=== PATIENT | female | born 1990 | race Caucasian/White ===

== ENCOUNTER → 2017-05-02 16:47 | Outpatient (CLI) | payer OTHER, SELFPAY ==
[2017-05-02 18:14] LABS: Protein, Urine (Random) 87.8 mg/dL (<11.9); Protein:Creat Ratio 646 mg/g CRE (0-200)
[2017-05-02 18:39] LABS: Anion Gap 11 (5-15); BUN 17 mg/dL (7-18); BUN/Creat Ratio 20.5 RATIO (10-20); Calcium,Total 9.8 mg/dL (8.5-10.1); Chloride 101 mmol/L (98-107); Creatinine, Serum 0.83 mg/dL (0.55-1.02); EST Glomerular Filtration Rate 88 mL/min (>60); Est Glom Filt Rate - Afr Amer 106 mL/min (>60); Glucose 163 mg/dL (74-106); Sodium Level 137 mmol/L (136-145)
== END ==
PROVIDERS: Family Provider Family Medicine; PCP Family Medicine; Visit Provider Internal Medicine Nephrology
DX: E11.21 Type 2 diabetes mellitus with diabetic nephropathy (principal)
CPT/HCPCS: 36415; 80048; 82570; 84156

== ENCOUNTER 2017-09-15 07:27 | Day surgery (SDC) | payer OTHER, SELFPAY ==
--- NOTE | 2017-09-14 16:32 | EKG12_ITS ---
Test Reason : PRE OP Blood Pressure : / mmHG Vent. Rate : 098 BPM Atrial Rate : 098 BPM P-R Int : 146 ms QRS Dur : 088 ms QT Int : 360 ms P-R-T Axes : 040 012 042 degrees QTc Int : 459 ms Normal sinus rhythm Normal ECG Confirmed by VICTOR HUGO ECHEVARRIA, WYATT ([id number]), editorial intern OVIDIO OH ([id number]) on 09/21/2017 3:28:00 PM Referred By: Sharri Dominguez Confirmed By:WYATT GAY MD
[2017-09-15] VITALS (8 sets, daily range): BP systolic 124–151; BP diastolic 61–80; PULSE 65–87; RESP 16–18; TEMP 36.2–36.6; O2SAT 92–98; BMI 60.1
--- NOTE | 2017-09-15 | GALL_PTH ---
PATIENT: OSVALDO VENTURA LOC: [facility] [place][id number] AGE/SX: 27/F ROOM: RE09/15/[address]: Dr. Sharri Dominguez MD : 1990 BED: DIS: 09/15/2017 SPEC #: [id number] RECD: 09/15/17 13:27 STATUS: STEPHANIA NICK #: [id number] DULCE: 09/15/17 00:[address]: Sharri Domingeuz DEPT: SURGICAL PATHOLOGY RECD BY: Dutch Bazan ENTERED: 09/15/17 13:27 EDUAR TYPE: JUAQUIN VILLEGAS DR: Dr. Surendra Benton MD Tissues: Gallbladder, NOS Procedures: Surgery Specimen Level III HEADER OPERATION: Laparoscopic cholecystectomy PRE-OP DIAGNOSIS: Upper abdominal pain, cholelithiasis TISSUE SUBMITTED: Gallbladder and contents MICROSCOPIC DIAGNOSIS Gallbladder and contents: Chronic cholecystitis and cholelithiasis. SJ:eduar 09/18/17 MICROSCOPIC DESCRIPTION Slides are reviewed. GROSS DESCRIPTION Received is one container labeled with the patient's name and designated gallbladder and contents. The specimen consists of a gallbladder measuring 8.5 cm in length and up to 4 cm in diameter. The external surface is pink-olmos, smooth and glistening for the most part. Focally it is granular, hemorrhagic and contains cautery artifact. The gallbladder contains green-yellow mucoid bile and multiple yellow mulberry stones measuring in aggregate 4 x 3 x 1.5 cm and 0.3 to 1.5 cm in greatest dimension. The mucosa is bile-stained and without any mass lesions. The gallbladder wall measures 0.3 cm in thickness. Surgical Resident sections from the gallbladder and the cystic duct are submitted in one cassette. / MARIA ESTHER:sp 09/15/17 TC:3 CPT: 91099
[2017-09-15 07:57] LABS: Internal QC Validated? YES +Cl - CLEAR BKGD; Pregnancy, Urine Negative Negative
[2017-09-15 08:08] LABS: Anion Gap 10 (5-15); BUN 19 mg/dL (7-18); BUN/Creat Ratio 25.3 RATIO (10-20); Calcium,Total 9.1 mg/dL (8.5-10.1); Chloride 105 mmol/L (98-107); Creatinine, Serum 0.75 mg/dL (0.55-1.02); EST Glomerular Filtration Rate 98 mL/min (>60); Est Glom Filt Rate - Afr Amer 119 mL/min (>60); Glucose 157 mg/dL (74-106); Sodium Level 137 mmol/L (136-145)
[2017-09-15 08:41] LABS: Bedside Glucose 165 mg/dL (70-110)
--- NOTE | 2017-09-15 09:12 | DCINST_ITS ---
Discharge Diet: No Restrictions Discharge Activity: Return to Normal Activity, May not drive while taking narcotic pain medications. Lifting Restrictions: no lifting greater than 20 pounds for 2 weeks Call your doctor if your incision/area has: Continuous Slow Oozing, Foul Smelling Discharge Call your doctor if you observe: Fever of 101 or Higher Additional Dressing/Incision Instructions:: Leave dressings in place. May get wet in shower. Do not soak - no tub baths/swimming Allergies/Adverse Reactions: Allergies No Known Allergies Allergy (Verified 09/13/17 16:09) Medications to take at Discharge Albuterol IH (ProAir) [Proair Hfa] 2 puff INHALATION Q4H PRN PRN 10/26/13 Lisinopril/Hydrochlorothiazide [Zestoretic 20/25 Tablet] 1 tablet PO DAILY 10/26 Metformin HCl 1,000 mg PO BID 03/06/17 Glimepiride 1 mg PO DAILY 09/13/17 Hydrocodone/Acetaminophen [Kingman 5-325 Tablet] 1 ea PO Q6H PRN PRN 5 Days #20 tab 09/15/17 The following prescriptions were given: Hydrocodone/Acetaminophen [Kingman 5-325 Tablet] 1 ea PO Q6H PRN PRN 5 Days #20 tab PRN Reason: Mod-Severe Pain (-12/27) Primary Care Physician: Surendra Benton MD [Primary Care Provider] - Please Follow Up With: Sharri Dominguez MD - call When: to be seen in 7-10 days, please call for date and time, thank you
--- NOTE | 2017-09-15 10:31 | OP.PN_ITS ---
Immediate Post-Op Note Date of Procedure: 09/15/17 Primary Surgeon/Physician: Sharri Dominguez quality improvement specialist: Flynn Patel Pre-Operative Diagnosis: cholelithiasis Post-Operative Diagnosis: cholelithiasis, chronic cholecystitis Surgery/Procedure Performed:: laparoscopic cholecystectomy Description of Surgical Findings:: chronic cholecystitis, cholelithiasis Estimated Blood Loss: < 10 Specimen's removed: gallbladder and contents Drains: none Type of Anesthesia:: General ASA Class: ASA3 Severe Disease - Admit VTE Documentation VTE Present on Admission: Yes VTE Mechan Device Prophylaxis: SCD's
--- NOTE | 2017-09-15 10:34 | OP.PCM_ITS ---
Report of Operation Date of Procedure: 09/15/17 Pre-Operative Diagnosis: cholelithiasis Post-Operative Diagnosis: cholelithiasis, chronic cholecystitis Surgery/Procedure Performed:: laparoscopic cholecystectomy Description of Surgical Findings:: chronic cholecystitis, cholelithiasis doggy daycare activities director: Flynn Patel Type of Anesthesia:: General Anesthesiologist: Blanquita Baird Specimen's removed: gallbladder and contents Drains: none Estimated Blood Loss (mL): < 10 Fluids Replaced: 1100 ml RL Description of Procedure: After informed consent was given, the patient was brought to the Operating Room and placed in the supine position. Appropriate time out protocol was followed. The patient was then placed under general endotracheal anesthesia. The abdomen was then prepped with a sterile surgical skin preparation and sterile surgical drapes were placed. An area above the umbilicus was grasped with penetrating clamps and the skin and subcutaneous tissues were infiltrated with local anesthetic. A skin incision was then made with a 15 blade scalpel. The anterior abdominal wall was elevated and a Veress needle was carefully inserted into the intraabdominal cavity. It was checked to be in the proper position with a normal saline drop test. A CO2 pneumoperitoneum was then created. Once this was achieved, then the Veress needle was removed and an 11mm trocar was placed in its stead. A 10mm laparoscope was then inserted into the trocar and careful attention was directed to the intraabdominal contents. There was no evidence of injury to any intraabdominal organs from insertion of the Veress needle or the trocar. Under direct visualization, a 5mm subxiphoid trocar and two lateral 5mm right subcostal trocars were placed. The skin and subcutaneous tissues at these sites were infiltrated with 0.25% marcaine with epinephrine prior to placement of these trocars. Attention was then directed to the right upper quadrant of the abdomen. Graspers were placed in the lateral trocars to grasp the distal aspect of the gallbladder and direct it cephalad and to grasp the gallbladder at Kam?s pouch and direct it laterally. Dissection then began on the proximal gallbladder continuing down to the area of the triangle of Calot to bluntly dissect out the cystic duct. The neck of the gallbladder was identified and blunt dissection continued to dissect out a segment of the cystic duct. A clip was then placed on the neck of the gallbladder. Two clips were placed proximally and then the cystic duct was then transected. The cystic artery was visualized and bluntly isolated and then two clips were placed proximally and one clip distally and then it was transected between the proximal and distal clips. The gallbladder was then from the liver bed using electrocautery and thus able to be brought out of the umbilical port. It was then forwarded to pathology for analysis. The liver bed was carefully examined. There was no evidence of bile leakage or bleeding. The cystic duct stump and cystic artery stump had their clips intact and there was no evidence of bile leakage or bleeding. The remainder of the abdomen was grossly normal. The CO2 was released and all trocars removed intact. The area superior to the umbilicus fascia was approximated with a [id number] 0 vicryl suture. All skin incision were closed with 4-0 monocryl in a subdermal fashion. Cavilol and Steristrips were used to reinforce the skin closure. Sterile dressings were applied to all wounds. The patient was extubated and brought to the Recovery Room in stable condition. Of note, the procedure was complicated by the patient's body habitus which took prolonged time in every step of the surgery because of the patient's body habitus. - Complications none noted - Admit VTE Documentation VTE Present on Admission: Yes VTE Mechan Device Prophylaxis: SCD's
[2017-09-15 11:36] LABS: Bedside Glucose 234 mg/dL (70-110)
[2017-09-15] MEDS: HYDROcodone Bitartrate/Apap 5/325 Tablet PO (12:38)
== END 2017-09-15 14:13 | disposition home or self-care (01) ==
LOC: SDC 07:29 → AC 07:29
PROVIDERS: Anesthesiology; Family Provider Family Medicine; PCP Family Medicine; Visit Provider Surgery
PROC: (CPT 47610; principal; 2017-09-15 09:15)
DX: K80.10 Calculus of gallbladder with chronic cholecystitis without obstruction (principal); K76.0 Fatty (change of) liver, not elsewhere classified; E66.01 Morbid (severe) obesity due to excess calories; J45.909 Unspecified asthma, uncomplicated; F32.9 Major depressive disorder, single episode, unspecified; E11.9 Type 2 diabetes mellitus without complications; E28.2 Polycystic ovarian syndrome; I10 Essential (primary) hypertension; K21.9 Gastro-esophageal reflux disease without esophagitis; Z79.84 Long term (current) use of oral hypoglycemic drugs; Z79.899 Other long term (current) drug therapy
CPT/HCPCS: 47562; 80048; 81025; 82962; 88304; 93005; J7120; J2405

== ENCOUNTER 2017-10-20 11:57 | Emergency (ER) | payer OTHER, SELFPAY ==
[2017-10-20 11:59] VITALS: BP 152/101; PULSE 92; RESP 16; TEMP 37; O2SAT 97; BMI 59.5
[2017-10-20 13:09] LABS: Absolute Lymphocyte Count 2.99 X10^3/ul (0.83-4.51); Absolute Neutrophil Count 6.3 X10^3/uL (2.0-7.7); Basophil# 0.02 X10^3/uL; Basophil% 0.2 % (0-1); Eosinophil# 0.32 X10^3/uL; Eosinophils% 3.1 % (0-5); Hematocrit 38.1 % (37-47); Hemoglobin 12.5 g/dl (12.0-15.0); Lymphocyte # 2.99 X10^3/ul (4.0); Lymphocyte % 29.2 % (19-41); Mean Corp Hgb Conc 32.8 g/gl (32-36); Mean Corpuscular Hgb 30.4 pg (27.0-32.0); Mean Corpuscular Volume 92.7 fL (81-99); Monocyte# 0.62 X10^3/uL; Monocyte% 6.1 % (0-10); Neutrophil # 6.26 X10^3/uL (2.7-7.7); Neutrophil % 61.2 % (47-70); POSITIVE COUNT NO; POSITIVE DIFFERENTIAL NO; POSITIVE MORPHOLOGY NO; Platelet Count 262 K/mm3 (150-450); RBC Distribution Width SD 43.4 fl (35.1-43.9); Red Blood Count 4.11 M/mm3 (4.2-5.4); White Blood Count 10.2 K/mm3 (4.4-11.0)
[2017-10-20] MEDS: Morphine 4 MG/ML Syringe IV (13:11)
[2017-10-20] MEDS: 0.9% Normal Saline 1,000 ML 1000 ML IV (13:12)
[2017-10-20] MEDS: Ondansetron 4 MG/2 ML Vial IV (13:12)
[2017-10-20 13:22] LABS: ALB/GLOB Ratio 0.9 RATIO (0.9-2.4); AST(SGOT) 20 U/L (15-37); Alanine Aminotransfer ALT/SGPT 34 U/L (13-56); Albumin, Serum 3.9 g/dL (3.2-5.0); Alkaline Phosphatase 74 U/L (45-117); Anion Gap 8 (5-15); BUN 14 mg/dL (7-18); Calcium,Total 9.3 mg/dL (8.5-10.1); Chloride 103 mmol/L (98-107); Creatinine, Serum 0.78 mg/dL (0.55-1.02); EST Glomerular Filtration Rate 94 mL/min (>60); Est Glom Filt Rate - Afr Amer 114 mL/min (>60); Estimated Creatinine Clearance 89.62 ml/min; Globulin 4.4 g/dL (2.2-4.2); Glucose 117 mg/dL (74-106); Lipase 97 U/L (73-393); Potassium 4.1 mmol/L (3.5-5.1); Protein, Total 8.3 g/dL (6.4-8.2); Sodium Level 137 mmol/L (136-145)
[2017-10-20 13:32] LABS: Bacteria 0 SEEN /hpf (None Seen); Mucous, Urine 0 SEEN /hpf (<or=2+); Red Blood Cells-Urine 0 SEEN /hpf (0-5); White Blood Cells 0 SEEN /hpf (0-5)
[2017-10-20 13:35] LABS: Color, Urine Yellow (Yellow); Glucose, Dipstick Normal (Normal); Ketone-Dipstick Negative (Negative); Leukocyte Esterase-Dipstick Negative /ul (Negative); Nitrite-Dipstick Negative (Negative); Occult Blood-Urine Negative /ul (Negative); Protein-Dipstick 30 mg/dl (Negative); Urine Bilirubin Dipstick Negative (Negative); Urine Clarity Clear (Clear); Urine Urobilinogen Normal (Normal)
[2017-10-20 13:46] LABS: Squamous Epithelial Cells - UA 0-5 SEEN /hpf (5-10)
[2017-10-20 14:08] VITALS: BP 143/83; PULSE 75; RESP 14; O2SAT 99
--- NOTE | 2017-10-20 15:24 | ED.VISSUMM ---
- ER Visit Summary Date of Service: 10/20/17 Chief Complaint: Epigastric and right upper quadrant pain History of Present Illness: The patient is a 27 F with above complaints. About 5 weeks ago she had a cholecystectomy. She has not had any complications. She is presenting with the above complaints without any nausea vomiting fever chills. No diarrhea or constipation. No lower abdominal pain. No urinary symptoms. Physical Examination: Not appear in acute distress. Moist mucous membranes, no obvious facial deformity No C-spine tenderness supple neck. Regular rate and rhythm without any obvious murmurs Clear lungs bilaterally speaking in full sentences without any obvious respiratory distress Abdomen soft, with right upper quadrant tenderness, no guarding or rebound, there is some epigastric pain also. Negative Martin's. Moves all extremities without any difficulty or pain. Skin does not show any obvious rashes or lesions, no trauma. Alert oriented ?3 with no gross focal deficit Emergency Department Course and Treatment: [Patient had an unremarkable workup, she significantly improved with antacids and analgesics. This is likely gastritis or an ulcer I will treat her as such and she will be discharged in stable condition of follow-up.] Impression: Abdominal pain Gastritis This note was generated with [employer]Doc dictation software. It may contain incorrect words, spelling, and punctuation that were not noted in review of the chart prior to signing ED Disposition - Plan for ED Patient: Disposition: Home or Assisted Living Chief Complaint: Abd Pain Instructions: ED Abdominal Pain Unkn Cause Prescriptions: Omeprazole 20 mg PO DAILY #30 tablet. Sucralfate [Carafate] 1 gm PO 4X/DAY #20 [facility] [place]errals: Surendra Benton MD [Primary Care Provider] - 3-5 Days
--- NOTE | 2017-10-20 15:29 | ED.DCSUM_ITS ---
- ER Visit Summary Date of Service: 10/20/17 Chief Complaint: Epigastric and right upper quadrant pain History of Present Illness: The patient is a 27 F with above complaints. About 5 weeks ago she had a cholecystectomy. She has not had any complications. She is presenting with the above complaints without any nausea vomiting fever chills. No diarrhea or constipation. No lower abdominal pain. No urinary symptoms. Physical Examination: Not appear in acute distress. Moist mucous membranes, no obvious facial deformity No C-spine tenderness supple neck. Regular rate and rhythm without any obvious murmurs Clear lungs bilaterally speaking in full sentences without any obvious respiratory distress Abdomen soft, with right upper quadrant tenderness, no guarding or rebound, there is some epigastric pain also. Negative Martin's. Moves all extremities without any difficulty or pain. Skin does not show any obvious rashes or lesions, no trauma. Alert oriented ?3 with no gross focal deficit Emergency Department Course and Treatment: [Patient had an unremarkable workup, she significantly improved with antacids and analgesics. This is likely gastritis or an ulcer I will treat her as such and she will be discharged in stable condition of follow-up.] Impression: Abdominal pain Gastritis This note was generated with OnePage[employer]M dictation software. It may contain incorrect words, spelling, and punctuation that were not noted in review of the chart prior to signing ED Disposition - Plan for ED Patient: Disposition: Home or Assisted Living Chief Complaint: Abd Pain Instructions: ED Abdominal Pain Unkn Cause Prescriptions: Omeprazole 20 mg PO DAILY #30 tablet. Sucralfate [Carafate] 1 gm PO 4X/DAY #20 [facility] [place] Referrals: Surendra Benton MD [Primary Care Provider] - 3-5 Days
[2017-10-20] MEDS: Famotidine 20mg IV Push Syringe Q12 300 MG IVP (15:49)
[2017-10-20 15:53] VITALS: BP 127/76; RESP 18
== END 2017-10-20 15:56 | disposition home or self-care (01) ==
PROVIDERS: Emergency Provider Emergency Medicine; Family Provider Family Medicine; PCP Family Medicine
DX: R10.13 Epigastric pain (principal); R10.11 Right upper quadrant pain; K29.70 Gastritis, unspecified, without bleeding; E11.9 Type 2 diabetes mellitus without complications; Z90.49 Acquired absence of other specified parts of digestive tract; Z79.84 Long term (current) use of oral hypoglycemic drugs
CPT/HCPCS: 80053; 81001; 83690; 85025; 96361; 96374; 96375; 99284; J7030; A4216; J2405; J3490

== ENCOUNTER 2017-11-08 11:24 | Day surgery (SDC) | payer OTHER, SELFPAY ==
[2017-11-08] VITALS (9 sets, daily range): BP systolic 102–140; BP diastolic 47–89; PULSE 70–93; RESP 18; TEMP 36.4–37.1; O2SAT 97–99; BMI 60.5
--- NOTE | 2017-11-08 | IMM_PTH ---
PATIENT: OSVALDO VENTURA LOC: [place] U#:[id number] AGE/SX: 27/F ROOM: RE11/08/[address]: Dr. Sharri Dominguez MD : 1990 BED: DIS: 11/08/2017 SPEC #: [id number] RECD: 11/09/17 11:06 STATUS: STEPHANIA RESmiley #: [id number] DULCE: 11/08/17 00:[address]: Sharri Dominguez DEPT: IMMUNOHISTOCHEMISTRY RECD BY: Anita Mccollum ENTERED: 11/09/17 11:07 SP TYPE: IMMUNO OTHR DR: Dr. Surendra Benton MD Tissues: B - Stomach, NOS Procedures: H Pylori (initial) PHYSICIAN & INSTITUTION [place] [address] SPECIMEN INFORMATION: Tissue Source: B ? Antral biopsy Clinical Info: Upper abdominal pain Specimen Number: [id number] CPT code: 10917 METHODOLOGY: Deparaffinized sections of prefer/formalin-fixed tissue or PAP/DQ stained slides are incubated with monoclonal/polyclonal antibodies/oligonucleotide probes. Localization is made via biotin free immunoperoxidase method. Appropriate controls are performed and reacted as expected. Results on target cell population are indicated in the following table: RESULTS: ANTIBODY / CLONE RESULT Block B H Pylori (polyclonal) negative These tests were developed and their performance characteristics determined by [facility]. They may not have been cleared or approved by the U.S. Food and Drug Administration. The FDA has determined that such clearance or approval is not necessary. INTERPRETATION: B. Antral biopsy: Negative for Helicobacter pylori organisms. SJ:jean cladue 11/09/17
[2017-11-08 11:56] LABS: Internal QC Validated? YES +Cl - CLEAR BKGD; Pregnancy, Urine Negative Negative
--- NOTE | 2017-11-08 12:30 | EGD_PTH ---
PATIENT: OSVALDO VENTURA LOC: [place] U#:[id number] AGE/SX: 27/F ROOM: RE11/08/[address]: Dr. Sharri Dominguez MD : 1990 BED: DIS: 11/08/2017 SPEC #: [id number] RECD: 11/08/17 14:17 STATUS: STEPHANIA NICK #: [id number] DULCE: 11/08/17 12:[address]: Sharri Dominguez DEPT: SURGICAL PATHOLOGY RECD BY: Lenny Peters ENTERED: 11/08/17 14:18 SP TYPE: EGD BIOPSY OTHR DR: Dr. Surendra Benton MD Tissues: A - Duodenum, NOS B - Gastric mucous membrane C - Gastric mucous membrane Procedures: Special Stain Group II Surgery Specimen Level IV Alcian Blue/PAS (control) HEADER OPERATION: EGD ([facility] [place]) PRE-OP DIAGNOSIS: Upper abdominal pain TISSUE SUBMITTED: A ? Second portion duodenum biopsy, B ? Antral biopsy, C ? GE junction biopsy MICROSCOPIC DIAGNOSIS A. Second portion of duodenum, biopsy: A fragment of duodenal mucosa, no pathologic diagnosis. B. Antral biopsy: Mild gastritis. C. GE junction, biopsy: Fragments of gastroesophageal mucosa with chronic inflammation and changes consistent with gastroesophageal reflux disease. Intestinal metaplasia (goblet cell metaplasia) is not identified. See comment. SJ:rg 11/09/17 COMMENT B. The results of immunohistochemistry for Helicobacter pylori will be reported separately ([id number]). C. The specimen also shows increased number of eosinophils suggestive of eosinophilic esophagitis (up to 20 eosinophils per high power field). Alcian blue/PAS stain with matched control is used in the evaluation of the specimen. MICROSCOPIC DESCRIPTION Slides are reviewed. B. The specimen shows fragments of gastric mucosa with chronic inflammatory cell infiltrates in the lamina propria consisting of lymphocytes and plasma cells, consistent with mild chronic gastritis. GROSS DESCRIPTION A - Received in fixative is one container labeled with the patient's name and designated second portion of duodenum biopsy. The specimen consists of one irregular fragment of light olmos soft tissue that measures 0.3 x 0.3 x 0.1 cm. The specimen is totally submitted in one cassette. B - Received in fixative is one container labeled with the patient's name and designated antral biopsy. The specimen consists of one irregular fragment of light olmos soft tissue that measures 0.4 x 0.2 x 0.1 cm. The specimen is totally submitted in one cassette. C - Received in fixative is one container labeled with the patient's name and designated GE junction biopsy. The specimen consists of two irregular fragments of light olmos soft tissue that in aggregate measure 0.5 x 0.2 x 0.1 cm. The specimen is totally submitted in one cassette. / SJ:rg 11/08/17 TC:3 CPT: 04025 x3, 87386
[2017-11-08 13:06] LABS: Bedside Glucose 158 mg/dL (70-110)
--- NOTE | 2017-11-08 19:18 | PCM.OPRPT ---
Report of Operation Date of Procedure: 11/08/17 Pre-Operative Diagnosis: upper abdominal pain Post-Operative Diagnosis: hiatal hernia, GERD, enterogastric bile reflux Surgery/Procedure Performed:: EGD with biopsies Description of Surgical Findings:: small to moderate sized hiatal hernia noted, active gastroesophageal reflux noted, enterogastric reflux of bile noted Type of Anesthesia:: MAC Anesthesiologist: Ronny Robles Specimen's removed: mucosal biopsies of second portion of duodenum, mucosal biopsies of antrum of stomach, mucosal biopsies of GE junction Estimated Blood Loss (mL): minimal Fluids Replaced: see anesthesia note Description of Procedure: After informed consent was given, the patient was brought to the endoscopy suite and placed in the upright sitting position. Appropriate time out protocol was followed. Appropriate cardiac, blood pressure, and pulse oximetry monitoring was placed. After stable vital signs were noted, the patient was given intravenous conscious sedation. The posterior pharynx was sprayed with lidocaine spray and a bite block was placed. The patient was then placed in the left lateral decubitis position. The upper endoscope was lubricated and inserted into the patients mouth and then carefully placed into the patients throat. The patient was asked to swallow and the endoscope was then easily advanced into the patients esophagus. The endoscope was further advanced down into the patients stomach, then past the pylorus, then past the duodenal bulb and then to the second portion of the duodenum. There were no lesions noted in the duodenum. Mucosal biopsies were taken with cold grasper forceps to rule out celiac sprue. The endoscope was then retracted back into the stomach. Mucosal biopsies were taken of the antrum to rule out H pylori, though the mucosa appeared grossly normal, There was enterogastric bile reflux noted and there was retained bile in the stomach. A retroflex view of the stomach revealed no evidence of any masses. No ulcers, no strictures, no suspicious lesions were noted. The patient had a small to moderate sided hiatal hernia with active gastroesophageal reflux noted. The endoscope was retracted into the esophagus. The GI junction appeared minimally irregular, mucosal biopsies were taken with cold grasper forceps. Active gastroesophageal reflux was noted. The remainder of the esophagus was normal. The upper endoscope was removed intact. Patient tolerated procedure well. - Complications none noted
== END 2017-11-08 14:15 | disposition home or self-care (01) ==
LOC: EN 11:25 → AC 11:26
PROVIDERS: Family Provider Family Medicine; PCP Family Medicine; Visit Provider Surgery
PROC: 0DJ08ZZ Inspection of Upper Intestinal Tract, Via Natural or Artificial Opening Endoscopic (ICD-10-PCS; CPT 43235; principal; 2017-11-08 12:25)
DX: K29.70 Gastritis, unspecified, without bleeding (principal); K44.9 Diaphragmatic hernia without obstruction or gangrene; K21.9 Gastro-esophageal reflux disease without esophagitis; J45.909 Unspecified asthma, uncomplicated; F32.9 Major depressive disorder, single episode, unspecified; E11.9 Type 2 diabetes mellitus without complications; E28.2 Polycystic ovarian syndrome; I10 Essential (primary) hypertension; Z90.49 Acquired absence of other specified parts of digestive tract; Z79.84 Long term (current) use of oral hypoglycemic drugs; Z79.899 Other long term (current) drug therapy; Z87.891 Personal history of nicotine dependence
CPT/HCPCS: 43239; 81025; 82962; 88305; 88313; 88342; J7120

== ENCOUNTER → 2018-07-03 16:35 | Outpatient (CLI) | payer OTHER, SELFPAY ==
[2017-11-08 11:59] VITALS: BMI 60.5
[2018-07-03 18:04] LABS: Protein, Urine (Random) 65.2 mg/dL (<11.9); Protein:Creat Ratio 476 mg/g CRE (0-200)
[2018-07-03 18:18] LABS: Anion Gap 7 (5-15); BUN 13 mg/dL (7-18); BUN/Creat Ratio 17.4 RATIO (10-20); Calcium,Total 9.6 mg/dL (8.5-10.1); Chloride 105 mmol/L (98-107); Creatinine, Serum 0.75 mg/dL (0.55-1.02); EST Glomerular Filtration Rate 98 mL/min (>60); Est Glom Filt Rate - Afr Amer 119 mL/min (>60); Glucose 102 mg/dL (74-106); Potassium 4.3 mmol/L (3.5-5.1); Sodium Level 137 mmol/L (136-145)
== END ==
PROVIDERS: Family Provider Family Medicine; PCP Family Medicine; Referring Provider Internal Medicine Nephrology; Visit Provider Internal Medicine Nephrology
DX: E11.21 Type 2 diabetes mellitus with diabetic nephropathy (principal)
CPT/HCPCS: 36415; 80048; 82570; 84156

== ENCOUNTER → 2018-10-03 | Outpatient (CLI) | payer OTHER, SELFPAY ==
[2018-10-03 17:25] LABS: Protein, Urine (Random) 41.2 mg/dL (<11.9); Protein:Creat Ratio 358 mg/g CRE (0-200)
[2018-10-03 17:29] LABS: BUN 18 mg/dL (7-18); BUN/Creat Ratio 24.8 RATIO (10-20); Calcium,Total 9.6 mg/dL (8.5-10.1); Chloride 104 mmol/L (98-107); Creatinine, Serum 0.73 mg/dL (0.55-1.02); EST Glomerular Filtration Rate 101 mL/min (>60); Est Glom Filt Rate - Afr Amer 122 mL/min (>60); Glucose 102 mg/dL (74-106); Phosphorus 4.5 mg/dL (2.5-4.9); Potassium 4.1 mmol/L (3.5-5.1); Sodium Level 135 mmol/L (136-145)
== END | disposition home or self-care (01) ==
LOC: LAB.FUTURE 16:39
PROVIDERS: Family Provider Family Medicine; PCP Family Medicine; Referring Provider Internal Medicine Nephrology; Visit Provider Internal Medicine Nephrology
DX: E11.21 Type 2 diabetes mellitus with diabetic nephropathy (principal)
CPT/HCPCS: 36415; 80069; 82570; 84156

== ENCOUNTER → 2019-09-27 14:06 | Outpatient (CLI) | payer OTHER, SELFPAY ==
[2017-11-08 11:59] VITALS: BMI 60.5
[2019-09-27 15:17] LABS: Protein, Urine (Random) 339.3 mg/dL (<11.9); Protein:Creat Ratio 1216 mg/g CRE (0-200)
[2019-09-27 16:10] LABS: Albumin, Serum 3.7 g/dL (3.2-5.0); BUN 11 mg/dL (7-18); BUN/Creat Ratio 13.8 RATIO (10-20); Calcium,Total 9.4 mg/dL (8.5-10.1); Chloride 100 mmol/L (98-107); EST Glomerular Filtration Rate 90 mL/min (>60); Est Glom Filt Rate - Afr Amer 109 mL/min (>60); Glucose 252 mg/dL (74-106); Phosphorus 3.4 mg/dL (2.5-4.9); Sodium Level 134 mmol/L (136-145)
== END ==
PROVIDERS: PCP Family Medicine; Referring Provider Internal Medicine Nephrology; Visit Provider Internal Medicine Nephrology
DX: E11.21 Type 2 diabetes mellitus with diabetic nephropathy (principal)
CPT/HCPCS: 36415; 80069; 82570; 84156

== ENCOUNTER → 2020-10-07 16:38 | Outpatient (CLI) | payer OTHER, SELFPAY ==
[2020-10-07 17:26] LABS: Protein, Urine (Random) 19.6 mg/dL (<11.9); Protein:Creat Ratio 205 mg/g CRE (0-200)
[2020-10-07 17:28] LABS: Albumin, Serum 3.9 g/dL (3.2-5.0); BUN 17 mg/dL (7-18); BUN/Creat Ratio 22.7 RATIO (10-20); Calcium,Total 8.9 mg/dL (8.5-10.1); Chloride 105 mmol/L (98-107); Creatinine, Serum 0.75 mg/dL (0.55-1.02); EST Glomerular Filtration Rate 97 mL/min (>60); Est Glom Filt Rate - Afr Amer 117 mL/min (>60); Glucose 102 mg/dL (74-106); Sodium Level 136 mmol/L (136-145)
== END ==
PROVIDERS: PCP Family Medicine; Referring Provider Internal Medicine Nephrology; Visit Provider Internal Medicine Nephrology
DX: E11.21 Type 2 diabetes mellitus with diabetic nephropathy (principal)
CPT/HCPCS: 36415; 80069; 82570; 84156

== ENCOUNTER 2021-05-13 11:16 | Outpatient (CLI) | payer OTHER, SELFPAY ==
[2021-05-17 20:20] LABS: HPV APTIMA, High Risk Negative (Negative)
== END 2021-05-13 23:59 | disposition home or self-care (01) ==
LOC: LABSPEC 11:17
PROVIDERS: PCP Family Medicine; Visit Provider Student in an Organized Health Care Education/Training Program
DX: Z12.4 Encounter for screening for malignant neoplasm of cervix (principal)
CPT/HCPCS: 87624; 88175; G0145

== ENCOUNTER 2021-06-09 06:08 | Outpatient (CLI) | payer OTHER, SELFPAY ==
[2021-06-09 07:45] LABS: Estradiol 38.5 pg/mL; Follicle Stimulating Hormone 3.5 mIU/mL; Prolactin 11.9 ng/mL; Thyroid Stim Hormone (TSH) 2.68 uIU/mL (0.358-3.74)
[2021-06-09 10:33] LABS: Hepatitis B Surface Antibody Non-Reactive; Rubella IgG Reactive (Nonreactive); Vitamin D,25 Hydroxy 16.3 ng/mL
[2021-06-10 14:51] LABS: V-Zoster IgG (Immunity) 960 index (Immune >165)
[2021-06-16 21:22] LABS: 17-Hydroxyprogesterone 12 ng/dL (.)
== END 2021-06-09 23:59 | disposition home or self-care (01) ==
LOC: LAB 06:10
PROVIDERS: PCP Family Medicine; Referring Provider Student in an Organized Health Care Education/Training Program; Visit Provider Student in an Organized Health Care Education/Training Program
DX: N92.6 Irregular menstruation, unspecified (principal)
CPT/HCPCS: 36415; 82306; 82670; 83001; 83002; 83498; 84146; 84439; 84443; 86706; 86762; 86787

== ENCOUNTER 2021-06-28 10:49 | Outpatient (CLI) | payer OTHER, SELFPAY ==
[2021-06-28 13:32] LABS: Progesterone Level 1.36 ng/mL (See Comment)
[2021-07-02 11:33] LABS: Testosterone Free 8.4 pg/mL (0.0-4.2)
== END 2021-06-28 23:59 | disposition home or self-care (01) ==
PROVIDERS: PCP Family Medicine; Visit Provider Student in an Organized Health Care Education/Training Program
DX: N92.6 Irregular menstruation, unspecified (principal)
CPT/HCPCS: 36415; 82627; 84144; 84402; 82626

== ENCOUNTER → 2021-10-05 | Outpatient (CLI) | payer OTHER, SELFPAY ==
[2017-11-08 11:59] VITALS: BMI 60.5
[2021-10-05 17:35] LABS: Protein, Urine (Random) 41.9 mg/dL (<11.9); Protein:Creat Ratio 349 mg/g CRE (0-200)
[2021-10-05 20:18] LABS: BUN 20 mg/dL (7-18); BUN/Creat Ratio 23.3 RATIO (10-20); Calcium,Total 9.8 mg/dL (8.5-10.1); Chloride 104 mmol/L (98-107); Creatinine, Serum 0.86 mg/dL (0.55-1.02); EST Glomerular Filtration Rate 82 mL/min (>60); Est Glom Filt Rate - Afr Amer 99 mL/min (>60); Glucose 116 mg/dL (74-106); Phosphorus 4.4 mg/dL (2.5-4.9); Potassium 4.4 mmol/L (3.5-5.1); Sodium Level 137 mmol/L (136-145)
== END | disposition home or self-care (01) ==
LOC: LAB 16:39
PROVIDERS: PCP Family Medicine; Visit Provider Internal Medicine Nephrology
DX: E11.21 Type 2 diabetes mellitus with diabetic nephropathy (principal)
CPT/HCPCS: 36415; 80069; 82570; 84156

== ENCOUNTER → 2022-09-29 | Outpatient (CLI) | payer OTHER, SELFPAY ==
[2022-09-29 17:42] LABS: Protein, Urine (Random) 45.8 mg/dL (<11.9); Protein:Creat Ratio 236 mg/g CRE (0-200)
[2022-09-29 17:50] LABS: Vitamin D,25 Hydroxy 32.2 ng/mL
[2022-09-29 18:02] LABS: Hemoglobin A1c 6.4 % (3.8-5.6)
[2022-09-29 18:06] LABS: AST(SGOT) 13 U/L (15-37); Alanine Aminotransfer ALT/SGPT 29 U/L (13-56); Albumin, Serum 3.9 g/dL (3.2-5.0); Alkaline Phosphatase 68 U/L (45-117); Anion Gap 9 (5-15); BUN 17 mg/dL (7-18); BUN/Creat Ratio 20.9 RATIO (10-20); Calcium,Total 9.6 mg/dL (8.5-10.1); Chloride 106 mmol/L (98-107); Cholesterol 141 mg/dL (200); Creatinine, Serum 0.82 mg/dL (0.55-1.02); EST Glomerular Filtration Rate 86 mL/min (>60); Est Glom Filt Rate - Afr Amer 104 mL/min (>60); Glucose 102 mg/dL (74-106); High Density Lipoprotein 51 mg/dL; Phosphorus 3.9 mg/dL (2.5-4.9); Potassium 4.2 mmol/L (3.5-5.1); Protein, Total 7.9 g/dL (6.4-8.2); Sodium Level 138 mmol/L (136-145); T4 Free Direct 1.04 ng/dL (0.76-1.46); Thyroid Stim Hormone (TSH) 1.67 uIU/mL (0.358-3.74); Triglycerides 92 mg/dL; Very Low Density Lipoprotein 18 mg/dL (5-40)
[2022-10-12 15:13] LABS: Testosterone, Total 87 ng/dL (8-60)
== END | disposition home or self-care (01) ==
LOC: LAB 16:38
PROVIDERS: Internal Medicine Endocrinology, Diabetes & Metabolism; Nurse Practitioner Family; PCP Family Medicine; Referring Provider Internal Medicine Nephrology; Visit Provider Internal Medicine Nephrology
DX: E11.21 Type 2 diabetes mellitus with diabetic nephropathy (principal); E28.2 Polycystic ovarian syndrome; E66.9 Obesity, unspecified; E55.9 Vitamin D deficiency, unspecified
CPT/HCPCS: 36415; 80053; 80061; 82043; 82306; 82570; 82627; 83036; 84100; 84156; 84402; 84403; 84439; 84443; 82626

== ENCOUNTER → 2023-10-05 | Outpatient (CLI) | payer OTHER, SELFPAY ==
[2023-10-05 17:34] LABS: Albumin, Serum 4.2 g/dL (3.2-5.0); BUN 25 mg/dL (7-18); BUN/Creat Ratio 23.4 RATIO (10-20); Calcium,Total 9.8 mg/dL (8.5-10.1); Chloride 102 mmol/L (98-107); Creatinine, Serum 1.07 mg/dL (0.55-1.02); EST Glomerular Filtration Rate 63 mL/min (>60); Est Glom Filt Rate - Afr Amer 76 mL/min (>60); Glucose 115 mg/dL (74-106); Phosphorus 3.7 mg/dL (2.5-4.9); Potassium 4.4 mmol/L (3.5-5.1); Sodium Level 133 mmol/L (136-145)
[2023-10-05 17:43] LABS: Protein, Urine (Random) 25.9 mg/dL (<11.9); Protein:Creat Ratio 79 mg/g CRE (0-200)
== END | disposition home or self-care (01) ==
LOC: LAB 16:33
PROVIDERS: PCP Family Medicine; Referring Provider Internal Medicine Nephrology; Visit Provider Internal Medicine Nephrology
DX: E11.21 Type 2 diabetes mellitus with diabetic nephropathy (principal)
CPT/HCPCS: 36415; 80069; 82570; 84156

== ENCOUNTER → 2024-10-01 | Outpatient (CLI) | payer OTHER, SELFPAY ==
[2024-10-01 17:47] LABS: Albumin, Serum 4.7 g/dL (3.5-5.0); Anion Gap 17 (5-15); BUN 15 mg/dL (4-19); BUN/Creat Ratio 15.6 RATIO (10-20); Calcium,Total 9.9 mg/dL (7.6-11.0); Carbon Dioxide 19.0 mmol/L (21.0-32.0); Chloride 101 mmol/L (98-108); Creatinine, Urine (random) 173.00 mg/dL (28.00-217.00); Glucose 110 mg/dL (70-99); Potassium 4.0 mmol/L (3.3-5.1); Protein, Urine (Random) 15.2 mg/dL (0.0-12.0); Protein:Creat Ratio 88 mg/g CRE (0-200)
--- OUTSIDE RECORDS SUMMARY | 2024-10-01 22:20 | XMS RPT_ITS | CCD ---
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 Surendra Benton Primary Care Provider Dr. Surendra Benton Referring Provider [phone] Dr. Jonatan Interiano Attending Provider Surendra Benton MD Primary Care Provider Dr. Surendra Benton Primary Care Provider Dr. Surendra Benton Referring Provider Dr. Jonatan Interiano Attending Provider [phone] Surendra Benton MD Primary Care Provider Francisco ASSISTANT CONSTRUCTION SUPERINTENDENT.Flora [place] Unavailable [phone] Efrain ASSISTANT CONSTRUCTION SUPERINTENDENT.Teressa [place] Unavailable [phone] Jonatan Interiano Attending Unavailable Surendra Benton Primary Care Unavailable Surendra Benton Referring Unavailable Surendra Benton Primary Care Unavailable Katelin Crump Attending Unavailable Katelin Crump Referring Unavailable Surendra Benton Primary Care Unavailable Katelin Crump Attending Unavailable Jonatan Interiano Attending Unavailable Surendra Benton Primary Care Unavailable Surendra Benton Referring Unavailable SURENDRA BENTON Primary Care Unavailable FLORA SINGH Attending Unavailable RADHA SHORT Attending Unavailable SURENDRA BENTON Primary Care Unavailable FLORA SINGH Referring Unavailable Medications Current Medications Medication Drug Class(es) Dates Sig (Normalized) Sig (Original) [id number] 200 actuat albuterol 0.09 mg/actuat metered dose inhaler (20 sources) beta2-Adrenergic Agonist Start: 08-21-2023 End: 05-30-2024 take 2 puff(s) by inhalation every four hours as needed for wheezing albuterol HFA (PROVENTIL HFA, VENTOLIN HFA) 90 mcg/actuation inhaler Indications: Uncomplicated asthma, unspecified asthma severity, unspecified whether persistent (HCC) , SOB (shortness of breath) Inhale 2 Puffs as instructed every 4 hours as needed for wheezing/shortness of breath. 1 Each 05/30/2024 Active Start: 12-12-2022 End: 08-19-2023 take 2 puff(s) by inhalation every four hours as needed for wheezing albuterol HFA (PROVENTIL HFA, VENTOLIN HFA) 90 mcg/actuation inhaler Indications: Uncomplicated asthma, unspecified asthma severity, unspecified whether persistent , SOB (shortness of breath) Inhale 2 Puffs as instructed every 4 hours as needed for wheezing/shortness of breath. 1 Each 0 12/12/2022 08/19/2023 Discontinued Start: 02-20-2020 End: 09-27-2021 take 2 puff(s) by inhalation every four hours as needed for wheezing albuterol HFA (PROVENTIL HFA, VENTOLIN HFA) 90 mcg/actuation inhaler Indications: Uncomplicated asthma, unspecified asthma severity, unspecified whether persistent , SOB (shortness of breath) Inhale 2 Puffs as instructed every 4 hours as needed for wheezing/shortness of breath. 18 g 5 01/25/2021 09/27/2021 Discontinued Start: 10-20-2017 take 1 puff(s) by in halation every six hours as needed Albuterol Sulfate (Proair Hfa (Sp)Vent Pts) 1 PUFF inhaler Active 1 - 2 PUFF INHALATION EVERY 6 HOURS NEEDED October 20, 2017 12:00am Comment on above: Inhale 2 Puffs as in structed every 4 hours as needed for wheezing/shortness of breath. cinnamon bark 500 mg oral capsule (20 sources) Start: take 500 mg by mouth once daily Cinnamon Bark Active 500 MG PO DAILY October 20, 2017 12:00am End: 07-30-2024 CINNAMON BARK (CINNAMON ORAL ) Take by mouth once daily. 07/30/2024 Discontinued (Course of therapy completed) CINNAMON BARK (C INNAMON ORAL) Take by mouth once daily. Active CINNAMON BARK (C INNAMON ORAL) Take by mouth once daily. 0 Active Comment on above: Take by mouth once d aily. Dulaglutide (16 sources) GLP-1 Receptor Agonist Start: 07-25-2022 Dulaglutide (Trulicity) 4.5 mg/0.5 mL pen injector Active 4.5 MG SC EVERY WEEK 2 July 25, 2022 12:00am Start: 02-24-2022 End: 07-25-2022 Dulaglutide (Trulicity) 3 mg /0.5 mL pen injector Discontinued 3 MG SC EVERY WEEK 6 February 24, 2022 1:00am July 25, 2022 8:54am Start: 10-19-2021 End: 02-24-2022 Dulaglutide (Trulicity) 1.5 mg/0.5 mL pen injector Discontinued 1.5 MG SC EVERY WEEK 2 October 19, 2021 12:00am February 24, 2022 10:18am Start: 08-17-2021 End: 07-30-2024 inject 0.75 mg by subcutaneous injection every week dulaglutide (TRULICITY) 0.75 mg/0.5 mL pen injector Inject 0.75 mg subcutaneously one time a week. Inject dose once per week. Discard Pen After 2 mL 5 08/17/2021 07/30/2024 Discontinued (Course of therapy completed) Start: 01-26-2021 End: 07-25-2021 inject 0.75 mg by subcutaneous injection every week dulaglutide (TRULICITY) 0.75 mg/0.5 mL pen injector Inject 0.75 mg subcutaneously one time a week. Inject dose once per week. Discard Pen After 2 mL 5 01/26/2021 07/25/2021 Active Comment on above: Inject 0.75 mg subcu taneously one time a week. Inject dose once per week. Discard Pen After empagliflozin 25 mg oral tablet (2 sources) Sodium-Glucose Cotransporter 2 Inhibitor Start: 05-19-19 25 take 1 tablet by mouth once daily in the morning JARDIANCE 25 mg tablet Take 25 mg by mouth every morning. 05/18/2024 Active lisinopril 30 mg oral tablet (20 sources) Angiotensin Converting Enzyme Inhibitor Start: 10-01-19 Lisinopril Active 30 MG PO September 30, 2021 12:00am Start: 10-20-2017 End: 02-24-2022 take 1 tablet by mouth once daily Lisinopril (Zestril) 20 MG tablet Discontinued 20 MG PO DAILY October 20, 2017 12:00am February 24, 2022 10:06am take 3 tablets by mo ut once daily lisinopril (ZESTRIL, PRINIVIL) 10 mg tablet Take 30 mg by mouth once daily. Active Comment on above: Take 30 mg by mouth once daily. 24 hr metFORMIN hydrochloride 500 mg extended release oral tablet (20 sources) Biguanide Start: 09-30-2021 End: 02-24-2022 Metformin Discontinued 500 MG PO September 30, 2021 12:00am February 24, 2022 10:06am Start: 07-24-2020 End: 12-27-2022 take 2 tablets by mouth twice daily metFORMIN ER (GLUCOPHAGE XR) 500 mg 24 hr tablet Indications: Type 2 diabetes mellitus without complication, without long-term current use of insulin (HCC) Take 2 tablets by mouth two times a day. 120 tablet 11 12/27/2022 Active Start: 10-20-2017 End: 07-25-2022 take 1000 mg by mouth twice daily at mealtime Metformin Active 1000 MG PO TWICE DAILY WITH MEALS 60 July 25, 2022 8:55am Comment on above: Take 2 tablets by mo ut twice daily. Take 2 tablets by mo [facility] two times a day. MOUNJARO 2.5 mg/0.5 mL pen injector (1 source) Start: 07-16-19 inject 2.5 mg by subcutaneous injection every week MOUNJARO 2.5 mg/0.5 mL pen injector Inject 2.5 mg subcutaneously one time a week. 07/15/2024 Active multivit-min/iron fum/folic ac (ONE-A-DAY WOMEN'S COMPLETE ORAL) (1 source) multivit-min/iro n fum/folic ac (ONE-A-DAY WOMEN'S COMPLETE ORAL) Take by mouth. Active norethindrone 0.35 mg oral tablet (19 sources) Start: 04-17-19 End: 07-31-19 take 1 tablet by mouth once daily Norethindrone, Contraceptive, (DEBLITANE) 0.35 mg tablet Indications: Encounter for surveillance of contraceptive pills Take 1 tablet by mouth once daily. 28 tablet 11 07/30/2024 Active Start: 09-30-2021 Norethindrone (Contraceptive) Active TAB PO September 30, 2021 12:00am Start: 07-19-2021 take 1 tablet by mae once daily Norethindrone, Contraceptive, (DEBLITANE) 0.35 mg tablet Take 1 tablet by mouth once daily. 0 07/19/2021 Active Comment on above: Take 1 tablet by mae th once daily. omeprazole 20 mg delayed release oral capsule (11 sources) Proton Pump Inhibitor Start: take 1 capsule by mouth once daily before breakfast omeprazole (PRILOSEC) 20 mg capsule Take 1 capsule by mouth daily before breakfast. 1/2 hr before meal. 30 capsule 3 04/17/2023 Active Start: 10-20-2017 End: 07-25-2022 take 20 mg by mouth once daily Omeprazole Discontinued 20 MG PO DAILY October 20, 2017 12:00am July 25, 2022 8:44am Comment on above: Take 1 capsule by mo [facility] daily before breakfast. 1/2 hr before meal. Completed/Discontinued Medications Medication Drug Class(es) Dates Sig (Normalized) Sig (Original) 120 actuat fluticasone propionate 0.044 mg/actuat metered dose inhaler (3 sources) Corticosteroid Start: 01-26-20 21 End: 07-25-19 22 take 1 puff(s) by mouth twice daily fluticasone (FLOVENT HFA) 44 mcg/actuation inhaler Inhale 1 Puff as instructed twice daily. Shake well before use. Rinse mouth after use. 1 Each 5 01/25/2021 07/24/2021 Comment on above: Inhale 1 Puff as ins tructed twice daily. Shake well before use. Rinse mouth after use. glimepiride 1 mg oral tablet (20 sources) Sulfonylurea Start: 10-21-19 18 End: 07-31-19 25 take 1 tablet by mouth once daily at breakfast glimepiride (AMARYL) 1 mg tablet Indications: Type 2 diabetes mellitus without complication, without long-term current use of insulin (HCC) Take 1 tablet by mouth daily with breakfast. 30 tablet 5 02/09/2022 07/30/2024 Discontinued (Course of therapy completed) Comment on above: Take 1 tablet by mae th daily with breakfast. hydroCHLOROthiazide 25 mg oral tablet (4 sources) Thiazide Diuretic Start: 10-21-19 End: 02-25-20 take 12.5 mg by mouth once daily Hydrochlorothiazide Discontinued 12.5 MG PO DAILY October 20, 2017 12:00am February 24, 2022 10:06am vit-iron fumarate-fa () 28 mg iron- 800 mcg tab (14 sources) Start: 07-20-19 End: 07-31-19 take 1 tablet by mouth once daily vit-iron fumarate-fa () 28 mg iron- 800 mcg tab Take 1 tablet by mouth once daily. 07/19/2021 07/30/2024 Discontinued (Course of therapy completed) Start: 07-19-2021 take 1 tablet by mae th once daily vit-iron fumarate-fa () 28 mg iron- 800 mcg tab Take 1 tablet by mouth once daily. 07/19/2021 Active Start: 07-19-2021 take 1 tablet by mae th once daily vit-iron fumarate-fa () 28 mg iron- 800 mcg tab Take 1 tablet by mouth once daily. 0 07/19/2021 Active Comment on above: Take 1 tablet by mae th once daily. TRULICITY 4.5 mg/0.5 mL pen injector (7 sources) Start: End: inject 0.5 mL by subcutaneous injection every week TRULICITY 4.5 mg/0.5 mL pen injector INJECT 0.5 ml SUBCUTANEOUSLY EVERY WEEK 04/06/2023 07/30/2024 Discontinued (Course of therapy completed) Start: 04-06-2023 inject 0.5 mL by sub cutaneous injection every week TRULICITY 4.5 mg/0.5 mL pen injector INJECT 0.5 ml SUBCUTANEOUSLY EVERY WEEK 04/06/2023 Active Start: 04-06-2023 inject 0.5 mL by sub cutaneous injection every week TRULICITY 4.5 mg/0.5 mL pen injector INJECT 0.5 ml SUBCUTANEOUSLY EVERY WEEK 0 04/06/2023 Active Comment on above: INJECT 0.5 ml SUBCUT ANEOUSLY EVERY WEEK Problems Active Problems Problem Classification Problem Date Documented Date Episodic/Chronic Asthma (20 sources) Asthma; Translations: [Unspecified asthma, uncomplicated] Onset: 10-13-2014 10-13-2014 Chronic Diabetes mellitus with complications (2 sources) Type 2 diabetes mellitus with diabetic nephropathy; Translations: [Type 2 diabetes mellitus with diabetic nephropathy] Onset: 05-23-2024 Chronic Diabetes mellitus without complication (20 sources) Diabetes mellitus; Translations: [Type 2 diabetes mellitus without complications] Onset: 01-19-2015 Resolved: 10-13-2014 01-19-2015 Chronic Diseases of white blood cells (3 sources) Leukocytosis; Translations: [Elevated white blood cell count, unspecified] Onset: 06-17-2024 04-21-2023 Chronic Essential hypertension (20 sources) Hypertensive disorder; Translations: [Essential (primary) hypertension] Onset: 01-13-2014 01-13-2014 Chronic Immunizations and screening for infectious disease (1 source) Encounter for screening for human papillomavirus (HPV); Translations: [Encounter for screening for human papillomavirus (HPV)] Onset: 07-30-2024 Episodic Other endocrine disorders (4 sources) Polycystic ovary syndrome; Translations: [Polycystic ovarian syndrome] Onset: 07-30-2024 07-25-2022 Chronic Other endocrine disorders (3 sources) Polycystic ovarian syndrome; Translations: [Polycystic ovaries] Onset: 07-30-2024 Chronic Other lower respiratory disease (5 sources) Dyspnea; Translations: [Shortness of breath] Episodic Other non-traumatic joint disorders (1 source) Pain in right knee; Translations: [Pain in joint, lower leg] 08-18-2020 Episodic Other nutritional; endocrine; and metabolic disorders (16 sources) Morbid obesity; Translations: [Morbid (severe) obesity due to excess calories] Onset: 01-13-2014 01-13-2014 Chronic Other nutritional; endocrine; and metabolic disorders (2 sources) Obesity; Translations: [Obesity, unspecified] 07-25-2022 Chronic Other nutritional; endocrine; and metabolic disorders (2 sources) Obesity, unspecified; Translations: [Obesity, unspecified] Chronic Other nutritional; endocrine; and metabolic disorders (1 source) Severe obesity; Translations: [Class 3 severe obesity with serious comorbidity and body mass index (BMI) of 50.0 to 59.9 in adult, unspecified obesity type] 07-30-2024 Chronic Other nutritional; endocrine; and metabolic disorders (1 source) Morbid (severe) obesity due to excess calories; Translations: [Morbid (severe) obesity due to excess calories] Onset: 05-23-2024 Chronic Other nutritional; endocrine; and metabolic disorders (2 sources) Body mass index (BMI) 50.0-59.9, adult; Translations: [Body mass index [BMI] 50.0-59.9, adult] Onset: 05-23-2024 Chronic Unclassified (1 source) Cancer cervix screening status 06-17-2024 Unclassified (1 source) Class 3 severe obesity with serious comorbidity and body mass index (BMI) of 50.0 to 59.9 in adult, unspecified obesity type; Translations: [Class 3 severe obesity with serious comorbidity and body mass index (BMI) of 50.0 to 59.9 in adult, unspecified obesity type] Onset: 07-30-2024 Past or Other Problems Problem Classification Problem Date Documented Da te Episodic/Chronic Contraceptive and procreative management (5 sources) Patient encounter status; Translations: [Encounter for other general counseling and advice on procreation] Onset: 06-17-2024 Episodic Genitourinary symptoms and ill-defined conditions (16 sources) Proteinuria; Translations: [Proteinuria, unspecified] Onset: 01-13-2014 07-28-2016 Episodic Other screening for suspected conditions (not mental disorders or infectious disease) (3 sources) Cancer cervix screening status; Translations: [Encounter for screening for malignant neoplasm of cervix] Onset: 06-17-2024 06-17-2024 Episodic Results Test Name Value Interpretation Reference Range Facility CBC W Auto Differential pane l (Bld)on 09-24-2024 Basophils (Bld) [#/Vol] 0.07 10*3/uL Normal <0.11 [facility] Comment on above: Order Comment: Speci men Type: BLOOD SPECIMEN Ordering Facility: [facility] Address: [address] [place] [address] Performed By: #### 2 4323-8, 3016-3, 11951-3, 23425-3, 87392-0 #### [facility] CLIA [id number] [id number] [address] [place] Basophils/100 WBC (Bld) 0.6 % Normal [facility] Comment on above: Order Comment: Speci men Type: BLOOD SPECIMEN Ordering Facility: [facility] Address: [address] [place] [address] Performed By: #### 2 4323-8, 3016-3, 90671-4, 27467-1, 85815-2 #### [facility] CLIA [id number] [address] [place] [address] [place] Differential cell count method Nom (Bld) Auto Normal [facility] Comment on above: Order Comment: Speci men Type: BLOOD SPECIMEN Ordering Facility: [facility] Address: [address] [place] [address] Performed By: #### 2 4323-8, 3016-3, 17199-5, 66988-3, 06739-3 #### [facility] CLIA [id number] [address] [place] [address] [place] Eosinophils (Bld) [#/Vol] 0.39 10*3/uL Normal <0.46 [facility] Comment on above: Order Comment: Speci men Type: BLOOD SPECIMEN Ordering Facility: [facility] Address: [address] [place] [address] Performed By: #### 2 4323-8, 3016-3, 58402-6, 48418-4, 56722-2 #### [facility] CLIA [id number] [address] [place], [place] [address] [place] Eosinophils/100 WBC (Bld) 3.1 % Normal [facility] Comment on above: Order Comment: Speci men Type: BLOOD SPECIMEN Ordering Facility: [facility] Address: [address] [place] [address] Performed By: #### 2 4323-8, 3016-3, 30852-8, 08266-1, 80599-3 #### [facility] CLIA [id number] [address] [place] [address] [place] Erythrocyte distribution width (RBC) [Ratio] 13.4 % Normal 11.5-15.0 [facility] Comment on above: Order Comment: Speci men Type: BLOOD SPECIMEN Ordering Facility: [facility] Address: [address] [place] [address] Performed By: #### 2 4323-8, 3016-3, 95045-2, 32466-2, 61757-5 #### [facility] CLIA [id number] [address] [place], [place] [address] [place] Hematocrit (Bld) [Volume fraction] 44.7 % Normal 36.0-46.0 [facility] Comment on above: Order Comment: Speci men Type: BLOOD SPECIMEN Ordering Facility: [facility] Address: [address] [place] [address] Performed By: #### 2 4323-8, 3016-3, 56072-1, 79930-2, 18178-5 #### [facility] CLIA [id number] [address] [place], [place] [address] [place] Hemoglobin (Bld) [Mass/Vol] 14.5 g/dL Normal 11.5-15.5 [facility] Comment on above: Order Comment: Speci men Type: BLOOD SPECIMEN Ordering Facility: [facility] Address: [address] [place] [address] Performed By: #### 2 4323-8, 3016-3, 37131-1, 78151-9, 19719-4 #### [facility] CLIA [id number] [address] [place], [place] [address] [place] Immature granulocytes (Bld) [#/Vol] 0.06 10*3/uL Normal <0.10 [facility] Comment on above: Order Comment: Speci men Type: BLOOD SPECIMEN Ordering Facility: [facility] Address: [address] [place] [address] Performed By: #### 2 4323-8, 3016-3, 60030-1, 59700-7, 56228-9 #### [facility] CLIA [id number] [address] [address] [place] Immature granulocytes/100 WBC (Bld) 0.5 % Normal [facility] Comment on above: Order Comment: Speci men Type: BLOOD SPECIMEN Ordering Facility: [facility] Address: [address] [place] [address] Performed By: #### 2 4323-8, 3016-3, 53963-8, 01990-1, 05230-0 #### [facility] CLIA [id number] [address] [place], [place] [address] [place] Lymphocytes (Bld) [#/Vol] 3.37 10*3/uL Normal 1.00-4.0 0 [facility] Comment on above: Order Comment: Speci men Type: BLOOD SPECIMEN Ordering Facility: [facility] Address: [address] [place] [address] Performed By: #### 2 4323-8, 3016-3, 85803-1, 17780-5, 90147-0 #### [facility] CLIA [id number] [address] [place], [place] [address] [place] Lymphocytes/100 WBC (Bld) 26.6 % Normal [facility] Comment on above: Order Comment: Speci men Type: BLOOD SPECIMEN Ordering Facility: [facility] Address: [address] [place] [address] Performed By: #### 2 4323-8, 3016-3, 01945-1, 65300-4, 20769-3 #### [facility] CLIA [id number] [address] [place] [address] [place] MCH (RBC) [Entitic mass] 32.7 pg Normal 26.0-34.0 [facility] Comment on above: Order Comment: Speci men Type: BLOOD SPECIMEN Ordering Facility: [facility] Address: [address] [place] [address] Performed By: #### 2 4323-8, 3016-3, 92774-6, 03303-7, 43299-8 #### [facility] CLIA [id number] [address] [place], [place] [address] [place] MCHC (RBC) [Mass/Vol] 32.4 g/dL Normal 30.5-36.0 [facility] Comment on above: Order Comment: Speci men Type: BLOOD SPECIMEN Ordering Facility: [facility] Address: [address] [place] [address] Performed By: #### 2 4323-8, 3016-3, 23235-6, 25723-5, 12566-2 #### [facility] CLIA [id number] [address] [place], [place] [address] [place] MCV (RBC) [Entitic vol] 100.7 fL High 80.0-100.0 [facility] Comment on above: Order Comment: Speci men Type: BLOOD SPECIMEN Ordering Facility: [facility] Address: [address] [place] [address] Performed By: #### 2 4323-8, 3016-3, 89099-4, 16064-4, 66611-2 #### [facility] CLIA [id number] [address] [place], [place] [address] [place] Monocytes (Bld) [#/Vol] 0.73 10*3/uL Normal <0.87 [facility] Comment on above: Order Comment: Speci men Type: BLOOD SPECIMEN Ordering Facility: [facility] Address: [address] [id number] Performed By: #### 2 4323-8, 3016-3, 39541-0, 46465-5, 78503-1 #### [facility] CLIA [id number] [address] [address] [place] Monocytes/100 WBC (Bld) 5.8 % Normal [facility] Comment on above: Order Comment: Speci men Type: BLOOD SPECIMEN Ordering Facility: [facility] Address: [address] [place] [address] Performed By: #### 2 4323-8, 3016-3, 97203-7, 29697-6, 39720-1 #### [facility] CLIA [id number] [address] [place] [address] [place] Neutrophils (Bld) [#/Vol] 8.07 10*3/uL High 1.45-7.5 0 [facility] Comment on above: Order Comment: Speci men Type: BLOOD SPECIMEN Ordering Facility: [facility] Address: [address] [place] [address] Performed By: #### 2 4323-8, 3016-3, 00712-0, 79531-3, 49283-4 #### [facility] CLIA [id number] [address] [place] [address] [place] Neutrophils/100 WBC (Bld) 63.4 % Normal [facility] Comment on above: Order Comment: Speci men Type: BLOOD SPECIMEN Ordering Facility: [facility] Address: [address] [place] [address] Performed By: #### 2 4323-8, 3016-3, 06088-0, 80731-7, 43678-3 #### [facility] CLIA [id number] [address] [place] [address] [place] Nucleated RBC (Bld) [#/Vol] 10*3/uL Normal <0.01 [facility] Comment on above: Order Comment: Speci men Type: BLOOD SPECIMEN Ordering Facility: [facility] Address: [address] [place] [address] Performed By: #### 2 4323-8, 3016-3, 86671-0, 63495-3, 18628-3 #### [facility] CLIA [id number] [address] [place] [address] [place] Nucleated RBC/100 WBC (Bld) [Ratio] 0.0 /100 WBC Normal [facility] Comment on above: Order Comment: Speci men Type: BLOOD SPECIMEN Ordering Facility: [facility] Address: [address] [place] [address] Performed By: #### 2 4323-8, 3016-3, 45686-5, 44749-3, 70729-4 #### [facility] CLIA [id number] [address] [place], [place] [address] [place] Platelet mean volume (Bld) [Entitic vol] 13.0 fL High 9.0-12.7 [facility] Comment on above: Order Comment: Speci men Type: BLOOD SPECIMEN Ordering Facility: [facility] Address: [address] [place] [address] Performed By: #### 2 4323-8, 3016-3, 91481-5, 24787-7, 95033-8 #### [facility] CLIA [id number] [address] [place] [address] [place] Platelets (Bld) [#/Vol] 273 10*3/uL Normal 150-400 [facility] Comment on above: Order Comment: Speci men Type: BLOOD SPECIMEN Ordering Facility: [facility] Address: [address] [place] [address] Performed By: #### 2 4323-8, 3016-3, 36051-8, 73143-8, 47136-2 #### [facility] CLIA [id number] [address] [address] [place] RBC (Bld) [#/Vol] 4.44 10*6/uL Normal 3.90-5.[address] [facility] Comment on above: Order Comment: Speci men Type: BLOOD SPECIMEN Ordering Facility: [facility] Address: [address] [place] [address] Performed By: #### 2 4323-8, 3016-3, 38136-0, 19236-9, 52360-9 #### [facility] [facility] CLIA [id number] [address] [place] [address] [place] WBC (Bld) [#/Vol] 12.69 10*3/uL High 3.70-11.00 [facility] Comment on above: Order Comment: Speci men Type: BLOOD SPECIMEN Ordering Facility: [facility] Address: [address] [place] [address] Performed By: #### 2 4323-8, 3016-3, 50813-3, 81632-1, 99838-8 #### [facility] CLIA [id number] [address] [place] [address] [place] Comprehensive metabolic 2000 panelon 09-24-2024 Albumin [Mass/Vol] 4.7 g/dL Normal 3.9-4.9 [facility] Comment on above: Order Comment: Speci men Type: BLOOD SPECIMEN Ordering Facility: [facility] Address: [address] [place], [place] [address] Performed By: #### 2 4323-8, 3016-3, 63084-3, 88966-7, 27556-9 #### [facility] CLIA [id number] [address] [place] [address] [place] ALP [Catalytic activity/Vol] 75 U/L Normal 34-123 [facility] Comment on above: Order Comment: Speci men Type: BLOOD SPECIMEN Ordering Facility: [facility] Address: [address] [place] [address] Performed By: #### 2 4323-8, 3016-3, 67721-6, 60128-1, 72533-5 #### [facility] CLIA [id number] [address] [place] [address] [place] ALT [Catalytic activity/Vol] 19 U/L Normal 7-38 [facility] Comment on above: Order Comment: Speci men Type: BLOOD SPECIMEN Ordering Facility: [facility] Address: [address] [place] [address] Performed By: #### 2 4323-8, 3016-3, 63067-6, 29863-9, 44212-3 #### [facility] CLIA [id number] [address] [place] [address] [place] Anion gap [Moles/Vol] 16 mmol/L High 8-15 [facility] Comment on above: Order Comment: Speci men Type: BLOOD SPECIMEN Ordering Facility: [facility] Address: [address] [place] [address] Performed By: #### 2 4323-8, 3016-3, 45409-8, 06995-4, 84532-9 #### [facility] CLIA [id number] [address] [place], [place] [address] [place] AST [Catalytic activity/Vol] 18 U/L Normal 13-35 [facility] Comment on above: Order Comment: Speci men Type: BLOOD SPECIMEN Ordering Facility: [facility] Address: [address] [place] [address] Performed By: #### 2 4323-8, 3016-3, 89341-1, 32469-9, 90267-4 #### [facility] CLIA [id number] [address] [address] [place] Bilirubin [Mass/Vol] 0.9 mg/dL Normal 0.2-1.3 [facility] Comment on above: Order Comment: Speci men Type: BLOOD SPECIMEN Ordering Facility: [facility] Address: [address] [place] [address] Performed By: #### 2 4323-8, 3016-3, 41470-7, 99967-9, 84766-7 #### [facility] CLIA [id number] [address] [place], [place] [address] [place] Calcium [Mass/Vol] 10.3 mg/dL High 8.5-10.2 [facility] Comment on above: Order Comment: Speci men Type: BLOOD SPECIMEN Ordering Facility: [facility] Address: [address] [place] [address] Performed By: #### 2 4323-8, 3016-3, 25978-4, 87980-7, 46585-6 #### [facility] CLIA [id number] [address] [place], [place] [address] [place] Chloride [Moles/Vol] 101 mmol/L Normal 98-107 [facility] Comment on above: Order Comment: Speci men Type: BLOOD SPECIMEN Ordering Facility: [facility] Address: [address] [place] [address] Performed By: #### 2 4323-8, 3016-3, 35597-3, 14449-8, 14398-7 #### [facility] CLIA [id number] [address] [place], [place] [address] [place] CO2 [Moles/Vol] 19 mmol/L Low 22-30 [facility] Comment on above: Order Comment: Speci men Type: BLOOD SPECIMEN Ordering Facility: [facility] Address: [address] [place], [place] [address] Performed By: #### 2 4323-8, 3016-3, 76711-4, 95212-8, 91530-1 #### [facility] CLIA [id number] [address] [place] [address] [place] Creatinine [Mass/Vol] 0.74 mg/dL Normal 0.58-0.96 [facility] Comment on above: Order Comment: Speci men Type: BLOOD SPECIMEN Ordering Facility: [facility] Address: [address] [place] [address] Performed By: #### 2 4323-8, 3016-3, 10872-1, 50560-6, 70648-4 #### [facility] CLIA [id number] [address] [place] [address] [place] Creatinine and Glomerular filtration rate.predicted panel (S/P/Bld) 109 mL/min/1.73m??? Normal >=60 [facility] Comment on above: Order Comment: Speci men Type: BLOOD SPECIMEN Ordering Facility: [facility] Address: [address] [place], [place] [address] Result Comment: Cassandra mated Glomerular Filtration Rate (eGFR) is calculated using the 2020 CKD-EPI creatinine equation. This equation utilizes serum creatinine, sex, and age as parameters. The creatinine assay has traceable calibration to isotope dilution-mass spectrometry. Refer to KDIGO guidelines for clinical interpretation. In patients with unstable renal function, e.g. those with acute kidney injury, the eGFR may not accurately reflect actual GFR. Performed By: #### 2 4323-8, 3016-3, 81269-9, 24059-6, 90888-8 #### [facility] CLIA [id number] [address] [place] [address] [place] Glucose [Mass/Vol] 103 mg/dL High 74-99 [facility] Comment on above: Order Comment: Speci men Type: BLOOD SPECIMEN Ordering Facility: [facility] Address: [address] [place] [address] Result Comment: The [place] Diabetes Association (ADA) provides guidance for cutoff values for fasting glucose and random glucose. The ADA defines fasting as no caloric intake for at least 8 hours. Fasting plasma glucose results between 100 to 125 mg/dL indicate increased risk for diabetes (prediabetes). Fasting plasma glucose results greater than or equal to 126 mg/dL meet the criteria for diagnosis of diabetes. In the absence of unequivocal hyperglycemia, results should be confirmed by repeat testing. In a patient with classic symptoms of hyperglycemia or hyperglycemic crisis, random plasma glucose results greater than or equal to 200 mg/dL meet the criteria for diagnosis of diabetes. Reference: Standards of Medical Care in Diabetes 2016, [place] Diabetes Association. Diabetes Care. 2016.39(Suppl 1). Performed By: #### 2 4323-8, 3016-3, 39714-8, 91235-3, 14056-7 #### [facility] CLIA [id number] [address] [place] [address] [place] Potassium [Moles/Vol] 4.1 mmol/L Normal 3.7-5.1 [facility] Comment on above: Order Comment: Speci men Type: BLOOD SPECIMEN Ordering Facility: [facility] Address: [address] [place] [address] Performed By: #### 2 4323-8, 3016-3, 07697-5, 95906-3, 37470-0 #### [facility] CLIA [id number] [address] [place], [place] [address] [place] Protein [Mass/Vol] 7.9 g/dL Normal 6.3-8.0 [facility] Comment on above: Order Comment: Speci men Type: BLOOD SPECIMEN Ordering Facility: [facility] Address: [address] [place] [address] Performed By: #### 2 4323-8, 3016-3, 79266-2, 46269-9, 90550-5 #### [facility] CLIA [id number] [address] [address] [place] Sodium [Moles/Vol] 136 mmol/L Normal 136-144 [facility] Comment on above: Order Comment: Speci men Type: BLOOD SPECIMEN Ordering Facility: [facility] Address: [address] [place] [address] Performed By: #### 2 4323-8, 3016-3, 92619-6, 97573-7, 90139-7 #### [facility] CLIA [id number] [address] [address] [place] Urea nitrogen [Mass/Vol] 16 mg/dL Normal 7-21 [facility] Comment on above: Order Comment: Speci men Type: BLOOD SPECIMEN Ordering Facility: [facility] Address: [address] [place] [address] Performed By: #### 2 4323-8, 3016-3, 25436-4, 35558-1, 75034-3 #### [facility] CLIA [id number] [address] [place] [address] [place] HbA1c (Bld)on 09-24-2024 Average glucose Estimated from glycated hemoglobin (Bld) [Mass/Vol] 128 mg/dL Normal [facility] Comment on above: Order Comment: Speci men Type: BLOOD SPECIMEN Ordering Facility: [facility] Address: [address] [place] [address] Result Comment: eAG: (Estimated average glucose) is a calculated value from HgbA1c and is representative phlebotomy services of the average blood glucose level in the last 2-3 month period. Performed By: #### 2 4323-8, 3016-3, 96167-1, 41682-4, 28453-6 #### [facility] CLIA [id number] [address] [address] [place] HbA1c (Bld) [Mass fraction] 6.1 % High 4.3-5.6 [facility] Comment on above: Order Comment: Aman faust Type: BLOOD SPECIMEN Ordering Facility: [facility] Address: [address] [place] [address] Result Comment: [place] Diabetes Association guidelines indicate that patients with HgbA1c in the range 5.7-6.4% are at increased risk for development of diabetes, and intervention by lifestyle modification may be beneficial. HgbA1c greater or equal to 6.5% is considered diagnostic of diabetes. Performed By: #### 2 4323-8, 3016-3, 14712-0, 34290-4, 56439-6 #### [facility] CLIA [id number] [address] [place] [address] [place] Lipid 1996 panelon 5 Cholesterol [Mass/Vol] 171 mg/dL Normal <200 [facility] Comment on above: Order Comment: Aman faust Type: BLOOD SPECIMEN Ordering Facility: [facility] Address: [address] [place] [address] Result Comment: <200 mg/dL, Desirable 200-239 mg/dL, Borderline high >239 mg/dL, High Performed By: #### 2 4323-8, 3016-3, 67397-2, 87625-2, 32239-3 #### [facility] CLIA [id number] [address] [place], [place] [address] [place] Cholesterol in HDL [Mass/Vol] 57 mg/dL Normal >39 [facility] Comment on above: Order Comment: Aman faust Type: BLOOD SPECIMEN Ordering Facility: [facility] Address: [address] [place] [address] Result Comment: 40-5 9 mg/dL, Acceptable >59 mg/dL, High: Negative risk factor for coronary heart disease <40 mg/dL, Low: Positive risk factor for coronary heart disease Performed By: #### 2 4323-8, 3016-3, 53951-8, 73194-2, 36538-2 #### [facility] CLIA [id number] [address] [address] [place] Cholesterol in LDL [Mass/Vol] 86 mg/dL Normal <100 [facility] Comment on above: Order Comment: Speci men Type: BLOOD SPECIMEN Ordering Facility: [facility] Address: [address] [place] [address] Result Comment: <100 mg/dL, Optimal 100-129 mg/dL, Near optimal/above optimal 130-159 mg/dL, Borderline high 160-189 mg/dL, High >189 mg/dL, Very high Secondary prevention optimal LDL Cholesterol levels are recommended to be <70 mg/dL LDL cholesterol is calculated using the Chaney-NIH equation. Performed By: #### 2 4323-8, 3016-3, 98986-6, 61331-8, 20642-7 #### [facility] CLIA [id number] [address] [place], [place] [address] [place] Cholesterol in LDL/Cholesterol in HDL [Mass ratio] 1.51 {ratio} Normal <2.54 [facility] Comment on above: Order Comment: Speci men Type: BLOOD SPECIMEN Ordering Facility: [facility] Address: [address] [place] [address] Result Comment: Refe rence: 1. National Cholesterol Education Program ATP III Guideline At-A-Glance Quick Desk Reference: National Heart, Lung, and Blood [place]. National Institutes of Health. 2001: NIH Publication No. 01-3305. 2. An International Atherosclerosis Society position paper: global recommendations for the management of dyslipidemia: executive summary, Atherosclerosis. 2014: 232(2):410-413. Performed By: #### 2 4323-8, 3016-3, 85603-2, 78380-1, 28135-0 #### [facility] CLIA [id number] [address] [address] [place] Cholesterol in VLDL [Mass/Vol] 26 mg/dL Normal <30 [facility] Comment on above: Order Comment: Speci men Type: BLOOD SPECIMEN Ordering Facility: [facility] Address: [address] [place], [place] [address] Performed By: #### 2 4323-8, 3016-3, 94837-9, 59031-2, 19386-0 #### [facility] CLIA [id number] [address] [place] [address] [place] Cholesterol non HDL [Mass/Vol] 114 mg/dL Normal <130 [facility] Comment on above: Order Comment: Speci men Type: BLOOD SPECIMEN Ordering Facility: [facility] Address: [address] [place] [address] Result Comment: <130 mg/dL, Optimal 130-159 mg/dL, Near optimal/above optimal 160-189 mg/dL, Borderline high 190-219 mg/dL, High >219 mg/dL, Very high Secondary prevention optimal non HDL Cholesterol levels are recommended to be <100 mg/dL Performed By: #### 2 4323-8, 3016-3, 17522-7, 41618-2, 30673-9 #### [facility] CLIA [id number] [address] [place], [place] [address] [place] Cholesterol.total/Cholest arden in HDL [Mass ratio] 3.00 {ratio} Normal <5.10 [facility] Comment on above: Order Comment: Speci men Type: BLOOD SPECIMEN Ordering Facility: [facility] Address: [address] [place], [place] [address] Performed By: #### 2 4323-8, 3016-3, 57976-2, 30875-2, 70157-6 #### [facility] CLIA [id number] [address] [place], [place] [address] [place] FASTING TIME 12 hrs Normal [facility] Comment on above: Order Comment: Speci men Type: BLOOD SPECIMEN Ordering Facility: [facility] Address: [address] [place] [address] Performed By: #### 2 4323-8, 3016-3, 78917-0, 66131-9, 91488-2 #### [facility] CLIA [id number] [address] [place] [address] [place] Triglyceride [Mass/Vol] 163 mg/dL High <150 [facility] Comment on above: Order Comment: Aman faust Type: BLOOD SPECIMEN Ordering Facility: [facility] Address: [address] [place] [address] Result Comment: <150 mg/dL, Normal 150-199 mg/dL, Borderline high 200-499 mg/dL, High >499 mg/dL, Very high Performed By: #### 2 4323-8, 3016-3, 19248-8, 00175-9, 19123-4 #### [facility] CLIA [id number] [address] [place] [address] [place] TSH SerPl-aCncon 09-24-2024 TSH Qn 1.880 m[IU]/L Normal 0.270-4.200 [facility] Comment on above: Order Comment: Aman faust Type: BLOOD SPECIMEN Ordering Facility: [facility] Address: [address] [place] [address] Result Comment: If t he patient is , TSH reference range varies by gestational period: First Trimester (weeks 9-12): 0.180-2.990 mIU/L Second Trimester: 0.110-3.980 mIU/L Third Trimester: 0.480-4.710 mIU/L Kaiser Fallon et al. A Practical Approach for the Verifications and Determination of Site- and Trimester-Specific Reference Intervals for Thyroid Function tests in . Thyroid, 2019:29:3:412-420. Boby Ivy, et al. 2017 Guidelines of the [place] Thyroid Association for the Diagnosis and Management of Thyroid Disease during and the . Thyroid, 2017:27:3:315-389. Performed By: #### 2 4323-8, 3016-3, 55259-7, 22895-3, 55857-3 #### [facility] YAMILETHIA [id number] [address] [place] [address] STATES OF [facility] CNOVon 07-30-2024 CNOV Office Visit (OBGYWM) MARIAM VENTURA ([id number]) 1990 F Date Time Provider Department 07/30/24 10:00 AM RADHA SHORT OBGYWM During your visit today, we recorded the following information about you: Blood pressure Weight Height Last Period 118/76 140.2 kg 1.6 m 07/30/24 Radha Short APRN.CNM 07/30/2024 10:21 AM Signed [facility] [place] Annual Exam Subjective Recording using StepLeader software for draft documentation of the visit was discussed with the patient/authorized representative phlebotomy services; all questions welcomed and answered. Patient/authorized representative phlebotomy services agreed to proceed CHIEF COMPLAINT: HPI: The patient is a 34-year-old female with a history of HTN, asthma, T2DM, and PCOS, presenting for a well-woman exam. The patient is new to the practice, previously receiving care at [place]. She is currently on Mounjaro for T2DM, which she started 2 weeks ago, and reports no major issues, including no GI side effects. She is also taking Jardiance and metformin. She is on a progesterone-only control pill, which she reports helps manage her menstrual cycles, reducing heaviness and pain. Her periods are regular but do not occur at the same time each month. She experiences acne, breast tenderness, cramps, mood swings, and mild pelvic pain during her periods, all of which are manageable. She denies any history of abnormal Pap smears, STIs, dyspareunia, postcoital bleeding, vaginal discharge, itching, burning, or odor. She does not wish to undergo STD testing today. She has been since November 2014 and has been with her for 18 years. She has no history of pregnancies or children. She previously attempted to conceive and is open to considering infertility treatments as a last resort due to cost concerns. She is aware of the potential decreased efficacy of her control while on Mounjaro and is currently using control primarily for cycle regulation and management of PCOS symptoms. She is actively trying to lose weight, having previously weighed 368 lbs in 2019. She reports making dietary changes and increasing exercise, such as using the stairs in her house. She expresses interest in working with a diabetic geothermal operations engineer to further assist with weight loss. 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 She denies any major questions or concerns at this time. HISTORY: OB History Gravida0 Para0 Term0 Preterm0 AB0 Living0 SAB0 IAB0 Ectopic0 Multiple0 Live Births0 Director Financial Analysis History LMP: 07/30/2024 (Exact Date), Having periods Age at Menarche: 11 Age at First : Age at Menopause: Director Financial Analysis History Comments: Sexual Activity: Yes; Male Contraception: Pill Menstrual Tracking History Flowsheet Row Office Visit from 07/30/2024 in OB/Gynecology Period Cycle (Days) 30 Period Duration (Days) 7 Menstrual Flow Heavy PAST MEDICAL HISTORY Diagnosis Date Asthma ([facility]) Depression 09/18/2011 [facility]ly [facility] Psychiatric admission - sucidal thoughts DM (diabetes mellitus) ([facility]) History of PCOS Has not been on glucophage since 2006 Hypertension Infertility, female 2016 Polycystic ovary syndrome Proteinuria PAST SURGICAL HISTORY Procedure Laterality Date ADENOIDECTOMY PRIMARY Adenoidectomy APPENDECTOMY 2000 CHOLECYSTECTOMY 09/15/2017 PAST SURGICAL HISTORY OF bilateral ear ventilating tubes PAST SURGICAL HISTORY OF N/A 11/2017 [facility] at [facility] by Dr. Dominguez TONSILLECTOMY PRIMARY/SECONDARY Tonsillectomy FAMILY HISTORY Problem Relation Age of Onset Diabetes Mother Asthma Mother Hypertension Mother Heart Mother 40 Cervical Cancer Mother Unsure which female related cancer she had but ended in total hysterectomy late 20s Diabetes Father Hypertension Father Diabetes Brother Hypertension Brother Heart Maternal Grandmother Diabetes Maternal Grandmother COPD Maternal Grandmother Heart Maternal Grandfather Diabetes Maternal Grandfather Alcohol/Drug Paternal Grandfather Social History Tobacco Use Smoking status: Never Smokeless tobacco: Never Substance Use Topics Alcohol use: Yes Comment: occasionally Drug use: No Current Outpatient Medications Medication Sig MOUNJARO 2.5 mg/0.5 mL pen injector Inject 2.5 mg subcutaneously one time a week. multivit-min/iron fum/folic ac (ONE-A-DAY WOMEN'S COMPLETE ORAL) Take by mouth. JARDIANCE 25 mg tablet Take 25 mg by mouth every morning. blood sugar diagnostic (BLOOD GLUCOSE TEST) test strip Test blood sugar(s) 1 times daily. Dx: Type 2 DM - Controlled E11.9 Insulin: No albuterol HFA (PROVENTIL HFA, VENTOLIN HFA) 90 mcg/actuation inhaler Inhale 2 Puffs as instructed every 4 hours as needed for wheezing/shortness of breath. omeprazole ( (more content not included)... Normal [facility] HIGH RISK HUMAN PAPILLOMA GRADY (HPV), PCR FOR DETECTION AND GENOTYPINGon 07-30-2024 HPV 16 Ag Ql (Unsp spec) Not detected Normal Not detec radha [facility] Comment on above: Order Comment: Speci men Type: FLUID SPECIMENOrdering Facility: [facility] Address: [address] [place] [address] Performed By: #### H PVHRT ####[facility] [id number] [place] [address] [place] HPV 18 Ag Ql (Unsp spec) Not detected Normal Not detec radha [facility] Comment on above: Order Comment: Speci men Type: FLUID SPECIMENOrdering Facility: [facility] Address: [address] [place] [address] Performed By: #### H PVHRT ####[facility] [id number] [place] [address] [place] HPV 31+33+35+39+45+51+52+56+5 8+59+66+68 DNA SHEYLA+probe Ql (Cvx) Not detected Normal Not detected [facility] Comment on above: Order Comment: Speci men Type: FLUID SPECIMENOrdering Facility: [facility] Address: [address] [place] [address] Result Comment: High Risk HPV Other Type includes HPV types 31, 33, 35, 39, 45, 51, 52, 56, 58, 59, 66 and 68. Performed By: #### H PVHRT ####[facility] [id number] [address] [address] [place] PAP TESTon 07-30-2024 ADEQUACY Normal [facility] Comment on above: Order Comment: Speci men Type: FLUID SPECIMENOrdering Facility: [facility] Address: [address] [place] [address] Result Comment: Sati sfactory for interpretation. Transformation zone present Performed By: #### L [id number] ####[facility] [id number] [address] [address] [place] CASE REPORT Normal [facility] Comment on above: Order Comment: Speci men Type: FLUID SPECIMENOrdering Facility: [facility] Address: [address] [place] [address] Result Comment: Gyne cologic Cytology Report Case: [id number] Authorizing Provider: Radha Short APRN.CNM Collected: 07/30/2024 10:13 AM Ordering Location: OB/Gynecology Received: 07/30/2024 12:16 PM First Screen: Christina Salvador, [place], ASCP Specimen: Pap Test, ThinPrep, Cervix Performed By: #### L [id number] ####[facility] [id number] [address] [place] [address] [place] CLINICAL HISTORY, CYTOLOGY, PUBLIC HEALTH ADMINISTRATOR Routine Exam Normal [facility] Comment on above: Order Comment: Speci men Type: FLUID SPECIMENOrdering Facility: [facility] Address: [address] [place] [address] Performed By: #### L [id number] ####[facility] [id number] [address] [address] [place] CYTOLOGY PAP OTHER INTERPRETATION Predominance of coccobacilli consistent with shift in vaginal victoria. Normal [facility] Comment on above: Order Comment: Speci men Type: FLUID SPECIMENOrdering Facility: [facility] Address: [address] [place] [address] Performed By: #### L [id number] ####[facility] [id number] [address] [address] [place] FINAL PERFORMING LAB Normal [facility] Comment on above: Order Comment: Speci men Type: FLUID SPECIMENOrdering Facility: [facility] Address: [address] [place] [address] Result Comment: Tech nical component, ict support and test engineers screening performed at: [facility], [address] [place] [address] [place] [address] CLIA: [id number] Diagnostic interpretation performed at: [facility], [address] [place] [address] [place] [address] CLIA# [id number] Mold Maker: Jt Hi MD Performed By: #### L [id number] ####[facility] LABCLIA [id number] [place] [id number] [place] INTERPRETATION, CYTOLOGY, PUBLIC HEALTH ADMINISTRATOR Normal [facility] Comment on above: Order Comment: Speci men Type: FLUID SPECIMENOrdering Facility: [facility] Address: [address] [place] [address] Result Comment: Nega tive for intraepithelial lesion or malignancy. at 1157 EDT Performed By: #### L [id number] ####[facility] LABCLIA [id number] [address] [place] [address] [place] LMP 07/30/2024 Normal [facility] Comment on above: Order Comment: Speci men Type: FLUID SPECIMENOrdering Facility: [facility] Address: [address] [place] [address] Performed By: #### L [id number] ####[facility] LABCLIA [id number] [address] [address] [place] PAP DISCLAIMER COMMENT The Pap Smear is a screening test for cervical cancer. False negative results occur with all screening tests, emphasizing the need for rescreening at recommended intervals, and clinical correlation. Normal [facility] Comment on above: Order Comment: Speci men Type: FLUID SPECIMENOrdering Facility: [facility] Address: [address] [place] [address] Performed By: #### L [id number] ####[facility] LABIA [id number] [place] [id number] [place] PAP CORDAGE SALES REPRESENTATIVE COMMENT This specimen has been analyzed by the FDA-approved [employer] System, which uses digital imaging and an enhanced artificial intelligence image analysis algorithm to identify hanson of interest on the microscopic slide, to assist the family resource specialist and pathologist in evaluating cells on ThinPrep Pap tests. Following analysis, hanson of interest on the microscopic slide selected by the algorithm are reviewed by a family resource specialist. If a sample requires hierarchical review, the pathologist will review the same hanson of interest selected by the algorithm prior to final interpretation. Normal [facility] Comment on above: Order Comment: Speci men Type: FLUID SPECIMENOrdering Facility: [facility] Address: [address] [place] [address] Performed By: #### L [id number] ####[facility] LABIA [id number] [place] [id number] [facility] [place] CNOVon 06-17-2024 [facility] ([id number]) 1990 F Date Time Provider Department 06/17/24 5:40 PM FLORA SINGH During your visit today, we recorded the following information about you: Pulse Respiration Blood pressure Weight 85/minute 16/minute 128/72 139.7 kg Flora Singh APRN.AUTOMOBILE GLASS TECHNICIAN 06/17/2024 7:55 PM Signed This is a 34 year old female who presents today with: Patient presents with: Yearly Exam HISTORY OF PRESENT ILLNESS: Mariam Ventura is a 34 year old female. Patient presents with: Yearly Exam DM: Reports overall feeling well. Medication side effects: No. Home sugar checks: sometimes, 100-130 Hypoglycemic spells: No. Watching diet: sometimes. Unexpected weight loss: No. Polyuria, polydipsia: No. Vision Changes: No. Foot lesions or numbness or pain: No. Follows with endocrinology at [place] Had labs checked labs A1C was 6.2 last month Has not had an eye exam in a few years HTN: Patient is compliant with meds Yes Monitors bp at home: No. Denies side effects: Yes. Chest pain: No. Dyspnea: No. Edema: No. Palpitations: No. Syncope: No. Headache: No. Dizziness: No. GERD: Patient takes: Prilosec Heartburn is controlled: Yes. Bloody or black stools: No. Bowel changes: No. Denies nausea and vomiting Denies abdominal pain Denies constipation diarrhea Appetite stable Good sleep hygiene Denies issues with depression and anxiety REVIEW OF SYSTEMS GENERAL: No weight loss, malaise or fevers/chills HEENT: Negative for frequent or significant headaches, No changes in hearing or vision. NECK: Negative for lumps, goiter, pain and significant neck swelling RESPIRATORY: Negative for cough, hemoptysis, wheezing, dyspnea or shortness of breath CARDIOVASCULAR: Negative for chest pain, leg swelling, orthopnea, or palpitations GI: No nausea, vomiting, or diarrhea/constipatio n. No hematochezia/melena. No heartburn or reflux symptoms. : No history of dysuria, frequency or incontinence MUSCULOSKELETAL: Negative for joint pain or swelling. SKIN: Negative for lesions, rash, and itching ENDOCRINE: Negative for cold or heat intolerance, polyuria, polydipsia and goiter NEURO: No history of headaches, syncope, paralysis, seizures or tremors PAST MEDICAL HISTORY: PAST MEDICAL HISTORY Diagnosis Date Asthma Depression September 2011 [facility] Psychiatric admission - sucidal thoughts DM (diabetes mellitus) (HCC) History of PCOS Has not been on glucophage since 2006 Hypertension Proteinuria PAST SURGICAL HISTORY Procedure Laterality Date ADENOIDECTOMY PRIMARY Adenoidectomy APPENDECTOMY 1999 CHOLECYSTECTOMY 09/15/2017 PAST SURGICAL HISTORY OF bilateral ear ventilating tubes PAST SURGICAL HISTORY OF N/A 11/2017 MAC Endoscopy at [facility] by Dr. Dominguez TONSILLECTOMY PRIMARY/SECONDARY Tonsillectomy ALLERGIES Patient has no known allergies. MEDICATIONS Current Outpatient Medications Medication Sig JARDIANCE 25 mg tablet Take 25 mg by mouth every morning. blood sugar diagnostic (BLOOD GLUCOSE TEST) test strip Test blood sugar(s) 1 times daily. Dx: Type 2 DM - Controlled E11.9 Insulin: No albuterol HFA (PROVENTIL HFA, VENTOLIN HFA) 90 mcg/actuation inhaler Inhale 2 Puffs as instructed every 4 hours as needed for wheezing/shortness of breath. Norethindrone, Contraceptive, (DEBLITANE) 0.35 mg tablet Take 1 tablet by mouth once daily. TRULICITY 4.5 mg/0.5 mL pen injector INJECT 0.5 ml SUBCUTANEOUSLY EVERY WEEK omeprazole (PRILOSEC) 20 mg capsule Take 1 capsule by mouth daily before breakfast. 1/2 hr before meal. metFORMIN ER (GLUCOPHAGE XR) 500 mg 24 hr tablet Take 2 tablets by mouth two times a day. glimepiride (AMARYL) 1 mg tablet Take 1 tablet by mouth daily with breakfast. dulaglutide (TRULICITY) 0.75 mg/0.5 mL pen injector Inject 0.75 mg subcutaneously one time a week. Inject dose once per week. Discard Pen After vit-iron fumarate-fa () 28 mg iron- 800 mcg tab Take 1 tablet by mouth once daily. Lancets lancets Test blood sugar(s) 1 times daily. Dx: Type 2 DM - Controlled E11.9 Insulin: No lisinopril (ZESTRIL, PRINIVIL) 10 mg tablet Take 30 mg by mouth once daily. CINNAMON BARK (CINNAMON ORAL) Take by mouth once daily. No current facility-administere d medications for this visit. FAMILY HISTORY Problem Relation Age of Onset Diabetes Mother Asthma Mother Hypertension Mother Heart Mother 40 Diabetes Father Hypertension Father Diabetes Brother Hypertension Brother Heart Maternal Grandmother Diabetes Maternal Grandmother COPD Maternal Grandmother Heart Maternal Grandfather Diabetes Maternal Grandfather Alcohol/Drug Paternal Grandfather Social History Tobacco Use Smoking status: Never Smokeless tobacco: Never Substance Use Topics A (more content not included)... Normal [facility] Endocrinology Visit Reporton 05-23-2024 Endocrinology Visit Report [facility] [address] [place] [address] OFFICE VISIT Date of Service: 05/23/24 MR#: [id number] Acct: [id number] Name: MARIAM VENTURA Rep #: [id number] : 1990 Provider: Amy Drake Age/Sex: 33/F Location: [facility] Status: Signed Intake Vital Signs 11/27/23 08:18 05/23/24 07:55 Height 5 ft 3 in 5 ft 3 in Weight: 315 lb 309 lb BMI 55.7 54.7 BP 115/78 136/88 H Blood Pressure Location Lt brachial Rt brachial Position Sitting Sitting Pulse 88 83 Pulse Source Monitor Monitor Pulse Oximetry (%) 97 99 Oxygen Delivery Method room air room air Intake Visit Reasons: 6 M FU Chief Complaint: Diabetes Is patient in pain?: No Allergies No Known Allergies Allergy (Verified 05/23/24 07:59) Medications ???Medication ???Instructions ???Recorded ???Confirmed ???Type albuterol sulfate 90 mcg/actuation 1 - 2 puff inhalation Q6H PRN CO N 10/20/17 05/23/24 History aerosol inhaler (ProAir HFA) Shortness Of Breath cinnamon bark 500 mg capsule 500 mg PO DAILY 10/20/17 05/23/24 History empagliflozin 25 mg tablet 25 mg PO QAM #30 tabs 11/27/2309/11 Rx (Jardiance) norethindrone (contraceptive) 0.35 0.35 mg PO QDAY 11/27/23 5 History mg tablet Mounjaro 2.5 mg/0.5 mL 2.5 mg (0.5 mL) subcut QWEEK #2 mL 05/23/24 05/23/24 Rx subcutaneous pen injector (tirzepatide) lisinopril 30 mg tablet 30 mg PO DAILY #90 tabs 05/23/24 0 05/23/24 Rx metformin 1,000 mg 24 hr 1,000 mg PO BID #60 tabs 05/23/24 05/23/24 Rx tablet,extended release (gastric reten.) multivitamin 1 tab PO QAM 05/23/24 05/23/24 [facility] Medical History Hyperandrogenism Obesity PCOS (polycystic ovarian syndrome) Diabetes Family History Father Diabetes CAD (coronary artery disease) Mother Diabetes Other Hypertension Social History Smoking Status: Former smoker alcohol intake: current alcohol intake frequency: 0-2 drinks per day HPI HPI Chief Complaint: Diabetes Details: MARIAM VENTURA, is a 33 F who presents to the office today for follow up. A1C is 6.2% She is taking metformin 1 g bid, Jardiance 25 mg and Trulicity 1.5 mg weekly. She has lost 6 pounds. She is taking oral contraceptive pills to prevent . She is asking to switch to Mounjaro due to availability. She will be due for labs in September. She sees nephrology for proteinuria. ROS Const Constitutional: No fatigue, weight change or change in appetite Eyes Eyes: No change in vision ENT ENT: No dizziness/vertigo or difficulty swallowing Cardio Cardiology: No chest pain at rest, chest pain with exertion, shortness of breath or palpitations Musc Musculoskeletal: No abnormal gait, joint pain, numbness or tingling Neuro Neurology: No abnormal gait, memory loss, numbness or tingling Psych Psychiatric: No change in appetite, No memory loss and No Thoughts of harming yourself/Others Resp Respiratory: No cough, chest congestion or shortness of breath Gastro GI: No abdominal pain, constipation, diarrhea or difficulty swallowing Genitourinary-Female : No burning urination Skin Skin: No itchy eyes or wounds Endo Endocrine: No fatigue or weight change Aller/Imm Allergy/Immunologic: No itchy eyes Exam Const General: cooperative, healthy appearing, comfortable, no acute distress, well developed and not cushingoid Nutritional Appearance: well nourished and obese Orientation: alert, awake and oriented x3 HENMT Head: normal to inspection Ears: hearing grossly normal bilaterally Nose: external nose normal Mouth: oral mucosae normal Eyes General: appearance normal, both eyes and all related structures Alignment and Position: alignment normal Periorbital: periorbital findings normal Eyelids: eyelids normal Conjunctivae: conjunctivae normal Neck Neck: normal visual inspection Neck mass: No Thyroid: thyroid normal Lymphatic: no lymphadenopathy noted Chest Chest palpation inspection: normal inspection of the chest Resp Effort Inspection: normal respiratory effort, able to speak in complete sentences, symmetric chest movement, no audible wheezes and no cough Auscultation: Bilateral: Clear to Auscultation Cardio Rate: regular rate Rhythm: regular rhythm Skin General: no rashes or lesions noted Neuro General: patient alert, patient awake and patient oriented x3 Cranial Nerves: CN's II-XI intact bilaterally Cognition: normal cognition Speech: speech normal Gait: normal gait Motor: muscle tone normal throughout Psych Appearance: grossly normal Mental St (more content not included)... Normal [facility] Endocrinology Visit Reporton 11-27-2023 Endocrinology Visit Report [facility] [address] [place] [address] OFFICE VISIT Date of Service: 11/27/23 MR#: [id number] Acct: [id number] Name: MARIAM VENTURA Rep #: [id number] : 1990 Provider: Amy Drake Age/Sex: 33/F Location: [facility] Status: Signed Intake Vital Signs 06/01/23 08:07 11/27/23 08:18 Height 5 ft 3 in 5 ft 3 in Weight: 312 lb 315 lb BMI 55.3 55.7 BP 115/69 115/78 Blood Pressure Location Lt brachial Lt brachial Position Sitting Sitting Pulse 80 88 Pulse Source Monitor Monitor Temp 98.6 F Temp Source Temporal Pulse Oximetry (%) 96 97 Oxygen Delivery Method room air room air Intake Visit Reasons: 6 M FU Chief Complaint: Diabetes Renewals Manager Required: No Accompanied by: Self Is patient in pain?: No Allergies No Known Allergies Allergy (Verified 11/27/23 08:23) Medications ???Medication ???Instructions ???Recorded ???Confirmed ???Type albuterol sulfate 90 mcg/actuation 1 - 2 puff inhalation Q6H PRN PRN 10/20/17 11/27/23 History aerosol inhaler (ProAir HFA) Shortness Of Breath cinnamon bark 500 mg capsule 500 mg PO DAILY 10/20/17 11/27/23 History lisinopril 30 mg tablet 30 mg PO DAILY #90 tabs 04/03/23 11/27/23 Rx dulaglutide 1.5 mg/0.5 mL 1.5 mg (0.5 mL) subcut QWEEK #2 mL 11/27/23 11/27/23 Rx subcutaneous pen injector (Trulicity) empagliflozin 25 mg tablet 25 mg PO QAM #30 tabs 11/27/23 11/27/23 Rx (Jardiance) metformin 1,000 mg 24 hr 1,000 mg PO BID #60 tabs 11/27/23 11/27/23 Rx tablet,extended release (gastric reten.) norethindrone (contraceptive) 0.35 0.35 mg PO QDAY 11/27/23 11/27/23 History mg tablet PFSH Medical History Hyperandrogenism Obesity PCOS (polycystic ovarian syndrome) Diabetes Family History Father Diabetes CAD (coronary artery disease) Mother Diabetes Other Hypertension Social History Smoking Status: Former smoker alcohol intake: current alcohol intake frequency: 0-2 drinks per day HPI HPI Chief Complaint: Diabetes Details: MARIAM VENTURA, is a 33 F who presents to the office today for follow up. A1C is 6.8% She is taking Trulicity 1.5 mg and metformin ER 1 g bid. She is tolerating the Trulicity 1.5 mg well, she doesn't want to increase it. She has nephrotic range proteinuria. She sees Dr. Crump. She is on OCP and understands not to conceive on her current medications. Her labs are up to date and reviewed. ROS Const Constitutional: No anorexia, excessive sweating, malaise, night sweats, weight change or change in appetite Eyes Eyes: No change in vision ENT ENT: No hearing loss, nasal congestion or difficulty swallowing Cardio Cardiology: No chest pain at rest, excessive sweating, shortness of breath, dyspnea on exertion, irregular heart rhythm or palpitations Musc Musculoskeletal: No abnormal gait, joint pain, numbness or tingling Neuro Neurology: No abnormal gait, memory loss, numbness or tingling Psych Psychiatric: No change in appetite, No memory loss and No Thoughts of harming yourself/Others Resp Respiratory: No cough, chest congestion or shortness of breath Gastro GI: No abdominal pain, constipation, diarrhea or difficulty swallowing Genitourinary-Female : No burning urination Skin Skin: No hair loss in leg, itchy eyes, rash or skin ulcer Endo Endocrine: No excessive sweating or weight change Aller/Imm Allergy/Immunologic: No itchy eyes Exam Const General: cooperative, healthy appearing, comfortable, no acute distress, well developed and not cushingoid Nutritional Appearance: well nourished and obese Orientation: alert, awake and oriented x3 HENMT Head: normal to inspection Ears: hearing grossly normal bilaterally Nose: external nose normal Mouth: oral mucosae normal Eyes General: appearance normal, both eyes and all related structures Alignment and Position: alignment normal Periorbital: periorbital findings normal Eyelids: eyelids normal Conjunctivae: conjunctivae normal Neck Neck: normal visual inspection Neck mass: No Chest Chest palpation inspection: normal inspection of the chest Resp Effort Inspection: normal respiratory effort, able to speak in complete sentences, symmetric chest movement, no audible wheezes and no cough Cardio Rate: regular rate Rhythm: regular rhythm GI Inspection: normal to inspection Skin General: no rashes or lesions noted Neuro General: patient alert, patient awake and patient oriented x3 Cranial Nerves: CN's II-XI intact bilaterally Cognition: normal cognition Speech: speech normal Gait: normal (more content not included)... Normal [facility] CBC W Auto Differential pane l (Bld)on 11-06-2023 Basophils (Bld) [#/Vol] 0.05 10*3/uL Normal <0.11 [facility] Comment on above: Order Comment: Speci men Type: BLOOD SPECIMEN Ordering Facility: [facility] Address: [address] [place] [address] Performed By: #### 5 7021-8, 3016-3, 06589-9, 46768-4, 92593-2 #### [facility] CLIA [id number] [address] [place] [address] [place] Basophils/100 WBC (Bld) 0.5 % Normal [facility] Comment on above: Order Comment: Speci men Type: BLOOD SPECIMEN Ordering Facility: [facility] Address: [address] [place] [address] Performed By: #### 5 7021-8, 3016-3, 79430-7, 65750-6, 86205-7 #### [facility] CLIA [id number] [address] [place] [address] [place] Differential cell count method Nom (Bld) Auto Normal [facility] Comment on above: Order Comment: Speci men Type: BLOOD SPECIMEN Ordering Facility: [facility] Address: [address] [place] [address] Performed By: #### 5 7021-8, 3016-3, 55021-4, 19156-7, 43278-1 #### [facility] CLIA [id number] [address] [place] [address] [place] Eosinophils (Bld) [#/Vol] 0.50 10*3/uL High <0.46 [facility] Comment on above: Order Comment: Speci men Type: BLOOD SPECIMEN Ordering Facility: [facility] Address: [address] [place] [address] Performed By: #### 5 7021-8, 3016-3, 72741-7, 97126-9, 49305-5 #### [facility] CLIA [id number] [address] [place] [address] [place] Eosinophils/100 WBC (Bld) 5.1 % Normal [facility] Comment on above: Order Comment: Speci men Type: BLOOD SPECIMEN Ordering Facility: [facility] Address: [address] [place] [address] Performed By: #### 5 7021-8, 3016-3, 82591-8, 42557-5, 96170-6 #### [facility] CLIA [id number] [address] [place] [address] [place] Erythrocyte distribution width (RBC) [Ratio] 12.6 % Normal 11.5-15.0 [facility] Comment on above: Order Comment: Speci men Type: BLOOD SPECIMEN Ordering Facility: [facility] Address: [address] [place] [address] Performed By: #### 5 7021-8, 3016-3, 41794-7, 60419-1, 95546-6 #### [facility] CLIA [id number] [address] [place] [address] [place] Hematocrit (Bld) [Volume fraction] 38.2 % Normal 36.0-46.0 [facility] Comment on above: Order Comment: Speci men Type: BLOOD SPECIMEN Ordering Facility: [facility] Address: [address] [place] [address] Performed By: #### 5 7021-8, 3016-3, 52351-2, 40896-0, 48084-2 #### [facility] CLIA [id number] [address] [place] [address] [place] Hemoglobin (Bld) [Mass/Vol] 12.5 g/dL Normal 11.5-15.5 [facility] Comment on above: Order Comment: Speci men Type: BLOOD SPECIMEN Ordering Facility: [facility] Address: [address] [place] [address] Performed By: #### 5 7021-8, 3016-3, 26223-1, 52759-8, 23530-4 #### [facility] CLIA [id number] [address] [place] [address] [place] Immature granulocytes (Bld) [#/Vol] 0.03 10*3/uL Normal <0.10 [facility] Comment on above: Order Comment: Speci men Type: BLOOD SPECIMEN Ordering Facility: [facility] Address: [address] [place] [address] Performed By: #### 5 7021-8, 3016-3, 39025-0, 36883-1, 37744-7 #### [facility] CLIA [id number] [address] [place] [address] [place] Immature granulocytes/100 WBC (Bld) 0.3 % Normal [facility] Comment on above: Order Comment: Speci men Type: BLOOD SPECIMEN Ordering Facility: [facility] Address: [address] [place] [address] Performed By: #### 5 7021-8, 3016-3, 05356-4, 56197-3, 39658-1 #### [facility] CLIA [id number] [address] [place] [address] [place] Lymphocytes (Bld) [#/Vol] 2.92 10*3/uL Normal 1.00-4.0 0 [facility] Comment on above: Order Comment: Speci men Type: BLOOD SPECIMEN Ordering Facility: [facility] Address: [address] [place] [address] Performed By: #### 5 7021-8, 3016-3, 68257-2, 96825-7, 78665-2 #### [facility] CLIA [id number] [address] [place] [address] [place] Lymphocytes/100 WBC (Bld) 29.7 % Normal [facility] Comment on above: Order Comment: Speci men Type: BLOOD SPECIMEN Ordering Facility: [facility] Address: [address] [place] [address] Performed By: #### 5 7021-8, 3016-3, 26990-1, 62254-0, 34137-7 #### [facility] CLIA [id number] [address] [place] [address] [place] MCH (RBC) [Entitic mass] 32.1 pg Normal 26.0-34.0 [facility] Comment on above: Order Comment: Speci men Type: BLOOD SPECIMEN Ordering Facility: [facility] Address: [address] [place] [address] Performed By: #### 5 7021-8, 3016-3, 69817-7, 90760-5, 73509-3 #### [facility] CLIA [id number] [address] [place], [place] [address] [place] MCHC (RBC) [Mass/Vol] 32.7 g/dL Normal 30.5-36.0 [facility] Comment on above: Order Comment: Speci men Type: BLOOD SPECIMEN Ordering Facility: [facility] Address: [address] [place] [address] Performed By: #### 5 7021-8, 3016-3, 02504-9, 22821-9, 97287-2 #### [facility] CLIA [id number] [address] [place] [address] [place] MCV (RBC) [Entitic vol] 97.9 fL Normal 80.0-100.0 [facility] Comment on above: Order Comment: Speci men Type: BLOOD SPECIMEN Ordering Facility: [facility] Address: [address] [place] [address] Performed By: #### 5 7021-8, 3016-3, 13591-7, 66563-4, 99268-3 #### [facility] CLIA [id number] [address] [place] [address] [place] Monocytes (Bld) [#/Vol] 0.60 10*3/uL Normal <0.87 [facility] Comment on above: Order Comment: Speci men Type: BLOOD SPECIMEN Ordering Facility: [facility] Address: [address] [place], [place] [address] Performed By: #### 5 7021-8, 3016-3, 07672-4, 11351-9, 09264-4 #### [facility] CLIA [id number] [address] [place] Monocytes/100 WBC (Bld) 6.1 % Normal [facility] Comment on above: Order Comment: Speci men Type: BLOOD SPECIMEN Ordering Facility: [facility] Address: [address] [place] [address] Performed By: #### 5 7021-8, 3016-3, 30492-3, 36055-6, 87895-5 #### [facility] CLIA [id number] [address] [place] [address] [place] Neutrophils (Bld) [#/Vol] 5.73 10*3/uL Normal 1.45-7.5 0 [facility] Comment on above: Order Comment: Speci men Type: BLOOD SPECIMEN Ordering Facility: [facility] Address: [address] [place] [address] Performed By: #### 5 7021-8, 3016-3, 20925-8, 09747-1, 04563-7 #### [facility] CLIA [id number] [address] [place] [address] [place] Neutrophils/100 WBC (Bld) 58.3 % Normal [facility] Comment on above: Order Comment: Speci men Type: BLOOD SPECIMEN Ordering Facility: [facility] Address: [address] [place] [address] Performed By: #### 5 7021-8, 3016-3, 65930-8, 97669-8, 50745-5 #### [facility] CLIA [id number] [address] [place] [address] [place] Nucleated RBC (Bld) [#/Vol] 10*3/uL Normal <0.01 [facility] Comment on above: Order Comment: Speci men Type: BLOOD SPECIMEN Ordering Facility: [facility] Address: [address] [place] [address] Performed By: #### 5 7021-8, 3016-3, 30315-1, 11433-3, 61361-5 #### [facility] CLIA [id number] [address] [place] [address] [place] Nucleated RBC/100 WBC (Bld) [Ratio] 0.0 /100 WBC Normal [facility] Comment on above: Order Comment: Speci men Type: BLOOD SPECIMEN Ordering Facility: [facility] Address: [address] [place] [address] Performed By: #### 5 7021-8, 3016-3, 09776-7, 60566-3, 71159-0 #### [facility] CLIA [id number] [address] [place] [address] [place] Platelet mean volume (Bld) [Entitic vol] 11.6 fL Normal 9.0-12.7 [facility] Comment on above: Order Comment: Speci men Type: BLOOD SPECIMEN Ordering Facility: [facility] Address: [address] [place] [address] Performed By: #### 5 7021-8, 3016-3, 71592-7, 39933-1, 51236-7 #### [facility] CLIA [id number] [address] [place] [address] [place] Platelets (Bld) [#/Vol] 268 10*3/uL Normal 150-400 [facility] Comment on above: Order Comment: Speci men Type: BLOOD SPECIMEN Ordering Facility: [facility] Address: [address] [place] [address] Performed By: #### 5 7021-8, 3016-3, 39242-0, 87854-2, 60628-9 #### [facility] CLIA [id number] [address] [place], [place] [address] [place] RBC (Bld) [#/Vol] 3.90 10*6/uL Normal 3.90-5.[address] [facility] Comment on above: Order Comment: Speci men Type: BLOOD SPECIMEN Ordering Facility: [facility] Address: [address] [place] [address] Performed By: #### 5 7021-8, 3016-3, 76556-0, 40306-1, 38354-0 #### [facility] CLIA [id number] [address] [place] [address] [place] WBC (Bld) [#/Vol] 9.83 10*3/uL Normal 3.70-11.[address] [facility] Comment on above: Order Comment: Speci men Type: BLOOD SPECIMEN Ordering Facility: [facility] Address: [address] [place] [address] Performed By: #### 5 7021-8, 3016-3, 99017-5, 40377-7, 37386-4 #### [facility] CLIA [id number] [address] [place], [place] [address] [place] Comprehensive metabolic 2000 panelon 11-06-2023 Albumin [Mass/Vol] 4.4 g/dL Normal 3.9-4.9 [facility] Comment on above: Order Comment: Speci men Type: BLOOD SPECIMEN Ordering Facility: [facility] Address: [address] [place] [address] Performed By: #### 5 7021-8, 3016-3, 29866-5, 67513-4, 58334-6 #### [facility] CLIA [id number] [address] [place], [place] [address] [place] ALP [Catalytic activity/Vol] 54 U/L Normal 34-123 [facility] Comment on above: Order Comment: Speci men Type: BLOOD SPECIMEN Ordering Facility: [facility] Address: [address] [place] [address] Performed By: #### 5 7021-8, 3016-3, 86828-8, 02166-3, 00961-2 #### [facility] CLIA [id number] [address] [place] [address] [place] ALT [Catalytic activity/Vol] 23 U/L Normal 7-38 [facility] Comment on above: Order Comment: Speci men Type: BLOOD SPECIMEN Ordering Facility: [facility] Address: [address] [place] [address] Performed By: #### 5 7021-8, 3016-3, 56926-5, 79224-3, 52875-3 #### [facility] CLIA [id number] [address] [place] [address] [place] Anion gap [Moles/Vol] 12 mmol/L Normal 8-15 [facility] Comment on above: Order Comment: Speci men Type: BLOOD SPECIMEN Ordering Facility: [facility] Address: [address] [place] [address] Performed By: #### 5 7021-8, 3016-3, 71394-8, 20383-2, 23575-8 #### [facility] CLIA [id number] [address] [place], [place] [address] [place] AST [Catalytic activity/Vol] 28 U/L Normal 13-35 [facility] Comment on above: Order Comment: Speci men Type: BLOOD SPECIMEN Ordering Facility: [facility] Address: [address] [place] [address] Performed By: #### 5 7021-8, 3016-3, 76811-5, 10009-4, 46087-7 #### [facility] CLIA [id number] [address] [place], [place] [address] [place] Bilirubin [Mass/Vol] 0.6 mg/dL Normal 0.2-1.3 [facility] Comment on above: Order Comment: Speci men Type: BLOOD SPECIMEN Ordering Facility: [facility] Address: [address] [place] [address] Performed By: #### 5 7021-8, 3016-3, 91973-0, 10742-9, 91358-4 #### [facility] CLIA [id number] [address] [place] [address] [place] Calcium [Mass/Vol] 9.6 mg/dL Normal 8.5-10.2 [facility] Comment on above: Order Comment: Speci men Type: BLOOD SPECIMEN Ordering Facility: [facility] Address: [address] [place] [address] Performed By: #### 5 7021-8, 3016-3, 07588-3, 43789-2, 87013-8 #### [facility] CLIA [id number] [address] [place] [address] [place] Chloride [Moles/Vol] 102 mmol/L Normal 98-107 [facility] Comment on above: Order Comment: Speci men Type: BLOOD SPECIMEN Ordering Facility: [facility] Address: [address] [place] [address] Performed By: #### 5 7021-8, 3016-3, 34518-6, 43643-5, 26924-8 #### [facility] CLIA [id number] [address] [place] [address] [place] CO2 [Moles/Vol] 23 mmol/L Normal 22-30 [facility] Comment on above: Order Comment: Speci men Type: BLOOD SPECIMEN Ordering Facility: [facility] Address: [address] [place], [place] [address] Performed By: #### 5 7021-8, 3016-3, 06841-3, 29172-4, 48434-1 #### [facility] CLIA [id number] [address] [address] [place] Creatinine [Mass/Vol] 0.67 mg/dL Normal 0.58-0.96 [facility] Comment on above: Order Comment: Speci men Type: BLOOD SPECIMEN Ordering Facility: [facility] Address: [address] [place] [address] Performed By: #### 5 7021-8, 3016-3, 77961-2, 33703-2, 78216-2 #### [facility] CLIA [id number] [address] [place] [address] [place] Creatinine and Glomerular filtration rate.predicted panel (S/P/Bld) 119 mL/min/1.73m??? Normal >=60 [facility] Comment on above: Order Comment: Speci men Type: BLOOD SPECIMEN Ordering Facility: [facility] Address: [address] [place] [address] Result Comment: Cassandra mated Glomerular Filtration Rate (eGFR) is calculated using the 2020 CKD-EPI creatinine equation. This equation utilizes serum creatinine, sex, and age as parameters. The creatinine assay has traceable calibration to isotope dilution-mass spectrometry. Refer to KDIGO guidelines for clinical interpretation. In patients with unstable renal function, e.g. those with acute kidney injury, the eGFR may not accurately reflect actual GFR. Performed By: #### 5 7021-8, 3016-3, 72683-3, 67782-4, 02114-0 #### [facility] CLIA [id number] [address] [place] [id number] [place] Glucose [Mass/Vol] 104 mg/dL High 74-99 [facility] Comment on above: Order Comment: Speci men Type: BLOOD SPECIMEN Ordering Facility: [facility] Address: [address] [place] [address] Result Comment: The [place] Diabetes Association (ADA) provides guidance for cutoff values for fasting glucose and random glucose. The ADA defines fasting as no caloric intake for at least 8 hours. Fasting plasma glucose results between 100 to 125 mg/dL indicate increased risk for diabetes (prediabetes). Fasting plasma glucose results greater than or equal to 126 mg/dL meet the criteria for diagnosis of diabetes. In the absence of unequivocal hyperglycemia, results should be confirmed by repeat testing. In a patient with classic symptoms of hyperglycemia or hyperglycemic crisis, random plasma glucose results greater than or equal to 200 mg/dL meet the criteria for diagnosis of diabetes. Reference: Standards of Medical Care in Diabetes 2016, [place] Diabetes Association. Diabetes Care. 2016.39(Suppl 1). Performed By: #### 5 7021-8, 3016-3, 56732-9, 31828-9, 90942-3 #### [facility] CLIA [id number] [address] [place] [address] [place] Potassium [Moles/Vol] 4.5 mmol/L Normal 3.7-5.1 [facility] Comment on above: Order Comment: Aman faust Type: BLOOD SPECIMEN Ordering Facility: [facility] Address: [address] [place] [address] Performed By: #### 5 7021-8, 3016-3, 36499-8, 52925-1, 28720-7 #### [facility] CLIA [id number] [address] [place] [address] [place] Protein [Mass/Vol] 6.9 g/dL Normal 6.3-8.0 [facility] Comment on above: Order Comment: Aman faust Type: BLOOD SPECIMEN Ordering Facility: [facility] Address: [address] [place] [address] Performed By: #### 5 7021-8, 3016-3, 98754-4, 03794-9, 71255-9 #### [facility] CLIA [id number] [address] [address] [place] Sodium [Moles/Vol] 137 mmol/L Normal 136-144 [facility] Comment on above: Order Comment: Speci men Type: BLOOD SPECIMEN Ordering Facility: [facility] Address: [address] [place] [address] Performed By: #### 5 7021-8, 3016-3, 39685-7, 67185-3, #### [facility] CLIA [id number] [address] [place] [address] [place] Urea nitrogen [Mass/Vol] 10 mg/dL Normal 7-21 [facility] Comment on above: Order Comment: Speci men Type: BLOOD SPECIMEN Ordering Facility: [facility] Address: [address] [place] [address] Performed By: #### 5 7021-8, 3016-3, 55066-8, 34420-1, #### [facility] CLIA [id number] [address] [place] [address] [place] HbA1c (Bld)on 11-06-2023 Average glucose Estimated from glycated hemoglobin (Bld) [Mass/Vol] 148 mg/dL Normal [facility] Comment on above: Order Comment: Speci men Type: BLOOD SPECIMENOrdering Facility: [facility] Address: [address] [place] [address] Result Comment: eAG: (Estimated average glucose) is a calculated value from HgbA1c and is representative phlebotomy services of the average blood glucose level in the last 2-3 month period. Performed By: #### 5 7021-8, 3016-3, 48021-3, 57591-3, 61067-3 ####[facility] [id number] [address] [address] [place] HbA1c (Bld) [Mass fraction] 6.8 % High 4.3-5.6 [facility] Comment on above: Order Comment: Aman faust Type: BLOOD SPECIMENOrdering Facility: [facility] Address: [address] [place] [address] Result Comment: [place]ie [place] Diabetes Association guidelines indicate that patients with HgbA1c in the range 5.7-6.4% are at increased risk for development of diabetes, and intervention by lifestyle modification may be beneficial. HgbA1c greater or equal to 6.5% is considered diagnostic of diabetes. Performed By: #### 5 7021-8, 3016-3, 52807-3, 70016-6, 93861-9 ####[facility] [id number] [place] [address] [place] Lipid 1996 panelon 4 Cholesterol [Mass/Vol] 138 mg/dL Normal <200 [facility] Comment on above: Order Comment: Aman faust Type: BLOOD SPECIMEN Ordering Facility: [facility] Address: [address] [place] [address] Result Comment: <200 mg/dL, Desirable 200-239 mg/dL, Borderline high >239 mg/dL, High Performed By: #### 5 7021-8, 3016-3, 12052-3, 11042-5, 22921-7 #### [facility] CLIA [id number] [address] [place] [address] [place] Cholesterol in HDL [Mass/Vol] 53 mg/dL Normal >39 [facility] Comment on above: Order Comment: Aman faust Type: BLOOD SPECIMEN Ordering Facility: [facility] Address: [address] [place] [address] Result Comment: 40-5 9 mg/dL, Acceptable >59 mg/dL, High: Negative risk factor for coronary heart disease <40 mg/dL, Low: Positive risk factor for coronary heart disease Performed By: #### 5 7021-8, 3016-3, 70185-5, 74435-5, 69201-3 #### [facility] CLIA [id number] [address] [place] [address] [place] Cholesterol in LDL [Mass/Vol] 70 mg/dL Normal <100 [facility] Comment on above: Order Comment: Aman faust Type: BLOOD SPECIMEN Ordering Facility: [facility] Address: [address] [place] [address] Result Comment: <100 mg/dL, Optimal 100-129 mg/dL, Near optimal/above optimal 130-159 mg/dL, Borderline high 160-189 mg/dL, High >189 mg/dL, Very high Secondary prevention optimal LDL Cholesterol levels are recommended to be < 70 mg/dL Performed By: #### 5 7021-8, 3016-3, 18631-3, 21589-0, 96434-4 #### [facility] CLIA [id number] [address] [place] [address] [place] Cholesterol in LDL/Cholesterol in HDL [Mass ratio] 1.32 {ratio} Normal <2.54 [facility] Comment on above: Order Comment: Aman faust Type: BLOOD SPECIMEN Ordering Facility: [facility] Address: [address] [place] [address] Result Comment: Refe rence: 1. National Cholesterol Education Program ATP III Guideline At-A-Glance Quick Desk Reference: National Heart, Lung, and Blood [place]. National Institutes of Health. 2001: NIH Publication No. 01-3305. 2. An International Atherosclerosis Society position paper: global recommendations for the management of dyslipidemia: executive summary, Atherosclerosis. 2014: 232(2):410-413. Performed By: #### 5 7021-8, 3016-3, 59582-5, 64704-1, 47419-3 #### [facility] CLIA [id number] [facility] [place] [address] [place] Cholesterol in VLDL [Mass/Vol] 15 mg/dL Normal <30 [facility] Comment on above: Order Comment: Asuncioni men Type: BLOOD SPECIMEN Ordering Facility: [facility] Address: [address] [place] [address] Performed By: #### 5 7021-8, 3016-3, 00524-9, 14156-4, 92328-1 #### [facility] CLIA [id number] [address] [place] [address] [place] Cholesterol non HDL [Mass/Vol] 85 mg/dL Normal <130 [facility] Comment on above: Order Comment: Speci men Type: BLOOD SPECIMEN Ordering Facility: [facility] Address: [address] [place], [place] [address] Result Comment: <130 mg/dL, Optimal 130-159 mg/dL, Near optimal/above optimal 160-189 mg/dL, Borderline high 190-219 mg/dL, High >219 mg/dL, Very high Secondary prevention optimal non HDL Cholesterol levels are recommended to be <100 mg/dL Performed By: #### 5 7021-8, 3016-3, 34524-5, 94739-3, 26694-0 #### [facility] CLIA [id number] [address] [place] [address] [place] Cholesterol.total/Cholest arden in HDL [Mass ratio] 2.60 {ratio} Normal <5.10 [facility] Comment on above: Order Comment: Speci men Type: BLOOD SPECIMEN Ordering Facility: [facility] Address: [address] [place] [address] Performed By: #### 5 7021-8, 3016-3, 01978-8, 68997-1, 49654-0 #### [facility] CLIA [id number] [address] [place], [place] [address] [place] FASTING TIME 10 hrs Normal [facility] Comment on above: Order Comment: Speci men Type: BLOOD SPECIMEN Ordering Facility: [facility] Address: [address] [place] [address] Performed By: #### 5 7021-8, 3016-3, 34696-4, 10474-5, 20157-5 #### [facility] CLIA [id number] [address] [place] [address] [place] Triglyceride [Mass/Vol] 73 mg/dL Normal <150 [facility] Comment on above: Order Comment: Speci govind Type: BLOOD SPECIMEN Ordering Facility: [facility] Address: [address] [place] [address] Result Comment: <150 mg/dL, Normal 150-199 mg/dL, Borderline high 200-499 mg/dL, High >499 mg/dL, Very high Performed By: #### 5 7021-8, 3016-3, 86155-1, 81919-2, 64258-5 #### [facility] CLIA [id number] [address] [place] [address] [place] TSH SerPl-aCncon 11-06-2023 TSH Qn 1.200 m[IU]/L Normal 0.270-4.200 [facility] Comment on above: Order Comment: Speci govind Type: BLOOD SPECIMENOrdering Facility: [facility] Address: [address] [place] [address] Result Comment: If t he patient is , TSH reference range varies by gestational period: First Trimester (weeks 9-12): 0.180-2.990 mIU/L Second Trimester: 0.110-3.980 mIU/L Third Trimester: 0.480-4.710 mIU/L Kaiser Fallon et al. A Practical Approach for the Verifications and Determination of Site- and Trimester-Specific Reference Intervals for Thyroid Function tests in . Thyroid, 2019:29:3:412-420. Boby Ivy, et al. 2017 Guidelines of the [place] Thyroid Association for the Diagnosis and Management of Thyroid Disease during and the . Thyroid, 2017:27:3:315-389. Performed By: #### 5 7021-8, 3016-3, 89934-3, 14231-4, 44194-0 ####[facility] [id number] [facility] [id number] [address] [place] Protein+Creatinine Ratio,Uri neon 10-05-2023 PROT:CRE RATIO 79 mg/g CRE Normal 0-200 [facility] Comment on above: Performed By: #### L 501.0900, L500.3600 #### [facility] [address] [place], [address] Protein (U) [Mass/Vol] 25.9 mg/dL High <11.9 [facility] Comment on above: Performed By: #### L 501.0900, L500.3600 #### [facility] [address] [place], [address] UR CREAT 329.00 mg/dL Normal NO RANGE EST. [facility] Comment on above: Performed By: #### L 501.0900, L500.3600 #### [facility] [address] [place], [address] Renal Profileon 10-05-2023 Albumin [Mass/Vol] 4.2 g/dL Normal 3.2-5.0 [facility] Comment on above: Performed By: #### L 501.0900, L500.3600 #### [facility] [address] [place], [address] BUN/CRE 23.4 RATIO High 10-20 [facility] Comment on above: Performed By: #### L 501.0900, L500.3600 #### [facility] [address] [place], [address] CA,Total 9.8 mg/dL Normal 8.5-10.1 [facility] Comment on above: Performed By: #### L 501.0900, L500.3600 #### [facility] [address] [place], [address] Chloride [Moles/Vol] 102 mmol/L Normal 98-107 [facility] Comment on above: Performed By: #### L 501.0900, L500.3600 #### [facility] [address] [place], [address] CO2 [Moles/Vol] 23.0 mmol/L Normal 21.0-32.0 [facility] Comment on above: Performed By: #### L 501.0900, L500.3600 #### [facility] [address] [place], [address] Creatinine [Mass/Vol] 1.07 mg/dL High 0.55-1.02 [facility] Comment on above: Result Comment: The validity of the calculated GFR GFRAA in patients over 70 years has not been determined. Clinical correlation is essential. Performed By: #### L 501.0900, L500.3600 #### [facility] [address] [place], [address] EST GFR - AA 76 mL/min Normal >60 [facility] Comment on above: Result Comment: Afri can Lebanese GFR Calc Performed By: #### L 501.0900, L500.3600 #### [facility] [address] [place], [address] GFR/1.73 sq M.predicted among non-blacks MDRD (S/P/Bld) [Vol rate/Area] 63 mL/min/{1.73_m2} Normal >60 [facility] Comment on above: Result Comment: Non- GFR Calc Performed By: #### L 501.0900, L500.3600 #### [facility] [address] [place], [address] Glucose [Mass/Vol] 115 mg/dL High 74-106 [facility] Comment on above: Result Comment: Fast ing Glucose result from 100 to 125 mg/dL suggests IMPAIRED HOMEOSTASIS per A.D.A. criteria. Performed By: #### L 501.0900, L500.3600 #### [facility] [address] [place], [address] Phosphate [Mass/Vol] 3.7 mg/dL Normal 2.5-4.9 [facility] Comment on above: Performed By: #### L 501.0900, L500.3600 #### [facility] [address] [place], [address] Potassium [Moles/Vol] 4.4 mmol/L Normal 3.5-5.1 [facility] Comment on above: Performed By: #### L 501.0900, L500.3600 #### [facility] [address] [place], [address] Sodium [Moles/Vol] 133 mmol/L Low 136-145 [facility] Comment on above: Performed By: #### L 501.0900, L500.3600 #### [facility] [address] [place], [address] Urea nitrogen [Mass/Vol] 25 mg/dL High 7-18 [facility] Comment on above: Performed By: #### L 501.0900, L500.3600 #### [facility] [address] [place], [address] Basophil percentageOrdered B y: Jonatanbladimir Interiano on 09-29-2022 Basophil percentage 3.9 mg/dL 2.5-4.9 [facility] Bilirubin [Mass/Vol] 0.60 mg/dL 0.20-1.00 [facility] Comment on above: For patients on eltr ombopag therapy, use of [employer] [place] TBIL is not recommended. Chloride [Moles/Vol] 106 mmol/L 98-107 [facility] Cholesterol [Mass/Vol] 141 mg/dL <200 [facility] Comment on above: <200 mg/dL Desirable 200-240 mg/dL Borderline >240 mg/dL High Risk Glucose [Mass/Vol] 102 mg/dL 74-106 [facility] Comment on above: Fasting Glucose resu lt from 100 to 125 mg/dL suggests IMPAIRED HOMEOSTASIS per A.D.A. criteria. Potassium [Moles/Vol] 4.2 mmol/L 3.5-5.1 [facility] Protein [Mass/Vol] 7.9 g/dL 6.4-8.2 [facility] Sodium [Moles/Vol] 138 mmol/L 136-145 [facility] Triglyceride [Mass/Vol] 92 mg/dL <199 [facility] Comment on above: The drugs N-Acetylcy steine and Metamizole may falsely depress this assay.Serum Triglycerides Reference Interval Normal <150 mg/dL Borderline high 150 - 199 mg/dL High 200 - 499 mg/dL Very High > or = 500 mg/dL Laboratory - Chemistry and C hemistry - challengeOrdered By: Jonatan Interiano on 09-29-2022 ALP [Catalytic activity/Vol] 68 U/L 45-117 [facility] ALT [Catalytic activity/Vol] 29 U/L 13-56 [facility] CO2 [Moles/Vol] 23.0 mmol/L 21.0-32.0 [facility] Free T4 [Mass/Vol] 1.04 ng/dL 0.76-1.46 [facility] Globulin (S) [Mass/Vol] 4.0 g/dL 2.2-4.2 [facility] Urea nitrogen/Creatinine [Mass ratio] 20.9 mg/mg 10-20 [facility] No Panel InformationOrdered By: Jonatan Interiano on 09-29-2022 Estimated GFR (MDRD) Amer 104 mL/min >60 [facility] Comment on above: GFR Calc Estimated GFR (MDRD) Non-Af Amer 86 mL/min >60 [facility] Comment on above: Non- GFR Calc Thyroid Stimulating Hormone (TSH) 1.67 uIU/mL 0.358-3.74 [facility] Urine Microalbumin/Creatinine Ratio 133.0 mg/g CRE <30 [facility] Vitamin D 25-Hydroxy 32.2 ng/mL [facility] Comment on above: Vitamin D 25(OH) Sta tus Range Deficiency <20 ng/mL (50nmol/L) Insufficiency 20 - 30 ng/mL (50 - 75 nmol/L) Sufficiency 30 - 100 ng/mL (75 - 250 nmol/L) Toxicity >100 ng/mL (>250 nmol/L) Serum or plasma albumin shilpa urement (mass/volume)Ordered By: Jonatan Interiano on 09-29-2022 Albumin [Mass/Vol] 3.9 g/dL 3.2-5.0 [facility] Serum or plasma albumin/glob ulin mass ratioOrdered By: Jonatan Interiano on 09-29-2022 Albumin/Globulin [Mass ratio] 1.0 {ratio} 0.9-2.4 [facility] Serum or plasma calcium shilpa urement (mass/volume)Ordered By: Jonatan Interiano on 09-29-2022 Calcium [Mass/Vol] 9.6 mg/dL 8.5-10.1 [facility] Serum or plasma cholesterol in HDL measurement (mass/volume)Ordered By: Jonatan Interiano on 09-29-2022 Cholesterol in HDL [Mass/Vol] 51 mg/dL >40 [facility] Comment on above: The drugs N-Acetylcy steine and Metamizole may falsely depress this assay. Reference Range HDL <40 mg/dL Low HDL Cholesterol HDL >or= 60 mg/dL High HDL Cholesterol Serum or plasma cholesterol in VLDL measurement (mass/volume)Ordered By: Jonatan Interiano on 09-29-2022 Cholesterol in VLDL [Mass/Vol] 18 mg/dL 5-40 [facility] Serum or plasma creatinine m easurement (mass/volume)Ordered By: Jonatan Interiano 09-29-2022 Creatinine [Mass/Vol] 0.82 mg/dL 0.55-1.02 [facility] Comment on above: The validity of the calculated GFR & GFRAA in patients over 70 years has not been determined. Clinical correlation is essential. Serum or plasma low density lipoprotein (LDL) cholesterol measurement (mass/volume)Ordered By: Jonatan Interiano on 09-29-2022 Cholesterol in LDL [Mass/Vol] 72 mg/dL 0-130 [facility] Serum or plasma urea nitroge n measurement (mass/volume)Ordered By: Jonatan Interiano 09-29-2022 Urea nitrogen [Mass/Vol] 17 mg/dL 7-18 [facility] Thin prep Papanicolaou smear with manual screeningOrdered By: Jonatan Interiano on 09-29-2022 Thin prep Papanicolaou smear with manual screening 13 U/L 15-37 [facility] Thin prep Papanicolaou smear with manual screening 9 5-15 [facility] Thin prep Papanicolaou smear with manual screening 258.0 mg/L NO RANGE EST. [facility] Urine creatinine measurement (mass/volume)Ordered By: Jonatan Interiano on 09-29-2022 Creatinine (U) [Mass/Vol] 194.00 mg/dL NO RANGE EST. [facility] Urine protein measurement (m ass/volume)Ordered By: Jonatan Interiano on 09-29-2022 Protein (U) [Mass/Vol] 45.8 mg/dL 0.0-11.8 [facility] Urine protein/creatinine mas s ratioOrdered By: Jonatan Interiano on 09-29-2022 Protein/Creatinine (U) [Mass ratio] 236 mg/g CRE 0-200 [facility] Whole blood hemoglobin A1c/t otal hemoglobin ratio (mass fraction)Ordered By: Nina Martinez on 09-29-2022 HbA1c (Bld) [Mass fraction] 6.4 % 3.8-5.6 [facility] Comment on above: Normal < 5.7 % Predi abetic 5.7 - 6.4 % Diabetic >or= 6.5 % Please note range changes. Laboratory - Hematology and Cell countson 07-25-2022 HbA1c (Bld) [Mass fraction] 6.8 % 4.2-6.3 [facility] Basophil percentageon 2021 Basophil percentage 4.4 mg/dL 2.5-4.9 [facility] Work Phone: Chloride [Moles/Vol] 104 mmol/L 98-107 [facility] Work Phone: Glucose [Mass/Vol] 116 mg/dL 74-[address] [facility] Work Phone: Comment on above: Fasting Glucose resu lt from 100 to 125 mg/dL suggests IMPAIRED HOMEOSTASIS per A.D.A. criteria. Potassium [Moles/Vol] 4.4 mmol/L 3.5-5.1 [facility] Work Phone: Sodium [Moles/Vol] 137 mmol/L 136-145 [facility] Work Phone: Laboratory - Chemistry and C hemistry - challengeon 10-05-2021 CO2 [Moles/Vol] 24.0 mmol/L 21.0-32.0 [facility] Work Phone: Urea nitrogen/Creatinine [Mass ratio] 23.3 mg/mg 10-20 [facility] Work Phone: No Panel Informationon 10-05 Estimated GFR (MDRD) Amer 99 mL/min >60 [facility] Work Phone: Comment on above: GFR Calc Estimated GFR (MDRD) Non-Af Amer 82 mL/min >60 [facility] Work Phone: Comment on above: Non- GFR Calc Serum or plasma albumin shilpa urement (mass/volume)on 10-05-2021 Albumin [Mass/Vol] 4.0 g/dL 3.2-5.0 [facility] Work Phone: Serum or plasma calcium shilpa urement (mass/volume)on 10-05-2021 Calcium [Mass/Vol] 9.8 mg/dL 8.5-10.1 [facility] Work Phone: Serum or plasma creatinine m easurement (mass/volume)on 10-05-2021 Creatinine [Mass/Vol] 0.86 mg/dL 0.55-1.02 [facility] Work Phone: Comment on above: The validity of the calculated GFR & GFRAA in patients over 70 years has not been determined. Clinical correlation is essential. Serum or plasma urea nitroge n measurement (mass/volume)on 10-05-2021 Urea nitrogen [Mass/Vol] 20 mg/dL 7-18 [facility] Work Phone: Urine creatinine measurement (mass/volume)on 10-05-2021 Creatinine (U) [Mass/Vol] 120.00 mg/dL NO RANGE EST. [facility] Work Phone: Urine protein measurement (m ass/volume)on 10-05-2021 Protein (U) [Mass/Vol] 41.9 mg/dL 0.0-11.8 [facility] Work Phone: Urine protein/creatinine mas s ratioon 10-05-2021 Protein/Creatinine (U) [Mass ratio] 349 mg/g CRE 0-200 [facility] Work Phone: Laboratory - Hematology and Cell countson 09-30-2021 HbA1c (Bld) [Mass fraction] 6.2 % 4.2-6.3 [facility] Work Phone: No Panel Informationon 06-28 Dehydroepiandrosterone Sulfate 719.0 ug/dL 84.8-378.0 [facility] Work Phone: Serum or plasma progesterone measurement (mass/volume)on 06-28-2021 Progesterone [Mass/Vol] 1.36 ng/mL See Comment [facility] Work Phone: Comment on above: Progesterone Referen ce Table: UNITS Female: Follicular 0.15 - 1.40 ng/mL Luteal 3.34 - 25.56 ng/mL Mid-luteal 4.44 - 28.03 ng/mL Postmenopausal 0.0 - 0.73 ng/mL : 1st Trimester 11.22 - 90.00 ng/mL 2nd Trimester 25.55 - 89.40 ng/mL 3rd Trimester 48.40 -422.50 ng/mL Serum or plasma testosterone free measurement (mass/volume)on 06-28-2021 Testosterone Free [Mass/Vol] 8.4 pg/mL 0.0-4.2 [facility] Work Phone: Comment on above: Performed at: [facility] - [facility] [address] [id number] Director: Kevin Estrella PhD, Phone: [phone] at: - [facility] [address] [id number] Director: Ankit Buchanan MD, Phone: [phone] Laboratory - Chemistry and C hemistry - challengeon 06-09-2021 Free T4 [Mass/Vol] 1.30 ng/dL 0.76-1.46 [facility] Work Phone: No Panel Informationon 06-09 Follicle Stimulating Hormone 3.5 mIU/mL [facility] Work Phone: Comment on above: NORMAL REFERENCE RAN GES FEMALE FOLLICULAR 2.3 - 12.6 mIU/mL MID-CYCLE PEAK 5.2 - 17.5 mIU/mL LUTEAL 1.7 - 12.9 mIU/mL POST-MENOPAUSAL ON MHT 5.9 - 72.8 mIU/mL NOT ON MHT 12.7 - 132.2 mlU/mL MALE 0.7 - 10.8 mIU/mL Luteinizing Hormone 2.0 mIU/mL [facility] Work Phone: Comment on above: NORMAL REFERENCE RAN GES FEMALE FOLLICULAR 1.9 - 26.2 mIU/mL MID-CYCLE PEAK 22.8 - 76.1 mIU/mL LUTEAL 0.6 - 16.6 mIU/mL POST-MENOPAUSAL ON MHT 1.1 - 52.4 mIU/mL NOT ON MHT 8.6 - 61.8 mIU/mL MALE 1.2 - 10.6 mIU/mL Rubella IgG Antibody Reactive Nonreactive [facility] Work Phone: Comment on above: Antibody Results Int erpretation of Immune Status Non Reactive Presumed Non-Immune Equivocal Equivocal Reactive Presumed Immune Thyroid Stimulating Hormone (TSH) 2.68 uIU/mL 0.358-3.74 [facility] Work Phone: Vitamin D 25-Hydroxy 16.3 ng/mL [facility] Work Phone: Comment on above: Vitamin D 25(OH) Sta tus Range Deficiency <20 ng/mL (50nmol/L) Insufficiency 20 - 30 ng/mL (50 - 75 nmol/L) Sufficiency 30 - 100 ng/mL (75 - 250 nmol/L) Toxicity >100 ng/mL (>250 nmol/L) Serum Varicella zoster virus IgG antibody assay by immunoassay (units/volume)on 06-09-2021 VZV IgG IA Qn (S) 960 index Immune >165 [facility] Work Phone: Comment on above: Negative <135 Equivo nasir 135 - 165 Positive >165A positive result generally indicates exposure to thepathogen or administration of specific immunoglobulins,but it is not indication of active infection or stageof disease.Performed at: [facility] [employer] [facility] [address] [id number] Director: Kevin Estrella PhD, Phone: [phone] Serum hepatitis B virus surf toni antibody IgG detectionon 06-09-2021 HBV surface IgG Ql (S) Non-Reactive [facility] Work Phone: Comment on above: Non Reactive: Incons istent with immunity less than <10 mIU/mL Reactive: Consistent with immunity greater than or equal to 10 mIU/mL Serum or plasma 17-hydroxypr ogesterone measurement (mass/volume)on 06-09-2021 17-Hydroxyprogesterone [Mass/Vol] 12 ng/dL [facility] Work Phone: Comment on above: Adult Female Follicu lar 15 - 70 Luteal 35 - 290Performed at: [employer] [address] [id number] Director: Ankit Buchanan MD, Phone: [phone] Serum or plasma estradiol (E 2) measurement (mass/volume)on 06-09-2021 E2 [Mass/Vol] 38.5 pg/mL [facility] Work Phone: Comment on above: NORMAL REFERENCE RAN GES FEMALE FOLLICULAR 21.4 - 164.8 pg/mL MID-CYCLE PEAK 49.9 - 367.2 pg/mL LUTEAL 40.2 - 259.0 pg/mL POST-MENOPAUSAL ON MHT <11.0 - 462.1 pg/mL NOT ON MHT <11.0 - 58.3 pg/mL MALE <11.0 - 52.5 pg/mL NOTE:[employer] HAS CONFIRMED THE DRUG FULVETRANT (FASLODEX) MAY CAUSE FALSELY ELEVATED ESTRADIOL RESULTS WHEN USING THIS TEST METHOD. IF PATIENT IS TAKING FULVESTRANT AN ALTERNATIVE METHOD SHOULD BE USED TO DETERMINE ESTRADIOL CONCENTRATION. Serum or plasma prolactin me asurement (mass/volume)on 06-09-2021 Prolactin [Mass/Vol] 11.9 ng/mL [facility] Work Phone: Comment on above: NORMAL REFERENCE RAN GES FEMALE NON- 2.2 - 30.3 ng/mL 8.1 - 347.6 ng/mL POST-MENOPAUSAL 0.7 - 31.5 ng/mL MALE 2.5 - 17.4 ng/mL Cervical or vagninal specime n microscopic examination by cytology stain (reported ason 05-13-2021 Cytology report Cyto stain Doc (Cvx/Vag) Comment [facility] Work Phone: Comment on above: The Pap smear is a s creening test designed to aid in thedetection of premalignant and malignant conditions of theuterine cervix. It is not a diagnostic procedure andshould not be used as the sole means of detecting cervicalcancer. Both false-positive and false-negative reports dooccur. Detection in cervical specim en of any of human papilloma virus (HPV) 16, 18, 31, 33,on 05-13-2021 HPV 16+18+31+33+35+39+45+51+5 2+56+58+59+66+68 DNA Probe+sig amp Ql (Cvx) Negative Negative [facility] Work Phone: Comment on above: This nucleic acid am plification test detects fourteen high-risk HPV types (16,18,31,33,35,39,45,51,52,56,58,59,66,68)without differentiation.Performed at: - [facility] [id number] Director: Teena Hussein MD, Phone: [phone] at: = - [facility] [id number] Director: Teena Hussein MD, Phone: [phone] Laboratory - Cytologyon 04-21 Bottle Washer Machine Cyto stain Nom (Cvx/Vag) [ID] Comment [facility] Work Phone: Comment on above: Leona Mcgrath, Cyto technologist (ASCP) Laboratory - Miscellaneous t estson 05-13-2021 Service comment (Unsp spec) [Interp] . [facility] Work Phone: No Panel Informationon 05-13 Pathology report final diagnosis Narrative Comment [facility] Work Phone: Comment on above: NEGATIVE FOR INTRAEP ITHELIAL LESION OR MALIGNANCY. XR Chest PA and Lateralon IMPRESSION: No acute radiographic abnormality. Post Framer: [email or web address] Transcribe Date/Time: Jan 25 2021 10:18A Dictated by : REBEL MCHUGH MD This examination was interpreted and the report reviewed and electronically signed by: REBEL MCHUGH MD on Jan 25 2021 10:18AM [facility] DIVISION OF RADIOLOGY * * *Final Report* * * DATE OF EXAM: Jan 25 2021 10:08AM WOX 5291 - XR CHEST 2V FRONTAL/LAT / PROCEDURE REASON: SOB (shortness of breath) * * * * Physician Interpretation * * * * EXAMINATION: CHEST RADIOGRAPH (2 VIEW FRONTAL & LATERAL) CLINICAL HISTORY: SOB (shortness of breath) MQ: XC2_6 EXAM DATE/TIME: 01/25/2021 10:08 AM COMPARISON: No relevant prior studies available. RESULT: Lines, tubes, and devices: None. Lungs and pleura: No consolidation. No lung mass. No pleural effusion. No pneumothorax. Cardiomediastinal silhouette: Normal cardiomediastinal silhouette. Bones and soft tissues: Unremarkable. DIVISION OF RADIOLOGY Provider, [facility] - 01/25/2021 * * *Final Report* * * DATE OF EXAM: Jan 25 2021 10:08AM WOX 5291 - XR CHEST 2V FRONTAL/LAT / PROCEDURE REASON: SOB (shortness of breath) * * * * Physician Interpretation * * * * EXAMINATION: CHEST RADIOGRAPH (2 VIEW FRONTAL & LATERAL) CLINICAL HISTORY: SOB (shortness of breath) MQ: XC2_6 EXAM DATE/TIME: 01/25/2021 10:08 AM COMPARISON: No relevant prior studies available. RESULT: Lines, tubes, and devices: None. Lungs and pleura: No consolidation. No lung mass. No pleural effusion. No pneumothorax. Cardiomediastinal silhouette: Normal cardiomediastinal silhouette. Bones and soft tissues: Unremarkable. IMPRESSION IMPRESSION: No acute radiographic abnormality. Post Framer: [email or web address] Transcribe Date/Time: Jan 25 2021 10:18A Dictated by : REBEL MCHUGH MD This examination was interpreted and the report reviewed and electronically signed by: REBEL MCHUGH MD on Jan 25 2021 10:18AM EST [facility] Radiology Study observation (narrative) Sonia alaniz [facility] XR Chest PA and LateralOrder ed By: [facility] Provider on 01-25-2021 [facility] XR Knee - right 4 Viewson IMPRESSION: Joint effusion of the right knee. Post Framer: [email or web address] Transcribe Date/Time: Aug 18 2020 6:02P Dictated by : MATEUS JOHNSON MD This examination was interpreted and the report reviewed and electronically signed by: MATEUS JOHNSON MD on Aug 18 2020 6:03PM EST DIVISION OF RADIOLOGY * * *Final Report* * * DATE OF EXAM: Aug 18 2020 6:00PM WOX 5203 - XR KNEE 4V AP/PA BOTH+LAT/HUMBLE RT / PROCEDURE REASON: Acute pain of right knee * * * * Physician Interpretation * * * * EXAM TITLE: XR KNEE 4V AP/PA BOTH+LAT/HUMBLE RT EXAM DATE/TIME: 08/18/2020 6:00 PM COMPARISON: None. CLINICAL INDICATION/HISTORY: Acute right knee pain. TECHNIQUE: AP, lateral and oblique views of the right knee are presented. FINDINGS: No acute fractures or subluxations are noted. The joint spaces are well preserved. There is small to moderate joint effusion. The mineralization of the bones is normal. There is no significant soft tissue swelling. DIVISION OF RADIOLOGY Provider, [facility] [place] - 08/18/2020 * * *Final Report* * * DATE OF EXAM: Aug 18 2020 6:00PM WOX 5203 - XR KNEE 4V AP/PA BOTH+LAT/HUMBLE RT / PROCEDURE REASON: Acute pain of right knee * * * * Physician Interpretation * * * * EXAM TITLE: XR KNEE 4V AP/PA BOTH+LAT/HUMBLE RT EXAM DATE/TIME: 08/18/2020 6:00 PM COMPARISON: None. CLINICAL INDICATION/HISTORY: Acute right knee pain. TECHNIQUE: AP, lateral and oblique views of the right knee are presented. FINDINGS: No acute fractures or subluxations are noted. The joint spaces are well preserved. There is small to moderate joint effusion. The mineralization of the bones is normal. There is no significant soft tissue swelling. IMPRESSION IMPRESSION: Joint effusion of the right knee. Post Framer: [email or web address] Transcribe Date/Time: Aug 18 2020 6:02P Dictated by : MATEUS JOHNSON MD This examination was interpreted and the report reviewed and electronically signed by: MATEUS JOHNSON MD on Aug 18 2020 6:03PM EST [facility] Radiology Study observation (narrative) [facility] XR Knee - right 4 ViewsOrder ed By: Ccf Provider on 08-18-2020 [facility] .GFRon 07-29-2020 GFR Non- >60 [facility] Comment on above: Result Comment: GFR Population mean for , Non- Americans Ages 20-29 = 116 mL/min/1.73 sq.m. Ages 30-39 = 107 mL/min/1.73 sq.m. Ages 40-49 = 99 mL/min/1.73 sq.m. Ages 50-59 = 93 mL/min/1.73 sq.m. Ages 60-69 = 85 mL/min/1.73 sq.m. Ages 70+ = 75 mL/min/1.73 sq.m. Chronic Kidney Disease: Less than 60 mL/min/1.73 square meters End Stage Renal Disease: Less than 15 mL/min/1.73 square meters Performed By: #### B ILAD, TSH, LIPID, CMP, GFR, CBC, ADIFF, ANEU, A1C #### [place] [address] GFR >60 Normal [facility] ([place]) Comment on above: Result Comment: GFR Population mean for , Non- Americans Ages 20-29 = 116 mL/min/1.73 sq.m. Ages 30-39 = 107 mL/min/1.73 sq.m. Ages 40-49 = 99 mL/min/1.73 sq.m. Ages 50-59 = 93 mL/min/1.73 sq.m. Ages 60-69 = 85 mL/min/1.73 sq.m. Ages 70+ = 75 mL/min/1.73 sq.m. Chronic Kidney Disease: Less than 60 mL/min/1.73 square meters End Stage Renal Disease: Less than 15 mL/min/1.73 square meters Performed By: #### B ILAD, TSH, LIPID, CMP, GFR, CBC, ADIFF, ANEU, A1C #### [place] [address] .Manual Diffon 07-29-2020 Bands 2.0 % Normal 0.0-5.0 [facility] Comment on above: Performed By: #### B ILAD, TSH, LIPID, CMP, GFR, CBC, ADIFF, ANEU, A1C #### [place] [address] Basophil %, Manual 0.0 % Normal 0.0-2.5 [facility] ([place]) Comment on above: Performed By: #### B ILAD, TSH, LIPID, CMP, GFR, CBC, ADIFF, ANEU, A1C #### [place] [address] Basophil, Abs Manual 0.00 10 3/mcL Normal 0.00-0.27 [facility] ([place]) Comment on above: Performed By: #### B ILAD, TSH, LIPID, CMP, GFR, CBC, ADIFF, ANEU, A1C #### [place] [address] Cells Counted 100 Normal [facility] ([place] Comment on above: Performed By: #### B ILAD, TSH, LIPID, CMP, GFR, CBC, ADIFF, ANEU, A1C #### [place] [address] Eosinophil %, Manual 3.0 % Normal 0.0-6.0 [facility] ([place]) Comment on above: Performed By: #### B ILAD, TSH, LIPID, CMP, GFR, CBC, ADIFF, ANEU, A1C #### [place] [address] Eosinophil, Abs Manual 0.44 10 3/mcL Normal 0.00-0.65 [facility] ([place] Comment on above: Performed By: #### B ILAD, TSH, LIPID, CMP, GFR, CBC, ADIFF, ANEU, A1C #### [place] [address] Lymphocyte %, Manual 34.0 % Normal 20.0-40.0 [facility] ([place]) Comment on above: Performed By: #### B ILAD, TSH, LIPID, CMP, GFR, CBC, ADIFF, ANEU, A1C #### [address] [address] Lymphocyte, Abs Manual 5.00 10 3/mcL High 0.90-4.32 [facility] ([place] Comment on above: Performed By: #### B ILAD, TSH, LIPID, CMP, GFR, CBC, ADIFF, ANEU, A1C #### [address] [address] Monocyte %, Manual 3.0 % Normal 2.0-13.0 [facility] ([place]) Comment on above: Performed By: #### B ILAD, TSH, LIPID, CMP, GFR, CBC, ADIFF, ANEU, A1C #### [address] [address] Monocyte, Abs Manual 0.44 10 3/mcL Normal 0.09-1.40 [facility] ([place]) Comment on above: Performed By: #### B ILAD, TSH, LIPID, CMP, GFR, CBC, ADIFF, ANEU, A1C #### [address] [address] Neutrophil %, Manual 58.0 % Normal 50.0-75.0 [facility] ([place]) Comment on above: Performed By: #### B ILAD, TSH, LIPID, CMP, GFR, CBC, ADIFF, ANEU, A1C #### [address] [address] Neutrophil, Abs Manual 8.82 10 3/mcL High 2.25-8.10 [facility] ([place] Comment on above: Performed By: #### B ILAD, TSH, LIPID, CMP, GFR, CBC, ADIFF, ANEU, A1C #### [address] [address] .Morphon 07-29-2020 Platelet Estimate Normal Normal [facility] ([place] Comment on above: Result Comment: Few platelet clumps seen. Performed By: #### B ILAD, TSH, LIPID, CMP, GFR, CBC, ADIFF, ANEU, A1C #### [address] [address] RBC morphology finding Nom (Bld) Normal Normal [facility] ([place] Comment on above: Performed By: #### B ILAD, TSH, LIPID, CMP, GFR, CBC, ADIFF, ANEU, A1C #### [address] [address] A1Con 07-29-2020 HbA1c (Bld) [Mass fraction] 8.2 % High 4.0-6.0 [facility] ([place] Comment on above: Order Comment: billie ind Performed By: #### B ILAD, TSH, LIPID, CMP, GFR, CBC, ADIFF, ANEU, A1C #### [address] [address] CBCon 07-29-2020 Platelet 286 10 3/mcL Normal 150-450 [facility] ([place] Comment on above: Order Comment: billie ind Performed By: #### B ILAD, TSH, LIPID, CMP, GFR, CBC, ADIFF, ANEU, A1C #### [place] [address] Platelet mean volume (Bld) [Entitic vol] 11.0 fL High 6.6-10.5 [facility] ([place] Comment on above: Order Comment: billie ind Performed By: #### B ILAD, TSH, LIPID, CMP, GFR, CBC, ADIFF, ANEU, A1C #### [place] [id number] Erythrocyte distribution width (RBC) [Ratio] 12.7 % Normal 11.5-15.5 [facility] ([place] Comment on above: Order Comment: billie ind Performed By: #### B ILAD, TSH, LIPID, CMP, GFR, CBC, ADIFF, ANEU, A1C #### [place] [address] Hematocrit (Bld) [Volume fraction] 40.9 % Normal 34.0-46.0 [facility] [place] Comment on above: Order Comment: billie ind Performed By: #### B ILAD, TSH, LIPID, CMP, GFR, CBC, ADIFF, ANEU, A1C #### [place] [address] Hgb 13.6 G/dL Normal 12.0-16.0 [facility] Comment on above: Order Comment: billie ind Performed By: #### B ILAD, TSH, LIPID, CMP, GFR, CBC, ADIFF, ANEU, A1C #### [place] [address] MCH (RBC) [Entitic mass] 31.4 pg Normal 27.0-33.0 [facility] Comment on above: Order Comment: billie ind Performed By: #### B ILAD, TSH, LIPID, CMP, GFR, CBC, ADIFF, ANEU, A1C #### [place] [address] MCHC 33.3 G/dL Normal 32.0-36.0 [facility] ([place] Comment on above: Order Comment: billie ind Performed By: #### B ILAD, TSH, LIPID, CMP, GFR, CBC, ADIFF, ANEU, A1C #### [place] [address] MCV (RBC) [Entitic vol] 94.3 fL Normal 80.0-99.0 [facility] ([place]) Comment on above: Order Comment: billie ind Performed By: #### B ILAD, TSH, LIPID, CMP, GFR, CBC, ADIFF, ANEU, A1C #### [place] [address] RBC 4.34 10 6/mcL Normal 4.10-5.30 [facility] Comment on above: Order Comment: billie ind Performed By: #### B ILAD, TSH, LIPID, CMP, GFR, CBC, ADIFF, ANEU, A1C #### [place] [address] WBC 14.70 10 3/mcL High 4.50-10.80 [facility] ([place] Comment on above: Order Comment: billie ind Performed By: #### B ILAD, TSH, LIPID, CMP, GFR, CBC, ADIFF, ANEU, A1C #### [address] [address] CMPon 07-29-2020 Albumin Level 3.8 G/dL Normal 3.2-4.8 [facility] ([place] Comment on above: Order Comment: billie ind Performed By: #### B ILAD, TSH, LIPID, CMP, GFR, CBC, ADIFF, ANEU, A1C #### [address] [address] Albumin/Globulin [Mass ratio] 1.2 {ratio} Normal 0.9-1.6 [facility] ([place] Comment on above: Order Comment: billie ind Performed By: #### B ILAD, TSH, LIPID, CMP, GFR, CBC, ADIFF, ANEU, A1C #### [address] [address] ALP [Catalytic activity/Vol] 76 U/L Normal 38-126 [facility] Comment on above: Order Comment: billie ind Performed By: #### B ILAD, TSH, LIPID, CMP, GFR, CBC, ADIFF, ANEU, A1C #### [address] [address] ALT [Catalytic activity/Vol] 20 U/L Normal 10-49 [facility] Comment on above: Order Comment: billie ind Performed By: #### B ILAD, TSH, LIPID, CMP, GFR, CBC, ADIFF, ANEU, A1C #### [address] [address] AST [Catalytic activity/Vol] 14 U/L Normal 8-34 [facility] Comment on above: Order Comment: billie ind Performed By: #### B ILAD, TSH, LIPID, CMP, GFR, CBC, ADIFF, ANEU, A1C #### [address] [address] Bili Total 0.80 mg/dL Normal 0.20-1.20 [facility] ([place] Comment on above: Order Comment: billie ind Result Comment: Use of this assay is not recommended for patients undergoing treatment with eltrombopag due to the potential for falsely elevated results. Performed By: #### B ILAD, TSH, LIPID, CMP, GFR, CBC, ADIFF, ANEU, A1C #### [address] [address] BUN/Creatinine Ratio 39.3 ratio High 10.0-22.0 [facility] ([place]) Comment on above: Order Comment: billie ind Performed By: #### B ILAD, TSH, LIPID, CMP, GFR, CBC, ADIFF, ANEU, A1C #### [address] [address] Calcium [Mass/Vol] 10.2 mg/dL Normal 8.7-10.4 [facility] ([place]) Comment on above: Order Comment: billie ind Result Comment: No te - New Reference Range in effect 19 Performed By: #### B ILAD, TSH, LIPID, CMP, GFR, CBC, ADIFF, ANEU, A1C #### [place] [id number] Chloride [Moles/Vol] 103 mmol/L Normal 98-110 [facility] ([place]) Comment on above: Order Comment: billie ind Performed By: #### B ILAD, TSH, LIPID, CMP, GFR, CBC, ADIFF, ANEU, A1C #### [address] [address] CO2 [Moles/Vol] 26 mmol/L Normal 22-32 [facility] ([place]) Comment on above: Order Comment: billie ind Performed By: #### B ILAD, TSH, LIPID, CMP, GFR, CBC, ADIFF, ANEU, A1C #### [address] [address] Creatinine [Mass/Vol] 0.61 mg/dL Normal 0.50-1.20 [facility] ([place]) Comment on above: Order Comment: billie ind Performed By: #### B ILAD, TSH, LIPID, CMP, GFR, CBC, ADIFF, ANEU, A1C #### [address] [address] Electrolyte Balance 7.0 mEq/L Normal 4.0-15.0 [facility] ([place]) Comment on above: Order Comment: billie ind Performed By: #### B ILAD, TSH, LIPID, CMP, GFR, CBC, ADIFF, ANEU, A1C #### [address] [address] Globulin 3.1 G/dL Normal 1.5-3.8 [facility] ([place]) Comment on above: Order Comment: billie ind Performed By: #### B ILAD, TSH, LIPID, CMP, GFR, CBC, ADIFF, ANEU, A1C #### [address] [address] Glucose [Mass/Vol] 214 mg/dL High 70-110 [facility] ([place]) Comment on above: Order Comment: billie ind Performed By: #### B ILAD, TSH, LIPID, CMP, GFR, CBC, ADIFF, ANEU, A1C #### [address] [address] Potassium [Moles/Vol] 4.9 mmol/L Normal 3.5-5.0 [facility] ([place]) Comment on above: Order Comment: billie ind Performed By: #### B ILAD, TSH, LIPID, CMP, GFR, CBC, ADIFF, ANEU, A1C #### [address] [address] Sodium [Moles/Vol] 136 mmol/L Normal 136-145 [facility] ([place]) Comment on above: Order Comment: billie ind Performed By: #### B ILAD, TSH, LIPID, CMP, GFR, CBC, ADIFF, ANEU, A1C #### [address] [address] Total Protein 6.9 G/dL Normal 5.7-8.2 [facility] ([place]) Comment on above: Order Comment: billie ind Result Comment: No te - New Reference Range in effect 19 Performed By: #### B ILAD, TSH, LIPID, CMP, GFR, CBC, ADIFF, ANEU, A1C #### [address] [address] Urea nitrogen [Mass/Vol] 24.0 mg/dL High 8.0-22.0 [facility] ([place]) Comment on above: Order Comment: billie ind Performed By: #### B ILAD, TSH, LIPID, CMP, GFR, CBC, ADIFF, ANEU, A1C #### [address] [address] LIPIDon 07-29-2020 Cholesterol [Mass/Vol] 154 mg/dL Normal 50-199 On license of [facility] ([place]) Comment on above: Order Comment: billie ind Result Comment: Chol esterol Reference Interval: Less than 200 Desirable 200-239 Borderline high risk 240 and above High risk Performed By: #### B ILAD, TSH, LIPID, CMP, GFR, CBC, ADIFF, ANEU, A1C #### [address] [address] Cholesterol in HDL [Mass/Vol] 46 mg/dL Normal 40-59 [facility] ([place] Comment on above: Order Comment: billie ind Performed By: #### B ILAD, TSH, LIPID, CMP, GFR, CBC, ADIFF, ANEU, A1C #### [address] [address] Cholesterol in LDL [Mass/Vol] 70 mg/dL Normal 0-129 [facility] ([place]) Comment on above: Order Comment: billie ind Performed By: #### B ILAD, TSH, LIPID, CMP, GFR, CBC, ADIFF, ANEU, A1C #### [address] [address] Triglyceride [Mass/Vol] 192 mg/dL High 3-149 [facility] ([place]) Comment on above: Order Comment: billie ind Performed By: #### B ILAD, TSH, LIPID, CMP, GFR, CBC, ADIFF, ANEU, A1C #### [address] [address] TSHon 07-29-2020 TSH 2.630 mIU/mL Normal 0.550-4.780 [facility] ([place]) Comment on above: Order Comment: billie ind Result Comment: No te - New Reference Range in effect 19 Performed By: #### T SH, CMP, GFR, LIPID, CBC, DIFF, MORPH, A1C #### [address] [address] .Auto Diffon 10-16-2019 Basophil, Absolute 0.10 10 3/mcL Normal 0.00-0.27 [facility] ([place]) Comment on above: Performed By: #### B ILAD, TSH, LIPID, CMP, GFR, CBC, ADIFF, ANEU, A1C #### [address] [address] Basophils/100 WBC (Bld) 0.9 % Normal 0.0-2.5 [facility] ([place]) Comment on above: Performed By: #### B ILAD, TSH, LIPID, CMP, GFR, CBC, ADIFF, ANEU, A1C #### [address] [address] Eosinophil, Absolute 0.40 10 3/mcL Normal 0.00-0.65 [facility] ([place]) Comment on above: Performed By: #### B ILAD, TSH, LIPID, CMP, GFR, CBC, ADIFF, ANEU, A1C #### [address] [address] Eosinophils/100 WBC (Bld) 3.4 % Normal 0.0-6.0 [facility] ([place]) Comment on above: Performed By: #### B ILAD, TSH, LIPID, CMP, GFR, CBC, ADIFF, ANEU, A1C #### [address] [address] Lymphocyte, Absolute 3.00 10 3/mcL Normal 0.90-4.32 [facility] ([place]) Comment on above: Performed By: #### B ILAD, TSH, LIPID, CMP, GFR, CBC, ADIFF, ANEU, A1C #### [address] [address] Lymphocytes/100 WBC (Bld) 27.9 % Normal 20.0-40.0 [facility] ([place]) Comment on above: Performed By: #### B ILAD, TSH, LIPID, CMP, GFR, CBC, ADIFF, ANEU, A1C #### [address] [address] Monocyte, Absolute 0.40 10 3/mcL Normal 0.09-1.40 [facility] ([place]) Comment on above: Performed By: #### B ILAD, TSH, LIPID, CMP, GFR, CBC, ADIFF, ANEU, A1C #### [address] [address] Monocytes/100 WBC (Bld) 3.6 % Normal 2.0-13.0 [facility] ([place]) Comment on above: Performed By: #### B ILAD, TSH, LIPID, CMP, GFR, CBC, ADIFF, ANEU, A1C #### [address] [address] Neutrophils/100 WBC (Bld) 64.2 % Normal 50.0-75.0 [facility] ([place]) Comment on above: Performed By: #### B ILAD, TSH, LIPID, CMP, GFR, CBC, ADIFF, ANEU, A1C #### [address] [address] .GFRon 10-16-2019 GFR >60 Normal [facility] ([place]) Comment on above: Result Comment: GFR Population mean for , Non- Americans Ages 20-29 = 116 mL/min/1.73 sq.m. Ages 30-39 = 107 mL/min/1.73 sq.m. Ages 40-49 = 99 mL/min/1.73 sq.m. Ages 50-59 = 93 mL/min/1.73 sq.m. Ages 60-69 = 85 mL/min/1.73 sq.m. Ages 70+ = 75 mL/min/1.73 sq.m. Chronic Kidney Disease: Less than 60 mL/min/1.73 square meters End Stage Renal Disease: Less than 15 mL/min/1.73 square meters Performed By: #### B ILAD, TSH, LIPID, CMP, GFR, CBC, ADIFF, ANEU, A1C #### [address] [address] GFR Non- >60 Normal [facility] ([place]) Comment on above: Result Comment: GFR Population mean for , Non- Americans Ages 20-29 = 116 mL/min/1.73 sq.m. Ages 30-39 = 107 mL/min/1.73 sq.m. Ages 40-49 = 99 mL/min/1.73 sq.m. Ages 50-59 = 93 mL/min/1.73 sq.m. Ages 60-69 = 85 mL/min/1.73 sq.m. Ages 70+ = 75 mL/min/1.73 sq.m. Chronic Kidney Disease: Less than 60 mL/min/1.73 square meters End Stage Renal Disease: Less than 15 mL/min/1.73 square meters Performed By: #### B ILAD, TSH, LIPID, CMP, GFR, CBC, ADIFF, ANEU, A1C #### [place] [address] .NEUABSon 10-16-2019 Neutrophil, Absolute 7.00 10 3/mcL Normal 2.25-8.10 [facility] ([place]) Comment on above: Performed By: #### B ILAD, TSH, LIPID, CMP, GFR, CBC, ADIFF, ANEU, A1C #### [place] [address] A1Con 10-16-2019 HbA1c (Bld) [Mass fraction] 8.9 % High 4.0-6.0 [facility] ([place]) Comment on above: Performed By: #### B ILAD, TSH, LIPID, CMP, GFR, CBC, ADIFF, ANEU, A1C #### [place] [address] BILADon 10-16-2019 Bili Direct 0.3 mg/dL Normal 0.0-0.4 [facility] ([place]) Comment on above: Result Comment: Use of this assay is not recommended for patients undergoing treatment with eltrombopag due to the potential for falsely elevated results. Performed By: #### B ILAD, TSH, LIPID, CMP, GFR, CBC, ADIFF, ANEU, A1C #### [place] [address] CBCon 10-16-2019 Erythrocyte distribution width (RBC) [Ratio] 13.4 % Normal 11.5-15.5 [facility] ([place]) Comment on above: Performed By: #### B ILAD, TSH, LIPID, CMP, GFR, CBC, ADIFF, ANEU, A1C #### [place] [address] Hematocrit (Bld) [Volume fraction] 40.4 % Normal 34.0-46.0 [facility] ([place]) Comment on above: Performed By: #### B ILAD, TSH, LIPID, CMP, GFR, CBC, ADIFF, ANEU, A1C #### [place] [id number] Hgb 13.7 G/dL Normal 12.0-16.0 [facility] ([place]) Comment on above: Performed By: #### B ILAD, TSH, LIPID, CMP, GFR, CBC, ADIFF, ANEU, A1C #### [place] [address] MCH (RBC) [Entitic mass] 31.4 pg Normal 27.0-33.0 [facility] ([place] Comment on above: Performed By: #### B ILAD, TSH, LIPID, CMP, GFR, CBC, ADIFF, ANEU, A1C #### [place] [address] MCHC 33.8 G/dL Normal 32.0-36.0 [facility] ([place]) Comment on above: Performed By: #### B ILAD, TSH, LIPID, CMP, GFR, CBC, ADIFF, ANEU, A1C #### [place] [address] MCV (RBC) [Entitic vol] 93.0 fL Normal 80.0-99.0 [facility] ([place]) Comment on above: Performed By: #### B ILAD, TSH, LIPID, CMP, GFR, CBC, ADIFF, ANEU, A1C #### [place] [address] Platelet 284 10 3/mcL Normal 150-450 [facility] ([place]) Comment on above: Performed By: #### B ILAD, TSH, LIPID, CMP, GFR, CBC, ADIFF, ANEU, A1C #### [place] [address] Platelet mean volume (Bld) [Entitic vol] 10.2 fL Normal 6.6-10.5 [facility] ([place]) Comment on above: Performed By: #### B ILAD, TSH, LIPID, CMP, GFR, CBC, ADIFF, ANEU, A1C #### [address] [address] RBC 4.35 10 6/mcL Normal 4.10-5.30 [facility] ([place]) Comment on above: Performed By: #### B ILAD, TSH, LIPID, CMP, GFR, CBC, ADIFF, ANEU, A1C #### [address] [address] WBC 10.90 10 3/mcL High 4.50-10.80 [facility] ([place]) Comment on above: Performed By: #### B ILAD, TSH, LIPID, CMP, GFR, CBC, ADIFF, ANEU, A1C #### [address] [address] CMPon 10-16-2019 Albumin Level 4.0 G/dL Normal 3.2-4.8 [facility] ([place]) Comment on above: Order Comment: Billie Ind Performed By: #### B ILAD, TSH, LIPID, CMP, GFR, CBC, ADIFF, ANEU, A1C #### [place] [address] Albumin/Globulin [Mass ratio] 1.2 {ratio} Normal 0.9-1.6 [facility] ([place]) Comment on above: Order Comment: Billie Ind Performed By: #### B ILAD, TSH, LIPID, CMP, GFR, CBC, ADIFF, ANEU, A1C #### [address] [address] ALP [Catalytic activity/Vol] 82 U/L Normal 38-126 [facility] ([place] Comment on above: Order Comment: Bilile Ind Performed By: #### B ILAD, TSH, LIPID, CMP, GFR, CBC, ADIFF, ANEU, A1C #### [address] [address] ALT [Catalytic activity/Vol] 27 U/L Normal 10-49 [facility] ([place] Comment on above: Order Comment: Billie Ind Performed By: #### B ILAD, TSH, LIPID, CMP, GFR, CBC, ADIFF, ANEU, A1C #### [address] [address] AST [Catalytic activity/Vol] 18 U/L Normal 8-34 [facility] ([place]) Comment on above: Order Comment: Billie Ind Performed By: #### B ILAD, TSH, LIPID, CMP, GFR, CBC, ADIFF, ANEU, A1C #### [address] [address] Bili Total 0.90 mg/dL Normal 0.20-1.20 [facility] ([place]) Comment on above: Order Comment: Billie Ind Result Comment: Use of this assay is not recommended for patients undergoing treatment with eltrombopag due to the potential for falsely elevated results. Performed By: #### B ILAD, TSH, LIPID, CMP, GFR, CBC, ADIFF, ANEU, A1C #### [place] [id number] BUN/Creatinine Ratio 24.6 ratio High 10.0-22.0 [facility] ([place]) Comment on above: Order Comment: Billie Ind Performed By: #### B ILAD, TSH, LIPID, CMP, GFR, CBC, ADIFF, ANEU, A1C #### [address] [address] Calcium [Mass/Vol] 9.6 mg/dL Normal 8.7-10.4 [facility] ([place]) Comment on above: Order Comment: Billie Ind Result Comment: No te - New Reference Range in effect 19 Performed By: #### B ILAD, TSH, LIPID, CMP, GFR, CBC, ADIFF, ANEU, A1C #### [address] [address] Chloride [Moles/Vol] 103 mmol/L Normal 98-110 [facility] ([place]) Comment on above: Order Comment: Billie Ind Performed By: #### B ILAD, TSH, LIPID, CMP, GFR, CBC, ADIFF, ANEU, A1C #### [address] [address] CO2 [Moles/Vol] 24 mmol/L Normal 22-32 [facility] ([place] Comment on above: Order Comment: Billie Ind Performed By: #### B ILAD, TSH, LIPID, CMP, GFR, CBC, ADIFF, ANEU, A1C #### [address] [address] Creatinine [Mass/Vol] 0.57 mg/dL Normal 0.50-1.20 [facility] ([place]) Comment on above: Order Comment: Billie Ind Performed By: #### B ILAD, TSH, LIPID, CMP, GFR, CBC, ADIFF, ANEU, A1C #### [address] [address] Electrolyte Balance 11.0 mEq/L Normal 4.0-15.0 [facility] ([place]) Comment on above: Order Comment: Billie Ind Performed By: #### B ILAD, TSH, LIPID, CMP, GFR, CBC, ADIFF, ANEU, A1C #### [address] [address] Globulin 3.2 G/dL Normal 1.5-3.8 [facility] ([place] Comment on above: Order Comment: Billie Ind Performed By: #### B ILAD, TSH, LIPID, CMP, GFR, CBC, ADIFF, ANEU, A1C #### [address] [address] Glucose [Mass/Vol] 197 mg/dL High 70-110 [facility] ([place]) Comment on above: Order Comment: Billie Ind Performed By: #### B ILAD, TSH, LIPID, CMP, GFR, CBC, ADIFF, ANEU, A1C #### [address] [address] Potassium [Moles/Vol] 4.2 mmol/L Normal 3.5-5.0 [facility] ([place]) Comment on above: Order Comment: Billie Ind Performed By: #### B ILAD, TSH, LIPID, CMP, GFR, CBC, ADIFF, ANEU, A1C #### [address] [address] Sodium [Moles/Vol] 138 mmol/L Normal 136-145 [facility] ([place]) Comment on above: Order Comment: Billie Ind Performed By: #### B ILAD, TSH, LIPID, CMP, GFR, CBC, ADIFF, ANEU, A1C #### [address] [address] Total Protein 7.2 G/dL Normal 5.7-8.2 [facility] ([place]) Comment on above: Order Comment: Billie Ind Result Comment: No te - New Reference Range in effect 19 Performed By: #### B ILAD, TSH, LIPID, CMP, GFR, CBC, ADIFF, ANEU, A1C #### [address] [address] Urea nitrogen [Mass/Vol] 14.0 mg/dL Normal 8.0-22.0 [facility] ([place] Comment on above: Order Comment: Billie Ind Performed By: #### B ILAD, TSH, LIPID, CMP, GFR, CBC, ADIFF, ANEU, A1C #### [address] [address] LIPIDon 10-16-2019 Cholesterol [Mass/Vol] 157 mg/dL Normal 50-199 On license of [facility] ([place]) Comment on above: Result Comment: Chol esterol Reference Interval: Less than 200 Desirable 200-239 Borderline high risk 240 and above High risk Performed By: #### B ILAD, TSH, LIPID, CMP, GFR, CBC, ADIFF, ANEU, A1C #### [address] [address] Cholesterol in HDL [Mass/Vol] 48 mg/dL Normal 40-59 [facility] ([place] Comment on above: Performed By: #### B ILAD, TSH, LIPID, CMP, GFR, CBC, ADIFF, ANEU, A1C #### [address] [address] Cholesterol in LDL [Mass/Vol] 82 mg/dL Normal 0-129 [facility] ([place] Comment on above: Performed By: #### B ILAD, TSH, LIPID, CMP, GFR, CBC, ADIFF, ANEU, A1C #### [address] [address] Triglyceride [Mass/Vol] 135 mg/dL Normal 3-149 [facility] ([place]) Comment on above: Performed By: #### B ILAD, TSH, LIPID, CMP, GFR, CBC, ADIFF, ANEU, A1C #### [address] [address] TSHon 10-16-2019 TSH 2.842 mIU/mL Normal 0.550-4.780 [facility] ([place] Comment on above: Result Comment: No te - New Reference Range in effect 19 Performed By: #### B ILAD, TSH, LIPID, CMP, GFR, CBC, ADIFF, ANEU, A1C #### [address] [address] Vital Signs Date Time Vital Sign Value Performing Clinician Andreas mclaughlin 07-30-2024 09:38-0400 Body height 160 cm Radha Short APRN.CNM Work Phone: [facility] 07-30-2024 09:38-0400 Body mass index (BMI) [Ratio] 54.74 kg/m2 Radha Short APRN.CNM Work Phone: [facility] 07-30-2024 09:38-0400 Body weight 140.16 kg Radha Short APRN.CNM Work Phone: [facility] 07-30-2024 09:38-0400 Diastolic blood pressure 76 mm[Hg] Radha Short APRN.CNM Work Phone: [facility] 07-30-2024 09:38-0400 Systolic blood pressure 118 mm[Hg] Radha Short APRN.CNM Work Phone: [facility] 06-17-2024 17:32-0400 Body mass index (BMI) [Ratio] 53.7 kg/m2 Flora Singh APRN.AUTOMOBILE GLASS TECHNICIAN Work Phone: [facility] 06-17-2024 17:32-0400 Body weight 139.71 kg Flora Singh ASSISTANT CONSTRUCTION SUPERINTENDENT.AUTOMOBILE GLASS TECHNICIAN Work Phone: [facility] 06-17-2024 17:32-0400 Diastolic blood pressure 72 mm[Hg] Flora Singh ASSISTANT CONSTRUCTION SUPERINTENDENT.AUTOMOBILE GLASS TECHNICIAN Work Phone: [facility] 06-17-2024 17:32-0400 Heart rate 85 /min Flora Singh ASSISTANT CONSTRUCTION SUPERINTENDENT.AUTOMOBILE GLASS TECHNICIAN Work Phone: [facility] 06-17-2024 17:32-0400 Respiratory rate 16 /min Flora Singh ASSISTANT CONSTRUCTION SUPERINTENDENT.AUTOMOBILE GLASS TECHNICIAN Work Phone: [facility] 06-17-2024 17:32-0400 SaO2% (BldA) [Mass fraction] 98 % Flora Singh ASSISTANT CONSTRUCTION SUPERINTENDENT.AUTOMOBILE GLASS TECHNICIAN Work Phone: [facility] 06-17-2024 17:32-0400 Systolic blood pressure 128 mm[Hg] Flora Singh ASSISTANT CONSTRUCTION SUPERINTENDENT.AUTOMOBILE GLASS TECHNICIAN Work Phone: [facility] 07-25-2022 08:41-0400 Body height 160.[address] Surendra Benton Work Phone: 5(349)[phone] [place] [address] 07-25-2022 08:41-0400 Body mass index (BMI) [Ratio] 58.1 kg/m2 Dr. Surendra Benton Work Phone: 3(517)[phone] [place] [address] 07-25-2022 08:41-0400 Body temperature 98.6 [degF] Dr. Surendra Benton Work Phone: 4(696)[phone] [place] [address] 07-25-2022 08:41-0400 Body weight 148.[address] Surendra Benton Work Phone: [facility] 07-25-2022 08:41-0400 Diastolic blood pressure 75 mm[Hg] Dr. Surendra Benton Work Phone: 7(410)[phone] [place] [address] 07-25-2022 08:41-0400 Heart rate 83 /min Dr. Surendra Benton Work Phone: 2(343)[phone] [place] [address] 07-25-2022 08:41-0400 Respiratory rate 16 /min Dr. Surendra Benton Work Phone: 5(288)[phone] [place] [address] 07-25-2022 08:41-0400 SaO2% (BldA) [Mass fraction] 94 % Dr. Surendra Benton Work Phone: [facility] 07-25-2022 08:41-0400 Systolic blood pressure 126 mm[Hg] Dr. Surendra Benton Work Phone: [facility] 09-30-2021 09:02-0400 Body height 160.[address] Surendra Benton Work Phone: [facility] Work Phone: 09-30-2021 09:02-0400 Body mass index (BMI) [Ratio] 57.6 kg/m2 Dr. Surendra Benton Work Phone: [facility] Work Phone: 09-30-2021 09:02-0400 Body temperature 96.5 [degF] Dr. Surendra Benton Work Phone: [facility] Work Phone: 09-30-2021 09:02-0400 Body weight 147.[address] Surendra Benton Work Phone: [facility] Work Phone: 09-30-2021 09:02-0400 Diastolic blood pressure 80 mm[Hg] Dr. Surendra Benton Work Phone: [facility] Work Phone: 09-30-2021 09:02-0400 Heart rate 85 /min Dr. Surendra Benton Work Phone: [facility] Work Phone: 09-30-2021 09:02-0400 Respiratory rate 18 /min Dr. Surendra Benton Work Phone: [facility] Work Phone: 09-30-2021 09:02-0400 SaO2% (BldA) [Mass fraction] 99 % Dr. Surendra Benton Work Phone: [facility] Work Phone: 09-30-2021 09:02-0400 Systolic blood pressure 122 mm[Hg] Dr. Surendra Benton Work Phone: [facility] Work Phone: 07-19-2021 17:01-0400 Diastolic blood pressure 82 mm[Hg] Flora Singh ASSISTANT CONSTRUCTION SUPERINTENDENT.AUTOMOBILE GLASS TECHNICIAN Work Phone: [facility] 07-19-2021 17:01-0400 Heart rate 99 /min Folra Singh ASSISTANT CONSTRUCTION SUPERINTENDENT.AUTOMOBILE GLASS TECHNICIAN Work Phone: [facility] 07-19-2021 17:01-0400 Respiratory rate 18 /min Flora Singh ASSISTANT CONSTRUCTION SUPERINTENDENT.AUTOMOBILE GLASS TECHNICIAN Work Phone: [facility] 07-19-2021 17:01-0400 SaO2% (BldA) [Mass fraction] 99 % Flora Singh ASSISTANT CONSTRUCTION SUPERINTENDENT.AUTOMOBILE GLASS TECHNICIAN Work Phone: [facility] 07-19-2021 17:01-0400 Systolic blood pressure 138 mm[Hg] Flora Singh ASSISTANT CONSTRUCTION SUPERINTENDENT.AUTOMOBILE GLASS TECHNICIAN Work Phone: [facility] 11-08-2017 11:59-0400 Body mass index (BMI) [Ratio] 60.5 kg/m2 Dr. Surendra Benton Work Phone: [facility] Work Phone: Encounters Encounter Date Encounter Type Care Provider Facility Start: 09-17-2024 [facility] Facility:[facility] Start: 07-30-2024 End: 07-30-2024 Patient encounter procedure Radha Short APRN.CNM Work Phone: OB/Gynecology Comment on above: Encounter for gyneco logical examination (general) (routine) with abnormal findings (Primary Dx); Screening for cervical cancer; Encounter for screening for human papillomavirus (HPV); Encounter for surveillance of contraceptive pills; PCOS (polycystic ovarian syndrome); Class 3 severe obesity with serious comorbidity and body mass index (BMI) of 50.0 to 59.9 in adult, unspecified obesity type; Essential (primary) hypertension Start: 07-30-2024 End: 07-30-2024 Patient encounter status Radha Short APRN.CNM Work Phone: [facility] Start: 07-30-2024 End: 07-30-2024 ambulatory RADHA SHORT Facility:[facility] Start: 07-30-2024 Encounter for gynecological examination (general) (routine) with abnormal findings RDAHA SHORT [facility] Start: 06-17-2024 End: 06-17-2024 Patient encounter procedure Flora Singh APRN.CNP Work Phone: [facility] [place] Comment on above: Routine physical exa mination (Primary Dx); Leukocytosis, unspecified type; Primary hypertension; Encounter for surveillance of contraceptive pills; Screening for cervical cancer; Type 2 diabetes mellitus without complication, without long-term current use of insulin (HCC) Start: 06-17-2024 End: 06-17-2024 [facility] Start: 06-17-2024 End: 06-17-2024 Physical examination Flora Singh APRN.CNP Work Phone: [facility] Start: 05-30-2024 End: 05-30-2024 Refill Teressa Zuniga APRN.AUTOMOBILE GLASS TECHNICIAN Work Phone: [facility] Comment on above: Refill Request Start: 05-23-2024 End: 05-23-2024 ambulatory [facility] Facility:[facility] Start: 12-26-2023 End: 12-26-2023 Refill Surendra Benton MD Work Phone: [facility] Comment on above: Refill Request Start: 11-27-2023 End: 11-27-2023 ambulatory [facility] Facility:[facility] Start: 10-16-2023 Refill Flora Singh APRN.AUTOMOBILE GLASS TECHNICIAN Work Phone: [facility] Comment on above: Refill Request Start: 10-05-2023 End: 10-05-2023 ambulatory [facility] Facility:[facility] Start: 08-19-2023 Refill Surendra Benton MD Work Phone: [facility] Comment on above: Refill Request Start: 04-21-2023 Telephone encounter Flora grover APRN.CNP Work Phone: [facility] Comment on above: Results Start: 12-27-2022 Refill [facility] MD [facility] Comment on above: Refill Request Start: 09-29-2022 End: 09-29-[address] Surendra Benton Work Phone: [facility] Work Phone: Start: 09-29-2022 End: 09-29-[address] [facility]: Start: 07-25-2022 Chart abstracting Surendra Michel MD Work Phone: [facility] Start: 07-25-2022 End: 07-25-[address] Surendra Benton Work Phone: [facility] Work Phone: Start: 02-09-2022 Refill Surendra Benton MD Work Phone: [facility] Comment on above: Refill Request Start: 10-05-2021 End: 10-05-[address] [facility] Start: 09-30-2021 End: 09-30-[address] Surendra Benton Work Phone: [facility] Start: 09-27-2021 Refill Surendra Benton MD Work Phone: [facility] Comment on above: Refill Request Start: 08-14-2021 Refill [facility] Comment on above: Refill Request Start: 07-20-2021 Refill Surendra Benton MD [facility]: [facility] Comment on above: Refill Request Start: 07-19-2021 End: 07-19-2021 Patient encounter procedure Flora Singh APRN.CNP Work Phone: [facility] Comment on above: Encounter for precon ception consultation (Primary Dx) Start: 06-28-2021 End: 06-28-2021 Patient encounter procedure [facility], Rita data conversion developer Off Start: 06-09-2021 End: 06-09-2021 Patient encounter procedure [facility] Start: 05-13-2021 End: 05-13-2021 Patient encounter procedure [facility], Specimen Start: 01-25-2021 End: 01-25-2021 Subsequent hospital visit by physician Malena [facility] Rita Work Phone: Radiology Comment on above: SOB (shortness of br eath) [R06.02] Start: 08-18-2020 End: 08-18-2020 Subsequent hospital visit by physician Malena [facility] Rita Work Phone: Radiology Comment on above: Acute pain of right knee [M25.561] Procedures Date Procedure Procedure Detail Performing Clinician Start: 07-25-2022 Hemoglobin A1c/Hemoglobin.total in Blood [facility] Provider Start: 01-25-2021 Radiologic exam ches t 2 views Surendra Benton MD Work Phone: Start: 08-18-2020 Radiologic exam knee complete 4/more views Glenn Alvarez APRN.CNP Work Phone: Start: 12-10-2018 Adult depression screening assessment Flora Singh APRN.CNP Work Phone: Plan of Treatment Date Care Activity Detail Author Start: 05-13-2026 HPV TESTING HPV TESTING [facility] Start: 05-13-2026 PAP TESTING PAP TESTING [facility] Start: 05-13-2026 Screening for malignant neoplasm of cervix [facility] Start: 08-04-2025 End: 08-04-2025 Patient encounter procedure 08/04/2025 10:45 AM EDT Office Visit OB/Gynecology [address] [place] [address] Radha Short APRN.CN [address] [place] [address] annual OB/Gynecology Comment on above: annual Start: 07-30-2025 BP Controlled (<130/80) BP Controlled (<130/80) [facility] Start: 06-17-2025 Annual PCP Team Chronic Disease Visit Annual PCP Team Chronic Disease Visit [facility] Start: 06-17-2025 BP Controlled (<130/80) BP Controlled (<130/80) [facility] Start: 11-18-2024 Influenza vaccination Influenza Vaccine (Season Ended) [facility] Start: 11-05-2024 Hepatitis B surface antibody level LDL Cholesterol [facility] Start: 07-30-2024 End: 07-30-2024 Patient encounter procedure 07/30/2024 10:00 AM EDT Office Visit OB/Gynecology [address] [place], [place] [id number] Radha Short APRN.CN [address] [place], [place] [id number] Screening for cervical cancer [Z12.4] OB/Gynecology Comment on above: Screening for cervical cancer [Z12.4] Start: 06-17-2024 End: 09-16-2024 CBC W Auto Differential panel - Blood COMPLETE BLOOD COUNT AND DIFFERENTIAL Lab Routine Routine physical examination Primary hypertension Expected: 06/17/2024, Expires: 09/16/2024 [facility] Work Phone: Comment on above: Expected: 06/17/2024, Expires: Start: 06-17-2024 End: 09-16-2024 Comprehensive metabolic 2000 panel - Serum or Plasma COMPREHENSIVE METABOLIC PANEL Lab Routine Routine physical examination Primary hypertension Expected: 06/17/2024, Expires: 09/16/2024 [facility] Comment on above: Expected: 06/17/2024, Expires: Start: 06-17-2024 End: 09-16-2024 Lipid 1996 panel - Serum or Plasma LIPID PANEL, FASTING Lab Routine Primary hypertension Expected: 06/17/2024, Expires: 09/16/2024 [facility] Comment on above: Expected: 06/17/2024, Expires: Start: 06-17-2024 End: 09-16-2024 Thyrotropin [Units/volume] in Serum or Plasma THYROID STIMULATING HORMONE Lab Routine Primary hypertension Expected: 06/17/2024, Expires: 09/16/2024 [facility] Comment on above: Expected: 06/17/2024, Expires: Start: 06-17-2024 End: 09-16-2024 Thyroxine (T4) free [Mass/volume] in Serum or Plasma T4 FREE/FREE THYROXINE Lab Routine Primary hypertension Expected: 06/17/2024, Expires: 09/16/2024 [facility] Comment on above: Expected: 06/17/2024, Expires: Start: 05-13-2024 Screening for malignant neoplasm of cervix Cervical Cancer Screening [facility] Start: 05-08-2024 [facility]c [facility] Start: 04-17-2024 Annual PCP Team Chronic Disease Visit Annual PCP Team Chronic Disease Visit [facility] Start: 11-19-2023 Covid-19 Vaccine () Covid-19 Vaccine () [facility] Start: 11-19-2023 Influenza vaccination [facility] Start: 07-27-2023 Hepatitis B surface antibody level LDL Cholesterol [facility] Start: 04-21-2023 End: 07-21-2023 CBC W Auto Differential panel - Blood CBC + DIFF Lab Routine Leukocytosis, unspecified type Expected: 04/21/2023, Expires: 07/21/2023 [facility] Work Phone: Comment on above: Expected: 04/21/2023, Expires: Start: 03-20-2023 Behavioral Health Screening Behavioral Health Screening [facility] Start: 03-20-2023 Depression Assessment Depression Assessment [facility] Start: 02-08-2023 Hepatitis B surface antibody level LDL CHOLESTEROL [facility] Start: 01-26-2023 Hemoglobin A1c measurement HbA1C [facility] Start: 01-26-2023 Hemoglobin A1c/Hemoglobin.total in Blood HbA1C [facility] Start: 01-25-2023 Hemoglobin A1c/Hemoglobin.total in Blood HBA1C [facility] Start: 11-18-2022 Covid-19 Vaccine () Covid-19 Vaccine () [facility] Start: 11-18-2022 Influenza vaccination [facility] Start: 09-29-2022 Dehydroepiandrosterone sulfate (DHEA-S) [Mass/volume] in Serum or Plasma [facility] Start: 09-29-2022 Testosterone measurement [facility] Start: 08-08-2022 Hemoglobin A1c/Hemoglobin.total in Blood HBA1C [facility] Start: 07-19-2022 ANNUAL PCP TEAM CHRONIC DISEASE VISIT ANNUAL PCP TEAM CHRONIC DISEASE VISIT [facility] Start: 07-15-2022 Hepatitis B surface antibody level LDL CHOLESTEROL [facility] Start: 03-20-2022 DEPRESSION ASSESSMENT DEPRESSION ASSESSMENT [facility] Start: 01-25-2022 Hepatitis B screening URINE ALBUMIN:CREATININE RATIO [facility] Start: 01-14-2022 Hemoglobin A1c/Hemoglobin.total in Blood HBA1C [facility] Start: 11-18-2021 Influenza vaccination [facility] Start: 07-24-2021 3 comp foot exam completed [facility]ABET[facility] FOOT [facility] Start: 07-24-2021 Diabetic foot examination Diabetic Foot Exam [facility] ic Start: 03-20-2021 DEPRESSION ASSESSMENT DEPRESSION ASSESSMENT [facility] Start: 12-11-2019 Adult depression screening assessment DEPRESSION SCREENING [facility] Start: 2009 HEPATITIS B (1 of 3 - Risk 3-dose series) HEPATITIS B (1 of 3 - Risk 3-dose series) [facility] Start: 2009 Hepatitis B Vaccine (1 of 3 - 19+ 3-dose series) Hepatitis B Vaccine (1 of 3 - 19+ 3-dose series) [facility] Start: 2009 Pneumococcal vaccination Pneumococcal Vaccine (1 of 2 - PCV) [facility] Start: 2009 Urine microalbumin profile [facility] Start: 2008 Anxiety Screening Anxiety Screening [facility] Start: 2008 BP CONTROLLED (<130/80) BP CONTROLLED (<130/80) [facility] Start: 2008 Depression Screening Depression Screening [facility] Start: 2008 HIV SCREENING HIV SCREENING [facility] Start: 2008 HIV screening HIV Screening [facility] Start: 2006 ONE PNEUMOVAX PRIOR TO AGE 65 ONE PNEUMOVAX PRIOR TO AGE 65 [facility] Start: 2000 Glaucoma screening Dilated Retinal Exam [facility] Start: 2000 Hepatitis C antibody, confirmatory test DILATED RETINAL EXAM [facility] Start: 1996 PNEUMOCOCCAL (1 - PCV) PNEUMOCOCCAL (1 - PCV) [facility] ic Start: 1996 Pneumococcal vaccination [facility] Start: 06-02-1995 COVID-19 VACCINE (#1) COVID-19 VACCINE (#1) [facility] Start: 06-02-1995 COVID-19 VACCINE (1) COVID-19 VACCINE (1) [facility] Start: 1990 COVID-19 VACCINE (#1) COVID-19 VACCINE (#1) [facility] Start: 1990 HEPATITIS B (1 of 3 - 3-dose series) HEPATITIS B (1 of 3 - 3-dose series) [facility] Start: 1990 Hepatitis B Vaccine (1 of 3 - 3-dose series) Hepatitis B Vaccine (1 of 3 - 3-dose series) [facility] HIGH RISK HUMAN KEYONNA LLOMA VIRUS (HPV), PCR FOR DETECTION AND GENOTYPING HIGH RISK HUMAN PAPILLOMA VIRUS (HPV), PCR FOR DETECTION AND GENOTYPING Lab Routine Screening for cervical cancer Encounter for gynecological examination (general) (routine) with abnormal findings Encounter for screening for human papillomavirus (HPV) 07/30/2024 10:13 AM EDT [facility] PAP TEST PAP TEST Lab [place] [facility] Screening for cervical cancer Encounter for gynecological examination (general) (routine) with abnormal findings Encounter for screening for human papillomavirus (HPV) 07/30/2024 10:[address] [facility] Work Phone: Testosterone Free [Mass/volume] in Serum or Plasma [facility] Immunizations Immunization Date Immunization Notes Care Provider Misty reeves 12-18-2016 influenza virus vacc ine, unspecified formulation Flora Singh APRN.CNP Work Phone: [facility] Payers Date Payer Category Payer Self-pay [id number] 2018 Private Health Insurance MMO SUP [employer] PPO [id number] 2018 Unknown MMO MMO [employer] PLUS [id number] 2018-Present [phone] [address] [place] [address] PPO [id number] 2018 Unknown [id number] 2018 Unknown [id number] 2011 Unknown [id number] Unknown [id number] Unknown [id number] Unknown [id number] Social History Date Type Detail Facility Start: 11-08-2017 End: 07-25-2022 Tobacco smoking status NHIS Unknown if ever smoked [facility] Start: 1990 Sex Assigned At Female [facility] Start: 03-05-2012 End: 12-11-2013 Tobacco smoking status NHIS Never smoked tobacco [facility] Work Phone: Start: 03-05-2012 End: 12-11-2013 Tobacco use and exposure Smokeless tobacco non-user [facility] Work Phone: Start: 07-19-2021 End: 07-30-2024 Alcohol intake Current drinker of alcohol (finding) [facility] Start: 07-22-2019 End: 01-01-2020 History SDOH Alcohol Frequency 3 [facility] Start: 07-22-2019 End: 01-01-2020 History SDOH Alcohol Std Drinks 1 [facility] Start: 07-22-2019 End: 01-01-2020 History SDOH Alcohol Binge 98 [facility] Start: 03-05-2012 History SDOH Alcohol Comment occasionally [facility] Start: 07-22-2019 End: 01-01-2020 History SDOH Social Connections Phone 2 [facility] Start: 07-22-2019 History SDOH Physical Activity DPW 0 [facility] Start: 01-01-2020 History SDOH Financial 5 [facility] Start: 07-22-2019 Education 14 [facility] Start: 07-22-2019 End: 04-17-2023 History of Social function [facility] Start: 07-22-2019 End: 04-17-2023 Social connection and isolation panel [facility] Do you belong to any clubs or organizations such as christian groups, unions, fraternal or athletic groups, or school groups? No [facility] How often do you att end meetings of the clubs or organizations you belong to? Patient refused [facility] Are you now , , , , never or living with a partner? [facility] How often to you hav e a drink containing alcohol? 2-4 times a month [facility] How many standard dr inks containing alcohol do you have on a typical day? 1 or 2 [facility] Do you feel stress - tense, restless, nervous, or anxious, or unable to sleep at night because your mind is troubled all the time - these days [OSQ] To some extent [facility] (I/We) worried whesilvio er (my/our) food would run out before (I/we) got money to buy more. Never true [facility] Start: 03-06-2020 Gender identity Identifies as female gender (finding) [facility] Start: 07-19-2020 End: 01-25-2021 Exposure to SARS-CoV-2 (event) Not sure [facility] Medical Equipment Procedure Code Equipment Code Equipment Origin al Text Equipment Identifier Dates MEHDI AMAYA FDA Start: 09-15-2017 MEHDI AMAYA FDA Start: 09-15-2017 MEHDI AMAYA FDA Start: 09-15-2017 MEHDI AMAYA FDA Start: 09-15-2017 Test blood sugar(s) 1 times daily. Dx: Type 2 DM - Controlled E11.9 Insulin: No [id number], [id number], [id number], [id number] Start: 07-22-2019 End: 05-30-2024 Comment on above: Test blood sugar(s) 1 times daily. Dx: Type 2 DM - Controlled E11.9 Insulin: No MEHDI AMAYA FDA Start: 09-15-2017 MEHDI AMAYA FDA Start: 09-15-2017 MEHDI AMAYA FDA Start: 09-15-2017 MEHDI AMAYA FDA Start: 09-15-2017 Functional Status Date Assessment Result Facility 10-13-2014 Are you deaf, or do you have serious difficulty hearing No 10/13/2014 7:01 PM Paula Ward LPN No [facility] 10-13-2014 Are you blind, or do you have serious difficulty seeing, even when wearing glasses No 10/13/2014 7:01 PM Paula Ward LPN No [facility] 10-13-2014 Do you have serious difficulty walking or climbing stairs No 10/13/2014 7:01 PM Paula Ward LPN No [facility] 10-13-2014 Do you have difficul ty dressing or bathing No 10/13/2014 7:01 PM Paula Ward LPN No [facility] 10-13-2014 Because of a physica l, mental, or emotional condition, do you have difficulty doing errands alone such as visiting a physician's office or shopping No 10/13/2014 7:01 PM Paula Ward LPN No [facility] Mental Status Date Assessment Result Facility 10-13-2014 Because of a physica l, mental, or emotional condition, do you have serious difficulty concentrating, remembering, or making decisions No 10/13/2014 7:01 PM EDT Paula Buckley LPN No [facility] Clinical Notes 10-13-2014 to 07-30-2024 Radha Short APRN.CNM - 07/30/2024 9:33 AM EDTPatient Flora Bauer APRN.AUTOMOBILE GLASS TECHNICIAN - 06/17/2024 5:49 PM EDTTelephone Encounter - Lidya Hess LPN - 05/30/2024 7:35 AM EDT Note Date & Type Note Facility 07-30-2024 Note HNO ID: [id number] Author: RADHA SHORT APRN.CNM Service: ? Author Type: Plant Pathology Teacher Type: Progress Notes Filed: 07/30/2024 10:21 Note Text: Obstetrics and Gynecology [place] Annual Exam Subjective Recording using ambient [employer] software for draft documentation of the visit was discussed with the patient/authorized representative phlebotomy services; all questions welcomed and answered. Patient/authorized representative phlebotomy services agreed to proceed CHIEF COMPLAINT: HPI: The patient is a 34-year-old female with a history of HTN, asthma, T2DM, and PCOS, presenting for a well-woman exam. The patient is new to the practice, previously receiving care at [place]. She is currently on Mounjaro for T2DM, which she started 2 weeks ago, and reports no major issues, including no GI side effects. She is also taking Jardiance and metformin. She is on a progesterone-only control pill, which she reports helps manage her menstrual cycles, reducing heaviness and pain. Her periods are regular but do not occur at the same time each month. She experiences acne, breast tenderness, cramps, mood swings, and mild pelvic pain during her periods, all of which are manageable. She denies any history of abnormal Pap smears, STIs, dyspareunia, postcoital bleeding, vaginal discharge, itching, burning, or odor. She does not wish to undergo STD testing today. She has been since November 2014 and has been with her for 18 years. She has no history of pregnancies or children. She previously attempted to conceive and is open to considering infertility treatments as a last resort due to cost concerns. She is aware of the potential decreased efficacy of her control while on Mounjaro and is currently using control primarily for cycle regulation and management of PCOS symptoms. She is actively trying to lose weight, having previously weighed 368 lbs in 2019. She reports making dietary changes and increasing exercise, such as using the stairs in her house. She expresses interest in working with a diabetic geothermal operations engineer to further assist with weight loss. 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 She denies any major questions or concerns at this time. HISTORY: OB History Gravida0 Para0 Term0 Preterm0 AB0 Living0 SAB0 IAB0 Ectopic0 Multiple0 Live Births0 Director Financial Analysis History LMP: 07/30/2024 (Exact Date), Having periods Age at Menarche: 11 Age at First : Age at Menopause: Director Financial Analysis History Comments: Sexual Activity: Yes; Male Contraception: Pill Menstrual Tracking History Flowsheet Row Office Visit from 07/30/2024 in OB/Gynecology Period Cycle (Days) 30 Period Duration (Days) 7 Menstrual Flow Heavy PAST MEDICAL HISTORY Diagnosis Date Asthma (HCC) Depression 09/18/2011 [facility]ly [facility] Psychiatric admission - sucidal thoughts DM (diabetes mellitus) ([facility]) History of PCOS Has not been on glucophage since 2006 Hypertension Infertility, female 2016 Polycystic ovary syndrome Proteinuria PAST SURGICAL HISTORY Procedure Laterality Date ADENOIDECTOMY PRIMARY Adenoidectomy APPENDECTOMY 1999 CHOLECYSTECTOMY 09/15/2017 PAST SURGICAL HISTORY OF bilateral ear ventilating tubes PAST SURGICAL HISTORY OF N/A 11/2017 [facility] Endoscopy at [facility] by Dr. Dominguez TONSILLECTOMY PRIMARY/SECONDARY Tonsillectomy FAMILY HISTORY Problem Relation Age of Onset Diabetes Mother Asthma Mother Hypertension Mother Heart Mother 40 Cervical Cancer Mother Unsure which female related cancer she had but ended in total hysterectomy late 20s Diabetes Father Hypertension Father Diabetes Brother Hypertension Brother Heart Maternal Grandmother Diabetes Maternal Grandmother COPD Maternal Grandmother Heart Maternal Grandfather Diabetes Maternal Grandfather Alcohol/Drug Paternal Grandfather Social History Tobacco Use Smoking status: Never Smokeless tobacco: Never Substance Use Topics Alcohol use: Yes Comment: occasionally Drug use: No Current Outpatient Medications Medication Sig MOUNJARO 2.5 mg/0.5 mL pen injector Inject 2.5 mg subcutaneously one time a week. multivit-min/iron fum/folic ac (ONE-A-DAY WOMEN'S COMPLETE ORAL) Take by mouth. JARDIANCE 25 mg tablet Take 25 mg by mouth every morning. blood sugar diagnostic (BLOOD GLUCOSE TEST) test strip Test blood sugar(s) 1 times daily. Dx: Type 2 DM - Controlled E11.9 Insulin: No albuterol HFA (PROVENTIL HFA, VENTOLIN HFA) 90 mcg/actuation inhaler Inhale 2 Puffs as instructed every 4 hours as needed for wheezing/shortness of breath. omeprazole (PRILOSEC) 20 mg capsule Take 1 capsule by mouth daily before breakfast. 1/2 hr before meal. metFORMIN ER (GLUCOPHAGE XR) 500 mg 24 hr tablet Take 2 tablets by mouth two times a day. Lancets lancets Test blood sugar(s) 1 times daily. Dx: Type 2 DM - Controlled E11.9 Ins (more content not included)... [facility] 07-30-2024 History of Presen t illness Narrative Images from the original note were not included. Obstetrics and Gynecology [place] Annual Exam Subjective Recording using [employer] software for draft documentation of the visit was discussed with the patient/authorized representative phlebotomy services; all questions welcomed and answered. Patient/authorized representative phlebotomy services agreed to proceed CHIEF COMPLAINT: HPI: The patient is a 34-year-old female with a history of HTN, asthma, T2DM, and PCOS, presenting for a well-woman exam. The patient is new to the practice, previously receiving care at [place]. She is currently on Mounjaro for T2DM, which she started 2 weeks ago, and reports no major issues, including no GI side effects. She is also taking Jardiance and metformin. She is on a progesterone-only control pill, which she reports helps manage her menstrual cycles, reducing heaviness and pain. Her periods are regular but do not occur at the same time each month. She experiences acne, breast tenderness, cramps, mood swings, and mild pelvic pain during her periods, all of which are manageable. She denies any history of abnormal Pap smears, STIs, dyspareunia, postcoital bleeding, vaginal discharge, itching, burning, or odor. She does not wish to undergo STD testing today. She has been since November 2014 and has been with her for 18 years. She has no history of pregnancies or children. She previously attempted to conceive and is open to considering infertility treatments as a last resort due to cost concerns. She is aware of the potential decreased efficacy of her control while on Mounjaro and is currently using control primarily for cycle regulation and management of PCOS symptoms. She is actively trying to lose weight, having previously weighed 368 lbs in 2019. She reports making dietary changes and increasing exercise, such as using the stairs in her house. She expresses interest in working with a diabetic geothermal operations engineer to further assist with weight loss. 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 She denies any major questions or concerns at this time. HISTORY: OB History Gravida0 Para0 Term0 Preterm0 AB0 Living0 SAB0 IAB0 Ectopic0 Multiple0 Live Births0 Director Financial Analysis History LMP: 07/30/2024 (Exact Date), Having periods Age at Menarche: 11 Age at First : Age at Menopause: Director Financial Analysis History Comments: Sexual Activity: Yes; Male Contraception: Pill Menstrual Tracking History Flowsheet Row Office Visit from 07/30/2024 in OB/Gynecology Period Cycle (Days) 30 Period Duration (Days) 7 Menstrual Flow Heavy PAST MEDICAL HISTORY Diagnosis Date Asthma (HCC) Depression 09/18/2011 Formerly [facility] Psychiatric admission - sucidal thoughts DM (diabetes mellitus) ([facility]) History of PCOS Has not been on glucophage since 2007 Hypertension Infertility, female 2016 Polycystic ovary syndrome Proteinuria PAST SURGICAL HISTORY Procedure Laterality Date ADENOIDECTOMY PRIMARY <AGE 12 Adenoidectomy APPENDECTOMY 2000 CHOLECYSTECTOMY 09/15/2017 PAST SURGICAL HISTORY OF bilateral ear ventilating tubes PAST SURGICAL HISTORY OF N/A 11/2017 MAC Endoscopy at [facility] by Dr. Dominguez TONSILLECTOMY PRIMARY/SECONDARY <AGE 12 Tonsillectomy FAMILY HISTORY Problem Relation Age of Onset Diabetes Mother Asthma Mother Hypertension Mother Heart Mother 40 Cervical Cancer Mother Unsure which female related cancer she had but ended in total hysterectomy late 20s Diabetes Father Hypertension Father Diabetes Brother Hypertension Brother Heart Maternal Grandmother Diabetes Maternal Grandmother COPD Maternal Grandmother Heart Maternal Grandfather Diabetes Maternal Grandfather Alcohol/Drug Paternal Grandfather Social History Tobacco Use Smoking status: Never Smokeless tobacco: Never Substance Use Topics Alcohol use: Yes Comment: occasionally Drug use: No Current Outpatient Medications Medication Sig MOUNJARO 2.5 mg/0.5 mL pen injector Inject 2.5 mg subcutaneously one time a week. multivit-min/iron fum/folic ac (ONE-A-DAY WOMEN'S COMPLETE ORAL) Take by mouth. JARDIANCE 25 mg tablet Take 25 mg by mouth every morning. blood sugar diagnostic (BLOOD GLUCOSE TEST) test strip Test blood sugar(s) 1 times daily. Dx: Type 2 DM - Controlled E11.9 Insulin: No albuterol HFA (PROVENTIL HFA, VENTOLIN HFA) 90 mcg/actuation inhaler Inhale 2 Puffs as instructed every 4 hours as needed for wheezing/shortness of breath. omeprazole (PRILOSEC) 20 mg capsule Take 1 capsule by mouth daily before breakfast. 1/2 hr before meal. metFORMIN ER (GLUCOPHAGE XR) 500 mg 24 hr tablet Take 2 tablets by mouth two times a day. Lancets lancets Test blood sugar(s) 1 times daily. Dx: Type 2 DM - Controlled E11.9 Insulin: No lisinopril (ZESTRIL, PRINIVIL) 10 mg tablet Take 30 mg by mouth once daily. Norethindrone, Contraceptive, (DEBLITANE) 0.35 mg tablet Take 1 tablet by mouth once daily. No current facility-administered medications for this visit. ALLERGIES No Known Allergies Screening tools reviewed and discussed with patient- 07/30/2024 New PUBLIC HEALTH ADMINISTRATOR Intake First period 11 Still get period Yes LMP 06/24/2024 Period frequency 30 Days of bleeding 7 Menstrual flow Heavy Period amount bothersome No Bleeding between periods No Period symptoms Acne Breast tenderness Cramps Mood change Pelvic pain Sexually active Yes Time with current partner 18 years Number of lifetime partners 2 Contraception Pill control frequency Sometimes HPV Unsure Last pap smear 06/30/2022 Abnormal pap smear No, all prior PAP smears have been normal Pelvic pain No Endometriosis No Uterine fibroids No Polyps No Ovarian cyst Yes PCOS Yes Pain with intercourse No Post coital bleeding No Infertility Yes Date first noted (approx) 2015 Chlamydia No Genital warts No Gonorrhea No Hepatitis No Herpes No HIV/AIDS No Syphilis No Trichomonas No Leep No Cone biopsy No Colposcopy No Multiple values from one day are sorted in reverse-chronological order . Please see Patient Entered Data. REVIEW OF SYSTEMS: Abdomen: No abdominal pain, nausea, vomiting, diarrhea, or constipation. No bloating, early satiety, indigestion, or increased flatulence. Bladder: No dysuria, gross hematuria, urinary frequency, urinary urgency, or incontinence. Breast: No breast lumps, nipple d/c, overlying skin changes, redness or skin retraction. Objective SENSITIVE EXAM: The sensitive examination was discussed with the Patient or Patient's Authorized Director Of Medicare. As applicable, any other physician, advance practice provider, medical student, or other health professional student that will be observing or involved in the sensitive examination for educational or training purposes was discussed with the Patient or Authorized Director Of Medicare. The Patient or Authorized Director Of Medicare has agreed to proceed with the sensitive examination. (Sensitive examination includes inspection and/or palpation of the breasts, pelvis, prostate and anorectal regions). PHYSICAL EXAM: BP 118/76 Ht 5' 3 (1.60m) Wt 309 lb (140.2kg) LMP 07/30/2024 BMI 54.75 kg/(m^2). GENERAL: pleasant, female in no apparent distress HEENT: Normocephalic, atraumatic, mucus membranes moist, and no lesions NECK: Supple, full range of motion, no adenopathy, and thyroid normal DERMATOLOGY: Normal, without lesions, non-icteric, and non-hirsute BREAST: soft, non-tender, symmetric, no dominant mass, normal nipple-areolar complex, no lymphadenopathy, and no nipple discharge CHEST: Normal inspiratory effort ABDOMEN: soft, non-tender, and no masses PELVIC: external genitalia normal, normal Bartholin's glands, urethra, [place]'s glands, no vulvar lesions, no cervical lesions, good vaginal support, physiologic discharge present, normal appearing perineal body and perianal region BIMANUAL: uterus normal size, shape and consistency, no adnexal masses, and non-tender RECTOVAGINAL: deferred. NEURO: alert and oriented x3,exam grossly non-focal EXTREMITIES: normal Assessment & Plan ASSESSMENT AND PLAN: 1. Screening for cervical cancer (Z12.4) Encounter for gynecological examination (general) (routine) with abnormal findings (Z01.411) Encounter for screening for human papillomavirus (HPV) (Z11.51) Performed breast and pelvic exam. Breasts are dense but no masses or nipple discharge noted. Cervix was difficult to visualize due to its posterior position, likely influenced by menstruation. Uterus and ovaries palpated as normal. No abnormal findings observed during the examination. - Pap smear performed; results will be available on [employer]. Next Pap smear due in 5 years if results are normal. - Educated patient on performing regular breast self-exams. - Scheduled mammogram to begin at age 40. 2. Encounter for surveillance of contraceptive pills (Z30.41) Currently on progesterone-only control pills, which have been effective in managing menstrual flow and dysmenorrhea. No history of abnormal Pap smears or STIs. No dyspareunia, postcoital bleeding, or abnormal vaginal discharge reported. - Refilled progesterone-only control prescription for the next year. - Discussed potential decreased efficacy of control due to Mounjaro. 3. PCOS (polycystic ovarian syndrome) (E28.2) Diagnosed with PCOS, currently managed with control pills. Regular menstrual cycles with manageable symptoms. Has attempted conception in the past; open to considering infertility treatment as a last resort. - Continue current control regimen. - Discussed importance of weight loss in managing PCOS and improving fertility outcomes. 4. Class 3 severe obesity with serious comorbidity and body mass index (BMI) of 50.0 to 59.9 in adult, unspecified obesity type (E66.813) Currently on Mounjaro, Jardiance, and metformin for type 2 diabetes management. Has lost weight since 2019 but progress is slow. Expressed desire to actively lose weight to improve health and fertility outcomes. - Continue Mounjaro, Jardiance, and metformin. - Recommended weight loss of approximately 30 pounds to improve metabolism and reduce risks associated with obesity. - Encouraged dietary modifications and increased physical activity. - Referred to diabetic geothermal operations engineer for personalized dietary plan. 5. Essential (primary) hypertension (I10) History of essential hypertension. 6. Encounter for gynecological examination (general) (routine) with abnormal findings - ICD9: V72.31, ICD10: Z01.411 (primary diagnosis) - Completed pelvic and breast exam - Encouraged monthly BSE - Follow up for annual exam in one year. - PAP TEST Radha Short APRN.CNM documented in this encounter [facility] 06-17-2024 Instructions Flora Singh APRN.CNP - 06/17/2024 6:17 PM EDT Get labs Continue current medication regimen Schedule eye exam Continue to follow with endocrinology Follow up in one year or sooner if needed documented in this encounter [facility] 06-17-2024 Note HNO ID: [id number] Author: FLORA SINGH APRN.CNP Service: ? Author Type: Nurse Practitioner Type: Progress Notes Filed: 06/17/2024 19:55 Note Text: This is a 34 year old female who presents today with: Patient presents with: Yearly Exam HISTORY OF PRESENT ILLNESS: Mariam Ventura is a 34 year old female. Patient presents with: Yearly Exam DM: Reports overall feeling well. Medication side effects: No. Home sugar checks: sometimes, 100-130 Hypoglycemic spells: No. Watching diet: sometimes. Unexpected weight loss: No. Polyuria, polydipsia: No. Vision Changes: No. Foot lesions or numbness or pain: No. Follows with endocrinology at [place] Had labs checked labs A1C was 6.2 last month Has not had an eye exam in a few years HTN: Patient is compliant with meds Yes Monitors bp at home: No. Denies side effects: Yes. Chest pain: No. Dyspnea: No. Edema: No. Palpitations: No. Syncope: No. Headache: No. Dizziness: No. GERD: Patient takes: Prilosec Heartburn is controlled: Yes. Bloody or black stools: No. Bowel changes: No. Denies nausea and vomiting Denies abdominal pain Denies constipation diarrhea Appetite stable Good sleep hygiene Denies issues with depression and anxiety REVIEW OF SYSTEMS GENERAL: No weight loss, malaise or fevers/chills HEENT: Negative for frequent or significant headaches, No changes in hearing or vision. NECK: Negative for lumps, goiter, pain and significant neck swelling RESPIRATORY: Negative for cough, hemoptysis, wheezing, dyspnea or shortness of breath CARDIOVASCULAR: Negative for chest pain, leg swelling, orthopnea, or palpitations GI: No nausea, vomiting, or diarrhea/constipation. No hematochezia/melena. No heartburn or reflux symptoms. : No history of dysuria, frequency or incontinence MUSCULOSKELETAL: Negative for joint pain or swelling. SKIN: Negative for lesions, rash, and itching ENDOCRINE: Negative for cold or heat intolerance, polyuria, polydipsia and goiter NEURO: No history of headaches, syncope, paralysis, seizures or tremors PAST MEDICAL HISTORY: PAST MEDICAL HISTORY Diagnosis Date Asthma Depression September 2011 Formerly [facility] Psychiatric admission - sucidal thoughts DM (diabetes mellitus) (HCC) History of PCOS Has not been on glucophage since 2006 Hypertension Proteinuria PAST SURGICAL HISTORY Procedure Laterality Date ADENOIDECTOMY PRIMARY Adenoidectomy APPENDECTOMY 1999 CHOLECYSTECTOMY 09/15/2017 PAST SURGICAL HISTORY OF bilateral ear ventilating tubes PAST SURGICAL HISTORY OF N/A 11/2017 MAC Endoscopy at [facility] by Dr. Dominguez TONSILLECTOMY PRIMARY/SECONDARY Tonsillectomy ALLERGIES Patient has no known allergies. MEDICATIONS Current Outpatient Medications Medication Sig JARDIANCE 25 mg tablet Take 25 mg by mouth every morning. blood sugar diagnostic (BLOOD GLUCOSE TEST) test strip Test blood sugar(s) 1 times daily. Dx: Type 2 DM - Controlled E11.9 Insulin: No albuterol HFA (PROVENTIL HFA, VENTOLIN HFA) 90 mcg/actuation inhaler Inhale 2 Puffs as instructed every 4 hours as needed for wheezing/shortness of breath. Norethindrone, Contraceptive, (DEBLITANE) 0.35 mg tablet Take 1 tablet by mouth once daily. TRULICITY 4.5 mg/0.5 mL pen injector INJECT 0.5 ml SUBCUTANEOUSLY EVERY WEEK omeprazole (PRILOSEC) 20 mg capsule Take 1 capsule by mouth daily before breakfast. 1/2 hr before meal. metFORMIN ER (GLUCOPHAGE XR) 500 mg 24 hr tablet Take 2 tablets by mouth two times a day. glimepiride (AMARYL) 1 mg tablet Take 1 tablet by mouth daily with breakfast. dulaglutide (TRULICITY) 0.75 mg/0.5 mL pen injector Inject 0.75 mg subcutaneously one time a week. Inject dose once per week. Discard Pen After vit-iron fumarate-fa () 28 mg iron- 800 mcg tab Take 1 tablet by mouth once daily. Lancets lancets Test blood sugar(s) 1 times daily. Dx: Type 2 DM - Controlled E11.9 Insulin: No lisinopril (ZESTRIL, PRINIVIL) 10 mg tablet Take 30 mg by mouth once daily. CINNAMON BARK (CINNAMON ORAL) Take by mouth once daily. No current facility-administered medications for this visit. FAMILY HISTORY Problem Relation Age of Onset Diabetes Mother Asthma Mother Hypertension Mother Heart Mother 40 Diabetes Father Hypertension Father Diabetes Brother Hypertension Brother Heart Maternal Grandmother Diabetes Maternal Grandmother COPD Maternal Grandmother Heart Maternal Grandfather Diabetes Maternal Grandfather Alcohol/Drug Paternal Grandfather Social History Tobacco Use Smoking status: Never Smokeless tobacco: Never Substance Use Topics Alcohol use: Yes Comment: occasionally Drug use: No EXAM: BP 128/72 Pulse 85 Resp 16 Wt (!) 139.7 kg (308 lb) LMP 07/11/2021 SpO2 98% BMI 53.70 kg/m? PHYSICAL EXAM: General Appearance: Well appearing, alert, in no acute distress, well-hydrated, (more content not included)... [facility] 06-17-2024 History of Presen t illness Narrative This is a 34 year old female who presents today with: Patient presents with: Yearly Exam HISTORY OF PRESENT ILLNESS: Mariam Ventura is a 34 year old female. Patient presents with: Yearly Exam DM: Reports overall feeling well. Medication side effects: No. Home sugar checks: sometimes, 100-130 Hypoglycemic spells: No. Watching diet: sometimes. Unexpected weight loss: No. Polyuria, polydipsia: No. Vision Changes: No. Foot lesions or numbness or pain: No. Follows with endocrinology at [place] Had labs checked labs A1C was 6.2 last month Has not had an eye exam in a few years HTN: Patient is compliant with meds Yes Monitors bp at home: No. Denies side effects: Yes. Chest pain: No. Dyspnea: No. Edema: No. Palpitations: No. Syncope: No. Headache: No. Dizziness: No. GERD: Patient takes: Prilosec Heartburn is controlled: Yes. Bloody or black stools: No. Bowel changes: No. Denies nausea and vomiting Denies abdominal pain Denies constipation diarrhea Appetite stable Good sleep hygiene Denies issues with depression and anxiety REVIEW OF SYSTEMS GENERAL: No weight loss, malaise or fevers/chills HEENT: Negative for frequent or significant headaches, No changes in hearing or vision. NECK: Negative for lumps, goiter, pain and significant neck swelling RESPIRATORY: Negative for cough, hemoptysis, wheezing, dyspnea or shortness of breath CARDIOVASCULAR: Negative for chest pain, leg swelling, orthopnea, or palpitations GI: No nausea, vomiting, or diarrhea/constipation. No hematochezia/melena. No heartburn or reflux symptoms. : No history of dysuria, frequency or incontinence MUSCULOSKELETAL: Negative for joint pain or swelling. SKIN: Negative for lesions, rash, and itching ENDOCRINE: Negative for cold or heat intolerance, polyuria, polydipsia and goiter NEURO: No history of headaches, syncope, paralysis, seizures or tremors PAST MEDICAL HISTORY: PAST MEDICAL HISTORY Diagnosis Date Asthma Depression September 2011 Formerly [facility] Psychiatric admission - sucidal thoughts DM (diabetes mellitus) (HCC) History of PCOS Has not been on glucophage since 2006 Hypertension Proteinuria PAST SURGICAL HISTORY Procedure Laterality Date ADENOIDECTOMY PRIMARY <AGE 12 Adenoidectomy APPENDECTOMY 2000 CHOLECYSTECTOMY 09/15/2017 PAST SURGICAL HISTORY OF bilateral ear ventilating tubes PAST SURGICAL HISTORY OF N/A 11/2017 MAC Endoscopy at [facility] by Dr. Dominguez TONSILLECTOMY PRIMARY/SECONDARY <AGE 12 Tonsillectomy ALLERGIES Patient has no known allergies. MEDICATIONS Current Outpatient Medications Medication Sig JARDIANCE 25 mg tablet Take 25 mg by mouth every morning. blood sugar diagnostic (BLOOD GLUCOSE TEST) test strip Test blood sugar(s) 1 times daily. Dx: Type 2 DM - Controlled E11.9 Insulin: No albuterol HFA (PROVENTIL HFA, VENTOLIN HFA) 90 mcg/actuation inhaler Inhale 2 Puffs as instructed every 4 hours as needed for wheezing/shortness of breath. Norethindrone, Contraceptive, (DEBLITANE) 0.35 mg tablet Take 1 tablet by mouth once daily. TRULICITY 4.5 mg/0.5 mL pen injector INJECT 0.5 ml SUBCUTANEOUSLY EVERY WEEK omeprazole (PRILOSEC) 20 mg capsule Take 1 capsule by mouth daily before breakfast. 1/2 hr before meal. metFORMIN ER (GLUCOPHAGE XR) 500 mg 24 hr tablet Take 2 tablets by mouth two times a day. glimepiride (AMARYL) 1 mg tablet Take 1 tablet by mouth daily with breakfast. dulaglutide (TRULICITY) 0.75 mg/0.5 mL pen injector Inject 0.75 mg subcutaneously one time a week. Inject dose once per week. Discard Pen After vit-iron fumarate-fa () 28 mg iron- 800 mcg tab Take 1 tablet by mouth once daily. Lancets lancets Test blood sugar(s) 1 times daily. Dx: Type 2 DM - Controlled E11.9 Insulin: No lisinopril (ZESTRIL, PRINIVIL) 10 mg tablet Take 30 mg by mouth once daily. CINNAMON BARK (CINNAMON ORAL) Take by mouth once daily. No current facility-administered medications for this visit. FAMILY HISTORY Problem Relation Age of Onset Diabetes Mother Asthma Mother Hypertension Mother Heart Mother 40 Diabetes Father Hypertension Father Diabetes Brother Hypertension Brother Heart Maternal Grandmother Diabetes Maternal Grandmother COPD Maternal Grandmother Heart Maternal Grandfather Diabetes Maternal Grandfather Alcohol/Drug Paternal Grandfather Social History Tobacco Use Smoking status: Never Smokeless tobacco: Never Substance Use Topics Alcohol use: Yes Comment: occasionally Drug use: No EXAM: BP 128/72 Pulse 85 Resp 16 Wt (!) 139.7 kg (308 lb) LMP 07/11/2021 SpO2 98% BMI 53.70 kg/m PHYSICAL EXAM: General Appearance: Well appearing, alert, in no acute distress, well-hydrated, well nourished.. Skin: Skin color, texture, turgor normal, no suspicious rashes or lesions. Head: Normocephalic, no masses, lesions, tenderness or abnormalities. Eyes: Anicteric sclera. Pupils are equally round and reactive to light. Extraocular movements are intact. . Ears: External ears normal, canals clear. Nose/Sinuses: Nares normal, septum midline, mucosa normal, no drainage or sinus tenderness. Oropharynx: Lips, mucosa, and tongue normal, teeth and gums normal, oropharynx normal. Lungs: Lungs clear to auscultation. No wheezing, rhonchi, rales.. Heart: RRR without murmur, gallop, or rubs. No ectopy. Abdomen: Normal abdominal exam, Abdomen soft, non-tender. Bowel sounds normal. No masses, organomegaly. Extremities: No deformities, edema, skin discoloration, clubbing or cyanosis. Good capillary refill. . Lymph Nodes: No cervical lymphadenopathy, No supraclavicular lymphadenopathy, No axillary lymphadenopathy., and No inguinal lymphadenopathy. ASSESSMENT/PLAN: 1. Routine physical examination - ICD9: V70.0, ICD10: Z00.00 (primary diagnosis) - Counseled on healthy diet and regular exercise - Follow up for annual exam in one year - Discussed with patient the importance of yearly eye exams - COMPLETE BLOOD COUNT AND DIFFERENTIAL - COMPREHENSIVE METABOLIC PANEL 2. Leukocytosis, unspecified type - ICD9: 288.60, ICD10: D72.829 - Will check labs to determine stability - Denies any pertinent symptoms at this time 3. Primary hypertension - ICD9: 401.9, ICD10: I10 - Controlled - Continue current medications - Recommend home blood pressure monitoring, to bring results to next visit - Encouraged sodium restriction, DASH or Mediterranean diet - Recommend regular aerobic exercise - Discussed need for and benefit of weight loss. BMI 53.70 kg/(m^2) - Follow up in one year sooner if needed for hypertension visit - COMPLETE BLOOD COUNT AND DIFFERENTIAL - COMPREHENSIVE METABOLIC PANEL - LIPID PANEL, FASTING - THYROID STIMULATING HORMONE - T4 FREE/FREE THYROXINE 4. Encounter for surveillance of contraceptive pills - ICD9: V25.41, ICD10: Z30.41 - discussed with patient on how to take OCP's. - counseled on benefits, risks and possible severe side effects of OCP's. - follow up in one year or sooner if needed - NORETHINDRONE (CONTRACEPTIVE) 0.35 MG TABLET 5. Screening for cervical cancer - ICD9: V76.2, ICD10: Z12.4 - Due for PAP smear - Placed referral to gynecology to establish care - CONSULT TO GYNECOLOGY 6. Type 2 diabetes mellitus without complication, without long-term current use of insulin (HCC) - ICD9: 250.00, ICD10: E11.9 - Controlled - Continue current medications - Discussed with patient the importance of regular exercise and diet modifications - Discussed with patient to continue to follow with endocrinology for diabetes management Discussed treatment plan and patient voices understanding. Patient's questions answered appropriately. Medications and potential side effects were discussed and patient voices understanding. Return to the office as scheduled or as needed for worsening/no improvement. The patient indicates understanding of these issues and agrees with the plan. Flora Singh APRN.SABINA documented in this encounter [facility] 05-30-2024 Telephone encounter Note Prescription Refill Information The patient has been identified by name and date of : Yes Caregiver verified no other encounters exist for this prescription request: Yes Caregiver confirmed with patient/requestor that no other refills are due, in the near future, with this provider at this time: Yes The last office visit in the department: 04/17/23 Does the patient have a future office visit with this provider/department: No My chart message sent Requested Prescriptions Pending Prescriptions Disp Refills albuterol HFA (PROVENTIL HFA, VENTOLIN HFA) 90 mcg/actuation inhaler 1 Each 0 Sig: Inhale 2 Puffs as instructed every 4 hours as needed for wheezing/shortness of breath. Lidya Hess LPN May 30, 2024 7:36 AM [facility] 05-30-2024 Miscellaneous Notes Prescription Refill Information The patient has been identified by name and date of : Yes Caregiver verified no other encounters exist for this prescription request: Yes Caregiver confirmed with patient/requestor that no other refills are due, in the near future, with this provider at this time: Yes The last office visit in the department: 04/17/23 Does the patient have a future office visit with this provider/department: No My chart message sent Requested Prescriptions Pending Prescriptions Disp Refills albuterol HFA (PROVENTIL HFA, VENTOLIN HFA) 90 mcg/actuation inhaler 1 Each 0 Sig: Inhale 2 Puffs as instructed every 4 hours as needed for wheezing/shortness of breath. Lidya Hess LPN May 30, 2024 7:36 AM documented in this encounter [facility] 12-26-2023 Telephone encounter Note The following approved medication requests have been transmitted electronically. Requested Prescriptions Pending Prescriptions Disp Refills albuterol HFA (PROVENTIL HFA, VENTOLIN HFA) 90 mcg/actuation inhaler 1 Each 0 Sig: Inhale 2 Puffs as instructed every 4 hours as needed for wheezing/shortness of breath. Teressa Zuniga APRN.AUTOMOBILE GLASS TECHNICIAN [facility] 12-26-2023 Miscellaneous Notes The following approved medication requests have been transmitted electronically. Requested Prescriptions Pending Prescriptions Disp Refills albuterol HFA (PROVENTIL HFA, VENTOLIN HFA) 90 mcg/actuation inhaler 1 Each 0 Sig: Inhale 2 Puffs as instructed every 4 hours as needed for wheezing/shortness of breath. Teressa Zuniga APRN.CNP Prescription Refill Information The patient has been identified by name and date of : Yes Caregiver verified no other encounters exist for this prescription request: Yes Caregiver confirmed with patient/requestor that no other refills are due, in the near future, with this provider at this time: No The last office visit in the department: 04/17/23 Does the patient have a future office visit with this provider/department: No Requested Prescriptions Pending Prescriptions Disp Refills albuterol HFA (PROVENTIL HFA, VENTOLIN HFA) 90 mcg/actuation inhaler 1 Each 0 Sig: Inhale 2 Puffs as instructed every 4 hours as needed for wheezing/shortness of breath. Ava Leyva MA December 26, 2023 11:07 AM documented in this encounter [facility] 12-26-2023 Telephone encounter Note Prescription Refill Information The patient has been identified by name and date of : Yes Caregiver verified no other encounters exist for this prescription request: Yes Caregiver confirmed with patient/requestor that no other refills are due, in the near future, with this provider at this time: No The last office visit in the department: 04/17/23 Does the patient have a future office visit with this provider/department: No Requested Prescriptions Pending Prescriptions Disp Refills albuterol HFA (PROVENTIL HFA, VENTOLIN HFA) 90 mcg/actuation inhaler 1 Each 0 Sig: Inhale 2 Puffs as instructed every 4 hours as needed for wheezing/shortness of breath. Ava Leyva MA December 26, 2023 11:07 AM [facility] 10-16-2023 Telephone encounter Note Prescription Refill Information The patient has been identified by name and date of : Yes Caregiver verified no other encounters exist for this prescription request: Yes Caregiver confirmed with patient/requestor that no other refills are due, in the near future, with this provider at this time: Yes The last office visit in the department: 04/17/23 Does the patient have a future office visit with this provider/department: No Requested Prescriptions Pending Prescriptions Disp Refills Norethindrone, Contraceptive, (DEBLITANE) 0.35 mg tablet 28 tablet 5 Sig: Take 1 tablet by mouth once daily. Garrison Lisa LPN October 16, 2023 10:47 AM [facility] 10-16-2023 Miscellaneous Notes Prescription Refill Information The patient has been identified by name and date of : Yes Caregiver verified no other encounters exist for this prescription request: Yes Caregiver confirmed with patient/requestor that no other refills are due, in the near future, with this provider at this time: Yes The last office visit in the department: 04/17/23 Does the patient have a future office visit with this provider/department: No Requested Prescriptions Pending Prescriptions Disp Refills Norethindrone, Contraceptive, (DEBLITANE) 0.35 mg tablet 28 tablet 5 Sig: Take 1 tablet by mouth once daily. Garrison Lisa LPN October 16, 2023 10:47 AM documented in this encounter [facility] 08-21-2023 Telephone encounter Note Patient MyChart message requesting the following refill Refill(s) Requested: Requested Prescriptions Pending Prescriptions Disp Refills blood sugar diagnostic (BLOOD GLUCOSE TEST) test strip 50 Strip 0 Sig: Test blood sugar(s) 1 times daily. Dx: Type 2 DM - Controlled E11.9 Insulin: No albuterol HFA (PROVENTIL HFA, VENTOLIN HFA) 90 mcg/actuation inhaler 1 Each 0 Sig: Inhale 2 Puffs as instructed every 4 hours as needed for wheezing/shortness of breath. ALLERGIES No Known Allergies (home) [phone] (cell) Last Office Visit Date: 04/17/2023 Last Distance Health Visit: Visit date not found Future Appointment: Visit date not found The patients preferred pharmacy has been captured for this encounter? yes Request is for script(s) to be escript to pharmacy. Edith Mosqueda LPN [facility] 08-21-2023 Miscellaneous Notes Patient GooseChaset message requesting the following refill Refill(s) Requested: Requested Prescriptions Pending Prescriptions Disp Refills blood sugar diagnostic (BLOOD GLUCOSE TEST) test strip 50 Strip 0 Sig: Test blood sugar(s) 1 times daily. Dx: Type 2 DM - Controlled E11.9 Insulin: No albuterol HFA (PROVENTIL HFA, VENTOLIN HFA) 90 mcg/actuation inhaler 1 Each 0 Sig: Inhale 2 Puffs as instructed every 4 hours as needed for wheezing/shortness of breath. ALLERGIES No Known Allergies (home) [phone] (cell) Last Office Visit Date: 04/17/2023 Last Distance Health Visit: Visit date not found Future Appointment: Visit date not found The patients preferred pharmacy has been captured for this encounter? yes Request is for script(s) to be escript to pharmacy. Edith Mosqueda LPN documented in this encounter [facility] 04-21-2023 Miscellaneous Notes Pt notified. She verbalized understanding. Garrison Lisa LPN Can please let patient know that I received her recent labs. Everything looked okay, except her white count was a little elevated. This can happen if she recently had a virus. Let have her repeat this again in 1-2 weeks to ensure that it returns to normal/baseline. The order is in. Flora Singh APRN.SABINA documented in this encounter [facility] 12-27-2022 Miscellaneous Notes Patient has been identified by name and date of : Yes Patient phones for refill(s): Requested Prescriptions Pending Prescriptions Disp Refills metFORMIN ER (GLUCOPHAGE XR) 500 mg 24 hr tablet 120 tablet 11 Sig: Take 2 tablets by mouth two times a day. Date of last office visit in primary care:12/12/2022 Date of next office visit in primary care: Visit date not found Please advise. Thank you. Teressa Davila LPN. documented in this encounter [facility] 02-09-2022 Miscellaneous Notes Patient has been identified by name and date of : Yes Patient phones for refill(s): Requested Prescriptions Pending Prescriptions Disp Refills glimepiride (AMARYL) 1 mg tablet 30 tablet 5 Sig: Take 1 tablet by mouth daily with breakfast. Date of last office visit in primary care: 04/12/21 Please advise. Thank you. Teressa Davila LPN documented in this encounter [facility] 09-27-2021 Miscellaneous Notes Last office visit: 07/19/21 F/u scheduled: none Ava Leyva Ma documented in this encounter [facility] 08-17-2021 Miscellaneous Notes Patient phones requesting refills as follows: Pending Prescriptions Disp Refills TRULICITY 0.75 MG/0.5 ML SUBCUTANEOUS PEN INJECTOR 2 mL 5 Sig: Inject 0.75 mg subcutaneously one time a week. Inject dose once per week. Discard Pen After SOLITARIO: No JOHN 07/19/21 NOV no upcoming appt Please review and advise. Garrison Lisa LPN documented in this encounter [facility] 07-21-2021 Miscellaneous Notes Patient has been identified by name and date of : Yes Patient phones for refill(s): Pending Prescriptions Disp Refills BLOOD GLUCOSE TEST STRIPS 50 Strip 11 Sig: Test blood sugar(s) 1 times daily. Dx: Type 2 DM - Controlled E11.9 Insulin: No SOLITARIO: No Date of last office visit in primary care: 07/19/21 Last 2 Encounter Wt Readings: Date: Wt: 04/12/2021 153.8 kg (339 lb) 01/27/2021 153 kg (337 lb 6.4 oz) Previous labs/tests for medication: Diabetes: Hemoglobin A1C (%) Date Value 07/15/2021 6.3 01/25/2021 7.3 07/20/2020 8.0 Please advise. Thank you. Debbie Castaneda LPN documented in this encounter [facility] 07-19-2021 Instructions Flora Singh APRN.SABINA - 07/19/2021 5:24 PM EDT 1. Set up w/ endocrinology. 2. When the time comes, we will need to change the lisinopril to labetalol. 3. When you decide to start trying for -- stop the trulicity. documented in this encounter [facility] 07-19-2021 History of Presen t illness Narrative This is a 31 year old female who presents today with: Patient presents with: Recheck: medication review/discuss trulicity and lisinopril HISTORY OF PRESENT ILLNESS: Mariam Ventura is a 31 year old female. Patient presents with: Recheck: medication review/discuss trulicity and lisinopril Patient presents today to discussed preconceptual counseling. She recently had an appoint with PUBLIC HE[facility] ADMINISTRATOR. Dr. Castro -- [facility]. She is interested in . She was found to have an elevated testosterone level. Per patient PUBLIC HEALTH ADMINISTRATOR would like her to follow-up with endocrinology. Patient has not set up this appointment yet. She is not planning until she has had an appointment with endocrinology. She is concerned because of being on Trulicity and lisinopril. Aware that these medications will need change for . PAST MEDICAL HISTORY: PAST MEDICAL HISTORY Diagnosis Date Asthma Depression September 2011 [facility] Psychiatric admission - sucidal thoughts DM (diabetes mellitus) (HCC) History of PCOS Has not been on glucophage since 2006 Hypertension Proteinuria PAST SURGICAL HISTORY Procedure Laterality Date ADENOIDECTOMY PRIMARY <AGE 12 Adenoidectomy APPENDECTOMY 2000 CHOLECYSTECTOMY 09/15/2017 PAST SURGICAL HISTORY OF bilateral ear ventilating tubes PAST SURGICAL HISTORY OF N/A 11/2017 MAC Endoscopy at [facility] by Dr. Dominguez TONSILLECTOMY PRIMARY/SECONDARY <AGE 12 Tonsillectomy ALLERGIES Patient has no known allergies. MEDICATIONS Current Outpatient Medications Medication Sig glimepiride (AMARYL) 1 mg tablet Take 1 tablet by mouth daily with breakfast. dulaglutide (TRULICITY) 0.75 mg/0.5 mL pen injector Inject 0.75 mg subcutaneously one time a week. Inject dose once per week. Discard Pen After albuterol HFA (PROVENTIL HFA, VENTOLIN HFA) 90 mcg/actuation inhaler Inhale 2 Puffs as instructed every 4 hours as needed for wheezing/shortness of breath. fluticasone (FLOVENT HFA) 44 mcg/actuation inhaler Inhale 1 Puff as instructed twice daily. Shake well before use. Rinse mouth after use. metFORMIN ER (GLUCOPHAGE XR) 500 mg 24 hr tablet Take 2 tablets by mouth twice daily. blood sugar diagnostic (BLOOD GLUCOSE TEST) test strip Test blood sugar(s) 1 times daily. Dx: Type 2 DM - Controlled E11.9 Insulin: No Lancets lancets Test blood sugar(s) 1 times daily. Dx: Type 2 DM - Controlled E11.9 Insulin: No lisinopril (ZESTRIL, PRINIVIL) 10 mg tablet Take 30 mg by mouth once daily. CINNAMON BARK (CINNAMON ORAL) Take by mouth once daily. No current facility-administered medications for this visit. FAMILY HISTORY Problem Relation Age of Onset Diabetes Mother Asthma Mother Hypertension Mother Heart Mother 40 Diabetes Father Hypertension Father Diabetes Brother Hypertension Brother Heart Maternal Grandmother Diabetes Maternal Grandmother COPD Maternal Grandmother Heart Maternal Grandfather Diabetes Maternal Grandfather Alcohol/Drug Paternal Grandfather Social History Tobacco Use Smoking status: Never Smoker Smokeless tobacco: Never Used Substance Use Topics Alcohol use: Yes Comment: occasionally Drug use: No EXAM: BP 138/82 Pulse 99 Resp 18 LMP 07/11/2021 SpO2 99% PHYSICAL EXAM: General Appearance: Well appearing, alert, in no acute distress, well-hydrated, well nourished.. Skin: Skin color, texture, turgor normal, no suspicious rashes or lesions. Head: Normocephalic, no masses, lesions, tenderness or abnormalities. Eyes: Anicteric sclera. Pupils are equally round and reactive to light. Extraocular movements are intact. . Neurologic: Gait normal. ASSESSMENT/PLAN: 1. Encounter for preconception consultation - ICD9: V26.49, ICD10: Z31.69 Discussed with patient, that if she plans on following up with endocrinology prior to , then to continue same medications for now. Discussed that it can take several months to get into see endocrinology. Also discussed the benefits that when she is established with endocrinology, they can help manage the diabetes in . Discussed that lisinopril was usually changed to labetalol during . This will need to be closely monitored to obtain optimal control. Discussed that Trulicity will need to be stopped. Aware that insulin is the treatment of choice for diabetes in . She will schedule with endocrinology, and update provider. Discussed treatment plan and patient voices understanding. Patient's questions answered appropriately. Medications and potential side effects were discussed and patient voices understanding. Return to the office as scheduled or as needed for worsening/no improvement. Flora Singh APRN.[employer] GLASS TECHNICIAN This note was partially generated using [email or web address] recognition system. Note was reviewed for accuracy. There may be minor misspellings or grammar miscues with [employer] voice recognition. documented in this encounter [facility] 05-13-2021 Note [facility] Work Phone: Pap Smear Specimen Adequacy May 13, 2021 12:00pm Comment Satisfactory for evaluation. Endocervical and/or squamous metaplasticcells (endocervical component) are present. Comment on above: Satisfactory for yoel luation. Endocervical and/or squamous metaplasticcells (endocervical component) are present. 05-13-2021 Note [facility] Work Phone: Pap Smear Specimen Adequacy May 13, 2021 12:00pm Comment Satisfactory for evaluation. Endocervical and/or squamous metaplasticcells (endocervical component) are present. Comment on above: Satisfactory for yoel luation. Endocervical and/or squamous metaplasticcells (endocervical component) are present. 01-25-2021 History of Presen t illness Narrative Radiology Service Progress Note PATIENT NAME: Mariam Ventura DATE OF SERVICE: January 25, 2021 TIME: 9:59 AM PATIENT IDENTITY VERIFICATION COMPLETED USING TWO (2) IDENTIFIERS: Name and Date of confirmed by patient verbally. FALL SCREENING: Has the patient had 2 falls in the last year or 1 fall with injury or currently using an Ambulatory Assistive Device (Walker, Cane, Wheelchair, Crutches, etc.)? No PATIENT GENDER DATA: Female. status: : No status: NO. PATIENT RELEVANT IMPLANT DATA REVIEWED: Not Applicable RADIOLOGY DEPARTMENT: General X-ray: Exam(s) Completed: Chest X-Ray PERIPHERAL IV DATA: Not applicable SIGNED BY: RT Foreign(R) January 25, 2021 9:59 AM documented in this encounter [facility] 08-18-2020 History of Presen t illness Narrative Radiology Service Progress Note PATIENT NAME: Mariam Ventura DATE OF SERVICE: August 18, 2020 TIME: 5:45 PM PATIENT IDENTITY VERIFICATION COMPLETED USING TWO (2) IDENTIFIERS: Name and Date of confirmed by patient verbally. FALL SCREENING: Has the patient had 2 falls in the last year or 1 fall with injury or currently using an Ambulatory Assistive Device (Walker, Cane, Wheelchair, Crutches, etc.)? No PATIENT GENDER DATA: Female. status: : No status: NO. PATIENT RELEVANT IMPLANT DATA REVIEWED: Not Applicable RADIOLOGY DEPARTMENT: General X-ray: Exam(s) Completed: Lower Extremity X-Ray(s): Knee, AP / Lat / Tunne / Merchant Right and Wt. Bearing PERIPHERAL IV DATA: Not applicable SIGNED BY: RT Jason(R) August 18, 2020 5:45 PM documented in this encounter [facility] 10-13-2014 History of Past i llness Narrative Problem Noted Date Resolved Date DM (diabetes mellitus) 5 documented as of this encounter (statuses as of 07/19/2021) [facility] History of Past illness Narrative* Problem Noted Date Resolved Date DM (diabetes mellitus) 5 documented as of this encounter (statuses as of 07/21/2021) [facility] History of Past illness Narrative* Problem Noted Date Resolved Date DM (diabetes mellitus) 5 documented as of this encounter (statuses as of 08/17/2021) [facility] History of Past illness Narrative* Problem Noted Date Resolved Date DM (diabetes mellitus) 5 documented as of this encounter (statuses as of 09/27/2021) [facility] History of Past illness Narrative* Problem Noted Date Resolved Date DM (diabetes mellitus) 5 documented as of this encounter (statuses as of 02/09/2022) [facility] History of Past illness Narrative* Problem Noted Date Resolved Date DM (diabetes mellitus) 5 documented as of this encounter (statuses as of 07/26/2022) [facility] of Past illness Narrative* Problem Noted Date Diagnosed Date Resolved Date DM (diabetes mellitus) 10/13 documented as of this encounter (statuses as of 12/27/2022) [facility] History of Past illness Narrative* Problem Noted Date Diagnosed Date Resolved Date DM (diabetes mellitus) 10/13 documented as of this encounter (statuses as of 04/21/2023) [facility] noteNo assessment information availableWCleveland [facility] Work [facility]: [facility]* Diagnosis Encounter for preconception consultation- Primary Other procreative management counseling and advice documented in this encounter [facility] note* Diagnosis Type 2 diabetes mellitus without complication, without long-term current use of insulin (HCC) documented in this encounter [facility] note* Diagnosis Type 2 diabetes mellitus without complication, without long-term current use of insulin (HCC) Uncomplicated asthma, unspecified asthma severity, unspecified whether persistent SOB (shortness of breath) Shortness of breath documented in this encounter [facility] note* Diagnosis Onset Date Resolution Status Diabetes acute Obesity acute PCOS (polycystic ovarian syndrome) acute [facility] Work Phone: evaluation note* Diagnosis Type 2 diabetes mellitus without complication, without long-term current use of insulin (HCC) documented in this encounter [facility] note* Diagnosis Onset Date Resolution Status Diabetes chronic Obesity chronic PCOS (polycystic ovarian syndrome) chronic [facility] Work Phone: evaluation note* Diagnosis Type 2 diabetes mellitus without complication, without long-term current use of insulin (HCC) documented in this encounter [facility] note* Diagnosis Leukocytosis, unspecified type- Primary documented in this encounter [facility] note* Diagnosis Type 2 diabetes mellitus without complication, without long-term current use of insulin (HCC) Uncomplicated asthma, unspecified asthma severity, unspecified whether persistent SOB (shortness of breath) Shortness of breath documented in this encounter [facility] note* Diagnosis SOB (shortness of breath) Shortness of breath documented in this encounter [facility] note* Diagnosis [facility] of right [facility] Uncomplicated asthma, unspecified asthma severity, unspecified whether persistent SOB (shortness of breath) Shortness of breath [facility] Diagnosis Uncomplicated asthma, unspecified asthma severity, unspecified whether persistent SOB (shortness of breath) Shortness of breath [facility] Diagnosis Routine physical examination- Primary Routine general medical examination at a health care facility Leukocytosis, unspecified type Primary hypertension Unspecified essential hypertension Encounter for surveillance of contraceptive pills Surveillance of previously prescribed contraceptive pill Screening for cervical cancer Screening for malignant neoplasm of the cervix Type 2 diabetes mellitus without complication, without long-term current use of insulin (HCC) [facility] Diagnosis Encounter for gynecological examination (general) (routine) with abnormal findings- Primary Screening for cervical cancer Screening for malignant neoplasm of the cervix Encounter for screening for human papillomavirus (HPV) Special screening examination for human papillomavirus (HPV) Encounter for surveillance of contraceptive pills Surveillance of previously prescribed contraceptive pill PCOS (polycystic ovarian syndrome) Polycystic ovaries Class 3 severe obesity with serious comorbidity and body mass index (BMI) of 50.0 to 59.9 in adult, unspecified obesity type Essential (primary) hypertension Unspecified essential hypertension documented in this encounter [facility] Summary Purpose Family History No Family History Records Found Relationship Condition Age at Onset Recorded Date/T omkar Not Specified Hypertension Unknown father Diabetes mellitus Unknown Coronary artery disease Unknown mother Diabetes mellitus Unknown Advance Directives No Advanced Directives Records Found Advance Directive Response Recorded Date/ Time Advance Directives No September 13 18 4:11pm Living Will No November 08 8 11:51am Power of Bellperson No November 08 018 11:51am Chief Complaint and Reason for Visit Chief Complaint irregular menses Chief Complaint ELEVATED DHEA AND TE STOSTERONE Reason for Visit Diabetes Obesity PCOS (polycystic ovarian syndrome) Chief Complaint 6 M FU Type 2 diabetes mellitus with diabetic nephropathy Reason for Visit Diabetes Obesity PCOS (polycystic ovarian syndrome) Additional Source Comments INFORMATION SOURCE (unrecogn ized section and content) DATE CREATED AUTHOR 07/30/2020 [employer] ([place]) DATE CREATED AUTHOR AUTHOR'S ORGANIZ ATION 09/18/2024 [facility] DATE CREATED AUTHOR AUTHOR'S ORGANIZ ATION 09/30/2024 [facility] Goals (unrecognized section and content) Goals may be documented in a n alternate sectionGoals may be documented in an alternate sectionGoals may be documented in an alternate sectionGoals may be documented in an alternate section Source Comments (unrecognize d section and content) In the event this informatio n is protected by the Federal Confidentiality of Alcohol and Drug Abuse Patient Records regulations: The Federal rules restrict any use of the information to criminally investigate or prosecute any alcohol or drug abuse patient.[facility] the event this information is protected by the Federal Confidentiality of Alcohol and Drug Abuse Patient Records regulations: The Federal rules restrict any use of the information to criminally investigate or prosecute any alcohol or drug abuse patient.[facility]In the event this information is protected by the Federal Confidentiality of Alcohol and Drug Abuse Patient Records regulations: The Federal rules restrict any use of the information to criminally investigate or prosecute any alcohol or drug abuse patient.[facility]In the event this information is protected by the Federal Confidentiality of Alcohol and Drug Abuse Patient Records regulations: The Federal rules restrict any use of the information to criminally investigate or prosecute any alcohol or drug abuse patient.[facility] HospitalIn the event this information is protected by the Federal Confidentiality of Alcohol and Drug Abuse Patient Records regulations: The Federal rules restrict any use of the information to criminally investigate or prosecute any alcohol or drug abuse patient.[facility] HospitalIn the event this information is protected by the Federal Confidentiality of Alcohol and Drug Abuse Patient Records regulations: The Federal rules restrict any use of the information to criminally investigate or prosecute any alcohol or drug abuse patient.[facility] HospitalIn the event this information is protected by the Federal Confidentiality of Alcohol and Drug Abuse Patient Records regulations: The Federal rules restrict any use of the information to criminally investigate or prosecute any alcohol or drug abuse patient.[facility] HospitalIn the event this information is protected by the Federal Confidentiality of Alcohol and Drug Abuse Patient Records regulations: The Federal rules restrict any use of the information to criminally investigate or prosecute any alcohol or drug abuse patient.[facility] HospitalIn the event this information is protected by the Federal Confidentiality of Alcohol and Drug Abuse Patient Records regulations: The Federal rules restrict any use of the information to criminally investigate or prosecute any alcohol or drug abuse patient.[facility] HospitalIn the event this information is protected by the Federal Confidentiality of Alcohol and Drug Abuse Patient Records regulations: The Federal rules restrict any use of the information to criminally investigate or prosecute any alcohol or drug abuse patient.[facility] HospitalIn the event this information is protected by the Federal Confidentiality of Alcohol and Drug Abuse Patient Records regulations: The Federal rules restrict any use of the information to criminally investigate or prosecute any alcohol or drug abuse patient.[facility] HospitalIn the event this information is protected by the Federal Confidentiality of Alcohol and Drug Abuse Patient Records regulations: The Federal rules restrict any use of the information to criminally investigate or prosecute any alcohol or drug abuse patient.[facility] HospitalIn the event this information is protected by the Federal Confidentiality of Alcohol and Drug Abuse Patient Records regulations: The Federal rules restrict any use of the information to criminally investigate or prosecute any alcohol or drug abuse patient.[facility] HospitalIn the event this information is protected by the Federal Confidentiality of Alcohol and Drug Abuse Patient Records regulations: The Federal rules restrict any use of the information to criminally investigate or prosecute any alcohol or drug abuse patient.[facility] HospitalIn the event this information is protected by the Federal Confidentiality of Alcohol and Drug Abuse Patient Records regulations: The Federal rules restrict any use of the information to criminally investigate or prosecute any alcohol or drug abuse patient.[facility] HospitalIn the event this information is protected by the Federal Confidentiality of Alcohol and Drug Abuse Patient Records regulations: The Federal rules restrict any use of the information to criminally investigate or prosecute any alcohol or drug abuse patient.[facility] Reason for Visit (unrecogniz ed section and content) Reason Comments Recheck medication review/di scuss trulicity and lisinopril Reason Onset Date Comments Refill Request 07/20/2021 Reason Onset Date Comments Refill Request 08/14/2021 Reason Onset Date Comments Refill Request 09/27/2021 Reason Onset Date Comments Refill Request 02/09/2022 Reason Onset Date Comments Refill Request 12/27/2022 Reason Comments Results Reason Onset Date Comments Refill Request 08/19/2023 Reason Onset Date Comments Refill Request 10/16/2023 Reason Onset Date Comments Refill Request 12/26/2023 Reason Onset Date Comments Refill Request 05/30/2024 Reason Comments Yearly Exam Reason Comments Well Woman Specialty Diagnoses / Procedures Referred By Demarco lakhani Referred To Contact Gynecology Diagnoses Screening for cervical cancer Procedures CONSULT TO GYNECOLOGY OFFICE/OUTPATIENT [facility] [facility] 60 MINUTES Flora Singh APRN.SABINA [address] [place] [address] Phone: tel: fax: Referral ID Status Reason Start Date Expiration Date V isits Requested Visits Authorized [id number] Closed PCP Requested Referral Auto-Generated Referral 06/17/2024 06/17/2025 1 1 Care Teams (unrecognized sec tion and content) Extruding Machine Operator Relationship Specialty Start Date End Date Surendra Benton MD [address] [place], [place] [id number] PCP - General Family Practice 11/26/13 Extruding Machine Operator Relationship Specialty Start Date End Date Surendra Benton MD [address] [place], [place] [id number] PCP - General Family Practice 11/26/13 Extruding Machine Operator Relationship Specialty Start Date End Date Surnedra Benton MD [address] [place], [place] [address] PCP - General Family Practice 11/26/13 Extruding Machine Operator Relationship Specialty Start Date End Date Surendra Benton MD [address] [place], [place] [id number] PCP - General Family Practice 11/26/13 Extruding Machine Operator Relationship Specialty Start Date End Date Surendra Benton MD [address] [place], [place] [id number] PCP - General Family Medicine 11/26/13 Extruding Machine Operator Relationship Specialty Start Date End Date Surendra Benton MD [address] [place], [place] [id number] PCP - General Family Medicine 11/26/13 Team Status: Active Member Role Status Dates Dr. Surendra Benton MD Family Provider Active Dr. Surendra Benton MD Primary Care Provider Active Team Status: Inactive Member Role Status Dates Dr. Surendra Benton MD Primary Care Provider, Referring Provider Active Dr. Jonatan Interiano MD Attending Provider Active Team Status: Inactive Member Role Status Dates Dr. Surendra Benton MD Primary Care Provider Active Dr. Katelin Crump DO Attending Provider, Referring P nikkie Active Dr. Jonatan Interiano MD Other Provider Active Extruding Machine Operator Relationship Specialty Start Date End Date Surendra Benton MD [address] [place] [address] PCP - General Family Medicine 11/26/13 Extruding Machine Operator Relationship Specialty Start Date End Date Surendra Benton MD [address] [place], [place] [id number] PCP - General Family Medicine 11/26/13 Extruding Machine Operator Relationship Specialty Start Date End Date Surendra Benton MD [address] [facility] [place] [address] PCP - General Family Medicine 11/26/13 Extruding Machine Operator Relationship Specialty Start Date End Date Surendra Benton MD [address] [facility] [place] [address] PCP - General Family Medicine 11/26/13 Extruding Machine Operator Relationship Specialty Start Date End Date Surendra Benton MD [address] [facility] [place] [address] PCP - General Family Medicine 11/26/13 Extruding Machine Operator Relationship Specialty Start Date End Date Surendra Benton MD [address] [facility] [place] [address] PCP - General Family Medicine 11/26/13 Extruding Machine Operator Relationship Specialty Start Date End Date Surendra Benton MD [address] [facility] [place] [address] PCP - General Family Medicine 11/26/13 Flora Singh, ASSISTANT CONSTRUCTION SUPERINTENDENT.AUTOMOBILE GLASS TECHNICIAN [address] [facility] [place] [address] [facility] 02/26/24 Teressa Zuniga ASSISTANT CONSTRUCTION SUPERINTENDENT.AUTOMOBILE GLASS TECHNICIAN [address] [facility] [place] [address] [facility] 02/26/24 Extruding Machine Operator Relationship Specialty Start Date End Date Surendra Benton MD [address] [facility] [place] [address] PCP - General Family Medicine 11/26/13 Flora Singh, ASSISTANT CONSTRUCTION SUPERINTENDENT.AUTOMOBILE GLASS TECHNICIAN [address] [place], [place] [address] [facility] 02/26/24 Teressa Zuniga APRN.AUTOMOBILE GLASS TECHNICIAN [address] [place], [place] [id number] [facility] 02/26/24 Extruding Machine Operator Relationship Specialty Start Date End Date Surendra Benton MD [address] [place], [place] [address] PCP - General Family Medicine 11/26/13 Flora Singh APRN.AUTOMOBILE GLASS TECHNICIAN [address] [place], [place] [address]151 [facility] 02/26/24 Teressa Zuniga APRN.AUTOMOBILE GLASS TECHNICIAN [address] [place], [place] [address] [facility] 02/26/24 FOR RECORDS PERTAINING TO PATIENTS WHO ARE OR HAVE BEEN ENROLLED IN A CHEMICAL DEPENDENCY/SUBSTANCEABUSE PROGRAM, SOME INFORMATION MAY BE OMITTED. This clinical summary was aggregated from multiple sources. Caution should be exercised in using it in the provision of clinical care. This summary normalizes information from multiple sources, and as a consequence, information in this document may materially change the coding, format and clinical context of patient data. In addition, data may be omitted in some cases. CLINICAL DECISIONS SHOULD BE BASED ON THE PRIMARY CLINICAL RECORDS. [employer] provides no warranty or guarantee of the accuracy or completeness of information in this document.
--- OUTSIDE RECORDS SUMMARY | 2024-10-01 22:20 | XMS RPT_ITS | CCD ---
Author Organization [facility] Care Team Providers Care Skate Hop Name Role Phone Surendra Benton MD Primary Care Provider Dr. Surendra Benton Primary Care Provider Dr. Surendra Benton Referring Provider Dr. Jonatan Interiano Attending Provider Surendra Benton MD Primary Care Provider Dr. Surendra Benton Primary Care Provider Dr. Surendra Benton Referring Provider Dr. Jonatan Interiano Attending Provider [phone] Surendra Benton MD Primary Care Provider Francisco [employer] TECHNICIAN.Flora [facility] Unavailable [phone] Efrain [employer] TECHNICIAN.Teressa [facility] Unavailable [phone] Jonatan Interiano Attending Unavailable Surendra Benton Primary [...] Drug Class(es) Dates Sig (Normalized) Sig (Original) [id number] 200 actuat albuterol 0.09 mg/actuat metered dose [...] twice daily. Take 2 tablets by mo [facility] two times a day. MOUNJARO 2.5 mg/0.5 [...] on above: Take 1 capsule by mo [facility] daily before breakfast. 1/2 hr before meal. [...] Basophils (Bld) [#/Vol] 0.07 10*3/uL Normal <0.11 [facility] Comment on above: Order Comment: Speci men Type: BLOOD SPECIMEN Ordering Facility: [facility] Address: [address] [place] [address] Performed By: #### 2 4323-8, 3016-3, 78306-7, 77350-8, 26975-6 #### [facility] CLIA [id number] [address] [id number] [address] [place] Basophils/100 WBC (Bld) 0.6 % Normal [facility] Comment on above: Order Comment: Speci men Type: BLOOD SPECIMEN Ordering Facility: [facility] Address: [address] [place] [address] Performed By: #### 2 4323-8, 3016-3, 81376-8, 32446-4, 34013-8 #### [facility] CLIA [id number] [address] [place] [address] [place] Differential cell count method Nom (Bld) Auto Normal [facility] Comment on above: Order Comment: Speci men Type: BLOOD SPECIMEN Ordering Facility: [facility] Address: [address] [place] [address] Performed By: #### 2 4323-8, 3016-3, 14286-5, 06647-6, 06456-9 #### [facility] CLIA [id number] [address] [place] [address] [place] Eosinophils (Bld) [#/Vol] 0.39 10*3/uL Normal <0.46 [facility] Comment on above: Order Comment: Speci men Type: BLOOD SPECIMEN Ordering Facility: [facility] Address: [address] [place] [address] Performed By: #### 2 4323-8, 3016-3, 55118-7, 73396-6, 71904-2 #### [facility] CLIA [id number] [address] [place], [place] [address] [place] Eosinophils/100 WBC (Bld) 3.1 % Normal [facility] Comment on above: Order Comment: Speci men Type: BLOOD SPECIMEN Ordering Facility: [facility] Address: [address] [place] [address] Performed By: #### 2 4323-8, 3016-3, 25785-9, 87136-2, 38547-8 #### [facility] CLIA [id number] [address] [place] [address] [place] Erythrocyte distribution width (RBC) [Ratio] 13.4 % Normal 11.5-15.0 [facility] Comment on above: Order Comment: Speci men Type: BLOOD SPECIMEN Ordering Facility: [facility] Address: [address] [place] [address] Performed By: #### 2 4323-8, 3016-3, 47854-7, 79211-2, 77459-6 #### [facility] CLIA [id number] [address] [place], [place] [address] [place] Hematocrit (Bld) [Volume fraction] 44.7 % Normal 36.0-46.0 [facility] Comment on above: Order Comment: Speci men Type: BLOOD SPECIMEN Ordering Facility: [facility] Address: [address] [place] [address] Performed By: #### 2 4323-8, 3016-3, 02700-4, 37043-4, 48923-4 #### [facility] CLIA [id number] [address] [place], [place] [address] [place] Hemoglobin (Bld) [Mass/Vol] 14.5 g/dL Normal 11.5-15.5 [facility] Comment on above: Order Comment: Speci men Type: BLOOD SPECIMEN Ordering Facility: [facility] Address: [address] [place] [address] Performed By: #### 2 4323-8, 3016-3, 43993-5, 95400-8, 81824-8 #### [facility] CLIA [id number] [address] [place], [place] [address] [place] Immature granulocytes (Bld) [#/Vol] 0.06 10*3/uL Normal <0.10 [facility] Comment on above: Order Comment: Speci men Type: BLOOD SPECIMEN Ordering Facility: [facility] Address: [address] [place] [address] Performed By: #### 2 4323-8, 3016-3, 36990-2, 63521-6, 77193-3 #### [facility] CLIA [id number] [address] [address] [place] Immature granulocytes/100 WBC (Bld) 0.5 % Normal [facility] Comment on above: Order Comment: Speci men Type: BLOOD SPECIMEN Ordering Facility: [facility] Address: [address] [place] [address] Performed By: #### 2 4323-8, 3016-3, 19688-4, 27735-3, 86610-8 #### [facility] CLIA [id number] [address] [place], [place] [address] [place] Lymphocytes (Bld) [#/Vol] 3.37 10*3/uL Normal 1.00-4.[address] [facility] Comment on above: Order Comment: Speci men Type: BLOOD SPECIMEN Ordering Facility: [facility] Address: [address] [place] [address] Performed By: #### 2 4323-8, 3016-3, 43106-9, 07408-0, 93890-9 #### [facility] CLIA [id number] [address] [place], [place] [address] [place] Lymphocytes/100 WBC (Bld) 26.6 % Normal [facility] Comment on above: Order Comment: Speci men Type: BLOOD SPECIMEN Ordering Facility: [facility] Address: [address] [place] [address] Performed By: #### 2 4323-8, 3016-3, 00892-8, 68265-9, 70314-3 #### [facility] CLIA [id number] [address] [place] [address] [place] MCH (RBC) [Entitic mass] 32.7 pg Normal 26.0-34.0 [facility] Comment on above: Order Comment: Speci men Type: BLOOD SPECIMEN Ordering Facility: [facility] Address: [address] [place] [address] Performed By: #### 2 4323-8, 3016-3, 66035-4, 63280-5, 06209-1 #### [facility] CLIA [id number] [address] [place], [place] [address] [place] MCHC (RBC) [Mass/Vol] 32.4 g/dL Normal 30.5-36.[address] [facility] Comment on above: Order Comment: Speci men Type: BLOOD SPECIMEN Ordering Facility: [facility] Address: [address] [place] [address] Performed By: #### 2 4323-8, 3016-3, 58842-4, 27875-3, 90835-1 #### [facility] CLIA [id number] [address] [place], [place] [address] [place] MCV (RBC) [Entitic vol] 100.7 fL High 80.0-100.0 C [facility] Comment on above: Order Comment: Speci men Type: BLOOD SPECIMEN Ordering Facility: [facility] Address: [address] [place] [address] Performed By: #### 2 4323-8, 3016-3, 68604-6, 09795-8, 68069-6 #### [facility] CLIA [id number] [address] [place], [place] [address] [place] Monocytes (Bld) [#/Vol] 0.73 10*3/uL Normal <0.87 [facility] Comment on above: Order Comment: Speci men Type: BLOOD SPECIMEN Ordering Facility: [facility] Address: [address] [id number] Performed By: #### 2 4323-8, 3016-3, 59918-8, 20708-0, 22434-9 #### [facility] CLIA [id number] [address] [address] [place] Monocytes/100 WBC (Bld) 5.8 % Normal [facility] Comment on above: Order Comment: Speci men Type: BLOOD SPECIMEN Ordering Facility: [facility] Address: [address] [place] [address] Performed By: #### 2 4323-8, 3016-3, 75719-8, 49813-1, 25980-7 #### [facility] CLIA [id number] [address] [place] [address] [place] Neutrophils (Bld) [#/Vol] 8.07 10*3/uL High 1.45-7.[address] [facility] Comment on above: Order Comment: Speci men Type: BLOOD SPECIMEN Ordering Facility: [facility] Address: [address] [place] [address] Performed By: #### 2 4323-8, 3016-3, 22244-8, 70314-6, 88842-6 #### [facility] CLIA [id number] [address] [place] [address] [place] Neutrophils/100 WBC (Bld) 63.4 % Normal [facility] Comment on above: Order Comment: Speci men Type: BLOOD SPECIMEN Ordering Facility: [facility] Address: [address] [place] [address] Performed By: #### 2 4323-8, 3016-3, 80964-7, 93738-3, 34399-3 #### [facility] CLIA [id number] [address] [place] [address] [place] Nucleated RBC (Bld) [#/Vol] 10*3/uL Normal <0.01 [facility] Comment on above: Order Comment: Speci men Type: BLOOD SPECIMEN Ordering Facility: [facility] Address: [address] [place] [address] Performed By: #### 2 4323-8, 3016-3, 56768-6, 14850-2, 09930-7 #### [facility] CLIA [id number] [address] [place] [address] [place] Nucleated RBC/100 WBC (Bld) [Ratio] 0.0 /[address] [facility] Comment on above: Order Comment: Speci men Type: BLOOD SPECIMEN Ordering Facility: [facility] Address: [address] [place] [address] Performed By: #### 2 4323-8, 3016-3, 14817-2, 65173-2, 70631-4 #### [facility] CLIA [id number] [address] [place], [place] [address] [place] Platelet mean volume (Bld) [Entitic vol] 13.0 fL High 9.0-12.7 [facility] Comment on above: Order Comment: Speci men Type: BLOOD SPECIMEN Ordering Facility: [facility] Address: [address] [place] [address] Performed By: #### 2 4323-8, 3016-3, 96686-9, 70379-3, 33109-6 #### [facility] CLIA [id number] [address] [place] [address] [place] Platelets (Bld) [#/Vol] 273 10*3/uL Normal 150-400 [facility] Comment on above: Order Comment: Speci men Type: BLOOD SPECIMEN Ordering Facility: [facility] Address: [address] [place] [address] Performed By: #### 2 4323-8, 3016-3, 93254-0, 83087-6, 23330-4 #### [facility] CLIA [id number] [address] [address] [place] RBC (Bld) [#/Vol] 4.44 10*6/uL Normal 3.90-5.20 [facility] Comment on above: Order Comment: Speci men Type: BLOOD SPECIMEN Ordering Facility: [facility] Address: [address] [place] [address] Performed By: #### 2 4323-8, 3016-3, 34500-5, 07208-4, 38677-5 #### [facility] CLIA [id number] [address] [place] [address] [place] WBC (Bld) [#/Vol] 12.69 10*3/uL High 3.70-11.00 [facility] Comment on above: Order Comment: Speci men Type: BLOOD SPECIMEN Ordering Facility: [facility] Address: [address] [place] [address] Performed By: #### 2 4323-8, 3016-3, 59073-3, 77951-4, 87463-9 #### [facility] CLIA [id number] [address] [place] [address] [place] Comprehensive metabolic 2000 panelon 09-24-2024 Albumin [Mass/Vol] 4.7 g/dL Normal 3.9-4.9 [facility] Comment on above: Order Comment: Speci men Type: BLOOD SPECIMEN Ordering Facility: [facility] Address: [address] [place], [place] [address] Performed By: #### 2 4323-8, 3016-3, 97754-9, 64504-9, 33633-3 #### [facility] CLIA [id number] [address] [place] [address] [place] ALP [Catalytic activity/Vol] 75 U/L Normal 34-123 [facility] Comment on above: Order Comment: Speci men Type: BLOOD SPECIMEN Ordering Facility: [facility] Address: [address] [place] [address] Performed By: #### 2 4323-8, 3016-3, 21284-2, 40173-0, 93506-4 #### [facility] CLIA [id number] [address] [place] [address] [place] ALT [Catalytic activity/Vol] 19 U/L Normal 7-38 [facility] Comment on above: Order Comment: Speci men Type: BLOOD SPECIMEN Ordering Facility: [facility] Address: [address] [place] [address] Performed By: #### 2 4323-8, 3016-3, 54205-5, 66128-0, 72139-4 #### [facility] CLIA [id number] [address] [place] [address] [place] Anion gap [Moles/Vol] 16 mmol/L High 8-[address] [facility] Comment on above: Order Comment: Speci men Type: BLOOD SPECIMEN Ordering Facility: [facility] Address: [address] [place] [address] Performed By: #### 2 4323-8, 3016-3, 77358-0, 75042-6, 48704-6 #### [facility] CLIA [id number] [address] [place], [place] [address] [place] AST [Catalytic activity/Vol] 18 U/L Normal 13-35 [facility] Comment on above: Order Comment: Speci men Type: BLOOD SPECIMEN Ordering Facility: [facility] Address: [address] [place] [address] Performed By: #### 2 4323-8, 3016-3, 05467-7, 59064-9, 24967-3 #### [facility] CLIA [id number] [address] [address] [place] Bilirubin [Mass/Vol] 0.9 mg/dL Normal 0.2-1.3 [facility] Comment on above: Order Comment: Speci men Type: BLOOD SPECIMEN Ordering Facility: [facility] Address: [address] [place] [address] Performed By: #### 2 4323-8, 3016-3, 31651-7, 80290-3, 56051-8 #### [facility] CLIA [id number] [address] [place], [place] [address] [place] Calcium [Mass/Vol] 10.3 mg/dL High 8.5-10.2 [facility] Comment on above: Order Comment: Speci men Type: BLOOD SPECIMEN Ordering Facility: [facility] Address: [address] [place] [address] Performed By: #### 2 4323-8, 3016-3, 54156-4, 33481-7, 90366-6 #### [facility] CLIA [id number] [address] [place], [place] [address] [place] Chloride [Moles/Vol] 101 mmol/L Normal 98-107 [facility] Comment on above: Order Comment: Speci men Type: BLOOD SPECIMEN Ordering Facility: [facility] Address: [address] [place] [address] Performed By: #### 2 4323-8, 3016-3, 96698-1, 33575-4, 95697-0 #### [facility] CLIA [id number] [address] [place], [place] [address] [place] CO2 [Moles/Vol] 19 mmol/L Low 22-30 [facility] Comment on above: Order Comment: Speci men Type: BLOOD SPECIMEN Ordering Facility: [facility] Address: [address] [place], [place] [address] Performed By: #### 2 4323-8, 3016-3, 02898-9, 14288-6, 87938-5 #### [facility] CLIA [id number] [address] [place] [address] [place] Creatinine [Mass/Vol] 0.74 mg/dL Normal 0.58-0.[address] [facility] Comment on above: Order Comment: Speci men Type: BLOOD SPECIMEN Ordering Facility: [facility] Address: [address] [place] [address] Performed By: #### 2 4323-8, 3016-3, 46462-0, 51532-5, 56700-6 #### [facility] CLIA [id number] [address] [place] [address] [place] Creatinine and Glomerular filtration rate.predicted panel (S/P/Bld) 109 mL/min/1.73m??? Normal >=60 [facility] Comment on above: Order Comment: Speci men Type: BLOOD SPECIMEN Ordering Facility: [facility] Address: [address] [place], [place] [address] Result Comment: Cassandra mated Glomerular Filtration Rate [...] GFR. Performed By: #### 2 4323-8, 3016-3, 36729-4, 63252-0, 54077-3 #### [facility] CLIA [id number] [address] [place] [address] [place] Glucose [Mass/Vol] 103 mg/dL High 74-99 [facility] Comment on above: Order Comment: Speci men Type: BLOOD SPECIMEN Ordering Facility: [facility] Address: [address] [place] [address] Result Comment: The [place] Diabetes Association (ADA) provides guidance for cutoff [...] Standards of Medical Care in Diabetes 2016, [place] [employer]. Diabetes Care. 2016.39(Suppl 1). Performed By: #### 2 4323-8, 3016-3, 56285-3, 66517-7, 67196-8 #### [facility] CLIA [id number] [address] [place] [address] [place] Potassium [Moles/Vol] 4.1 mmol/L Normal 3.7-5.[address] [facility] Comment on above: Order Comment: Speci men Type: BLOOD SPECIMEN Ordering Facility: [facility] Address: [address] [place] [address] Performed By: #### 2 4323-8, 3016-3, 37451-6, 10580-3, 81657-5 #### [facility] CLIA [id number] [address] [place], [place] [address] [place] Protein [Mass/Vol] 7.9 g/dL Normal 6.3-8.0 [facility] Comment on above: Order Comment: Speci men Type: BLOOD SPECIMEN Ordering Facility: [facility] Address: [address] [place] [address] Performed By: #### 2 4323-8, 3016-3, 10267-5, 94984-0, 13238-6 #### [facility] CLIA [id number] [address] [address] [place] Sodium [Moles/Vol] 136 mmol/L Normal 136-144 [facility] Comment on above: Order Comment: Speci men Type: BLOOD SPECIMEN Ordering Facility: [facility] Address: [address] [place] [address] Performed By: #### 2 4323-8, 3016-3, 69080-3, 32003-8, 22818-6 #### [facility] CLIA [id number] [address] [address] [place] Urea nitrogen [Mass/Vol] 16 mg/dL Normal 7-21 [facility] Comment on above: Order Comment: Speci men Type: BLOOD SPECIMEN Ordering Facility: [facility] Address: [address] [place] [address] Performed By: #### 2 4323-8, 3016-3, 16700-6, 17625-9, 74442-5 #### [facility] CLIA [id number] [address] [place] [address] [place] HbA1c (Bld)on 09-24-2024 Average glucose Estimated from glycated hemoglobin (Bld) [Mass/Vol] 128 mg/dL Normal [facility] Comment on above: Order Comment: Speci men Type: BLOOD SPECIMEN Ordering Facility: [facility] Address: [address] [place] [address] Result Comment: eAG: (Estimated average glucose) is a calculated value from HgbA1c and is sales representative adding machines of the average blood glucose level in the last 2-3 month period. Performed By: #### 2 4323-8, 3016-3, 37268-4, 52262-9, 54205-8 #### [facility] CLIA [id number] [address] [address] [place] HbA1c (Bld) [Mass fraction] 6.1 % High 4.3-5.6 [facility] Comment on above: Order Comment: Aman faust Type: BLOOD SPECIMEN Ordering Facility: [facility] Address: [address] [place] [address] Result Comment: [place] Diabetes Association guidelines indicate that patients with HgbA1c in the range 5.7-6.4% are at increased risk for development of diabetes, and intervention by lifestyle modification may be beneficial. HgbA1c greater or equal to 6.5% is considered diagnostic of diabetes. Performed By: #### 2 4323-8, 3016-3, 55190-1, 31838-2, 23900-8 #### [facility] CLIA [id number] [address] [place] [address] [place] Lipid 1996 panelon 5 Cholesterol [Mass/Vol] 171 mg/dL Normal <200 [facility] Comment on above: Order Comment: Aman faust Type: BLOOD SPECIMEN Ordering Facility: [facility] Address: [address] [place] [address] Result Comment: <200 mg/dL, Desirable 200-239 mg/dL, Borderline high >239 mg/dL, High Performed By: #### 2 4323-8, 3016-3, 67146-4, 12668-1, 59419-3 #### [facility] CLIA [id number] [address] [place], [place] [address] [place] Cholesterol in HDL [Mass/Vol] 57 mg/dL Normal >39 [facility] Comment on above: Order Comment: Aman faust Type: BLOOD SPECIMEN Ordering Facility: [facility] Address: [address] [place] [address] Result Comment: 40-5 9 mg/dL, Acceptable >59 mg/dL, High: Negative risk factor for coronary heart disease <40 mg/dL, Low: Positive risk factor for coronary heart disease Performed By: #### 2 4323-8, 3016-3, 62400-5, 11411-8, 02214-1 #### [facility] CLIA [id number] [address] [address] [place] Cholesterol in LDL [Mass/Vol] 86 mg/dL Normal <100 [facility] Comment on above: Order Comment: Speci men Type: BLOOD SPECIMEN Ordering Facility: [facility] Address: [address] [place] [address] Result Comment: <100 mg/dL, Optimal 100-129 mg/dL, Near optimal/above optimal 130-159 mg/dL, Borderline high 160-189 mg/dL, High >189 mg/dL, Very high Secondary prevention optimal LDL Cholesterol levels are recommended to be <70 mg/dL LDL cholesterol is calculated using the Chaney-NIH equation. Performed By: #### 2 4323-8, 3016-3, 43667-8, 55151-5, 15686-3 #### [facility] CLIA [id number] [address] [place], [place] [address] [place] Cholesterol in LDL/Cholesterol in HDL [Mass ratio] 1.51 {ratio} Normal <2.54 [facility] Comment on above: Order Comment: Speci men Type: BLOOD SPECIMEN Ordering Facility: [facility] Address: [address] [place] [address] Result Comment: Refe rence: 1. National Cholesterol Education Program ATP III Guideline At-A-Glance Quick Desk Reference: National Heart, Lung, and Blood Wray. National Institutes of Health. 2001: NIH Publication No. 01-3305. 2. An International Atherosclerosis Society position paper: global recommendations for the management of dyslipidemia: executive summary, Atherosclerosis. 2014: 232(2):410-413. Performed By: #### 2 4323-8, 3016-3, 33881-8, 62645-9, 77299-2 #### [facility] CLIA [id number] [address] [address] [place] Cholesterol in VLDL [Mass/Vol] 26 mg/dL Normal <30 [facility] Comment on above: Order Comment: Speci men Type: BLOOD SPECIMEN Ordering Facility: [facility] Address: [address] [place], [place] [address] Performed By: #### 2 4323-8, 3016-3, 04384-7, 78205-6, 57157-8 #### [facility] CLIA [id number] [address] [place] [address] [place] Cholesterol non HDL [Mass/Vol] 114 mg/dL Normal <130 [facility] Comment on above: Order Comment: Speci men Type: BLOOD SPECIMEN Ordering Facility: [facility] Address: [address] [place] [address] Result Comment: <130 mg/dL, Optimal 130-159 mg/dL, Near optimal/above optimal 160-189 mg/dL, Borderline high 190-219 mg/dL, High >219 mg/dL, Very high Secondary prevention optimal non HDL Cholesterol levels are recommended to be <100 mg/dL Performed By: #### 2 4323-8, 3016-3, 85347-9, 80977-9, 05942-7 #### [facility] CLIA [id number] [address] [place], [place] [address] [place] Cholesterol.total/Cholest arden in HDL [Mass ratio] 3.00 {ratio} Normal <5.10 [facility] Comment on above: Order Comment: Speci men Type: BLOOD SPECIMEN Ordering Facility: [facility] Address: [address] [place], [place] [address] Performed By: #### 2 4323-8, 3016-3, 18188-3, 18697-6, 58180-3 #### [facility] CLIA [id number] [address] [place], [place] [address] [place] FASTING TIME [address] [facility] Comment on above: Order Comment: Speci men Type: BLOOD SPECIMEN Ordering Facility: [facility] Address: [address] [place] [address] Performed By: #### 2 4323-8, 3016-3, 34935-6, 04556-2, 17671-0 #### [facility] CLIA [id number] [address] [place] [address] [place] Triglyceride [Mass/Vol] 163 mg/dL High <150 [facility] Comment on above: Order Comment: Aman faust Type: BLOOD SPECIMEN Ordering Facility: [facility] Address: [address] [place] [address] Result Comment: <150 mg/dL, Normal 150-199 mg/dL, Borderline high 200-499 mg/dL, High >499 mg/dL, Very high Performed By: #### 2 4323-8, 3016-3, 25957-9, 14724-3, 22785-2 #### [facility] CLIA [id number] [address] [place] [address] [place] TSH SerPl-aCncon 09-24-2024 TSH Qn 1.880 m[IU]/L Normal 0.270-4.200 [facility] Comment on above: Order Comment: Aman faust Type: BLOOD SPECIMEN Ordering Facility: [facility] Address: [address] [place] [address] Result Comment: If t he patient is , TSH reference range varies by gestational period: First Trimester (weeks 9-12): 0.180-2.990 mIU/L Second Trimester: 0.110-3.980 mIU/L Third Trimester: 0.480-4.710 mIU/L Kaiser Fallon et al. A Practical Approach for the Verifications and Determination of Site- and Trimester-Specific Reference Intervals for Thyroid Function tests in . Thyroid, 2019:29:3:412-420. Boby Ivy, et al. 2017 Guidelines of the [place] Thy[employer] for the Diagnosis and Management of Thyroid Disease during and the . Thyroid, 2017:27:3:315-389. Performed By: #### 2 4323-8, 3016-3, 81940-7, 38162-9, 33947-1 #### [facility] YAMILETHIA [id number] [address] [place] [address] STATES OF [facility] CNOVon 07-30-2024 CNOV Office Visit (OBGYWM) MARIAM VENTURA ([id number]) 1990 F Date Time Provider Department 07/30/24 10:00 AM RADHA SHORT OBGYWM During your visit today, we recorded the following information about you: Blood pressure Weight Height Last Period 118/76 140.2 kg 1.6 m 07/30/24 Radha Short APRN.CNM 07/30/2024 10:21 AM Signed Obstetrics and Gynecology [place] Annual Exam Subjective Recording using Taptu software for draft documentation of the visit was discussed with the patient/authorized sales representative adding machines; all questions welcomed and answered. Patient/authorized sales representative adding machines agreed to proceed CHIEF COMPLAINT: HPI: The patient is a 34-year-old female with a history of HTN, asthma, T2DM, and PCOS, presenting for a well-woman exam. The patient is new to the practice, previously receiving care at [place]. She is currently on Mounjaro for T2DM, [...] expresses interest in working with a diabetic clam bed worker to further assist with weight loss. 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 She denies any major questions or concerns at this time. HISTORY: OB History Gravida0 Para0 Term0 Preterm0 AB0 Living0 SAB0 IAB0 Ectopic0 Multiple0 Live Births0 Clin Application Specialist History LMP: 07/30/2024 (Exact Date), Having periods Age at Menarche: 11 Age at First : Age at Menopause: Clin Application Specialist History Comments: Sexual Activity: Yes; Male Contraception: Pill Menstrual Tracking History Flowsheet Row Office Visit from 07/30/2024 in OB/Gynecology Period Cycle (Days) 30 Period Duration (Days) 7 Menstrual Flow Heavy PAST MEDICAL HISTORY Diagnosis Date Asthma ([facility]) Depression 09/18/2011 [facility]ly [facility] Psychiatric admission - sucidal thoughts DM (diabetes mellitus) ([facility]) History of PCOS Has not been on glucophage since 2006 Hypertension Infertility, female 2016 Polycystic ovary syndrome Proteinuria PAST SURGICAL HISTORY Procedure Laterality Date ADENOIDECTOMY PRIMARY Adenoidectomy APPENDECTOMY 2000 CHOLECYSTECTOMY 09/15/2017 PAST SURGICAL HISTORY OF bilateral ear ventilating tubes PAST SURGICAL HISTORY OF N/A 11/2017 [facility] at [facility] by Dr. Dominguez TONSILLECTOMY PRIMARY/SECONDARY Tonsillectomy [...] omeprazole ( (more content not included)... Normal [facility] HIGH RISK HUMAN PAPILLOMA GRADY (HPV), PCR FOR DETECTION AND GENOTYPINGon 07-30-2024 HPV 16 Ag Ql (Unsp spec) Not detected Normal Not detec radha [facility] Comment on above: Order Comment: Speci men Type: FLUID SPECIMENOrdering Facility: [facility] Address: [address] [place] [address] Performed By: #### H PVHRT ####[facility] [id number] [place] [address] [place] HPV 18 Ag Ql (Unsp spec) Not detected Normal Not detec radha [facility] Comment on above: Order Comment: Speci men Type: FLUID SPECIMENOrdering Facility: [facility] Address: [address] [place] [address] Performed By: #### H PVHRT ####[facility] [id number] [place] [address] [place] HPV 31+33+35+39+45+51+52+56+5 8+59+66+68 DNA SHEYLA+probe Ql (Cvx) Not detected Normal Not detected [facility] Comment on above: Order Comment: Speci men Type: FLUID SPECIMENOrdering Facility: [facility] Address: [address] [place] [address] Result Comment: High Risk HPV Other Type includes HPV types 31, 33, 35, 39, 45, 51, 52, 56, 58, 59, 66 and 68. Performed By: #### H PVHRT ####[facility] [id number] [address] [address] [place] PAP TESTon 07-30-[address] [facility] Comment on above: Order Comment: Speci men Type: FLUID SPECIMENOrdering Facility: [facility] Address: [address] [place] [address] Result Comment: Sati sfactory for interpretation. Transformation zone present Performed By: #### L [id number] ####[facility] [id number] [address] [address] [place] CASE REPORT Normal [facility] Comment on above: Order Comment: Speci men Type: FLUID SPECIMENOrdering Facility: [facility] Address: [address] [place] [address] Result Comment: Gyne cologic Cytology Report Case: [id number] Authorizing Provider: Radha Short APRN.CNM Collected: 07/30/2024 10:13 AM Ordering Location: OB/Gynecology Received: 07/30/2024 12:16 PM First Screen: Christina Salvador, [place], ASCP Specimen: Pap Test, ThinPrep, Cervix Performed By: #### L [id number] ####[facility] [id number] [address] [place] [address] [place] CLINICAL HISTORY, CYTOLOGY, PREPRINT ANALYST Routine Exam Normal [facility] Comment on above: Order Comment: Speci men Type: FLUID SPECIMENOrdering Facility: [facility] Address: [address] [place] [address] Performed By: #### L [id number] ####[facility] [id number] [address] [address] [place] CYTOLOGY PAP OTHER INTERPRETATION Predominance of coccobacilli consistent with shift in vaginal victoria. Normal [facility] Comment on above: Order Comment: Speci men Type: FLUID SPECIMENOrdering Facility: [facility] Address: [address] [place] [address] Performed By: #### L [id number] ####[facility] [id number] [address] [address] [place] FINAL PERFORMING LAB Normal [facility] Comment on above: Order Comment: Speci men Type: FLUID SPECIMENOrdering Facility: [facility] Address: [address] [place] [address] Result Comment: Tech nical component, conciliation court judge screening performed at: [facility], [address] [place] [address] [place] [address] CLIA: [id number] Diagnostic interpretation performed at: [facility], [address] [place] [address] [place] [address] CLIA# [id number] Cashier Greeter: Jt Hi MD Performed By: #### L [id number] ####[facility] [id number] [place] [id number] [place] INTERPRETATION, CYTOLOGY, PREPRINT ANALYST Normal [facility] Comment on above: Order Comment: Speci men Type: FLUID SPECIMENOrdering Facility: [facility] Address: [address] [place] [address] Result Comment: Nega tive for intraepithelial lesion or malignancy. at 1157 EDT Performed By: #### L [id number] ####[facility] [id number] [address] [place] [address] [place] LMP 07/30/[address] [facility] Comment on above: Order Comment: Speci men Type: FLUID SPECIMENOrdering Facility: [facility] Address: [address] [place] [address] Performed By: #### L [id number] ####[facility] [id number] [address] [address] [place] PAP DISCLAIMER COMMENT The Pap Smear is a screening test for cervical cancer. False negative results occur with all screening tests, emphasizing the need for rescreening at recommended intervals, and clinical correlation. Normal [facility] Comment on above: Order Comment: Speci men Type: FLUID SPECIMENOrdering Facility: [facility] Address: [address] [place] [address] Performed By: #### L [id number] ####[facility] [id number] [place] [id number] [place] PAP ROOF CEMENT AND PAINT MAKER COMMENT This specimen has been analyzed by the FDA-approved [employer] System, which uses digital imaging and an enhanced artificial intelligence image analysis algorithm to identify hanson of interest on the microscopic slide, to assist the digital media producer and pathologist in evaluating cells on ThinPrep Pap tests. Following analysis, hanson of interest on the microscopic slide selected by the algorithm are reviewed by a digital media producer. If a sample requires hierarchical review, the pathologist will review the same hanson of interest selected by the algorithm prior to final interpretation. Normal [facility] Comment on above: Order Comment: Speci men Type: FLUID SPECIMENOrdering Facility: [facility] Address: [address] [place] [address] Performed By: #### L [id number] ####[facility] [id number] [place] [id number] [facility] [place] CNOVon 06-17-2024 [facility] MAR[facility] VENTURA ([id number]) 1990 F Date Time Provider Department 06/17/24 5:40 PM FLORA SINGH During your visit today, we recorded the following information about you: Pulse Respiration Blood pressure Weight 85/minute 16/minute 128/72 139.7 kg Flora Singh APRN.ORGANIC PREPARATION TECHNICIAN 06/17/2024 7:55 PM Signed This is [...] or pain: No. Follows with endocrinology at [place] Had labs checked labs A1C was 6.2 [...] Diagnosis Date Asthma Depression September 2011 [facility]ly [facility] Psychiatric admission - sucidal thoughts DM (diabetes mellitus) ([facility]) History of PCOS Has not been on glucophage since 2006 Hypertension Proteinuria PAST SURGICAL HISTORY Procedure Laterality Date ADENOIDECTOMY PRIMARY Adenoidectomy APPENDECTOMY 1999 CHOLECYSTECTOMY 09/15/2017 PAST SURGICAL HISTORY OF bilateral ear ventilating tubes PAST SURGICAL HISTORY OF N/A 11/2017 [facility]oscopy at [facility] by Dr. Dominguez TONSILLECTOMY PRIMARY/SECONDARY Tonsillectomy [...] Topics A (more content not included)... Normal [facility] Endocrinology Visit Reporton 05-23-2024 Endocrinology Visit Report [facility] [address] [place] [address] OFFICE VISIT Date of Service: 05/23/24 MR#: [id number] Acct: [id number] Name: MARIAM VENTURA Rep #: [id number] : 1990 Provider: Amy Drake Age/Sex: 33/F [place] [facility] Status: Signed Intake Vital Signs 11/27/23 08:18 [...] 1 - 2 puff inhalation Q6H PRN ND N 10/20/17 05/23/24 History aerosol inhaler (ProAir [...] tab PO QAM 05/23/24 05/23/24 His tory [facility] Medical History Hyperandrogenism Obesity PCOS (polycystic ovarian [...] Mental St (more content not included)... Normal [facility] Endocrinology Visit Reporton 11-27-2023 Endocrinology Visit Report [facility] 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 Normal [facility] CBC W Auto Differential pane l (Bld)on 11-06-2023 Basophils (Bld) [#/Vol] 0.05 10*3/uL Normal <0.11 [facility] Comment on above: Order Comment: Speci men Type: BLOOD SPECIMEN Ordering Facility: [facility] Address: [address] [place] [address] Performed By: #### 5 7021-8, 3016-3, 01483-6, 25179-2, 43547-8 #### [facility] CLIA [id number] [address] [place] [address] [place] Basophils/100 WBC (Bld) 0.5 % Normal [facility] Comment on above: Order Comment: Speci men Type: BLOOD SPECIMEN Ordering Facility: [facility] Address: [address] [place] [address] Performed By: #### 5 7021-8, 3016-3, 83462-0, 66684-5, 31867-2 #### [facility] CLIA [id number] [address] [place] [address] [place] Differential cell count method Nom (Bld) Auto Normal [facility] Comment on above: Order Comment: Speci men Type: BLOOD SPECIMEN Ordering Facility: [facility] Address: [address] [place] [address] Performed By: #### 5 7021-8, 3016-3, 14506-4, 33151-9, 35868-0 #### [facility] CLIA [id number] [address] [place] [address] [place] Eosinophils (Bld) [#/Vol] 0.50 10*3/uL High <0.46 [facility] Comment on above: Order Comment: Speci men Type: BLOOD SPECIMEN Ordering Facility: [facility] Address: [address] [place] [address] Performed By: #### 5 7021-8, 3016-3, 26837-6, 33304-0, 30350-2 #### [facility] CLIA [id number] [address] [place] [address] [place] Eosinophils/100 WBC (Bld) 5.1 % Normal [facility] Comment on above: Order Comment: Speci men Type: BLOOD SPECIMEN Ordering Facility: [facility] Address: [address] [place] [address] Performed By: #### 5 7021-8, 3016-3, 00443-3, 61417-0, 16067-8 #### [facility] CLIA [id number] [address] [place] [address] [place] Erythrocyte distribution width (RBC) [Ratio] 12.6 % Normal 11.5-15.0 [facility] Comment on above: Order Comment: Speci men Type: BLOOD SPECIMEN Ordering Facility: [facility] Address: [address] [place] [address] Performed By: #### 5 7021-8, 3016-3, 99580-6, 79083-4, 42970-9 #### [facility] CLIA [id number] [address] [place] [address] [place] Hematocrit (Bld) [Volume fraction] 38.2 % Normal 36.0-46.0 [facility] Comment on above: Order Comment: Speci men Type: BLOOD SPECIMEN Ordering Facility: [facility] Address: [address] [place] [address] Performed By: #### 5 7021-8, 3016-3, 15921-7, 22364-8, 54821-7 #### [facility] CLIA [id number] [address] [place] [address] [place] Hemoglobin (Bld) [Mass/Vol] 12.5 g/dL Normal 11.5-15.5 [facility] Comment on above: Order Comment: Speci men Type: BLOOD SPECIMEN Ordering Facility: [facility] Address: [address] [place] [address] Performed By: #### 5 7021-8, 3016-3, 76176-0, 19476-8, 97636-1 #### [facility] CLIA [id number] [address] [place] [address] [place] Immature granulocytes (Bld) [#/Vol] 0.03 10*3/uL Normal <0.10 [facility] Comment on above: Order Comment: Speci men Type: BLOOD SPECIMEN Ordering Facility: [facility] Address: [address] [place] [address] Performed By: #### 5 7021-8, 3016-3, 09100-8, 82362-3, 27481-8 #### [facility] CLIA [id number] [address] [place] [address] [place] Immature granulocytes/100 WBC (Bld) 0.3 % Normal [facility] Comment on above: Order Comment: Speci men Type: BLOOD SPECIMEN Ordering Facility: [facility] Address: [address] [place] [address] Performed By: #### 5 7021-8, 3016-3, 09520-1, 04482-1, 38026-5 #### [facility] CLIA [id number] [address] [place] [address] [place] Lymphocytes (Bld) [#/Vol] 2.92 10*3/uL Normal 1.00-4.[address] [facility] Comment on above: Order Comment: Speci men Type: BLOOD SPECIMEN Ordering Facility: [facility] Address: [address] [place] [address] Performed By: #### 5 7021-8, 3016-3, 08967-5, 29800-5, 73433-8 #### [facility] CLIA [id number] [address] [place] [address] [place] Lymphocytes/100 WBC (Bld) 29.7 % Normal [facility] Comment on above: Order Comment: Speci men Type: BLOOD SPECIMEN Ordering Facility: [facility] Address: [address] [place] [address] Performed By: #### 5 7021-8, 3016-3, 02875-4, 38424-4, 72494-1 #### [facility] CLIA [id number] [address] [place] [address] [place] MCH (RBC) [Entitic mass] 32.1 pg Normal 26.0-34.0 [facility] Comment on above: Order Comment: Speci men Type: BLOOD SPECIMEN Ordering Facility: [facility] Address: [address] [place] [address] Performed By: #### 5 7021-8, 3016-3, 80918-2, 01708-7, 09420-5 #### [facility] CLIA [id number] [address] [place], [place] [address] [place] MCHC (RBC) [Mass/Vol] 32.7 g/dL Normal 30.5-36.[address] [facility] Comment on above: Order Comment: Speci men Type: BLOOD SPECIMEN Ordering Facility: [facility] Address: [address] [place] [address] Performed By: #### 5 7021-8, 3016-3, 91857-8, 38682-7, 31808-3 #### [facility] CLIA [id number] [address] [place] [address] [place] MCV (RBC) [Entitic vol] 97.9 fL Normal 80.0-100.0 C [facility] Comment on above: Order Comment: Speci men Type: BLOOD SPECIMEN Ordering Facility: [facility] Address: [address] [place] [address] Performed By: #### 5 7021-8, 3016-3, 12608-9, 41465-8, 39544-4 #### [facility] CLIA [id number] [address] [place] [address] [place] Monocytes (Bld) [#/Vol] 0.60 10*3/uL Normal <0.87 [facility] Comment on above: Order Comment: Speci men Type: BLOOD SPECIMEN Ordering Facility: [facility] Address: [address] [place], [place] [address] Performed By: #### 5 7021-8, 3016-3, 18141-4, 33745-7, 54985-3 #### [facility] CLIA [id number] [address] [place] Monocytes/100 WBC (Bld) 6.1 % Normal [facility] Comment on above: Order Comment: Speci men Type: BLOOD SPECIMEN Ordering Facility: [facility] Address: [address] [place] [address] Performed By: #### 5 7021-8, 3016-3, 06081-1, 58338-6, 79152-3 #### [facility] CLIA [id number] [address] [place] [address] [place] Neutrophils (Bld) [#/Vol] 5.73 10*3/uL Normal 1.45-7.[address] [facility] Comment on above: Order Comment: Speci men Type: BLOOD SPECIMEN Ordering Facility: [facility] Address: [address] [place] [address] Performed By: #### 5 7021-8, 3016-3, 72267-3, 60014-5, 06304-7 #### [facility] CLIA [id number] [address] [place] [address] [place] Neutrophils/100 WBC (Bld) 58.3 % Normal [facility] Comment on above: Order Comment: Speci men Type: BLOOD SPECIMEN Ordering Facility: [facility] Address: [address] [place] [address] Performed By: #### 5 7021-8, 3016-3, 46036-2, 10051-0, 56663-4 #### [facility] CLIA [id number] [address] [place] [address] [place] Nucleated RBC (Bld) [#/Vol] 10*3/uL Normal <0.01 [facility] Comment on above: Order Comment: Speci men Type: BLOOD SPECIMEN Ordering Facility: [facility] Address: [address] [place] [address] Performed By: #### 5 7021-8, 3016-3, 14537-8, 03490-7, 36653-8 #### [facility] CLIA [id number] [address] [place] [address] [place] Nucleated RBC/100 WBC (Bld) [Ratio] 0.0 /[address] [facility] Comment on above: Order Comment: Speci men Type: BLOOD SPECIMEN Ordering Facility: [facility] Address: [address] [place] [address] Performed By: #### 5 7021-8, 3016-3, 83885-2, 48663-8, 92204-3 #### [facility] CLIA [id number] [address] [place] [address] [place] Platelet mean volume (Bld) [Entitic vol] 11.6 fL Normal 9.0-12.7 [facility] Comment on above: Order Comment: Speci men Type: BLOOD SPECIMEN Ordering Facility: [facility] Address: [address] [place] [address] Performed By: #### 5 7021-8, 3016-3, 22121-7, 39293-6, 16169-6 #### [facility] CLIA [id number] [address] [place] [address] [place] Platelets (Bld) [#/Vol] 268 10*3/uL Normal 150-400 [facility] Comment on above: Order Comment: Speci men Type: BLOOD SPECIMEN Ordering Facility: [facility] Address: [address] [place] [address] Performed By: #### 5 7021-8, 3016-3, 91212-9, 10635-3, 86478-5 #### [facility] CLIA [id number] [address] [place], [place] [address] [place] RBC (Bld) [#/Vol] 3.90 10*6/uL Normal 3.90-5.20 [facility] Comment on above: Order Comment: Speci men Type: BLOOD SPECIMEN Ordering Facility: [facility] Address: [address] [place] [address] Performed By: #### 5 7021-8, 3016-3, 37190-4, 32404-7, 54233-0 #### [facility] CLIA [id number] [address] [place] [address] [place] WBC (Bld) [#/Vol] 9.83 10*3/uL Normal 3.70-11.00 [facility] Comment on above: Order Comment: Speci men Type: BLOOD SPECIMEN Ordering Facility: [facility] Address: [address] [place] [address] Performed By: #### 5 7021-8, 3016-3, 10764-9, 50536-4, 97492-2 #### [facility] CLIA [id number] [address] [place], [place] [address] [place] Comprehensive metabolic 2000 panelon 11-06-2023 Albumin [Mass/Vol] 4.4 g/dL Normal 3.9-4.9 [facility] Comment on above: Order Comment: Speci men Type: BLOOD SPECIMEN Ordering Facility: [facility] Address: [address] [place] [address] Performed By: #### 5 7021-8, 3016-3, 55078-4, 49742-0, 57893-5 #### [facility] CLIA [id number] [address] [place], [place] [address] [place] ALP [Catalytic activity/Vol] 54 U/L Normal 34-123 [facility] Comment on above: Order Comment: Speci men Type: BLOOD SPECIMEN Ordering Facility: [facility] Address: [address] [place] [address] Performed By: #### 5 7021-8, 3016-3, 98853-3, 92279-3, 19801-3 #### [facility] CLIA [id number] [address] [place] [address] [place] ALT [Catalytic activity/Vol] 23 U/L Normal 7-38 [facility] Comment on above: Order Comment: Speci men Type: BLOOD SPECIMEN Ordering Facility: [facility] Address: [address] [place] [address] Performed By: #### 5 7021-8, 3016-3, 37736-5, 72039-0, 98557-6 #### [facility] CLIA [id number] [address] [place] [address] [place] Anion gap [Moles/Vol] 12 mmol/L Normal 8-[address] [facility] Comment on above: Order Comment: Speci men Type: BLOOD SPECIMEN Ordering Facility: [facility] Address: [address] [place] [address] Performed By: #### 5 7021-8, 3016-3, 92485-9, 78238-2, 29747-9 #### [facility] CLIA [id number] [address] [place], [place] [address] [place] AST [Catalytic activity/Vol] 28 U/L Normal 13-35 [facility] Comment on above: Order Comment: Speci men Type: BLOOD SPECIMEN Ordering Facility: [facility] Address: [address] [place] [address] Performed By: #### 5 7021-8, 3016-3, 05563-8, 11928-0, 00688-1 #### [facility] CLIA [id number] [address] [place], [place] [id number] [place] Bilirubin [Mass/Vol] 0.6 mg/dL Normal 0.2-1.3 [facility] Comment on above: Order Comment: Speci men Type: BLOOD SPECIMEN Ordering Facility: [facility] Address: [address] [place] [address] Performed By: #### 5 7021-8, 3016-3, 36635-6, 68920-2, 54463-0 #### [facility] CLIA [id number] [address] [place] [address] [place] Calcium [Mass/Vol] 9.6 mg/dL Normal 8.5-10.2 [facility] Comment on above: Order Comment: Speci men Type: BLOOD SPECIMEN Ordering Facility: [facility] Address: [address] [place] [address] Performed By: #### 5 7021-8, 3016-3, 82480-5, 54166-5, 99189-9 #### [facility] CLIA [id number] [address] [place] [address] [place] Chloride [Moles/Vol] 102 mmol/L Normal 98-107 [facility] Comment on above: Order Comment: Speci men Type: BLOOD SPECIMEN Ordering Facility: [facility] Address: [address] [place] [address] Performed By: #### 5 7021-8, 3016-3, 45121-2, 40462-5, 39627-0 #### [facility] CLIA [id number] [address] [place] [address] [place] CO2 [Moles/Vol] 23 mmol/L Normal 22-30 [facility] Comment on above: Order Comment: Speci men Type: BLOOD SPECIMEN Ordering Facility: [facility] Address: [address] [place], [place] [address] Performed By: #### 5 7021-8, 3016-3, 35070-1, 49978-3, 23478-3 #### [facility] CLIA [id number] [address] [address] [place] Creatinine [Mass/Vol] 0.67 mg/dL Normal 0.58-0.[address] [facility] Comment on above: Order Comment: Speci men Type: BLOOD SPECIMEN Ordering Facility: [facility] Address: [address] [place] [address] Performed By: #### 5 7021-8, 3016-3, 90627-5, 12559-8, 51644-2 #### [facility] CLIA [id number] [address] [place] [address] [place] Creatinine and Glomerular filtration rate.predicted panel (S/P/Bld) 119 mL/min/1.73m??? Normal >=60 [facility] Comment on above: Order Comment: Speci men Type: BLOOD SPECIMEN Ordering Facility: [facility] Address: [address] [place] [address] Result Comment: Cassandra mated Glomerular Filtration Rate [...] GFR. Performed By: #### 5 7021-8, 3016-3, 42200-4, 55239-0, 87431-1 #### [facility] CLIA [id number] [address] [place] [id number] [place] Glucose [Mass/Vol] 104 mg/dL High 74-99 [facility] Comment on above: Order Comment: Speci men Type: BLOOD SPECIMEN Ordering Facility: [facility] Address: [address] [place] [address] Result Comment: The [place] Diabetes Association (ADA) provides guidance for cutoff [...] Standards of Medical Care in Diabetes 2016, [place] Diabetes Association. Diabetes Care. 2016.39(Suppl 1). Performed By: #### 5 7021-8, 3016-3, 45089-9, 02717-3, 46821-6 #### [facility] CLIA [id number] [address] [place] [address] [place] Potassium [Moles/Vol] 4.5 mmol/L Normal 3.7-5.[address] [facility] Comment on above: Order Comment: Aman faust Type: BLOOD SPECIMEN Ordering Facility: [facility] Address: [address] [place] [address] Performed By: #### 5 7021-8, 3016-3, 76897-2, 83158-5, 36811-5 #### [facility] CLIA [id number] [address] [place] [address] [place] Protein [Mass/Vol] 6.9 g/dL Normal 6.3-8.0 [facility] Comment on above: Order Comment: Aman faust Type: BLOOD SPECIMEN Ordering Facility: [facility] Address: [address] [place] [address] Performed By: #### 5 7021-8, 3016-3, 76447-2, 78728-4, 23599-7 #### [facility] CLIA [id number] [address] [address] [place] Sodium [Moles/Vol] 137 mmol/L Normal 136-144 [facility] Comment on above: Order Comment: Speci men Type: BLOOD SPECIMEN Ordering Facility: [facility] Address: [address] [place] [address] Performed By: #### 5 7021-8, 3016-3, 64250-8, 01001-6, #### [facility] CLIA [id number] [address] [place] [address] [place] Urea nitrogen [Mass/Vol] 10 mg/dL Normal 7-21 [facility] Comment on above: Order Comment: Speci men Type: BLOOD SPECIMEN Ordering Facility: [facility] Address: [address] [place] [address] Performed By: #### 5 7021-8, 3016-3, 72404-1, 42756-0, #### [facility] CLIA [id number] [address] [place] [address] [place] HbA1c (Bld)on 11-06-2023 Average glucose Estimated from glycated hemoglobin (Bld) [Mass/Vol] 148 mg/dL Normal [facility] Comment on above: Order Comment: Speci men Type: BLOOD SPECIMENOrdering Facility: [facility] Address: [address] [place] [address] Result Comment: eAG: (Estimated average glucose) is a calculated value from HgbA1c and is sales representative adding machines of the average blood glucose level in the last 2-3 month period. Performed By: #### 5 7021-8, 3016-3, 18004-4, 08677-3, 29383-6 ####[facility] [id number] [address] [address] [place] HbA1c (Bld) [Mass fraction] 6.8 % High 4.3-5.6 [facility] Comment on above: Order Comment: Aman faust Type: BLOOD SPECIMENOrdering Facility: [facility] Address: [address] [place] [address] Result Comment: [place] Diabetes Association guidelines indicate that patients with HgbA1c in the range 5.7-6.4% are at increased risk for development of diabetes, and intervention by lifestyle modification may be beneficial. HgbA1c greater or equal to 6.5% is considered diagnostic of diabetes. Performed By: #### 5 7021-8, 3016-3, 87387-4, 36802-3, 81968-9 ####[facility] [id number] [place] [address] [place] Lipid 1996 panelon 4 Cholesterol [Mass/Vol] 138 mg/dL Normal <200 [facility] Comment on above: Order Comment: Aman faust Type: BLOOD SPECIMEN Ordering Facility: [facility] Address: [address] [place] [address] Result Comment: <200 mg/dL, Desirable 200-239 mg/dL, Borderline high >239 mg/dL, High Performed By: #### 5 7021-8, 3016-3, 41450-8, 18428-2, 57699-2 #### [facility] CLIA [id number] [address] [place] [address] [place] Cholesterol in HDL [Mass/Vol] 53 mg/dL Normal >39 [facility] Comment on above: Order Comment: Aman faust Type: BLOOD SPECIMEN Ordering Facility: [facility] Address: [address] [place] [address] Result Comment: 40-5 9 mg/dL, Acceptable >59 mg/dL, High: Negative risk factor for coronary heart disease <40 mg/dL, Low: Positive risk factor for coronary heart disease Performed By: #### 5 7021-8, 3016-3, 76224-3, 71403-3, 85622-7 #### [facility] CLIA [id number] [address] [place] [address] [place] Cholesterol in LDL [Mass/Vol] 70 mg/dL Normal <100 [facility] Comment on above: Order Comment: Aman faust Type: BLOOD SPECIMEN Ordering Facility: [facility] Address: [address] [place] [address] Result Comment: <100 mg/dL, Optimal 100-129 mg/dL, Near optimal/above optimal 130-159 mg/dL, Borderline high 160-189 mg/dL, High >189 mg/dL, Very high Secondary prevention optimal LDL Cholesterol levels are recommended to be < 70 mg/dL Performed By: #### 5 7021-8, 3016-3, 13824-2, 62259-9, 19982-9 #### [facility] CLIA [id number] [address] [place] [address] [place] Cholesterol in LDL/Cholesterol in HDL [Mass ratio] 1.32 {ratio} Normal <2.54 [facility] Comment on above: Order Comment: Aman faust Type: BLOOD SPECIMEN Ordering Facility: [facility] Address: [address] [place] [address] Result Comment: Refe rence: 1. National Cholesterol Education Program ATP III Guideline At-A-Glance Quick Desk Reference: National Heart, Lung, and Blood Wray. National Institutes of Health. 2001: NIH Publication No. 01-3305. 2. An International Atherosclerosis Society position paper: global recommendations for the management of dyslipidemia: executive summary, Atherosclerosis. 2014: 232(2):410-413. Performed By: #### 5 7021-8, 3016-3, 06095-7, 59496-4, 54741-7 #### [facility] CLIA [id number] [facility] [place] [id number] [place] Cholesterol in VLDL [Mass/Vol] 15 mg/dL Normal <30 [facility] Comment on above: Order Comment: Asuncioni men Type: BLOOD SPECIMEN Ordering Facility: [facility] Address: [address] [place] [address] Performed By: #### 5 7021-8, 3016-3, 70314-7, 19655-2, 16273-0 #### [facility] CLIA [id number] [address] [place] [address] [place] Cholesterol non HDL [Mass/Vol] 85 mg/dL Normal <130 [facility] Comment on above: Order Comment: Speci men Type: BLOOD SPECIMEN Ordering Facility: [facility] Address: [address] [place], [place] [address] Result Comment: <130 mg/dL, Optimal 130-159 mg/dL, Near optimal/above optimal 160-189 mg/dL, Borderline high 190-219 mg/dL, High >219 mg/dL, Very high Secondary prevention optimal non HDL Cholesterol levels are recommended to be <100 mg/dL Performed By: #### 5 7021-8, 3016-3, 89796-4, 99486-8, 79222-6 #### [facility] CLIA [id number] [address] [place] [address] [place] Cholesterol.total/Cholest arden in HDL [Mass ratio] 2.60 {ratio} Normal <5.10 [facility] Comment on above: Order Comment: Speci men Type: BLOOD SPECIMEN Ordering Facility: [facility] Address: [address] [place] [address] Performed By: #### 5 7021-8, 3016-3, 85343-0, 10352-5, 76841-3 #### [facility] CLIA [id number] [address] [place], [place] [address] [place] FASTING TIME [address] [facility] Comment on above: Order Comment: Speci men Type: BLOOD SPECIMEN Ordering Facility: [facility] Address: [address] [place] [address] Performed By: #### 5 7021-8, 3016-3, 23601-1, 20869-3, 39321-1 #### [facility] CLIA [id number] [address] [place] [address] [place] Triglyceride [Mass/Vol] 73 mg/dL Normal <150 [facility] Comment on above: Order Comment: Speci govind Type: BLOOD SPECIMEN Ordering Facility: [facility] Address: [address] [place] [address] Result Comment: <150 mg/dL, Normal 150-199 mg/dL, Borderline high 200-499 mg/dL, High >499 mg/dL, Very high Performed By: #### 5 7021-8, 3016-3, 84884-5, 80392-5, 18879-7 #### [facility] CLIA [id number] [address] [place] [address] [place] TSH SerPl-aCncon 11-06-2023 TSH Qn 1.200 m[IU]/L Normal 0.270-4.200 [facility] Comment on above: Order Comment: Speci govind Type: BLOOD SPECIMENOrdering Facility: [facility] Address: [address] [place] [address] Result Comment: If t he patient is , TSH reference range varies by gestational period: First Trimester (weeks 9-12): 0.180-2.990 mIU/L Second Trimester: 0.110-3.980 mIU/L Third Trimester: 0.480-4.710 mIU/L Kaiser Fallon et al. A Practical Approach for the Verifications and Determination of Site- and Trimester-Specific Reference Intervals for Thyroid Function tests in . Thyroid, 2019:29:3:412-420. Boby Ivy, et al. 2017 Guidelines of the [place] Thyroid Association for the Diagnosis and Management of Thyroid Disease during and the . Thyroid, 2017:27:3:315-389. Performed By: #### 5 7021-8, 3016-3, 27458-5, 62743-9, 20050-3 ####[facility] [id number] [facility] [id number] [address] [place] Protein+Creatinine Ratio,Uri neon 10-05-2023 PROT:CRE RATIO 79 mg/g CRE Normal 0-200 [facility] Comment on above: Performed By: #### L 501.0900, L500.3600 #### [facility] [address] [place], [address] Protein (U) [Mass/Vol] 25.9 mg/dL High <11.9 [facility] Comment on above: Performed By: #### L 501.0900, L500.3600 #### [facility] [address] [place], [address] UR CREAT 329.00 mg/dL Normal NO RANGE EST. [facility] Comment on above: Performed By: #### L 501.0900, L500.3600 #### [facility] [address] [place], [address] Renal Profileon 10-05-2023 Albumin [Mass/Vol] 4.2 g/dL Normal 3.2-5.0 [facility] Comment on above: Performed By: #### L 501.0900, L500.3600 #### [facility] [address] [place], [address] BUN/CRE 23.4 RATIO High 10-20 [facility] Comment on above: Performed By: #### L 501.0900, L500.3600 #### [facility] [address] [place], [address] CA,Total 9.8 mg/dL Normal 8.5-10.1 [facility] Comment on above: Performed By: #### L 501.0900, L500.3600 #### [facility] [address] [place], [address] Chloride [Moles/Vol] 102 mmol/L Normal 98-107 [facility] Comment on above: Performed By: #### L 501.0900, L500.3600 #### [facility] [address] [place], [address] CO2 [Moles/Vol] 23.0 mmol/L Normal 21.0-32.0 [facility] Comment on above: Performed By: #### L 501.0900, L500.3600 #### [facility] [address] [place], [address] Creatinine [Mass/Vol] 1.07 mg/dL High 0.55-1.02 [facility] Comment on above: Result Comment: The validity of the calculated GFR GFRAA in patients over 70 years has not been determined. Clinical correlation is essential. Performed By: #### L 501.0900, L500.3600 #### [facility] [address] [place], [address] EST GFR - AA 76 mL/min Normal >60 [facility] Comment on above: Result Comment: Afri can [place] GFR Calc Performed By: #### L 501.0900, L500.3600 #### [facility] [address] [place], [address] GFR/1.73 sq M.predicted among non-blacks MDRD (S/P/Bld) [Vol rate/Area] 63 mL/min/{1.73_m2} Normal >60 [facility] Comment on above: Result Comment: Non- GFR Calc Performed By: #### L 501.0900, L500.3600 #### [facility] [address] [place], [address] Glucose [Mass/Vol] 115 mg/dL High 74-106 [facility] Comment on above: Result Comment: Fast ing Glucose result from 100 to 125 mg/dL suggests IMPAIRED HOMEOSTASIS per A.D.A. criteria. Performed By: #### L 501.0900, L500.3600 #### [facility] [address] [place], [address] Phosphate [Mass/Vol] 3.7 mg/dL Normal 2.5-4.9 [facility] Comment on above: Performed By: #### L 501.0900, L500.3600 #### [facility] [address] [place], [address] Potassium [Moles/Vol] 4.4 mmol/L Normal 3.5-5.1 [facility] Comment on above: Performed By: #### L 501.0900, L500.3600 #### [facility] [address] [place], [address] Sodium [Moles/Vol] 133 mmol/L Low 136-145 [facility] Comment on above: Performed By: #### L 501.0900, L500.3600 #### [facility] [address] [place], [address] Urea nitrogen [Mass/Vol] 25 mg/dL High 7-18 [facility] Comment on above: Performed By: #### L 501.0900, L500.3600 #### [facility] [address] [place], [address] Basophil percentageOrdered B y: Jonatanbladimir Interiano on 09-29-2022 Basophil percentage 3.9 mg/dL 2.5-4.9 [facility] Bilirubin [Mass/Vol] 0.60 mg/dL 0.20-1.00 [facility] Comment on above: For patients on eltr ombopag therapy, use of Dimension [place] TBIL is not recommended. Chloride [Moles/Vol] 106 mmol/L 98-107 [facility] Cholesterol [Mass/Vol] 141 mg/dL <200 [facility] Comment on above: <200 mg/dL Desirable 200-240 mg/dL Borderline >240 mg/dL High Risk Glucose [Mass/Vol] 102 mg/dL 74-106 [facility] Comment on above: Fasting Glucose resu lt from 100 to 125 mg/dL suggests IMPAIRED HOMEOSTASIS per A.D.A. criteria. Potassium [Moles/Vol] 4.2 mmol/L 3.5-5.1 [facility] Protein [Mass/Vol] 7.9 g/dL 6.4-8.2 [facility] Sodium [Moles/Vol] 138 mmol/L 136-145 [facility] Triglyceride [Mass/Vol] 92 mg/dL <199 [facility] Comment on above: The drugs N-Acetylcy steine and Metamizole may falsely depress this assay.Serum Triglycerides Reference Interval Normal <150 mg/dL Borderline high 150 - 199 mg/dL High 200 - 499 mg/dL Very High > or = 500 mg/dL Laboratory - Chemistry and C hemistry - challengeOrdered By: Jonatan Interiano on 09-29-2022 ALP [Catalytic activity/Vol] 68 U/L 45-117 [facility] ALT [Catalytic activity/Vol] 29 U/L 13-56 [facility] CO2 [Moles/Vol] 23.0 mmol/L 21.0-32.0 [facility] Free T4 [Mass/Vol] 1.04 ng/dL 0.76-1.46 [facility] Globulin (S) [Mass/Vol] 4.0 g/dL 2.2-4.2 [facility] Urea nitrogen/Creatinine [Mass ratio] 20.9 mg/mg 10-20 [facility] No Panel InformationOrdered By: Jonatan Interiano on 09-29-2022 Estimated GFR (MDRD) Amer 104 mL/min >60 [facility] Comment on above: GFR Calc Estimated GFR (MDRD) Non-Af Amer 86 mL/min >60 [facility] Comment on above: Non- GFR Calc Thyroid Stimulating Hormone (TSH) 1.67 uIU/mL 0.358-3.74 [facility] Urine Microalbumin/Creatinine Ratio 133.0 mg/g CRE <30 [facility] Vitamin D 25-Hydroxy 32.2 ng/mL [facility] Comment on above: Vitamin D 25(OH) Sta tus Range Deficiency <20 ng/mL (50nmol/L) Insufficiency 20 - 30 ng/mL (50 - 75 nmol/L) Sufficiency 30 - 100 ng/mL (75 - 250 nmol/L) Toxicity >100 ng/mL (>250 nmol/L) Serum or plasma albumin shilpa urement (mass/volume)Ordered By: Jonatan Interiano on 09-29-2022 Albumin [Mass/Vol] 3.9 g/dL 3.2-5.0 [facility] Serum or plasma albumin/glob ulin mass ratioOrdered By: Jonatan Interiano on 09-29-2022 Albumin/Globulin [Mass ratio] 1.0 {ratio} 0.9-2.4 [facility] Serum or plasma calcium shilpa urement (mass/volume)Ordered By: Jonatan Interiano on 09-29-2022 Calcium [Mass/Vol] 9.6 mg/dL 8.5-10.1 [facility] Serum or plasma cholesterol in HDL measurement (mass/volume)Ordered By: Jonatan Interiano on 09-29-2022 Cholesterol in HDL [Mass/Vol] 51 mg/dL >40 [facility] Comment on above: The drugs N-Acetylcy steine and Metamizole may falsely depress this assay. Reference Range HDL <40 mg/dL Low HDL Cholesterol HDL >or= 60 mg/dL High HDL Cholesterol Serum or plasma cholesterol in VLDL measurement (mass/volume)Ordered By: Jonatan Interiano on 09-29-2022 Cholesterol in VLDL [Mass/Vol] 18 mg/dL 5-40 [facility] Serum or plasma creatinine m easurement (mass/volume)Ordered By: Jonatan Interiano 09-29-2022 Creatinine [Mass/Vol] 0.82 mg/dL 0.55-1.02 [facility] Comment on above: The validity of the calculated GFR & GFRAA in patients over 70 years has not been determined. Clinical correlation is essential. Serum or plasma low density lipoprotein (LDL) cholesterol measurement (mass/volume)Ordered By: Jonatan Interiano on 09-29-2022 Cholesterol in LDL [Mass/Vol] 72 mg/dL 0-130 [facility] Serum or plasma urea nitroge n measurement (mass/volume)Ordered By: Jonatan Interiano 09-29-2022 Urea nitrogen [Mass/Vol] 17 mg/dL 7-18 [facility] Thin prep Papanicolaou smear with manual screeningOrdered By: Jonatan Interiano on 09-29-2022 Thin prep Papanicolaou smear with manual screening 13 U/L 15-37 [facility] Thin prep Papanicolaou smear with manual screening 9 5-15 [facility] Thin prep Papanicolaou smear with manual screening 258.0 mg/L NO RANGE EST. [facility] Urine creatinine measurement (mass/volume)Ordered By: Jonatan Interiano on 09-29-2022 Creatinine (U) [Mass/Vol] 194.00 mg/dL NO RANGE EST. [facility] Urine protein measurement (m ass/volume)Ordered By: Jonatan Interiano on 09-29-2022 Protein (U) [Mass/Vol] 45.8 mg/dL 0.0-11.8 [facility] Urine protein/creatinine mas s ratioOrdered By: Jonatan Interiano on 09-29-2022 Protein/Creatinine (U) [Mass ratio] 236 mg/g CRE 0-200 [facility] Whole blood hemoglobin A1c/t otal hemoglobin ratio (mass fraction)Ordered By: Nina Martinez on 09-29-2022 HbA1c (Bld) [Mass fraction] 6.4 % 3.8-5.6 [facility] Comment on above: Normal < 5.7 % Predi abetic 5.7 - 6.4 % Diabetic >or= 6.5 % Please note range changes. Laboratory - Hematology and Cell countson 07-25-2022 HbA1c (Bld) [Mass fraction] 6.8 % 4.2-6.3 [facility] Basophil percentageon 2021 Basophil percentage 4.4 mg/dL 2.5-4.9 [facility] Work Phone: Chloride [Moles/Vol] 104 mmol/L 98-[address] [facility] [address] [facility] Work Phone: Glucose [Mass/Vol] 116 mg/dL 74-106 [facility] Work Phone: Comment on above: Fasting Glucose resu lt from 100 to 125 mg/dL suggests IMPAIRED HOMEOSTASIS per A.D.A. criteria. Potassium [Moles/Vol] 4.4 mmol/L 3.5-5.1 [facility] Work Phone: Sodium [Moles/Vol] 137 mmol/L 136-145 [facility] Work Phone: Laboratory - Chemistry and C hemistry - challengeon 10-05-2021 CO2 [Moles/Vol] 24.0 mmol/L 21.0-32.0 [facility] Work Phone: Urea nitrogen/Creatinine [Mass ratio] 23.3 mg/mg 10-20 [facility] Work Phone: No Panel Informationon 10-05 Estimated GFR (MDRD) Amer 99 mL/min >60 [facility] Work Phone: Comment on above: GFR Calc Estimated GFR (MDRD) Non-Af Amer 82 mL/min >60 [facility] Work Phone: Comment on above: Non- GFR Calc Serum or plasma albumin shilpa urement (mass/volume)on 10-05-2021 Albumin [Mass/Vol] 4.0 g/dL 3.2-5.0 [facility] Work Phone: Serum or plasma calcium shilpa urement (mass/volume)on 10-05-2021 Calcium [Mass/Vol] 9.8 mg/dL 8.5-10.1 [facility] Work Phone: Serum or plasma creatinine m easurement (mass/volume)on 10-05-2021 Creatinine [Mass/Vol] 0.86 mg/dL 0.55-1.02 [facility] Work Phone: Comment on above: The validity of the calculated GFR & GFRAA in patients over 70 years has not been determined. Clinical correlation is essential. Serum or plasma urea nitroge n measurement (mass/volume)on 10-05-2021 Urea nitrogen [Mass/Vol] 20 mg/dL 7-18 [facility] Work Phone: Urine creatinine measurement (mass/volume)on 10-05-2021 Creatinine (U) [Mass/Vol] 120.00 mg/dL NO RANGE EST. [facility] Work Phone: Urine protein measurement (m ass/volume)on 10-05-2021 Protein (U) [Mass/Vol] 41.9 mg/dL 0.0-11.8 [facility] Work Phone: Urine protein/creatinine mas s ratioon 10-05-2021 Protein/Creatinine (U) [Mass ratio] 349 mg/g CRE 0-200 [facility] Work Phone: Laboratory - Hematology and Cell countson 09-30-2021 HbA1c (Bld) [Mass fraction] 6.2 % 4.2-6.3 [facility] Work Phone: No Panel Informationon 06-28 Dehydroepiandrosterone Sulfate 719.0 ug/dL 84.8-378.0 [facility] Work Phone: Serum or plasma progesterone measurement (mass/volume)on 06-28-2021 Progesterone [Mass/Vol] 1.36 ng/mL See Comment [facility] Work Phone: Comment on above: Progesterone [...] 06-28-2021 Testosterone Free [Mass/Vol] 8.4 pg/mL 0.0-4.2 [facility] Work Phone: Comment on above: Performed at: CB - L david [address] [id number] Director: Kevin Estrella PhD, Phone: [phone] at: - [facility] [address] [id number] Director: Ankit Buchanan MD, Phone: [phone] Laboratory - Chemistry and C hemistry - challengeon 06-09-2021 Free T4 [Mass/Vol] 1.30 ng/dL 0.76-1.46 [facility] Work Phone: No Panel Informationon 06-09 Follicle Stimulating Hormone 3.5 mIU/mL [facility] Work Phone: Comment on above: NORMAL REFERENCE RAN GES FEMALE FOLLICULAR 2.3 - 12.6 mIU/mL MID-CYCLE PEAK 5.2 - 17.5 mIU/mL LUTEAL 1.7 - 12.9 mIU/mL POST-MENOPAUSAL ON MHT 5.9 - 72.8 mIU/mL NOT ON MHT 12.7 - 132.2 mlU/mL MALE 0.7 - 10.8 mIU/mL Luteinizing Hormone 2.0 mIU/mL [facility] Work Phone: Comment on above: NORMAL REFERENCE RAN GES FEMALE FOLLICULAR 1.9 - 26.2 mIU/mL MID-CYCLE PEAK 22.8 - 76.1 mIU/mL LUTEAL 0.6 - 16.6 mIU/mL POST-MENOPAUSAL ON MHT 1.1 - 52.4 mIU/mL NOT ON MHT 8.6 - 61.8 mIU/mL MALE 1.2 - 10.6 mIU/mL Rubella IgG Antibody Reactive Nonreactive [facility] Work Phone: Comment on above: Antibody Results Int erpretation of Immune Status Non Reactive Presumed Non-Immune Equivocal Equivocal Reactive Presumed Immune Thyroid Stimulating Hormone (TSH) 2.68 uIU/mL 0.358-3.74 [facility] Work Phone: Vitamin D 25-Hydroxy 16.3 ng/mL [facility] Work Phone: Comment on above: Vitamin D 25(OH) Sta tus Range Deficiency <20 ng/mL (50nmol/L) Insufficiency 20 - 30 ng/mL (50 - 75 nmol/L) Sufficiency 30 - 100 ng/mL (75 - 250 nmol/L) Toxicity >100 ng/mL (>250 nmol/L) Serum Varicella zoster virus IgG antibody assay by immunoassay (units/volume)on 06-09-2021 VZV IgG IA Qn (S) 960 index Immune >165 [facility] Work Phone: Comment on above: Negative <135 Equivo nasir 135 - 165 Positive >165A positive result generally indicates exposure to thepathogen or administration of specific immunoglobulins,but it is not indication of active infection or stageof disease.Performed at: [facility] [address] [id number] Director: Kevin Estrella PhD, Phone: [phone] Serum hepatitis B virus surf toni antibody IgG detectionon 06-09-2021 HBV surface IgG Ql (S) Non-Reactive [facility] Work Phone: Comment on above: Non Reactive: Incons istent with immunity less than <10 mIU/mL Reactive: Consistent with immunity greater than or equal to 10 mIU/mL Serum or plasma 17-hydroxypr ogesterone measurement (mass/volume)on 06-09-2021 17-Hydroxyprogesterone [Mass/Vol] 12 ng/dL [facility] Work Phone: Comment on above: Adult Female Follicu lar 15 - 70 Luteal 35 - 290Performed at: [facility] [address] [id number] Director: Ankit Buchanan MD, Phone: [phone] Serum or plasma estradiol (E 2) measurement (mass/volume)on 06-09-2021 E2 [Mass/Vol] 38.5 pg/mL [facility] Work Phone: Comment on above: NORMAL [...] asurement (mass/volume)on 06-09-2021 Prolactin [Mass/Vol] 11.9 ng/mL [facility] Work Phone: Comment on above: NORMAL REFERENCE RAN GES FEMALE NON- 2.2 - 30.3 ng/mL 8.1 - 347.6 ng/mL POST-MENOPAUSAL 0.7 - 31.5 ng/mL MALE 2.5 - 17.4 ng/mL Cervical or vagninal specime n microscopic examination by cytology stain (reported ason 05-13-2021 Cytology report Cyto stain Doc (Cvx/Vag) Comment [facility] Work Phone: Comment on above: The [...] DNA Probe+sig amp Ql (Cvx) Negative Negative [facility] Work Phone: Comment on above: This nucleic acid am plification test detects fourteen high-risk HPV types (16,18,31,33,35,39,45,51,52,56,58,59,66,68)without differentiation.Performed at: - [address] [id number] Director: Teena Hussein MD, Phone: [phone] at: = - [facility] [id number] Director: Teena Hussein MD, Phone: [phone] Laboratory - Cytologyon 04-21 Equipment Operator/Laborer/Supervisor Cyto stain Nom (Cvx/Vag) [ID] Comment [facility] Work Phone: Comment on above: Leona Mcgrath, Cyto technologist (ASCP) Laboratory - Miscellaneous t estson 05-13-2021 Service comment (Unsp spec) [Interp] . [facility] Work Phone: No Panel Informationon 05-13 Pathology report final diagnosis Narrative Comment [facility] Work Phone: Comment on above: NEGATIVE FOR INTRAEP ITHELIAL LESION OR MALIGNANCY. XR Chest PA and Lateralon IMPRESSION: No acute radiographic abnormality. Adjunct Business Instructor: [employer] Transcribe Date/Time: Jan 25 2021 10:18A Dictated by : REBEL MCHUGH MD This examination was interpreted and the report reviewed and electronically signed by: REBEL MCHUGH MD on Jan 25 2021 10:18AM [facility] DIVISION OF RADIOLOGY * * [...] soft tissues: Unremarkable. DIVISION OF RADIOLOGY Provider, [facility] - 01/25/2021 * * *Final Report* * [...] Unremarkable. IMPRESSION IMPRESSION: No acute radiographic abnormality. Adjunct Business Instructor: [employer] Transcribe Date/Time: Jan 25 2021 10:18A Dictated by : REBEL MCHUGH MD This examination was interpreted and the report reviewed and electronically signed by: REBEL MCHUGH MD on Jan 25 2021 10:18AM EST [facility] Radiology Study observation (narrative) Sonia alaniz [facility] XR Chest PA and LateralOrder ed By: Ccf Provider on 01-25-2021 [facility] XR Knee - right 4 Viewson IMPRESSION: Joint effusion of the right knee. Adjunct Business Instructor: [employer] Transcribe Date/Time: Aug 18 2020 6:02P [...] soft tissue swelling. DIVISION OF RADIOLOGY Provider, [facility] - 08/18/2020 * * *Final Report* * [...] IMPRESSION: Joint effusion of the right knee. Adjunct Business Instructor: [employer] Transcribe Date/Time: Aug 18 2020 6:02P Dictated by : MATEUS JOHNSON MD This examination was interpreted and the report reviewed and electronically signed by: MATEUS JOHNSON MD on Aug 18 2020 6:03PM EST [facility] Radiology Study observation (narrative) Sonia alaniz [facility] XR Knee - right 4 ViewsOrder ed By: Ccf Provider on 08-18-2020 [facility] .GFRon 07-29-2020 GFR Non- >60 Normal [facility] ([place]) Comment on above: Result Comment: [...] CMP, GFR, CBC, ADIFF, ANEU, A1C #### [place] [address] GFR >60 Normal [facility] ([place]) Comment on above: Result Comment: [...] CMP, GFR, CBC, ADIFF, ANEU, A1C #### [place] [address] .Manual Diffon 07-29-2020 Bands 2.0 % Normal 0.0-5.0 [facility] ([place]) Comment on above: Performed By: #### B ILAD, TSH, LIPID, CMP, GFR, CBC, ADIFF, ANEU, A1C #### [place] [address] Basophil %, Manual 0.0 % Normal 0.0-2.5 [facility] ([place]) Comment on above: Performed By: #### B ILAD, TSH, LIPID, CMP, GFR, CBC, ADIFF, ANEU, A1C #### [place] [address] Basophil, Abs Manual 0.00 10 3/mcL Normal 0.00-0.27 [facility] ([place]) Comment on above: Performed By: #### B ILAD, TSH, LIPID, CMP, GFR, CBC, ADIFF, ANEU, A1C #### [place] [address] Cells Counted 100 Normal [facility] ([place]) Comment on above: Performed By: #### B ILAD, TSH, LIPID, CMP, GFR, CBC, ADIFF, ANEU, A1C #### [place] [address] Eosinophil %, Manual 3.0 % Normal 0.0-6.0 [facility] ([place]) Comment on above: Performed By: #### B ILAD, TSH, LIPID, CMP, GFR, CBC, ADIFF, ANEU, A1C #### [place] [address] Eosinophil, Abs Manual 0.44 10 3/mcL Normal 0.00-0.65 [facility] ([place]) Comment on above: Performed By: #### B ILAD, TSH, LIPID, CMP, GFR, CBC, ADIFF, ANEU, A1C #### [place] [address] Lymphocyte %, Manual 34.0 % Normal 20.0-40.0 [facility] ([place]) Comment on above: Performed By: #### B ILAD, TSH, LIPID, CMP, GFR, CBC, ADIFF, ANEU, A1C #### [address] [address] Lymphocyte, Abs Manual 5.00 10 3/mcL High 0.90-4.32 [facility] ([place]) Comment on above: Performed By: #### B ILAD, TSH, LIPID, CMP, GFR, CBC, ADIFF, ANEU, A1C #### [address] [address] Monocyte %, Manual 3.0 % Normal 2.0-13.0 [facility] ([place]) Comment on above: Performed By: #### B ILAD, TSH, LIPID, CMP, GFR, CBC, ADIFF, ANEU, A1C #### [address] [address] Monocyte, Abs Manual 0.44 10 3/mcL Normal 0.09-1.40 [facility] ([place]) Comment on above: Performed By: #### B ILAD, TSH, LIPID, CMP, GFR, CBC, ADIFF, ANEU, A1C #### [address] [address] Neutrophil %, Manual 58.0 % Normal 50.0-75.0 [facility] ([place]) Comment on above: Performed By: #### B ILAD, TSH, LIPID, CMP, GFR, CBC, ADIFF, ANEU, A1C #### [address] [address] Neutrophil, Abs Manual 8.82 10 3/mcL High 2.25-8.10 [facility] ([place]) Comment on above: Performed By: #### B ILAD, TSH, LIPID, CMP, GFR, CBC, ADIFF, ANEU, A1C #### [address] [address] .Morphon 07-29-2020 Platelet Estimate Normal Normal [facility] ([place]) Comment on above: Result Comment: Few platelet clumps seen. Performed By: #### B ILAD, TSH, LIPID, CMP, GFR, CBC, ADIFF, ANEU, A1C #### [address] [address] RBC morphology finding Nom (Bld) Normal Normal [facility] ([place]) Comment on above: Performed By: #### B ILAD, TSH, LIPID, CMP, GFR, CBC, ADIFF, ANEU, A1C #### [address] [address] A1Con 07-29-2020 HbA1c (Bld) [Mass fraction] 8.2 % High 4.0-6.0 [facility] ([place]) Comment on above: Order Comment: billie ind Performed By: #### B ILAD, TSH, LIPID, CMP, GFR, CBC, ADIFF, ANEU, A1C #### [address] [address] CBCon 07-29-2020 Platelet 286 10 3/mcL Normal 150-450 [facility] ([place]) Comment on above: Order Comment: billie ind Performed By: #### B ILAD, TSH, LIPID, CMP, GFR, CBC, ADIFF, ANEU, A1C #### [place] [address] Platelet mean volume (Bld) [Entitic vol] 11.0 fL High 6.6-10.5 [facility] ([place]) Comment on above: Order Comment: billie ind Performed By: #### B ILAD, TSH, LIPID, CMP, GFR, CBC, ADIFF, ANEU, A1C #### [place] [id number] Erythrocyte distribution width (RBC) [Ratio] 12.7 % Normal 11.5-15.5 [facility] ([place]) Comment on above: Order Comment: billie ind Performed By: #### B ILAD, TSH, LIPID, CMP, GFR, CBC, ADIFF, ANEU, A1C #### [place] [address] Hematocrit (Bld) [Volume fraction] 40.9 % Normal 34.0-46.0 [facility] ([place]) Comment on above: Order Comment: billie ind Performed By: #### B ILAD, TSH, LIPID, CMP, GFR, CBC, ADIFF, ANEU, A1C #### [place] [address] Hgb 13.6 G/dL Normal 12.0-16.0 [facility] ([place]) Comment on above: Order Comment: billie ind Performed By: #### B ILAD, TSH, LIPID, CMP, GFR, CBC, ADIFF, ANEU, A1C #### [place] [address] MCH (RBC) [Entitic mass] 31.4 pg Normal 27.0-33.0 [facility] ([place]) Comment on above: Order Comment: billie ind Performed By: #### B ILAD, TSH, LIPID, CMP, GFR, CBC, ADIFF, ANEU, A1C #### [place] [address] MCHC 33.3 G/dL Normal 32.0-36.0 [facility] ([place]) Comment on above: Order Comment: billie ind Performed By: #### B ILAD, TSH, LIPID, CMP, GFR, CBC, ADIFF, ANEU, A1C #### [place] [address] MCV (RBC) [Entitic vol] 94.3 fL Normal 80.0-99.0 [facility] ([place]) Comment on above: Order Comment: billie ind Performed By: #### B ILAD, TSH, LIPID, CMP, GFR, CBC, ADIFF, ANEU, A1C #### [place] [address] RBC 4.34 10 6/mcL Normal 4.10-5.30 [facility] ([place]) Comment on above: Order Comment: billie ind Performed By: #### B ILAD, TSH, LIPID, CMP, GFR, CBC, ADIFF, ANEU, A1C #### [place] [address] WBC 14.70 10 3/mcL High 4.50-10.80 [facility] ([place]) Comment on above: Order Comment: billie ind Performed By: #### B ILAD, TSH, LIPID, CMP, GFR, CBC, ADIFF, ANEU, A1C #### [address] [address] CMPon 07-29-2020 Albumin Level 3.8 G/dL Normal 3.2-4.8 [facility] ([place]) Comment on above: Order Comment: billie ind Performed By: #### B ILAD, TSH, LIPID, CMP, GFR, CBC, ADIFF, ANEU, A1C #### [address] [address] Albumin/Globulin [Mass ratio] 1.2 {ratio} Normal 0.9-1.6 [facility] ([place]) Comment on above: Order Comment: billie ind Performed By: #### B ILAD, TSH, LIPID, CMP, GFR, CBC, ADIFF, ANEU, A1C #### [address] [address] ALP [Catalytic activity/Vol] 76 U/L Normal 38-126 [facility] ([place]) Comment on above: Order Comment: billie ind Performed By: #### B ILAD, TSH, LIPID, CMP, GFR, CBC, ADIFF, ANEU, A1C #### [address] [address] ALT [Catalytic activity/Vol] 20 U/L Normal 10-49 [facility] ([place]) Comment on above: Order Comment: billie ind Performed By: #### B ILAD, TSH, LIPID, CMP, GFR, CBC, ADIFF, ANEU, A1C #### [address] [address] AST [Catalytic activity/Vol] 14 U/L Normal 8-34 [facility] ([place]) Comment on above: Order Comment: billie ind Performed By: #### B ILAD, TSH, LIPID, CMP, GFR, CBC, ADIFF, ANEU, A1C #### [address] [address] Bili Total 0.80 mg/dL Normal 0.20-1.20 [facility] ([place]) Comment on above: Order Comment: billie ind Result Comment: Use of this assay is not recommended for patients undergoing treatment with eltrombopag due to the potential for falsely elevated results. Performed By: #### B ILAD, TSH, LIPID, CMP, GFR, CBC, ADIFF, ANEU, A1C #### [address] [address] BUN/Creatinine Ratio 39.3 ratio High 10.0-22.0 [facility] ([place]) Comment on above: Order Comment: billie ind Performed By: #### B ILAD, TSH, LIPID, CMP, GFR, CBC, ADIFF, ANEU, A1C #### [address] [address] Calcium [Mass/Vol] 10.2 mg/dL Normal 8.7-10.4 [facility] ([place]) Comment on above: Order Comment: billie ind Result Comment: No te - New Reference Range in effect 19 Performed By: #### B ILAD, TSH, LIPID, CMP, GFR, CBC, ADIFF, ANEU, A1C #### [place] [id number] Chloride [Moles/Vol] 103 mmol/L Normal 98-110 [facility] ([place]) Comment on above: Order Comment: billie ind Performed By: #### B ILAD, TSH, LIPID, CMP, GFR, CBC, ADIFF, ANEU, A1C #### [address] [address] CO2 [Moles/Vol] 26 mmol/L Normal 22-32 [facility] ([place]) Comment on above: Order Comment: billie ind Performed By: #### B ILAD, TSH, LIPID, CMP, GFR, CBC, ADIFF, ANEU, A1C #### [address] [address] Creatinine [Mass/Vol] 0.61 mg/dL Normal 0.50-1.20 [facility] ([place]) Comment on above: Order Comment: billie ind Performed By: #### B ILAD, TSH, LIPID, CMP, GFR, CBC, ADIFF, ANEU, A1C #### [address] [address] Electrolyte Balance 7.0 mEq/L Normal 4.0-15.0 [facility] ([place]) Comment on above: Order Comment: billie ind Performed By: #### B ILAD, TSH, LIPID, CMP, GFR, CBC, ADIFF, ANEU, A1C #### [address] [address] Globulin 3.1 G/dL Normal 1.5-3.8 [facility] ([place]) Comment on above: Order Comment: billie ind Performed By: #### B ILAD, TSH, LIPID, CMP, GFR, CBC, ADIFF, ANEU, A1C #### [address] [address] Glucose [Mass/Vol] 214 mg/dL High 70-110 [facility] ([place]) Comment on above: Order Comment: billie ind Performed By: #### B ILAD, TSH, LIPID, CMP, GFR, CBC, ADIFF, ANEU, A1C #### [address] [address] Potassium [Moles/Vol] 4.9 mmol/L Normal 3.5-5.0 [facility] ([place]) Comment on above: Order Comment: billie ind Performed By: #### B ILAD, TSH, LIPID, CMP, GFR, CBC, ADIFF, ANEU, A1C #### [address] [address] Sodium [Moles/Vol] 136 mmol/L Normal 136-145 [facility] ([place]) Comment on above: Order Comment: billie ind Performed By: #### B ILAD, TSH, LIPID, CMP, GFR, CBC, ADIFF, ANEU, A1C #### [address] [address] Total Protein 6.9 G/dL Normal 5.7-8.2 [facility] ([place]) Comment on above: Order Comment: billie ind Result Comment: No te - New Reference Range in effect 19 Performed By: #### B ILAD, TSH, LIPID, CMP, GFR, CBC, ADIFF, ANEU, A1C #### [address] [address] Urea nitrogen [Mass/Vol] 24.0 mg/dL High 8.0-22.0 [facility] ([place]) Comment on above: Order Comment: billie ind Performed By: #### B ILAD, TSH, LIPID, CMP, GFR, CBC, ADIFF, ANEU, A1C #### [address] [address] LIPIDon 07-29-2020 Cholesterol [Mass/Vol] 154 mg/dL Normal 50-199 [facility] ([place]) Comment on above: Order Comment: billie ind Result Comment: Chol esterol Reference Interval: Less than 200 Desirable 200-239 Borderline high risk 240 and above High risk Performed By: #### B ILAD, TSH, LIPID, CMP, GFR, CBC, ADIFF, ANEU, A1C #### [address] [address] Cholesterol in HDL [Mass/Vol] 46 mg/dL Normal 40-59 [facility] ([place]) Comment on above: Order Comment: billie ind Performed By: #### B ILAD, TSH, LIPID, CMP, GFR, CBC, ADIFF, ANEU, A1C #### [address] [address] Cholesterol in LDL [Mass/Vol] 70 mg/dL Normal 0-129 [facility] ([place]) Comment on above: Order Comment: billie ind Performed By: #### B ILAD, TSH, LIPID, CMP, GFR, CBC, ADIFF, ANEU, A1C #### [address] [address] Triglyceride [Mass/Vol] 192 mg/dL High 3-149 [facility] ([place]) Comment on above: Order Comment: billie ind Performed By: #### B ILAD, TSH, LIPID, CMP, GFR, CBC, ADIFF, ANEU, A1C #### [address] [address] TSHon 07-29-2020 TSH 2.630 mIU/mL Normal 0.550-4.780 [facility] ([place]) Comment on above: Order Comment: billie ind Result Comment: No te - New Reference Range in effect 19 Performed By: #### T SH, CMP, GFR, LIPID, CBC, DIFF, MORPH, A1C #### [address] [address] .Auto Diffon 10-16-2019 Basophil, Absolute 0.10 10 3/mcL Normal 0.00-0.27 [facility] ([place]) Comment on above: Performed By: #### B ILAD, TSH, LIPID, CMP, GFR, CBC, ADIFF, ANEU, A1C #### [address] [address] Basophils/100 WBC (Bld) 0.9 % Normal 0.0-2.5 [facility] ([place]) Comment on above: Performed By: #### B ILAD, TSH, LIPID, CMP, GFR, CBC, ADIFF, ANEU, A1C #### [address] [address] Eosinophil, Absolute 0.40 10 3/mcL Normal 0.00-0.65 [facility] ([place]) Comment on above: Performed By: #### B ILAD, TSH, LIPID, CMP, GFR, CBC, ADIFF, ANEU, A1C #### [address] [address] Eosinophils/100 WBC (Bld) 3.4 % Normal 0.0-6.0 [facility] ([place]) Comment on above: Performed By: #### B ILAD, TSH, LIPID, CMP, GFR, CBC, ADIFF, ANEU, A1C #### [address] [address] Lymphocyte, Absolute 3.00 10 3/mcL Normal 0.90-4.32 [facility] ([place]) Comment on above: Performed By: #### B ILAD, TSH, LIPID, CMP, GFR, CBC, ADIFF, ANEU, A1C #### [address] [address] Lymphocytes/100 WBC (Bld) 27.9 % Normal 20.0-40.0 [facility] ([place]) Comment on above: Performed By: #### B ILAD, TSH, LIPID, CMP, GFR, CBC, ADIFF, ANEU, A1C #### [address] [address] Monocyte, Absolute 0.40 10 3/mcL Normal 0.09-1.40 [facility] ([place]) Comment on above: Performed By: #### B ILAD, TSH, LIPID, CMP, GFR, CBC, ADIFF, ANEU, A1C #### [address] [address] Monocytes/100 WBC (Bld) 3.6 % Normal 2.0-13.0 [facility] ([place]) Comment on above: Performed By: #### B ILAD, TSH, LIPID, CMP, GFR, CBC, ADIFF, ANEU, A1C #### [address] [address] Neutrophils/100 WBC (Bld) 64.2 % Normal 50.0-75.0 [facility] ([place]) Comment on above: Performed By: #### B ILAD, TSH, LIPID, CMP, GFR, CBC, ADIFF, ANEU, A1C #### [address] [address] .GFRon 10-16-2019 GFR >60 Normal [facility] ([place]) Comment on above: Result Comment: [...] GFR, CBC, ADIFF, ANEU, A1C #### [address] [address] GFR Non- >60 Normal [facility] ([place]) Comment on above: Result Comment: [...] CMP, GFR, CBC, ADIFF, ANEU, A1C #### [place] [address] .NEUABSon 10-16-2019 Neutrophil, Absolute 7.00 10 3/mcL Normal 2.25-8.10 [facility] ([place]) Comment on above: Performed By: #### B ILAD, TSH, LIPID, CMP, GFR, CBC, ADIFF, ANEU, A1C #### [place] [address] A1Con 10-16-2019 HbA1c (Bld) [Mass fraction] 8.9 % High 4.0-6.0 [facility] ([place]) Comment on above: Performed By: #### B ILAD, TSH, LIPID, CMP, GFR, CBC, ADIFF, ANEU, A1C #### [place] [address] BILADon 10-16-2019 Bili Direct 0.3 mg/dL Normal 0.0-0.4 [facility] ([place]) Comment on above: Result Comment: Use of this assay is not recommended for patients undergoing treatment with eltrombopag due to the potential for falsely elevated results. Performed By: #### B ILAD, TSH, LIPID, CMP, GFR, CBC, ADIFF, ANEU, A1C #### [place] [address] CBCon 10-16-2019 Erythrocyte distribution width (RBC) [Ratio] 13.4 % Normal 11.5-15.5 [facility] ([place]) Comment on above: Performed By: #### B ILAD, TSH, LIPID, CMP, GFR, CBC, ADIFF, ANEU, A1C #### [place] [address] Hematocrit (Bld) [Volume fraction] 40.4 % Normal 34.0-46.0 [facility] ([place]) Comment on above: Performed By: #### B ILAD, TSH, LIPID, CMP, GFR, CBC, ADIFF, ANEU, A1C #### [place] [id number] Hgb 13.7 G/dL Normal 12.0-16.0 [facility] ([place]) Comment on above: Performed By: #### B ILAD, TSH, LIPID, CMP, GFR, CBC, ADIFF, ANEU, A1C #### [place] [address] MCH (RBC) [Entitic mass] 31.4 pg Normal 27.0-33.0 [facility] ([place]) Comment on above: Performed By: #### B ILAD, TSH, LIPID, CMP, GFR, CBC, ADIFF, ANEU, A1C #### [place] [address] MCHC 33.8 G/dL Normal 32.0-36.0 [facility] ([place]) Comment on above: Performed By: #### B ILAD, TSH, LIPID, CMP, GFR, CBC, ADIFF, ANEU, A1C #### [place] [address] MCV (RBC) [Entitic vol] 93.0 fL Normal 80.0-99.0 [facility] ([place]) Comment on above: Performed By: #### B ILAD, TSH, LIPID, CMP, GFR, CBC, ADIFF, ANEU, A1C #### [place] [address] Platelet 284 10 3/mcL Normal 150-450 [facility] ([place]) Comment on above: Performed By: #### B ILAD, TSH, LIPID, CMP, GFR, CBC, ADIFF, ANEU, A1C #### [place] [address] Platelet mean volume (Bld) [Entitic vol] 10.2 fL Normal 6.6-10.5 [facility] ([place]) Comment on above: Performed By: #### B ILAD, TSH, LIPID, CMP, GFR, CBC, ADIFF, ANEU, A1C #### [address] [address] RBC 4.35 10 6/mcL Normal 4.10-5.30 [facility] ([place]) Comment on above: Performed By: #### B ILAD, TSH, LIPID, CMP, GFR, CBC, ADIFF, ANEU, A1C #### [address] [address] WBC 10.90 10 3/mcL High 4.50-10.80 [facility] ([place]) Comment on above: Performed By: #### B ILAD, TSH, LIPID, CMP, GFR, CBC, ADIFF, ANEU, A1C #### [address] [address] CMPon 10-16-2019 Albumin Level 4.0 G/dL Normal 3.2-4.8 [facility] ([place]) Comment on above: Order Comment: Billie Ind Performed By: #### B ILAD, TSH, LIPID, CMP, GFR, CBC, ADIFF, ANEU, A1C #### [place] [address] Albumin/Globulin [Mass ratio] 1.2 {ratio} Normal 0.9-1.6 [facility] ([place]) Comment on above: Order Comment: Billie Ind Performed By: #### B ILAD, TSH, LIPID, CMP, GFR, CBC, ADIFF, ANEU, A1C #### [address] [address] ALP [Catalytic activity/Vol] 82 U/L Normal 38-126 [facility] ([place]) Comment on above: Order Comment: Billie Ind Performed By: #### B ILAD, TSH, LIPID, CMP, GFR, CBC, ADIFF, ANEU, A1C #### [address] [address] ALT [Catalytic activity/Vol] 27 U/L Normal 10-49 [facility] ([place]) Comment on above: Order Comment: Billie Ind Performed By: #### B ILAD, TSH, LIPID, CMP, GFR, CBC, ADIFF, ANEU, A1C #### [address] [address] AST [Catalytic activity/Vol] 18 U/L Normal 8-34 [facility] ([place]) Comment on above: Order Comment: Billie Ind Performed By: #### B ILAD, TSH, LIPID, CMP, GFR, CBC, ADIFF, ANEU, A1C #### [address] [address] Bili Total 0.90 mg/dL Normal 0.20-1.20 [facility] ([place]) Comment on above: Order Comment: Billie Ind Result Comment: Use of this assay is not recommended for patients undergoing treatment with eltrombopag due to the potential for falsely elevated results. Performed By: #### B ILAD, TSH, LIPID, CMP, GFR, CBC, ADIFF, ANEU, A1C #### [place] [id number] BUN/Creatinine Ratio 24.6 ratio High 10.0-22.0 [facility] ([place]) Comment on above: Order Comment: Billie Ind Performed By: #### B ILAD, TSH, LIPID, CMP, GFR, CBC, ADIFF, ANEU, A1C #### [address] [address] Calcium [Mass/Vol] 9.6 mg/dL Normal 8.7-10.4 [facility] ([place]) Comment on above: Order Comment: [place] Result Comment: No te - New Reference Range in effect 19 Performed By: #### B ILAD, TSH, LIPID, CMP, GFR, CBC, ADIFF, ANEU, A1C #### [address] [address] Chloride [Moles/Vol] 103 mmol/L Normal 98-110 [facility] ([place]) Comment on above: Order Comment: [facility] [place] Performed By: #### B ILAD, TSH, LIPID, CMP, GFR, CBC, ADIFF, ANEU, A1C #### [address] [address] CO2 [Moles/Vol] 24 mmol/L Normal 22-32 [facility] ([place]) Comment on above: Order Comment: Billie Ind Performed By: #### B ILAD, TSH, LIPID, CMP, GFR, CBC, ADIFF, ANEU, A1C #### [address] [address] Creatinine [Mass/Vol] 0.57 mg/dL Normal 0.50-1.20 [facility] ([place]) Comment on above: Order Comment: Billie Ind Performed By: #### B ILAD, TSH, LIPID, CMP, GFR, CBC, ADIFF, ANEU, A1C #### [address] [address] Electrolyte Balance 11.0 mEq/L Normal 4.0-15.0 [facility] ([place]) Comment on above: Order Comment: Billie Ind Performed By: #### B ILAD, TSH, LIPID, CMP, GFR, CBC, ADIFF, ANEU, A1C #### [address] [address] Globulin 3.2 G/dL Normal 1.5-3.8 [facility] ([place]) Comment on above: Order Comment: Billie Ind Performed By: #### B ILAD, TSH, LIPID, CMP, GFR, CBC, ADIFF, ANEU, A1C #### [address] [address] Glucose [Mass/Vol] 197 mg/dL High 70-110 [facility] ([place]) Comment on above: Order Comment: Billie Ind Performed By: #### B ILAD, TSH, LIPID, CMP, GFR, CBC, ADIFF, ANEU, A1C #### [address] [address] Potassium [Moles/Vol] 4.2 mmol/L Normal 3.5-5.0 [facility] ([place]) Comment on above: Order Comment: Billie Ind Performed By: #### B ILAD, TSH, LIPID, CMP, GFR, CBC, ADIFF, ANEU, A1C #### [address] [address] Sodium [Moles/Vol] 138 mmol/L Normal 136-145 [facility] ([place]) Comment on above: Order Comment: Billie Ind Performed By: #### B ILAD, TSH, LIPID, CMP, GFR, CBC, ADIFF, ANEU, A1C #### [address] [address] Total Protein 7.2 G/dL Normal 5.7-8.2 [facility] ([place]) Comment on above: Order Comment: Billie Ind Result Comment: No te - New Reference Range in effect 19 Performed By: #### B ILAD, TSH, LIPID, CMP, GFR, CBC, ADIFF, ANEU, A1C #### [address] [address] Urea nitrogen [Mass/Vol] 14.0 mg/dL Normal 8.0-22.0 [facility] ([place]) Comment on above: Order Comment: Billie Ind Performed By: #### B ILAD, TSH, LIPID, CMP, GFR, CBC, ADIFF, ANEU, A1C #### [address] [address] LIPIDon 10-16-2019 Cholesterol [Mass/Vol] 157 mg/dL Normal 50-199 [facility] ([place]) Comment on above: Result Comment: Chol esterol Reference Interval: Less than 200 Desirable 200-239 Borderline high risk 240 and above High risk Performed By: #### B ILAD, TSH, LIPID, CMP, GFR, CBC, ADIFF, ANEU, A1C #### [address] [address] Cholesterol in HDL [Mass/Vol] 48 mg/dL Normal 40-59 [facility] ([place]) Comment on above: Performed By: #### B ILAD, TSH, LIPID, CMP, GFR, CBC, ADIFF, ANEU, A1C #### [address] [address] Cholesterol in LDL [Mass/Vol] 82 mg/dL Normal 0-129 [facility] ([place]) Comment on above: Performed By: #### B ILAD, TSH, LIPID, CMP, GFR, CBC, ADIFF, ANEU, A1C #### [address] [address] Triglyceride [Mass/Vol] 135 mg/dL Normal 3-149 [facility] ([place]) Comment on above: Performed By: #### B ILAD, TSH, LIPID, CMP, GFR, CBC, ADIFF, ANEU, A1C #### [address] [address] TSHon 10-16-2019 TSH 2.842 mIU/mL Normal 0.550-4.780 [facility] ([place]) Comment on above: Result Comment: No te - New Reference Range in effect 19 Performed By: #### B ILAD, TSH, LIPID, CMP, GFR, CBC, ADIFF, ANEU, A1C #### [address] [address] Vital Signs Date Time Vital Sign Value Performing Clinician Andreas mclaughlin 07-30-2024 09:38-0400 Body height 160 cm Radha Short APRN.CNM Work Phone: [facility] 07-30-2024 09:38-0400 Body mass index (BMI) [Ratio] 54.74 kg/m2 Radha Short APRN.CNM Work Phone: [facility] 07-30-2024 09:38-0400 Body weight 140.16 kg Radha Short APRN.CNM Work Phone: [facility] 07-30-2024 09:38-0400 Diastolic blood pressure 76 mm[Hg] Radha Short APRN.CNM Work Phone: [facility] 07-30-2024 09:38-0400 Systolic blood pressure 118 mm[Hg] Radha Short APRN.CNM Work Phone: [facility] 06-17-2024 17:32-0400 Body mass index (BMI) [Ratio] 53.7 kg/m2 Flora Singh APRN.ORGANIC PREPARATION TECHNICIAN Work Phone: [facility] 06-17-2024 17:32-0400 Body weight 139.71 kg Flora Singh VTC TECHNICIAN.ORGANIC PREPARATION TECHNICIAN Work Phone: [facility] 06-17-2024 17:32-0400 Diastolic blood pressure 72 mm[Hg] Flora Singh VTC TECHNICIAN.ORGANIC PREPARATION TECHNICIAN Work Phone: [facility] 06-17-2024 17:32-0400 Heart rate 85 /min Flora Singh VTC TECHNICIAN.ORGANIC PREPARATION TECHNICIAN Work Phone: [facility] 06-17-2024 17:32-0400 Respiratory rate 16 /min Flora Singh VTC TECHNICIAN.ORGANIC PREPARATION TECHNICIAN Work Phone: [facility] 06-17-2024 17:32-0400 SaO2% (BldA) [Mass fraction] 98 % Flora Singh VTC TECHNICIAN.ORGANIC PREPARATION TECHNICIAN Work Phone: [facility] 06-17-2024 17:32-0400 Systolic blood pressure 128 mm[Hg] Flora Singh VTC TECHNICIAN.ORGANIC PREPARATION TECHNICIAN Work Phone: [facility] 07-25-2022 08:41-0400 Body height 160.[address] Surendra Benton Work Phone: 7(098)016-848167 [place] [address] 07-25-2022 08:41-0400 Body mass index (BMI) [Ratio] 58.1 kg/m2 Dr. Surendra Benton Work Phone: 3(213)376-515467 [place] [address] 07-25-2022 08:41-0400 Body temperature 98.6 [degF] Dr. Surendra Benton Work Phone: 3(398)142-364067 [place] [address] 07-25-2022 08:41-0400 Body weight 148.[address] Surendra Benton Work Phone: [facility] 07-25-2022 08:41-0400 Diastolic blood pressure 75 mm[Hg] Dr. Surendra Benton Work Phone: 4(629)177-018567 [place] [address] 07-25-2022 08:41-0400 Heart rate 83 /min Dr. Surendra Benton Work Phone: 3(267)449-892367 [place] [address] 07-25-2022 08:41-0400 Respiratory rate 16 /min Dr. Surendra Benton Work Phone: 8(012)363-041367 [place] [address] 07-25-2022 08:41-0400 SaO2% (BldA) [Mass fraction] 94 % Dr. Surendra Benton Work Phone: [facility] 07-25-2022 08:41-0400 Systolic blood pressure 126 mm[Hg] Dr. Surendra Benton Work Phone: [facility] 09-30-2021 09:02-0400 Body height 160.[address] Surendra Benton Work Phone: [facility] Work Phone: 09-30-2021 09:02-0400 Body mass index (BMI) [Ratio] 57.6 kg/m2 Dr. Surendra Benton Work Phone: [facility] Work Phone: 09-30-2021 09:02-0400 Body temperature 96.5 [degF] Dr. Surendra Benton Work Phone: [facility] Work Phone: 09-30-2021 09:02-0400 Body weight 147.[address] Surendra Benton Work Phone: [facility] Work Phone: 09-30-2021 09:02-0400 Diastolic blood pressure 80 mm[Hg] Dr. Surendra Benton Work Phone: [facility] Work Phone: 09-30-2021 09:02-0400 Heart rate 85 /min Dr. Surendra Benton Work Phone: [facility] Work Phone: 09-30-2021 09:02-0400 Respiratory rate 18 /min Dr. Surendra Benton Work Phone: [facility] Work Phone: 09-30-2021 09:02-0400 SaO2% (BldA) [Mass fraction] 99 % Dr. Surendra Benton Work Phone: [facility] Work Phone: 09-30-2021 09:02-0400 Systolic blood pressure 122 mm[Hg] Dr. Surendra Benton Work Phone: [facility] Work Phone: 07-19-2021 17:01-0400 Diastolic blood pressure 82 mm[Hg] Flora Singh VTC TECHNICIAN.ORGANIC PREPARATION TECHNICIAN Work Phone: [facility] 07-19-2021 17:01-0400 Heart rate 99 /min Flora Singh VTC TECHNICIAN.ORGANIC PREPARATION TECHNICIAN Work Phone: [facility] 07-19-2021 17:01-0400 Respiratory rate 18 /min Flora Singh VTC TECHNICIAN.ORGANIC PREPARATION TECHNICIAN Work Phone: [facility] 07-19-2021 17:01-0400 SaO2% (BldA) [Mass fraction] 99 % Flora Singh VTC TECHNICIAN.ORGANIC PREPARATION TECHNICIAN Work Phone: [facility] 07-19-2021 17:01-0400 Systolic blood pressure 138 mm[Hg] Flora Singh VTC TECHNICIAN.ORGANIC PREPARATION TECHNICIAN Work Phone: [facility] 11-08-2017 11:59-0400 Body mass index (BMI) [Ratio] 60.5 kg/m2 Dr. Surendra Benton Work Phone: [facility] Work Phone: Encounters Encounter Date Encounter Type Care Provider Facility Start: 09-17-2024 [facility] Facility:[facility] Start: 07-30-2024 End: 07-30-2024 Patient [...] encounter status Radha Short APRN.CNM Work Phone: [facility] Start: 07-30-2024 End: 07-30-2024 ambulatory RADHA SHORT Facility:[facility] Start: 07-30-2024 Encounter for gynecological examination (general) (routine) with abnormal findings RADHA SHORT [facility] Start: 06-17-2024 End: 06-17-2024 Patient encounter procedure Flora Singh APRN.CNP Work Phone: [facility] Comment on above: Routine physical exa mination (Primary Dx); Leukocytosis, unspecified type; Primary hypertension; Encounter for surveillance of contraceptive pills; Screening for cervical cancer; Type 2 diabetes mellitus without complication, without long-term current use of insulin (HCC) Start: 06-17-2024 End: 06-17-2024 ambulatory [facility] Facility:[facility] Start: 06-17-2024 End: 06-17-2024 Physical examination Flora Singh APRN.CNP Work Phone: [facility] Start: 05-30-2024 End: 05-30-2024 Refill Teressa Zuniga APRN.ORGANIC PREPARATION TECHNICIAN Work Phone: [facility] Comment on above: Refill Request Start: 05-23-2024 End: 05-23-2024 ambulatory [facility] Facility:[facility] Start: 12-26-2023 End: 12-26-2023 Refill Surendra Benton MD Work Phone: [facility] Comment on above: Refill Request Start: 11-27-2023 End: 11-27-2023 ambulatory [facility] Facility:[facility] Start: 10-16-2023 Refill Flora Singh APRN.ORGANIC PREPARATION TECHNICIAN Work Phone: [facility] Comment on above: Refill Request Start: 10-05-2023 End: 10-05-2023 ambulatory [facility] Facility:[facility] Start: 08-19-2023 Refill Surendra Benton MD Work Phone: [facility] [place] Comment on above: Refill Request Start: 04-21-2023 Telephone encounter Flora grover APRN.CNP Work Phone: [facility] Comment on above: Results Start: 12-27-2022 Refill [facility] Benton MD [facility] Phone: [facility] Comment on above: Refill Request Start: 09-29-2022 End: 09-29-[address] Surendra Benton Work Phone: [facility] Work Phone: Start: 09-29-2022 End: 09-29-[address] [facility]rend[facility] Benton [facility] Work [facility]: Start: 07-25-2022 Chart abstracting Surendra Michel MD Work Phone: [facility] Start: 07-25-2022 End: 07-25-[address] Surendra Benton Work Phone: [facility] Work Phone: Start: 02-09-2022 Refill Surendra Benton MD Work Phone: [facility] Comment on above: Refill Request Start: 10-05-2021 End: 10-05-[address] Surendra Benton [facility] Start: 09-30-2021 End: 09-30-[address] Surendra Benton Work Phone: [facility] Start: 09-27-2021 Refill Surendra Benton MD Work Phone: [facility] Comment on above: Refill Request Start: 08-14-2021 Refill Surendra Benton MD [facility] Comment on above: Refill Request Start: 07-20-2021 Refill [facility]rend[facility] Benton MD [facility] Comment on above: Refill Request Start: 07-19-2021 End: 07-19-2021 Patient encounter procedure Flora Singh APRN.CNP Work Phone: [facility] Comment on above: Encounter for precon ception consultation (Primary Dx) Start: 06-28-2021 End: 06-28-2021 Patient encounter procedure [facility] [place]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 [employer] Start: 06-09-2021 End: 06-09-2021 Patient encounter procedure [facility] Start: 05-13-2021 End: 05-13-2021 Patient encounter procedure [facility], Specimen Start: 01-25-2021 End: 01-25-2021 Subsequent hospital visit by physician Malena [facility] [place] Work Phone: Radiology Comment on above: SOB (shortness of br eath) [R06.02] Start: 08-18-2020 End: 08-18-2020 Subsequent hospital visit by physician Malena [facility] [place] Work Phone: Radiology Comment [...] Author Start: 05-13-2026 HPV TESTING HPV TESTING [facility] Start: 05-13-2026 PAP TESTING PAP TESTING [facility] Start: 05-13-2026 Screening for malignant neoplasm of cervix [facility] Start: 08-04-2025 End: 08-04-2025 Patient encounter procedure 08/04/2025 10:45 AM EDT Office Visit OB/Gynecology [address] [place] [address] Radha Short APRN.CN [address] [place] [address] annual OB/Gynecology Comment on above: annual Start: 07-30-2025 BP Controlled (<130/80) BP Controlled (<130/80) [facility] Start: 06-17-2025 Annual PCP Team Chronic Disease Visit Annual PCP Team Chronic Disease Visit [facility] Start: 06-17-2025 BP Controlled (<130/80) BP Controlled (<130/80) [facility] Start: 11-18-2024 Influenza vaccination Influenza Vaccine (Season Ended) [facility] Start: 11-05-2024 Hepatitis B surface antibody level LDL Cholesterol [facility] Start: 07-30-2024 End: 07-30-2024 Patient encounter procedure 07/30/2024 10:00 AM EDT Office Visit OB/Gynecology [address] [place], [place] [id number] Radha Short APRN.CN [address] [place], [place] [address] Screening for cervical cancer [Z12.4] OB/Gynecology Comment on above: Screening for cervical cancer [Z12.4] Start: 06-17-2024 End: 09-16-2024 CBC W Auto Differential panel - Blood COMPLETE BLOOD COUNT AND DIFFERENTIAL Lab Routine Routine physical examination Primary hypertension Expected: 06/17/2024, Expires: 09/16/2024 [facility] Work Phone: Comment on above: Expected: 06/17/2024, Expires: Start: 06-17-2024 End: 09-16-2024 Comprehensive metabolic 2000 panel - Serum or Plasma COMPREHENSIVE METABOLIC PANEL Lab Routine Routine physical examination Primary hypertension Expected: 06/17/2024, Expires: 09/16/2024 [facility] Comment on above: Expected: 06/17/2024, Expires: Start: 06-17-2024 End: 09-16-2024 Lipid 1996 panel - Serum or Plasma LIPID PANEL, FASTING Lab Routine Primary hypertension Expected: 06/17/2024, Expires: 09/16/2024 [facility] Comment on above: Expected: 06/17/2024, Expires: Start: 06-17-2024 End: 09-16-2024 Thyrotropin [Units/volume] in Serum or Plasma THYROID STIMULATING HORMONE Lab Routine Primary hypertension Expected: 06/17/2024, Expires: 09/16/2024 [facility] Comment on above: Expected: 06/17/2024, Expires: Start: 06-17-2024 End: 09-16-2024 Thyroxine (T4) free [Mass/volume] in Serum or Plasma T4 FREE/FREE THYROXINE Lab Routine Primary hypertension Expected: 06/17/2024, Expires: 09/16/2024 [facility] Comment on above: Expected: 06/17/2024, Expires: Start: 05-13-2024 Screening for malignant neoplasm of cervix Cervical Cancer Screening [facility] Start: 05-08-2024 [facility]c [facility] Start: 04-17-2024 Annual PCP Team Chronic Disease Visit Annual PCP Team Chronic Disease Visit [facility] Start: 11-19-2023 Covid-19 Vaccine () Covid-19 Vaccine () [facility] Start: 11-19-2023 Influenza vaccination [facility] Start: 07-27-2023 Hepatitis B surface antibody level LDL Cholesterol [facility] Start: 04-21-2023 End: 07-21-2023 CBC W Auto Differential panel - Blood CBC + DIFF Lab Routine Leukocytosis, unspecified type Expected: 04/21/2023, Expires: 07/21/2023 [facility] Work Phone: Comment on above: Expected: 04/21/2023, Expires: Start: 03-20-2023 Behavioral Health Screening Behavioral Health Screening [facility] Start: 03-20-2023 Depression Assessment Depression Assessment [facility] Start: 02-08-2023 Hepatitis B surface antibody level LDL CHOLESTEROL [facility] Start: 01-26-2023 Hemoglobin A1c measurement HbA1C [facility] Start: 01-26-2023 Hemoglobin A1c/Hemoglobin.total in Blood HbA1C [facility] Start: 01-25-2023 Hemoglobin A1c/Hemoglobin.total in Blood HBA1C [facility] Start: 11-18-2022 Covid-19 Vaccine () Covid-19 Vaccine () [facility] Start: 11-18-2022 Influenza vaccination [facility] Start: 09-29-2022 Dehydroepiandrosterone sulfate (DHEA-S) [Mass/volume] in Serum or Plasma [facility] Start: 09-29-2022 Testosterone measurement [facility] Start: 08-08-2022 Hemoglobin A1c/Hemoglobin.total in Blood HBA1C [facility] Start: 07-19-2022 ANNUAL PCP TEAM CHRONIC DISEASE VISIT ANNUAL PCP TEAM CHRONIC DISEASE VISIT [facility] Start: 07-15-2022 Hepatitis B surface antibody level LDL CHOLESTEROL [facility] Start: 03-20-2022 DEPRESSION ASSESSMENT DEPRESSION ASSESSMENT [facility] Start: 01-25-2022 Hepatitis B screening URINE ALBUMIN:CREATININE RATIO [facility] Start: 01-14-2022 Hemoglobin A1c/Hemoglobin.total in Blood HBA1C [facility] Start: 11-18-2021 Influenza vaccination [facility] Start: 07-24-2021 3 comp foot exam completed [facility] Start: 07-24-2021 Diabetic foot examination Diabetic Foot Exam [facility] Start: 03-20-2021 DEPRESSION ASSESSMENT DEPRESSION ASSESSMENT [facility] Start: 12-11-2019 Adult depression screening assessment DEPRESSION SCREENING [facility] Start: 2009 HEPATITIS B (1 of 3 - Risk 3-dose series) HEPATITIS B (1 of 3 - Risk 3-dose series) [facility] Start: 2009 Hepatitis B Vaccine (1 of 3 - 19+ 3-dose series) Hepatitis B Vaccine (1 of 3 - 19+ 3-dose series) [facility] Start: 2009 Pneumococcal vaccination Pneumococcal Vaccine (1 of 2 - PCV) [facility] Start: 2009 Urine microalbumin profile [facility] angela Start: 2008 Anxiety Screening Anxiety Screening [facility] Start: 2008 BP CONTROLLED (<130/80) BP CONTROLLED (<130/80) [facility] Start: 2008 Depression Screening Depression Screening [facility] Start: 2008 HIV SCREENING HIV SCREENING [facility] Start: 2008 HIV screening HIV Screening [facility] Start: 2006 ONE PNEUMOVAX PRIOR TO AGE 65 ONE PNEUMOVAX PRIOR TO AGE 65 [facility] Start: 2000 Glaucoma screening Dilated Retinal Exam [facility] Start: 2000 Hepatitis C antibody, confirmatory test DILATED RETINAL EXAM [facility] Start: 1996 PNEUMOCOCCAL (1 - PCV) PNEUMOCOCCAL (1 - PCV) [facility] Start: [address] [facility] Start: 06-02-1995 COVID-19 VACCINE (#1) COVID-19 VACCINE (#1) [facility] Start: 06-02-1995 COVID-19 VACCINE (1) COVID-19 VACCINE (1) [facility] Start: 1990 COVID-19 VACCINE (#1) COVID-19 VACCINE (#1) [facility] Start: 1990 HEPATITIS B (1 of 3 - 3-dose series) HEPATITIS B (1 of 3 - 3-dose series) [facility] Start: 1990 Hepatitis B Vaccine (1 of 3 - 3-dose series) Hepatitis B Vaccine (1 of 3 - 3-dose series) [facility] HIGH RISK HUMAN KEYONNA LLOMA VIRUS (HPV), PCR FOR DETECTION AND GENOTYPING HIGH RISK HUMAN PAPILLOMA VIRUS (HPV), PCR FOR DETECTION AND GENOTYPING Lab Routine Screening for cervical cancer Encounter for gynecological examination (general) (routine) with abnormal findings Encounter for screening for human papillomavirus (HPV) 07/30/2024 10:13 AM EDT [facility] PAP TEST PAP TEST Lab [place] [facility] Screening for cervical cancer Encounter for gynecological examination (general) (routine) with abnormal findings Encounter for screening for human papillomavirus (HPV) 07/30/2024 10:13 AM EDT [facility] Work Phone: Testosterone Free [Mass/volume] in Serum or Plasma [facility] Immunizations Immunization Date Immunization Notes Care Provider Misty reeves 12-18-2016 influenza virus vacc ine, unspecified formulation Flora Singh APRN.CNP Work Phone: [facility] Payers Date Payer Category Payer Self-pay [id number] 2018 Private Health Insurance MMO SU[employer] PPO [id number] 2018 Unknown MMO MMO [employer] PLUS [id number] 2018-Present [phone] [address] [place] [address] PPO [id number] 2018 Unknown [id number] 2018 Unknown [id number] 2011 Unknown [id number] Unknown [id number] Unknown [id number] Unknown [id number] Unknown [id number] Social History Date Type Detail Facility Start: 11-08-2017 End: 07-25-2022 Tobacco smoking status NHIS Unknown if ever smoked [facility] Start: 1990 Sex Assigned At Female [facility] Start: 03-05-2012 End: 12-11-2013 Tobacco smoking status NHIS Never smoked tobacco [facility] Work Phone: Start: 03-05-2012 End: 12-11-2013 Tobacco use and exposure Smokeless tobacco non-user [facility] Work Phone: Start: 07-19-2021 End: 07-30-2024 Alcohol intake Current drinker of alcohol (finding) [facility] Start: 07-22-2019 End: 01-01-2020 History SDOH Alcohol Frequency 3 [facility] Start: 07-22-2019 End: 01-01-2020 History SDOH Alcohol Std Drinks 1 [facility] Start: 07-22-2019 End: 01-01-2020 History SDOH Alcohol Binge 98 [facility] Start: 03-05-2012 History SDOH Alcohol Comment occasionally [facility] Start: 07-22-2019 End: 01-01-2020 History SDOH Social Connections Phone 2 [facility] Start: 07-22-2019 History SDOH Physical Activity DPW 0 [facility] Start: 01-01-2020 History SDOH Financial 5 [facility] Start: 07-22-2019 Education 14 [facility] Start: 07-22-2019 End: 04-17-2023 History of Social function [facility] Start: 07-22-2019 End: 04-17-2023 Social connection and isolation panel [facility] Do you belong to any clubs or organizations such as judaism groups, unions, fraternal or athletic groups, or school groups? No [facility] How often do you att end meetings of the clubs or organizations you belong to? Patient refused [facility] Are you now , , , , never or living with a partner? [facility] How often to you hav e a drink containing alcohol? 2-4 times a month [facility] How many standard dr inks containing alcohol do you have on a typical day? 1 or 2 [facility] Do you feel stress - tense, restless, nervous, or anxious, or unable to sleep at night because your mind is troubled all the time - these days [OSQ] To some extent [facility] (I/We) worried whesilvio er (my/our) food would run out before (I/we) got money to buy more. Never true [facility] Start: 03-06-2020 Gender identity Identifies as female gender (finding) [facility] Start: 07-19-2020 End: 01-25-2021 Exposure to SARS-CoV-2 (event) Not sure [facility] Medical Equipment Procedure Code Equipment Code Equipment Origin al Text Equipment Identifier Dates MEHDI AMAYA FDA Start: 09-15-2017 MEHDI AMAYA FDA Start: 09-15-2017 MEHDI AMAYA FDA Start: 09-15-2017 MEHDI AMAYA FDA Start: 09-15-2017 Test blood sugar(s) 1 times daily. Dx: Type 2 DM - Controlled E11.9 Insulin: No [id number], [id number], [id number], [id number] Start: 07-22-2019 End: 05-30-2024 Comment on above: [...] 10/13/2014 7:01 PM Paula Ward LPN No [facility] 10-13-2014 Are you blind, or do you have serious difficulty seeing, even when wearing glasses No 10/13/2014 7:01 PM Paula Ward LPN No [facility] 10-13-2014 Do you have serious difficulty walking or climbing stairs No 10/13/2014 7:01 PM Paula Ward LPN No [facility] 10-13-2014 Do you have difficul ty dressing or bathing No 10/13/2014 7:01 PM Paula Ward LPN No [facility] 10-13-2014 Because of a physica l, mental, or emotional condition, do you have difficulty doing errands alone such as visiting a physician's office or shopping No 10/13/2014 7:01 PM Paula Ward LPN No [facility] Mental Status Date Assessment Result Facility 10-13-2014 Because of a physica l, mental, or emotional condition, do you have serious difficulty concentrating, remembering, or making decisions No 10/13/2014 7:01 PM EDT Paula Buckley LPN No [facility] Clinical Notes 10-13-2014 to 07-30-2024 Radha Short APRN.CNM - 07/30/2024 9:33 AM EDTPatient Flora Bauer APRN.ORGANIC PREPARATION TECHNICIAN - 06/17/2024 5:49 PM EDTTelephone Encounter - Lidya Hess LPN - 05/30/2024 7:35 AM EDT Note Date & Type Note Facility 07-30-2024 Note HNO ID: [id number] Author: RADHA SHORT APRN.CNM Service: ? Author Type: Inspector Set Up And Lay Out Type: Progress Notes Filed: 07/30/2024 10:21 Note Text: Obstetrics and Gynecology [facility] Annual Exam Subjective Recording using ambient [employer] software for draft documentation of the visit was discussed with the patient/authorized sales representative adding machines; all questions welcomed and answered. Patient/authorized sales representative adding machines agreed to proceed CHIEF COMPLAINT: HPI: The patient is a 34-year-old female with a history of HTN, asthma, T2DM, and PCOS, presenting for a well-woman exam. The patient is new to the practice, previously receiving care at [place]. She is currently on Mounjaro for T2DM, [...] expresses interest in working with a diabetic clam bed worker to further assist with weight loss. 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 She denies any major questions or concerns at this time. HISTORY: OB History Gravida0 Para0 Term0 Preterm0 AB0 Living0 SAB0 IAB0 Ectopic0 Multiple0 Live Births0 Clin Application Specialist History LMP: 07/30/2024 (Exact Date), Having periods Age at Menarche: 11 Age at First : Age at Menopause: Clin Application Specialist History Comments: Sexual Activity: Yes; Male Contraception: Pill Menstrual Tracking History Flowsheet Row Office Visit from 07/30/2024 in OB/Gynecology Period Cycle (Days) 30 Period Duration (Days) 7 Menstrual Flow Heavy PAST MEDICAL HISTORY Diagnosis Date Asthma (HCC) Depression 09/18/2011 Formerly [facility] Psychiatric admission - sucidal thoughts DM (diabetes mellitus) ([facility]) History of PCOS Has not been on glucophage since 2006 Hypertension Infertility, female 2016 Polycystic ovary syndrome Proteinuria PAST SURGICAL HISTORY Procedure Laterality Date ADENOIDECTOMY PRIMARY Adenoidectomy APPENDECTOMY 1999 CHOLECYSTECTOMY 09/15/2017 PAST SURGICAL HISTORY OF bilateral ear ventilating tubes PAST SURGICAL HISTORY OF N/A 11/2017 [facility]oscopy at [facility] by Dr. Dominguez TONSILLECTOMY PRIMARY/SECONDARY Tonsillectomy [...] Controlled E11.9 Ins (more content not included)... [facility] 07-30-2024 History of Presen t illness Narrative Images from the original note were not included. Obstetrics and Gynecology [facility] Annual Exam Subjective Recording using [employer] software for draft documentation of the visit was discussed with the patient/authorized sales representative adding machines; all questions welcomed and answered. Patient/authorized sales representative adding machines agreed to proceed CHIEF COMPLAINT: HPI: The patient is a 34-year-old female with a history of HTN, asthma, T2DM, and PCOS, presenting for a well-woman exam. The patient is new to the practice, previously receiving care at [place]. She is currently on Mounjaro for T2DM, [...] expresses interest in working with a diabetic clam bed worker to further assist with weight loss. 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 She denies any major questions or concerns at this time. HISTORY: OB History Gravida0 Para0 Term0 Preterm0 AB0 Living0 SAB0 IAB0 Ectopic0 Multiple0 Live Births0 Clin Application Specialist History LMP: 07/30/2024 (Exact Date), Having periods Age at Menarche: 11 Age at First : Age at Menopause: Clin Application Specialist History Comments: Sexual Activity: Yes; Male Contraception: Pill Menstrual Tracking History Flowsheet Row Office Visit from 07/30/2024 in OB/Gynecology Period Cycle (Days) 30 Period Duration (Days) 7 Menstrual Flow Heavy PAST MEDICAL HISTORY Diagnosis Date Asthma (HCC) Depression 09/18/2011 Formerly [facility] Psychiatric admission - sucidal thoughts DM (diabetes mellitus) ([facility]) History of PCOS Has not been on glucophage since 2007 Hypertension Infertility, female 2016 Polycystic ovary syndrome Proteinuria PAST SURGICAL HISTORY Procedure Laterality Date ADENOIDECTOMY PRIMARY <AGE 12 Adenoidectomy APPENDECTOMY 2000 CHOLECYSTECTOMY 09/15/2017 PAST SURGICAL HISTORY OF bilateral ear ventilating tubes PAST SURGICAL HISTORY OF N/A 11/2017 [facility] Endoscopy at [facility] by Dr. Dominguez TONSILLECTOMY PRIMARY/SECONDARY <AGE [...] reviewed and discussed with patient- 07/30/2024 New PREPRINT ANALYST Intake First period 11 Still get period [...] discussed with the Patient or Patient's Authorized Body Make Up Artist. As applicable, any other physician, advance practice provider, medical student, or other health professional student that will be observing or involved in the sensitive examination for educational or training purposes was discussed with the Patient or Authorized Body Make Up Artist. The Patient or Authorized Body Make Up Artist has agreed to proceed with the sensitive [...] external genitalia normal, normal Bartholin's glands, urethra, Passapatanzy's glands, no vulvar lesions, no cervical lesions, [...] smear performed; results will be available on DLS. Next Pap smear due in 5 years [...] increased physical activity. - Referred to diabetic clam bed worker for personalized dietary plan. 5. Essential (primary) hypertension (I10) History of essential hypertension. 6. Encounter for gynecological examination (general) (routine) with abnormal findings - ICD9: V72.31, ICD10: Z01.411 (primary diagnosis) - Completed pelvic and breast exam - Encouraged monthly BSE - Follow up for annual exam in one year. - PAP TEST Radha Short APRN.CNM documented in this encounter [facility] 06-17-2024 Instructions Flora Singh APRN.CNP - 06/17/2024 6:17 PM EDT Get labs Continue current medication regimen Schedule eye exam Continue to follow with endocrinology Follow up in one year or sooner if needed documented in this encounter [facility] 06-17-2024 Note HNO ID: [id number] Author: FLORA SINGH APRN.CNP Service: ? Author [...] or pain: No. Follows with endocrinology at [place] Had labs checked labs A1C was 6.2 [...] Diagnosis Date Asthma Depression September 2011 Formerly [facility] Psychiatric admission - sucidal thoughts DM (diabetes mellitus) (HCC) History of PCOS Has not been on glucophage since 2006 Hypertension Proteinuria PAST SURGICAL HISTORY Procedure Laterality Date ADENOIDECTOMY PRIMARY Adenoidectomy APPENDECTOMY 1999 CHOLECYSTECTOMY 09/15/2017 PAST SURGICAL HISTORY OF bilateral ear ventilating tubes PAST SURGICAL HISTORY OF N/A 11/2017 [facility] Endoscopy at [facility] by Dr. Dominguez TONSILLECTOMY PRIMARY/SECONDARY Tonsillectomy [...] acute distress, well-hydrated, (more content not included)... [facility] 06-17-2024 History of Presen t illness Narrative [...] or pain: No. Follows with endocrinology at [place] Had labs checked labs A1C was 6.2 [...] Diagnosis Date Asthma Depression September 2011 Formerly [facility] Psychiatric admission - sucidal thoughts DM (diabetes mellitus) (HCC) History of PCOS Has not been on glucophage since 2006 Hypertension Proteinuria PAST SURGICAL HISTORY Procedure Laterality Date ADENOIDECTOMY PRIMARY <AGE 12 Adenoidectomy APPENDECTOMY 2000 CHOLECYSTECTOMY 09/15/2017 PAST SURGICAL HISTORY OF bilateral ear ventilating tubes PAST SURGICAL HISTORY OF N/A 11/2017 [facility] Endoscopy at [facility] by Dr. Dominguez TONSILLECTOMY PRIMARY/SECONDARY <AGE [...] Flora Singh APRN.SABINA documented in this encounter [facility] 05-30-2024 Telephone encounter Note Prescription Refill Information [...] Hess LPN May 30, 2024 7:36 AM [facility] 05-30-2024 Miscellaneous Notes Prescription Refill Information The [...] 2024 7:36 AM documented in this encounter [facility] 12-26-2023 Telephone encounter Note The following approved medication requests have been transmitted electronically. Requested Prescriptions Pending Prescriptions Disp Refills albuterol HFA (PROVENTIL HFA, VENTOLIN HFA) 90 mcg/actuation inhaler 1 Each 0 Sig: Inhale 2 Puffs as instructed every 4 hours as needed for wheezing/shortness of breath. Teressa Zuniga APRN.ORGANIC PREPARATION TECHNICIAN [facility] 12-26-2023 Miscellaneous Notes The following approved medication [...] 2023 11:07 AM documented in this encounter [facility] 12-26-2023 Telephone encounter Note Prescription Refill Information [...] Leyva MA December 26, 2023 11:07 AM [facility] 10-16-2023 Telephone encounter Note Prescription Refill Information [...] Lisa LPN October 16, 2023 10:47 AM [facility] 10-16-2023 Miscellaneous Notes Prescription Refill Information The [...] 2023 10:47 AM documented in this encounter [facility] 08-21-2023 Telephone encounter Note Patient MyChart message [...] of breath. ALLERGIES No Known Allergies (home) [phone] (cell) Last Office Visit Date: 04/17/2023 Last Distance Health Visit: Visit date not found Future Appointment: Visit date not found The patients preferred pharmacy has been captured for this encounter? yes Request is for script(s) to be escript to pharmacy. Edith Mosqueda LPN [facility] 08-21-2023 Miscellaneous Notes Patient Downt message requesting the following refill Refill(s) Requested: [...] of breath. ALLERGIES No Known Allergies (home) [phone] (cell) Last Office Visit Date: 04/17/2023 Last Distance Health Visit: Visit date not found Future Appointment: Visit date not found The patients preferred pharmacy has been captured for this encounter? yes Request is for script(s) to be escript to pharmacy. Edith Mosqueda LPN documented in this encounter [facility] 04-21-2023 Miscellaneous Notes Pt notified. She verbalized [...] Flora Singh APRN.SABINA documented in this encounter [facility] 12-27-2022 Miscellaneous Notes Patient has been identified [...] Teressa Davila LPN. documented in this encounter [facility] 02-09-2022 Miscellaneous Notes Patient has been identified by name and date of : Yes Patient phones for refill(s): Requested Prescriptions Pending Prescriptions Disp Refills glimepiride (AMARYL) 1 mg tablet 30 tablet 5 Sig: Take 1 tablet by mouth daily with breakfast. Date of last office visit in primary care: 04/12/21 Please advise. Thank you. Teressa Davila LPN documented in this encounter [facility] 09-27-2021 Miscellaneous Notes Last office visit: 07/19/21 F/u scheduled: none Ava Leyva Ma documented in this encounter [facility] 08-17-2021 Miscellaneous Notes Patient phones requesting refills as follows: Pending Prescriptions Disp Refills TRULICITY 0.75 MG/0.5 ML SUBCUTANEOUS PEN INJECTOR 2 mL 5 Sig: Inject 0.75 mg subcutaneously one time a week. Inject dose once per week. Discard Pen After SOLITARIO: No JOHN 07/19/21 NOV no upcoming appt Please review and advise. Garrison Lisa LPN documented in this encounter [facility] 07-21-2021 Miscellaneous Notes Patient has been identified [...] Debbie Castaneda LPN documented in this encounter [facility] 07-19-2021 Instructions Flora Singh APRN.SABINA - 07/19/2021 5:24 PM EDT 1. Set up w/ endocrinology. 2. When the time comes, we will need to change the lisinopril to labetalol. 3. When you decide to start trying for -- stop the trulicity. documented in this encounter [facility] 07-19-2021 History of Presen t illness Narrative This is a 31 year old female who presents today with: Patient presents with: Recheck: medication review/discuss trulicity and lisinopril HISTORY OF PRESENT ILLNESS: Mariam Ventura is a 31 year old female. Patient presents with: Recheck: medication review/discuss trulicity and lisinopril Patient presents today to discussed preconceptual counseling. She recently had an appoint with PREPRINT ANALYST. Dr. Castro -- [facility]. She is interested in . She was found to have an elevated testosterone level. Per patient PREPRINT ANALYST would like her to follow-up with endocrinology. Patient has not set up this appointment yet. She is not planning until she has had an appointment with endocrinology. She is concerned because of being on Trulicity and lisinopril. Aware that these medications will need change for . PAST MEDICAL HISTORY: PAST MEDICAL HISTORY Diagnosis Date Asthma Depression September 2011 Formerly [facility] Psychiatric admission - sucidal thoughts DM (diabetes mellitus) (HCC) History of PCOS Has not been on glucophage since 2006 Hypertension Proteinuria PAST SURGICAL HISTORY Procedure Laterality Date ADENOIDECTOMY PRIMARY <AGE 12 Adenoidectomy APPENDECTOMY 2000 CHOLECYSTECTOMY 09/15/2017 PAST SURGICAL HISTORY OF bilateral ear ventilating tubes PAST SURGICAL HISTORY OF N/A 11/2017 [facility] Endoscopy at [facility] by Dr. Dominguez TONSILLECTOMY PRIMARY/SECONDARY <AGE [...] as needed for worsening/no improvement. Flora Singh APRN.ORGANIC PREPARATION TECHNICIAN This note was partially generated using [email or web address] recognition system. Note was reviewed for accuracy. There may be minor misspellings or grammar miscues with [employer] voice recognition. documented in this encounter [facility] 05-13-2021 Note [facility] Work Phone: Pap Smear Specimen Adequacy May 13, 2021 12:00pm Comment Satisfactory for evaluation. Endocervical and/or squamous metaplasticcells (endocervical component) are present. Comment on above: Satisfactory for yoel luation. Endocervical and/or squamous metaplasticcells (endocervical component) are present. 05-13-2021 Note [facility] Work Phone: Pap Smear Specimen Adequacy May 13, 2021 12:00pm Comment Satisfactory for evaluation. Endocervical and/or squamous metaplasticcells (endocervical component) are present. Comment on above: Satisfactory for yole luation. Endocervical and/or squamous metaplasticcells (endocervical component) [...] 2021 9:59 AM documented in this encounter [facility] 08-18-2020 History of Presen t illness Narrative [...] 2020 5:45 PM documented in this encounter [facility] 10-13-2014 History of Past i llness Narrative Problem Noted Date Resolved Date DM (diabetes mellitus) 5 documented as of this encounter (statuses as of 07/19/2021) [facility] of Past illness Narrative* Problem Noted Date Resolved Date DM (diabetes mellitus) 5 documented as of this encounter (statuses as of 07/21/2021) [facility] History of Past illness Narrative* Problem Noted Date Resolved Date DM (diabetes mellitus) 5 documented as of this encounter (statuses as of 08/17/2021) [facility] History of Past illness Narrative* Problem Noted Date Resolved Date DM (diabetes mellitus) 5 documented as of this encounter (statuses as of 09/27/2021) [facility] History of Past illness Narrative* Problem Noted Date Resolved Date DM (diabetes mellitus) 5 documented as of this encounter (statuses as of 02/09/2022) [facility] History of Past illness Narrative* Problem Noted Date Resolved Date DM (diabetes mellitus) 5 documented as of this encounter (statuses as of 07/26/2022) [facility] of Past illness Narrative* Problem Noted Date Diagnosed Date Resolved Date DM (diabetes mellitus) 10/13 documented as of this encounter (statuses as of 12/27/2022) [facility] of Past illness Narrative* Problem Noted Date Diagnosed Date Resolved Date DM (diabetes mellitus) 10/13 documented as of this encounter (statuses as of 04/21/2023) [facility] noteNo assessment information availableWTriHealth [facility] Work Phone: evaluation note* Diagnosis Encounter for preconception consultation- Primary Other procreative management counseling and advice documented in this encounter [facility] note* Diagnosis Type 2 diabetes mellitus without complication, without long-term current use of insulin (HCC) documented in this encounter [facility] note* Diagnosis Type 2 diabetes mellitus without complication, without long-term current use of insulin (HCC) Uncomplicated asthma, unspecified asthma severity, unspecified whether persistent SOB (shortness of breath) Shortness of breath documented in this encounter [facility] note* Diagnosis Onset Date Resolution Status Diabetes acute Obesity acute PCOS (polycystic ovarian syndrome) acute [facility] Work Phone: evaluation note* Diagnosis Type 2 diabetes mellitus without complication, without long-term current use of insulin (HCC) documented in this encounter [facility] note* Diagnosis Onset Date Resolution Status Diabetes chronic Obesity chronic PCOS (polycystic ovarian syndrome) chronic [facility] Work Phone: evaluation note* Diagnosis Type 2 diabetes mellitus without complication, without long-term current use of insulin (HCC) documented in this encounter [facility] note* Diagnosis Leukocytosis, unspecified type- Primary documented in this encounter [facility] note* Diagnosis Type 2 diabetes mellitus without complication, without long-term current use of insulin (HCC) Uncomplicated asthma, unspecified asthma severity, unspecified whether persistent SOB (shortness of breath) Shortness of breath documented in this encounter [facility] note* Diagnosis SOB (shortness of breath) Shortness of breath documented in this encounter [facility] note* Diagnosis [facility] of right [facility] Uncomplicated asthma, unspecified asthma severity, unspecified whether persistent SOB (shortness of breath) Shortness of breath [facility] Diagnosis Uncomplicated asthma, unspecified asthma severity, unspecified whether persistent SOB (shortness of breath) Shortness of breath [facility]* Diagnosis Routine physical examination- Primary Routine general medical examination at a health care facility Leukocytosis, unspecified type Primary hypertension Unspecified essential hypertension Encounter for surveillance of contraceptive pills Surveillance of previously prescribed contraceptive pill Screening for cervical cancer Screening for malignant neoplasm of the cervix Type 2 diabetes mellitus without complication, without long-term current use of insulin (HCC) documented [facility] this [facility] Diagnosis Encounter for gynecological examination (general) [...] Unspecified essential hypertension documented in this encounter [facility] Summary Purpose Family History No Family History Records Found Relationship Condition Age at Onset Recorded Date/T omkar Not Specified Hypertension Unknown father Diabetes mellitus Unknown Coronary artery disease Unknown mother Diabetes mellitus Unknown Advance Directives No Advanced Directives Records Found Advance Directive Response Recorded Date/ Time Advance Directives No September 13 18 4:11pm Living Will No November 08 8 11:51am Power of Analyst Competitive Intelligence No November 08 018 11:51am Chief Complaint [...] section and content) DATE CREATED AUTHOR 07/30/2020 [facility] ([place]) DATE CREATED AUTHOR AUTHOR'S ORGANIZ ATION 09/18/2024 [facility] DATE CREATED AUTHOR AUTHOR'S ORGANIZ ATION 09/30/2024 [facility] Goals (unrecognized section and content) Goals may [...] or prosecute any alcohol or drug abuse patient.[facility] the event this information is protected by the Federal Confidentiality of Alcohol and Drug Abuse Patient Records regulations: The Federal rules restrict any use of the information to criminally investigate or prosecute any alcohol or drug abuse patient.[facility] the event this information is protected by the Federal Confidentiality of Alcohol and Drug Abuse Patient Records regulations: The Federal rules restrict any use of the information to criminally investigate or prosecute any alcohol or drug abuse patient.[facility] CenterIn the event this information is protected by the Federal Confidentiality of Alcohol and Drug Abuse Patient Records regulations: The Federal rules restrict any use of the information to criminally investigate or prosecute any alcohol or drug abuse patient.[facility] CenterIn the event this information is protected by the Federal Confidentiality of Alcohol and Drug Abuse Patient Records regulations: The Federal rules restrict any use of the information to criminally investigate or prosecute any alcohol or drug abuse patient.[facility] CenterIn the event this information is protected by the Federal Confidentiality of Alcohol and Drug Abuse Patient Records regulations: The Federal rules restrict any use of the information to criminally investigate or prosecute any alcohol or drug abuse patient.[facility] CenterIn the event this information is protected by the Federal Confidentiality of Alcohol and Drug Abuse Patient Records regulations: The Federal rules restrict any use of the information to criminally investigate or prosecute any alcohol or drug abuse patient.[facility] CenterIn the event this information is protected by the Federal Confidentiality of Alcohol and Drug Abuse Patient Records regulations: The Federal rules restrict any use of the information to criminally investigate or prosecute any alcohol or drug abuse patient.[facility] CenterIn the event this information is protected by the Federal Confidentiality of Alcohol and Drug Abuse Patient Records regulations: The Federal rules restrict any use of the information to criminally investigate or prosecute any alcohol or drug abuse patient.[facility] CenterIn the event this information is protected by the Federal Confidentiality of Alcohol and Drug Abuse Patient Records regulations: The Federal rules restrict any use of the information to criminally investigate or prosecute any alcohol or drug abuse patient.[facility] CenterIn the event this information is protected by the Federal Confidentiality of Alcohol and Drug Abuse Patient Records regulations: The Federal rules restrict any use of the information to criminally investigate or prosecute any alcohol or drug abuse patient.[facility] CenterIn the event this information is protected by the Federal Confidentiality of Alcohol and Drug Abuse Patient Records regulations: The Federal rules restrict any use of the information to criminally investigate or prosecute any alcohol or drug abuse patient.[facility] CenterIn the event this information is protected by the Federal Confidentiality of Alcohol and Drug Abuse Patient Records regulations: The Federal rules restrict any use of the information to criminally investigate or prosecute any alcohol or drug abuse patient.[facility] CenterIn the event this information is protected by the Federal Confidentiality of Alcohol and Drug Abuse Patient Records regulations: The Federal rules restrict any use of the information to criminally investigate or prosecute any alcohol or drug abuse patient.[facility] CenterIn the event this information is protected by the Federal Confidentiality of Alcohol and Drug Abuse Patient Records regulations: The Federal rules restrict any use of the information to criminally investigate or prosecute any alcohol or drug abuse patient.[facility] CenterIn the event this information is protected by the Federal Confidentiality of Alcohol and Drug Abuse Patient Records regulations: The Federal rules restrict any use of the information to criminally investigate or prosecute any alcohol or drug abuse patient.[facility] Reason for Visit (unrecogniz ed section and [...] cervical cancer Procedures CONSULT TO GYNECOLOGY OFFICE/OUTPATIENT [facility] 60 MINUTES Flora Singh APRN.SABINA [address] [place] [address] Phone: tel: fax: Referral ID Status Reason Start Date Expiration Date V isits Requested Visits Authorized [id number] Closed PCP Requested Referral Auto-Generated Referral 06/17/2024 06/17/2025 1 1 Care Teams (unrecognized sec tion and content) Skate Hop Relationship Specialty Start Date End Date Surendra Benton MD [address] [place], [place] [id number] PCP - General Family Practice 11/26/13 Skate Hop Relationship Specialty Start Date End Date Surendra Benton MD [address] [place], [place] [id number] PCP - General Family Practice 11/26/13 Skate Hop Relationship Specialty Start Date End Date Surendra Benton MD [address] [place], [place] [id number] PCP - General Family Practice 11/26/13 Skate Hop Relationship Specialty Start Date End Date Surendra Benton MD [address] [place], [place] [address] PCP - General Family Practice 11/26/13 Skate Hop Relationship Specialty Start Date End Date Surendra Benton MD [address] [place], [place] [id number] PCP - General Family Medicine 11/26/13 Skate Hop Relationship Specialty Start Date End Date Surendra Benton MD [address] [place], [place] [id number] PCP - General Family Medicine 11/26/13 Team [...] Dr. Jonatan Interiano MD Other Provider Active Skate Hop Relationship Specialty Start Date End Date Suerndra Benton MD [address] [place] [address] PCP - General Family Medicine 11/26/13 Skate Hop Relationship Specialty Start Date End Date Surendra Benton MD [address] [place], [place] [id number] PCP - General Family Medicine 11/26/13 Skate Hop Relationship Specialty Start Date End Date Surendra Benton MD [address] [place] [address] PCP - General Family Medicine 11/26/13 Skate Hop Relationship Specialty Start Date End Date Surendra Benton MD [address] [facility] [place] [address] PCP - General Family Medicine 11/26/13 Skate Hop Relationship Specialty Start Date End Date Surendra Benton MD [address] [place] [address] PCP - General Family Medicine 11/26/13 Skate Hop Relationship Specialty Start Date End Date Surendra Benton MD [address] [place] [address] PCP - General Family Medicine 11/26/13 Skate Hop Relationship Specialty Start Date End Date Surendra Benton MD [address] [place] [address] PCP - General Family Medicine 11/26/13 Flora Singh, VTC TECHNICIAN.ORGANIC PREPARATION TECHNICIAN [address] [facility] [place] [address] [facility] 02/26/24 Teressa Zuniga VTC TECHNICIAN.ORGANIC PREPARATION TECHNICIAN [address] [place] [address] [facility] 02/26/24 Skate Hop Relationship Specialty Start Date End Date Surendra Benton MD [address] [place] [address] PCP - General Family Medicine 11/26/13 Flora Singh, VTC TECHNICIAN.ORGANIC PREPARATION TECHNICIAN [address] [place], [place] [address] [facility] 02/26/24 Teressa Zuniga APRN.ORGANIC PREPARATION TECHNICIAN [address] [place], [place] [address] [facility] 02/26/24 Skate Hop Relationship Specialty Start Date End Date Surendra Benton MD [address] [place], [place] [id number] PCP - General Family Medicine 11/26/13 Flora Singh APRN.ORGANIC PREPARATION TECHNICIAN [address] [place], [place] [id number] [facility] 02/26/24 Teressa Zuniga APRN.ORGANIC PREPARATION TECHNICIAN [address] [place], [place] [address] [facility] 02/26/24 FOR RECORDS PERTAINING TO PATIENTS WHO [...] BE BASED ON THE PRIMARY CLINICAL RECORDS. [employer] provides no warranty or guarantee of the accuracy or completeness of information in this document.
== END | disposition home or self-care (01) ==
PROVIDERS: PCP Family Medicine; Referring Provider Internal Medicine Nephrology; Visit Provider Internal Medicine Nephrology
DX: E11.21 Type 2 diabetes mellitus with diabetic nephropathy (principal)
CPT/HCPCS: 36415; 80069; 82570; 84156

== ENCOUNTER 2025-02-13 15:59 | Emergency (ER) | payer OTHER, SELFPAY ==
[2025-02-13 16:00] VITALS: BP 158/100; PULSE 110; RESP 22; TEMP 36.1; O2SAT 100; BMI 53.3
--- NOTE | 2025-02-13 16:33 | EX.ED.DYSGE1 ---
HPI History of Present Illness Chief Complaint: Lower Extremity Injury Narrative Narrative: Chief complaint and HPI: 34-year-old female presents for evaluation of left foot and ankle pain. Patient states last Monday she had a mechanical fall walking up steps and developed pain to her left foot and ankle. States she has been using Tylenol as needed for pain. Has developed swelling to the left distal foot. No ice but elevation. Review of systems: See HPI Medications: As listed on the chart Allergies: As listed on the chart PFSH: Per chart Vital signs: As listed on the chart. Reviewed. Physical exam: Gen: A&O, NAD Eyes: No sclera icterus, conjunctiva clear ENT: Moist mucous membranes CV: Regular rate Resp: Nonlabored respirations Musc: Full ROM of all the extremities including the left lower extremity, strength +5/5 in bilateral lower extremities, patient has left dorsal distal swelling of the foot without ecchymosis, small blister to the dorsal left distal foot without erythema, DP/PT pulses +2 bilaterally, good capillary refill, sensation intact, patient has mild tenderness to palpation over the left dorsal distal foot where the swelling is located, no Achilles tenderness and Achilles intact, no calcaneus tenderness, no significant tenderness over the ankle Skin: Warm, dry Neuro: Alert, oriented, grossly intact Psych: Cooperative, appropriate mood and affect [facility] Medical History Hyperandrogenism Obesity PCOS (polycystic ovarian syndrome) Diabetes Home Medications ?Medication ?Instructions ?Recorded ?Last Taken ?Type albuterol sulfate 90 mcg/actuation 1 - 2 puff inhalation Q6H PRN PRN 10/20/17 Unknown History aerosol inhaler (ProAir HFA) Shortness Of Breath cinnamon bark 500 mg capsule 500 mg PO DAILY 10/20/17 Unknown History norethindrone (contraceptive) 0.35 0.35 mg PO QDAY 11/27/23 Unknown History mg tablet metformin 1,000 mg 24 hr 1,000 mg PO BID #60 tabs 05/23/24 Unknown Rx tablet,extended release (gastric reten.) multivitamin 1 tab PO QAM 05/23/24 Unknown History empagliflozin 25 mg tablet 25 mg PO QAM #30 tabs 08/13/24 Unknown Rx (Jardiance) blood pressure kit-extra large #1 ea 11/22/24 Unknown Rx tirzepatide 7.5 mg/0.5 mL 7.5 mg (0.5 mL) subcut QWEEK #2 mL 11/22/24 Unknown Rx subcutaneous pen injector (Mounjaro) Allergy/AdvReac Type Severity Reaction Status Date / Time No Known Allergies Allergy Verified 02/13/25 16:01 Family History Father Diabetes CAD (coronary artery disease) Mother Diabetes Other Hypertension Social History Smoking Status: Former smoker alcohol intake: current alcohol intake frequency: 0-2 drinks per day EXAM Physical Exam Const Vital Signs: 02/13/25 16:00 02/13/25 18:04 Temperature 97 F L 98 F Temperature Source Temporal Pulse Rate 110 H 91 Respiratory Rate 22 H 14 Blood Pressure 158/100 H 136/79 H Blood Pressure Mean 119 98 Pulse Ox 100 97 Oxygen Delivery Method Room Air MDM MDM MDM Narrative Medical decision making narrative: 34-year-old female presents for evaluation of left foot and ankle pain. Patient states last Monday she had a mechanical fall walking up steps and developed pain to her left foot and ankle. States she has been using Tylenol as needed for pain. Differential diagnosis includes but is not limited to contusion, fracture, sprain. X-ray of the foot and ankle obtained. X-ray of the foot and ankle were personally viewed interpreted by nm, ED physician. No fracture or dislocation. Radiology in agreement. Patient's pain is likely secondary to contusion versus sprain. Follow-up with primary care physician. Tylenol Motrin as needed for pain. Ice and elevation as needed for swelling. Return back to ED symptoms change or worsen. She vermin understand the plan. Patient discharged home. Impression: 1. Left foot pain 2. Left ankle pain 3. Mechanical fall Radiography Diagnostic Testing: Clinical Impression(s) from Imaging Studies Ankle X-Ray 02/13/25 17:10 IMPRESSION: No acute fracture or dislocation. Reading Location: [facility] Foot X-Ray 02/13/25 17:10 IMPRESSION: No acute fracture or dislocation. Reading Location: [facility] Discharge Plan Triage Chief Complaint: Lower Extremity Injury ED Provider: Azam Jarvis Dx/Rx/DC Orders Prescriptions: No Action norethindrone (contraceptive) 0.35 mg tablet 0.35 mg PO QDAY multivitamin Tablet 1 tab PO QAM metformin 1,000 mg tablet,ER janes.retention 24 hr 1,000 mg PO BID Qty: 60 7RF (DME) blood pressure kit-extra large Kit See Rx Instructions .Route Qty: 1 0RF Rx Instructions: 3 days per week Mounjaro 7.5 mg/0.5 mL pen injector 7.5 mg subcut QWEEK Qty: 2 3RF albuterol sulfate [ProAir HFA] 1 PUFF inhaler 1 - 2 puff inhalation Q6H PRN PRN (Reason: Shortness Of Breath) cinnamon bark 500 MG capsule 500 mg PO DAILY Jardiance 25 mg tablet 25 mg PO QAM Qty: 30 8RF Primary Care Provider: Surendra Benton Referrals: Surendra Benton MD [Primary Care Provider, Medical] Print Language: Montenegrin
--- NOTE | 2025-02-13 17:10 | RAD_ITS ---
PROCEDURE: LEFT FOOT MIN 3 VIEWS; ANKLE MIN 3 VIEWS 02/13/2025 REASON FOR EXAM: PAIN TECHNIQUE: Procedure Code: RADFO; RADANK Modality: DX Procedure: FOOT MIN 3 VIEWS; ANKLE MIN 3 VIEWS Laterality: Left COMPARISON: None. FINDINGS: No acute fracture or dislocation. Alignment is anatomic. Preserved joint spaces. No aggressive osseous lesion. No appreciable focal soft tissue swelling or radiopaque foreign body. RAD/Ankle min 3 Views IMPRESSION: No acute fracture or dislocation. Reading Location: [id number]
--- NOTE | 2025-02-13 17:10 | RAD_ITS ---
PROCEDURE: LEFT FOOT MIN 3 VIEWS; ANKLE MIN 3 VIEWS 02/13/2025 REASON FOR EXAM: PAIN TECHNIQUE: Procedure Code: RADFO; RADANK Modality: DX Procedure: FOOT MIN 3 VIEWS; ANKLE MIN 3 VIEWS Laterality: Left COMPARISON: None. FINDINGS: No acute fracture or dislocation. Alignment is anatomic. Preserved joint spaces. No aggressive osseous lesion. No appreciable focal soft tissue swelling or radiopaque foreign body. RAD/Foot min 3 Views IMPRESSION: No acute fracture or dislocation. Reading Location: [id number]
--- OUTSIDE RECORDS SUMMARY | 2025-02-13 17:34 | XMS RPT_ITS | CCD ---
Author Organization [facility] Care Team Providers Care Notcher Name Role Phone Surendra Benton MD Primary Care Provider Dr. Surendra Benton Primary Care Provider Dr. Surendra Benton Referring Provider Dr. Jonatan Interiano Attending Provider Surendra Benton MD Primary Care Provider Dr. Surendra Benton Primary Care Provider Dr. Surendra Benton Referring Provider Dr. Jonatan Interiano Attending Provider Surendra Benton MD Primary Care Provider Francisco AP PROCESSOR.Flora MUHAMMAD Unavailable Suppan AP PROCESSOR.HYDRAULIC ASSEMBLER, Teressa A Unavailable SURENDRA BENTON Primary Care Unavailable FLORA SINGH Attending Unavailable RADHA SHORT Attending Unavailable SURENDRA BENTON Primary Care Unavailable FLORA SINGH Referring Unavailable Dr. Surendra Benton MD Primary Care Provider [phone] Dr. Katelin Crump DO Attending Provider Dr. Katelin Crump DO Referring Provider Dr. Surendra Benton MD Referring Provider Dr. Jonatan Interiano MD Attending Provider Jonatan Interiano Attending Unavailable Surendra Benton Referring Unavailable Surendra Benton Primary Care Unavailable Jonatan Interiano Attending Unavailable Surendra Benton Referring Unavailable Surendra Benton Primary Care Unavailable Surendra Benton Primary Care Unavailable Katelin Crump Referring Unavailable Katelin Crump Attending Unavailable Surendra Benton Primary Care Unavailable Jonatan Interiano Attending Unavailable Surendra Benton Referring Unavailable Medications Current Medications Medication Drug Class(es) Dates Sig (Normalized) Sig (Original) [id number] 200 actuat albuterol 0.09 mg/actuat metered dose [...] 1 PUFF inhaler Active 1 - 2 NMA INHALATION EVERY 6 HOURS NEEDED as needed for Shortness Of Breath October 20, 2017 12:00am Start: 10-20-2017 take 1 puff(s) by in halation every six hours as needed Albuterol Sulfate (Proair Hfa (Sp)Vent Pts) 1 PUFF inhaler Active 1 - 2 PUFF INHALATION EVERY 6 HOURS NEEDED October 20, 2017 12:00am Comment on above: Inhale 2 Puffs as in structed every 4 hours as needed for wheezing/shortness of breath. Blood Pressure Kit-Extra Large kit (1 source) Start: Blood Pressure Kit-Extra Large kit Active 0 .Route 1 0 November 22, 2024 12:00am 3 days per week cinnamon bark 500 mg oral capsule (20 sources) Start: 8 take 1 capsule by mouth once daily Cinnamon Bark 500 MG capsule Active 500 mg PO DAILY October 20, 2017 12:00am End: 07-30-2024 CINNAMON BARK (CINNAMON ORAL ) Take by mouth once daily. 07/30/2024 Discontinued (Course of therapy completed) CINNAMON BARK (C INNAMON ORAL) Take by mouth once daily. Active CINNAMON BARK (C INNAMON ORAL) Take by mouth once daily. 0 Active Comment on above: Take by mouth once d aily. empagliflozin 25 mg oral tablet (8 sources) Sodium-Glucose Cotransporter 2 Inhibitor Start: 11-27-19 End: 08-14-19 25 take 1 tablet by mouth once daily in the morning Empagliflozin (Jardiance) 25 mg tablet Active 25 mg PO EVERY MORNING 30 August 13, 2024 4:51pm modified 24 hr metFORMIN hydrochloride 1000 mg extended release oral tablet (20 sources) Biguanide Start: 11-27-19 End: 05-24-19 25 take 1 tablet by mouth twice daily Metformin 1,000 mg tablet,ER janes.retention 24 hr Active 1000 mg PO TWICE A DAY 60 May 23, 2024 9:11am Start: 11-29-2022 End: 11-27-2023 take 1 tablet by mouth twice daily Metformin 1,000 mg tablet extended release 24 hr Discontinued 1000 mg PO TWICE A DAY 60 2023 8:28am November 27, 2023 8:36am Start: 09-30-2021 End: 02-24-2022 take 1 tablet by mouth every twenty-four hours Metformin 500 mg tablet extended release 24 hr Discontinued 500 mg PO September 30, 2021 12:00am February 24, 2022 10:06am Start: 07-24-2020 End: 12-27-2022 take 2 tablets by mouth twice daily metFORMIN ER (GLUCOPHAGE XR) 500 mg 24 hr tablet Indications: Type 2 diabetes mellitus without complication, without long-term current use of insulin (HCC) Take 2 tablets by mouth two times a day. 120 tablet 11 12/27/2022 Active Start: 10-20-2017 End: 11-29-2022 take 1 tablet by mouth twice daily at mealtime Metformin 1,000 mg tablet Discontinued 1000 mg PO TWICE DAILY WITH MEALS 60 July 25, 2022 8:55am November 29, 2022 8:19am Comment on above: Take 2 tablets by mo uth twice daily. Take 2 tablets by mo uth two times a day. MOUNJARO 2.5 mg/0.5 mL pen injector (3 sources) Start: 07-16-19 25 inject 2.5 mg by subcutaneous injection every week MOUNJARO 2.5 mg/0.5 mL pen injector Inject 2.5 mg subcutaneously one time a week. 07/15/2024 Active multivit-min/iron fum/folic ac (ONE-A-DAY WOMEN'S COMPLETE ORAL) (3 sources) multivit-min/iro n fum/folic ac (ONE-A-DAY WOMEN'S COMPLETE ORAL) Take by mouth. Active Multivitamin tablet (2 sources) Start: 05-24-19 25 Multivitamin tablet Active 1 {tbl} PO EVERY MORNING May 23, 2024 1:00am omeprazole 20 mg delayed release oral capsule (15 sources) Proton Pump Inhibitor Start: 04-17-19 24 take 1 capsule by mouth once daily before breakfast omeprazole (PRILOSEC) 20 mg capsule Take 1 capsule by mouth daily before breakfast. 1/2 hr before meal. 30 capsule 3 04/17/2023 Active Start: 10-20-2017 End: 07-25-2022 take 1 tablet by mouth once daily Omeprazole 20 MG tablet,delayed release (DR/EC) Discontinued 20 mg PO DAILY 30 October 20, 2017 12:00am July 25, 2022 8:44am Comment on above: Take 1 capsule by mo uth daily before breakfast. 1/2 hr before meal. Tirzepatide (Mounjaro) 7.5 mg/0.5 mL pen injector (1 source) Start: 11-22-2024 Tirzepatide (Mounjaro) 7.5 mg/0.5 mL pen injector Active 7.5 mg SC EVERY WEEK 2 3 November 22, 2024 12:00am Completed/Discontinued Medications Medication Drug Class(es) Dates Sig (Normalized) Sig (Original) 0.5 ml dulaglutide 3 mg/ml auto-injector (20 sources) GLP-1 Receptor Agonist Start: 09-13-2023 End: 05-23-2024 Dulaglutide (Trulicity) 1.5 mg/0.5 mL pen injector Discontinued 1.5 mg SC EVERY WEEK 2 November 27, 2023 8:36am May 23, 2024 9:11am Start: 2023 End: 11-27-2023 Dulaglutide (Trulicity) 4.5 mg/0.5 mL pen injector Discontinued 4.5 mg SC EVERY WEEK 2 2023 8:27am November 27, 2023 8:35am Start: 04-06-2023 End: 2023 Dulaglutide (Trulicity) 4.5 mg/0.5 mL pen injector Discontinued 4.5 mg SC EVERY WEEK 2 April 06, 2023 4:53pm 2023 8:28am Start: 07-25-2022 End: 04-06-2023 Dulaglutide (Trulicity) 4.5 mg/0.5 mL pen injector Discontinued 4.5 mg SC EVERY WEEK 2 6 July 25, 2022 12:00am April 06, 2023 4:53pm Start: 07-25-2022 Dulaglutide (T rulicity) 4.5 mg/0.5 mL pen injector Active 4.5 MG SC EVERY WEEK 2 July 25, 2022 12:00am Start: 02-24-2022 End: 07-25-2022 Dulaglutide (Trulicity) 3 mg /0.5 mL pen injector Discontinued 3 mg SC EVERY WEEK 6 February 24, 2022 1:00am July 25, 2022 8:54am Start: 02-24-2022 End: 07-25-2022 Dulaglutide (Trulicity) 3 mg /0.5 mL pen injector Discontinued 3 MG SC EVERY WEEK 6 February 24, 2022 1:00am July 25, 2022 8:54am Start: 10-19-2021 End: 02-24-2022 Dulaglutide (Trulicity) 1.5 mg/0.5 mL pen injector Discontinued 1.5 mg SC EVERY WEEK 2 October 19, 2021 [...] dose once per week. Discard Pen After 120 actuat fluticasone propionate 0.044 mg/actuat metered dose inhaler (3 sources) Corticosteroid Start : 01-25 End: 07-24 take 1 puff(s) by mouth twice daily fluticasone (FLOVENT HFA) 44 mcg/actuation inhaler Inhale 1 Puff as instructed twice daily. Shake well before use. Rinse mouth after use. 1 Each 5 01/25/2021 07/24/2021 Comment on above: Inhale 1 Puff as ins tructed twice daily. Shake well before use. Rinse mouth after use. glimepiride 1 mg oral tablet (20 sources) Sulfonylurea Start : 10-20 End: 07-30 take 1 tablet by mouth once daily Glimepiride 1 MG tablet Discontinued 1 mg PO DAILY October 20, 2017 12:00am July 25, 2022 8:43am Comment on above: Take 1 tablet by mae th daily with breakfast. hydroCHLOROthiazide 25 mg oral tablet (6 sources) Thiazide Diuretic Start : 10-20 End: 02-24 Hydrochlorothiazide 25 MG tablet Discontinued 12.5 mg PO DAILY October 20, 2017 12:00am February 24, 2022 10:06am Start: 10-20-2017 End: 02-24-2022 take 12.5 mg by mouth once daily Hydrochlorothiazide Discontinued 12.5 MG PO DAILY October 20, 2017 12:00am February 24, 2022 10:06am lisinopril 30 mg oral tablet (20 sources) Angiotensin Converting Enzyme Inhibitor Start: 09-30-2021 End: 11-22-2024 take 1 tablet by mouth once daily Lisinopril 30 mg tablet Discontinued 30 mg PO DAILY 90 October 09, 2024 12:02pm November 22, 2024 8:15am Start: 10-20-2017 End: 02-24-2022 take 1 tablet by mouth once daily Lisinopril (Zestril) 20 MG tablet Discontinued 20 mg PO DAILY October 20, 2017 12:00am February 24, 2022 10:06am take 3 tablets by mo [facility] once daily lisinopril (ZESTRIL, PRINIVIL) 10 mg tablet Take 30 mg by mouth once daily. Active Comment on above: Take 30 mg by mouth once daily. norethindrone 0.35 mg oral tablet (20 sources) Start: 09-30-2021 Norethindrone (Contraceptive) Active TAB PO September 30, 2021 12:00am Start: 07-19-2021 End: 07-30-2024 Norethindrone (Contraceptive ) 0.35 mg tablet Discontinued NMA PO September 30, 2021 12:00am November 27, 2023 8:24am Comment on above: Take 1 tablet by mae once daily. vit-iron fumarate-fa () 28 mg iron- 800 mcg tab (14 sources) Start: 07-19-2021 End: 07-30-2024 take 1 tablet by mouth once daily [...] 1 tablet by mae th once daily. Tirzepatide (Mounjaro) 2.5 mg/0.5 mL pen injector (4 sources) Start: 08-13-2024 End: 09-19-2024 Tirzepatide (Mounjaro) 2.5 mg/0.5 mL pen injector Discontinued 2.5 mg SC EVERY WEEK 2 0 August 13, 2024 4:51pm September 19, 2024 10:21am for 4 weeks Start: 05-23-2024 End: 08-13-2024 Tirzepatide (Mounjaro) 2.5 m g/0.5 mL pen injector Discontinued 2.5 mg SC EVERY WEEK 2 May 23, 2024 1:00am August 13, 2024 4:52pm for 4 weeks Tirzepatide (Mounjaro) 5 mg/ 0.5 mL pen injector (2 sources) Start: 09-19-2024 End: 11-22-2024 Tirzepatide (Mounjaro) 5 mg/ 0.5 mL pen injector Discontinued 5 mg SC EVERY WEEK 2 September 19, 2024 12:00am November 22, 2024 8:16am Start: 09-19-2024 Tirzepatide (M ounjaro) 5 mg/0.5 mL pen injector Active 5 mg SC EVERY WEEK 2 September 19, 2024 12:00am TRULICITY 4.5 mg/0.5 mL pen injector (7 sources) Start: 04-06-2023 End: 07-30-2024 inject 0.5 mL by subcutaneous injection every [...] sources) Asthma; Translations: [Unspecified asthma, uncomplicated] Onset: 5 10-13-2014 Chronic Diabetes mellitus with complications (1 source) Type 2 diabetes mellitus with diabetic nephropathy; Translations: [Type 2 diabetes mellitus with diabetic nephropathy] Onset: 5 Chronic Diabetes mellitus without complication (20 sources) Diabetes mellitus; Translations: [Type 2 diabetes mellitus without complications] Onset: 5 Resolved: 5 01-19-2015 Chronic Diseases of white blood cells (3 sources) Leukocytosis; Translations: [Elevated white blood cell count, unspecified] Onset: 5 04-21-2023 Chronic Essential hypertension (20 sources) Hypertensive disorder; Translations: [Essential (primary) hypertension] Onset: 4 01-13-2014 Chronic Immunizations and screening for infectious disease (1 source) Encounter for screening for human papillomavirus (HPV); Translations: [Encounter for screening for human papillomavirus (HPV)] Onset: 5 Episodic Other endocrine disorders (8 sources) Polycystic ovary syndrome; Translations: [Polycystic ovarian syndrome] Onset: 5 07-25-2022 Chronic Other endocrine disorders (3 sources) Polycystic ovarian syndrome; Translations: [Polycystic ovaries] Onset: 5 Chronic Other endocrine disorders (2 sources) Hyperandrogenization syndrome; 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] 11-29-2022 Chronic Other lower respiratory disease (5 sources) Dyspnea; Translations: [Shortness of breath] Episodic Other non-traumatic joint disorders (1 source) Pain in right knee; Translations: [Pain in joint, lower leg] 08-18-2020 Episodic Other nutritional; endocrine; and metabolic disorders (18 sources) Morbid obesity; Translations: [Morbid (severe) obesity due to excess calories] Onset: 4 01-13-2014 Chronic Other nutritional; endocrine; and metabolic disorders (4 sources) Obesity; Translations: [Obesity, unspecified] 07-25-2022 Chronic [...] Body mass index (BMI) 50.0-59.9, adult; Translations: [Class 3 severe obesity with serious comorbidity and body mass index (BMI) of 50.0 to 59.9 in adult, unspecified obesity type] Onset: 5 Chronic Other nutritional; endocrine; and metabolic disorders (1 source) Morbid (severe) obesity due to excess calories; Translations: [Morbid (severe) obesity due to excess calories] Onset: 5 Chronic Unclassified (1 source) Cancer cervix screening status 06-17-2024 Unclassified (1 source) Class 3 severe obesity with serious comorbidity and body mass index (BMI) of 50.0 to 59.9 in adult, unspecified obesity type; Translations: [Class 3 severe obesity with serious comorbidity and body mass index (BMI) of 50.0 to 59.9 in adult, unspecified obesity type] Onset: 5 Past or Other Problems Problem Classification Problem Date Documented Da te Episodic/Chronic Contraceptive and procreative management (5 sources) Patient encounter status; Translations: [Encounter for other general counseling and advice on procreation] Onset: 06-17-2024 Episodic Genitourinary symptoms and ill-defined conditions (18 sources) Proteinuria; Translations: [Proteinuria, unspecified] Onset: 01-13-2014 07-28-2016 Episodic Other screening for suspected conditions (not mental disorders or infectious disease) (3 sources) Cancer cervix screening status; Translations: [Encounter for screening for malignant neoplasm of cervix] Onset: 06-17-2024 06-17-2024 Episodic Results Test Name Value Interpretation Reference Range Facility Endocrinology Visit Reporton 11-22-2024 Endocrinology Visit Report [facility] [address] [place] [address] OFFICE VISIT Date of Service: 11/22/24 MR#: [id number] Acct: [id number] Name: MARIAM VENTURA Rep #: [id number] : 1990 Provider: Amy Drake Age/Sex: 34/F Location: [facility] Status: Signed Intake Vital Signs 05/23/24 07:55 11/22/24 08:00 Height 5 ft 3 in 5 ft 3 in Weight: 309 lb 297 lb BMI 54.7 52.6 BP 136/88 H 123/75 H Blood Pressure Location Rt brachial Lt brachial Position Sitting Sitting Pulse 83 80 Pulse Source Monitor Monitor Pulse Oximetry (%) 99 98 Oxygen Delivery Method room air room air Intake Visit Reasons: 6 M FU Chief Complaint: Diabetes Recyclable Materials Sorter Required: No Accompanied by: Self Is patient in pain?: No Allergies No Known Allergies Allergy (Verified 11/22/24 08:00) Medications ???Medication ???Instructions ???Recorded ???Confirmed ???Type albuterol sulfate 90 mcg/actuation 1 - 2 puff inhalation Q6H PRN AL N 10/20/17 11/22/24 History aerosol inhaler (ProAir HFA) Shortness Of Breath cinnamon bark 500 mg capsule 500 mg PO DAILY 10/20/17 11/22/24 History norethindrone (contraceptive) 0.35 0.35 mg PO QDAY 11/27/23 5 History mg tablet metformin 1,000 mg 24 hr 1,000 mg PO BID #60 tabs 05/23/24 11/22/24 Rx tablet,extended release (gastric reten.) multivitamin 1 tab PO QAM 05/23/24 11/22/24 His tory empagliflozin 25 mg tablet 25 mg PO QAM #30 tabs 08/13/2408/11 Rx (Jardiance) blood pressure kit-extra large #1 ea 11/22/24 11/22/24 Rx tirzepatide 7.5 mg/0.5 mL 7.5 mg (0.5 mL) subcut QWEEK #2 mL 11/22/24 11/22/24 Rx subcutaneous pen injector (Mounjaro) [facility] Medical History Hyperandrogenism Obesity PCOS (polycystic ovarian syndrome) Diabetes Family History Father Diabetes CAD (coronary artery disease) Mother Diabetes Other Hypertension Social History Smoking Status: Former smoker alcohol intake: current alcohol intake frequency: 0-2 drinks per day HPI HPI Chief Complaint: Diabetes Details: MARIAM VENTURA, is a 34 F who presents to the office today for follow up. A1C is 6.1% She is taking Metformin 1 g bid, Mounjaro 5 mg and Jardiance 25 mg. She has proteinuria, renal function is stable and she has been released from nephrology. She has lost 12 pounds this year, 18 pounds in the past one year. She is tolerating Mounjaro, with some constipation, relieved with Metamucil. She is taking lisinopril 30 mg. She has had multiple episodes of dizziness associated with systolic blood pressure under 100 mm Hg. ROS Const Constitutional: No fatigue, weakness, weight change or change in appetite Eyes Eyes: No change in vision ENT ENT: Positive for dizziness/vertigo; No hearing loss, nasal congestion or difficulty swallowing Cardio Cardiology: No chest pain at rest, chest pain with exertion or shortness of breath Musc Musculoskeletal: No numbness Neuro Neurology: No weakness, memory loss or numbness Psych Psychiatric: No change in appetite, No memory loss and No Thoughts of harming yourself/Others Resp Respiratory: No cough or chest congestion Gastro GI: Positive for constipation; No difficulty swallowing Genitourinary-Female : No burning urination [...] CN's II-XI intact bilaterally Cognition: normal cognition Spe (more content not included)... Normal [facility] MICROALBUMIN/CREATININE UR W RATIO (EXTERNAL)Ordered By: Raegan Aguero on 10-03-2024 Albumin/Creat Ratio 88 [facility] Creatinine Urine 173 [facility] Microalbumin, Random urine 15.2 [facility] Anion gap in Serum or Plasma Ordered By: Katelin Crump on 10-01-2024 Anion gap [Moles/Vol] 17 mmol/L High 5-15 [facility] BUN/creatinine ratioOrdered By: Katelin Crump on 10-01-2024 Urea nitrogen/Creatinine [Mass ratio] 15.6 mg/mg 10-20 [facility] Carbon dioxide, total [Moles /volume] in Central venous bloodOrdered By: Katelin Crump on 10-01-2024 CO2 [Moles/Vol] 19.0 mmol/L Low 21.0-32.0 [facility] Chloride assayOrdered By: Mona Crump on 10-01-2024 Chloride [Moles/Vol] 101 mmol/L 98-108 [facility] Glomerular filtration rate ( GFR) estimation/1.73 sq m using serum, plasma, or whole bOrdered By: Katelin Crump on 10-01-2024 GFR/1.73 sq M.predicted among non-blacks MDRD (S/P/Bld) [Vol rate/Area] 81 mL/min/{1.73_m2} >60 [facility] Comment on above: mL/min/1.73m2 CKD-EP I Creatinine Equation (2020) Potassium measurement (mass/ volume)Ordered By: Katelin Crump on 10-01-2024 Potassium (Unsp spec) [Mass/Vol] 4.0 mmol/L 3.3-5.1 [facility] Protein+Creatinine Ratio,Uri neon 10-01-2024 PROT:CRE RATIO 88 mg/g CRE Normal 0-200 [facility] Comment on above: Performed By: #### L 500.3600, L501.0900 #### [facility] [address] [place], [address] Protein (U) [Mass/Vol] 15.2 mg/dL High 0.0-12.0 [facility] Comment on above: Performed By: #### L 500.3600, L501.0900 #### [facility] [address] [place], [address] UR CREAT 173.00 mg/dL Normal 28.00-217.00 [facility] Comment on above: Performed By: #### L 500.3600, L501.0900 #### [facility] [address] [place], [address] Random urine creatinine shilpa urement (mass/volume)Ordered By: Katelin Crump on 10-01-2024 Creatinine Unsp time (U) [Mass/Vol] 173.00 mg/dL 28.00-217.00 [facility] Renal Profileon 10-01-2024 Albumin [Mass/Vol] 4.7 g/dL Normal 3.5-5.0 [facility] Comment on above: Performed By: #### L 500.3600, L501.0900 #### [facility] [address] [place], [address] BUN/CRE 15.6 RATIO Normal 10-20 [facility] Comment on above: Performed By: #### L 500.3600, L501.0900 #### [facility] [address] [place], [address] Calcium [Mass/Vol] 9.9 mg/dL Normal 7.6-11.0 [facility] Comment on above: Performed By: #### L 500.3600, L501.0900 #### [facility] [address] [place], [address] Chloride [Moles/Vol] 101 mmol/L Normal 98-108 [facility] Comment on above: Performed By: #### L 500.3600, L501.0900 #### [facility] [address] [place], [address] CO2 [Moles/Vol] 19.0 mmol/L Low 21.0-32.0 [facility] Comment on above: Performed By: #### L 500.3600, L501.0900 #### [facility] [address] [place], [address] Creatinine [Mass/Vol] 0.94 mg/dL Normal 0.70-1.20 [facility] Comment on above: Performed By: #### L 500.3600, L501.0900 #### [facility] [address] [place], [address] GAP 17 High 5-15 [facility] Comment on above: Performed By: #### L 500.3600, L501.0900 #### [facility] [address] [place], [address] GFR/1.73 sq M.predicted among non-blacks MDRD (S/P/Bld) [Vol rate/Area] 81 mL/min/{1.73_m2} Normal >60 [facility] Comment on above: Result Comment: mL/m in/1.73m2 CKD-EPI Creatinine Equation (2020) Performed By: #### L 500.3600, L501.0900 #### [facility] [address] [place], [address] Glucose [Mass/Vol] 110 mg/dL High 70-99 [facility] Comment on above: Performed By: #### L 500.3600, L501.0900 #### [facility] [address] [place], [address] Phosphate [Mass/Vol] 4.1 mg/dL Normal 2.7-4.5 [facility] Comment on above: Performed By: #### L 500.3600, L501.0900 #### [facility] [address] [place], [address] Potassium [Moles/Vol] 4.0 mmol/L Normal 3.3-5.1 [facility] Comment on above: Performed By: #### L 500.3600, L501.0900 #### [facility] [address] [place], [address] Sodium [Moles/Vol] 138 mmol/L Normal 133-145 [facility] Comment on above: Performed By: #### L 500.3600, L501.0900 #### [facility] [address] [place], [address] Urea nitrogen [Mass/Vol] 15 mg/dL Normal 4-19 [facility] Comment on above: Performed By: #### L 500.3600, L501.0900 #### [facility] [address] [place], [address] Serum creatinine measurement (mass/volume)Ordered By: Katelin Crump on 10-01-2024 Creatinine [Mass/Vol] 0.94 mg/dL 0.70-1.20 [facility] Serum glucose measurement (m ass/volume)Ordered By: Katelin Crump on 10-01-2024 Glucose [Mass/Vol] 110 mg/dL High 70-99 [facility] Serum or plasma albumin shilpa urement (mass/volume)Ordered By: Katelin Crump on 10-01-2024 Albumin [Mass/Vol] 4.7 g/dL 3.5-5.0 [facility] Serum or plasma calcium shilpa urement (mass/volume)Ordered By: Katelin Crump on 10-01-2024 Calcium [Mass/Vol] 9.9 mg/dL 7.6-11.0 [facility] Serum or plasma urea nitroge n measurement (mass/volume)Ordered By: Katelin Crump on 10-01-2024 Urea nitrogen [Mass/Vol] 15 mg/dL 4-19 [facility] Sodium levelOrdered By: Miguel Crump on 10-01-2024 Sodium [Moles/Vol] 138 mmol/L 133-145 [facility] Urine protein measurement (m ass/volume)Ordered By: Katelin Crump on 10-01-2024 Protein (U) [Mass/Vol] 15.2 mg/dL High 0.0-12.0 [facility] Urine protein/creatinine mas s ratioOrdered By: Katelin Crump on 10-01-2024 Protein/Creatinine (U) [Mass ratio] 88 mg/g CRE 0-200 [facility] CBC W Auto Differential pane l (Bld)on 09-24-2024 Basophils (Bld) [#/Vol] 0.07 10*3/uL Normal <0.11 [facility] Comment on above: Order Comment: Speci men Type: BLOOD SPECIMEN Ordering Facility: [facility] Address: [address] [place] [address] Performed By: #### 2 4323-8, 3016-3, 58391-2, 14183-0, 95187-8 #### [facility] CLIA [id number] [address] [place] [address] [place] Basophils/100 WBC (Bld) 0.6 % Normal C [facility] Comment on above: Order Comment: Speci men Type: BLOOD SPECIMEN Ordering Facility: [facility] Address: [address] [place] [address] Performed By: #### 2 4323-8, 3016-3, 22210-3, 81461-0, 58551-2 #### [facility] CLIA [id number] [address] [place], [place] [address] [place] Differential cell count method Nom (Bld) Auto Normal [facility] Comment on above: Order Comment: Speci men Type: BLOOD SPECIMEN Ordering Facility: [facility] Address: [address] [place] [address] Performed By: #### 2 4323-8, 3016-3, 90334-3, 28291-4, 00609-7 #### [facility] CLIA [id number] [address] [place], [place] [address] [place] Eosinophils (Bld) [#/Vol] 0.39 10*3/uL Normal <0.46 [facility] Comment on above: Order Comment: Speci men Type: BLOOD SPECIMEN Ordering Facility: [facility] Address: [address] [place] [address] Performed By: #### 2 4323-8, 3016-3, 51998-3, 99057-4, 42873-0 #### [facility] CLIA [id number] [address] [place] [address] [place] Eosinophils/100 WBC (Bld) 3.1 % Normal [facility] Comment on above: Order Comment: Speci men Type: BLOOD SPECIMEN Ordering Facility: [facility] Address: [address] [place] [address] Performed By: #### 2 4323-8, 3016-3, 42799-5, 64078-1, 25418-1 #### [facility] CLIA [id number] [address] [place] [address] [place] Erythrocyte distribution width (RBC) [Ratio] 13.4 % Normal 11.5-15.0 [facility] Comment on above: Order Comment: Speci men Type: BLOOD SPECIMEN Ordering Facility: [facility] Address: [address] [place] [address] Performed By: #### 2 4323-8, 3016-3, 79863-6, 83064-6, 70252-7 #### [facility] CLIA [id number] [address] [place] [address] [place] Hematocrit (Bld) [Volume fraction] 44.7 % Normal 36.0-46.0 [facility] Comment on above: Order Comment: Speci men Type: BLOOD SPECIMEN Ordering Facility: [facility] Address: [address] [place] [address] Performed By: #### 2 4323-8, 3016-3, 94461-2, 41587-5, 35662-9 #### [facility] CLIA [id number] [address] [place] [address] [place] Hemoglobin (Bld) [Mass/Vol] 14.5 g/dL Normal 11.5-15.5 [facility] Comment on above: Order Comment: Speci men Type: BLOOD SPECIMEN Ordering Facility: [facility] Address: [address] [place] [address] Performed By: #### 2 4323-8, 3016-3, 15117-9, 57040-7, 73658-2 #### [facility] CLIA [id number] [address] [place], [place] [address] [place] Immature granulocytes (Bld) [#/Vol] 0.06 10*3/uL Normal <0.10 [facility] Comment on above: Order Comment: Speci men Type: BLOOD SPECIMEN Ordering Facility: [facility] Address: [address] [place] [address] Performed By: #### 2 4323-8, 3016-3, 02915-7, 18174-6, 85762-5 #### [facility] CLIA [id number] [address] [place], [place] [address] [place] Immature granulocytes/100 WBC (Bld) 0.5 % Normal [facility] Comment on above: Order Comment: Speci men Type: BLOOD SPECIMEN Ordering Facility: [facility] Address: [address] [place] [address] [place] [address] Performed By: #### 2 4323-8, 3016-3, 55582-9, 04475-7, 55156-2 #### [facility] CLIA [id number] [address] [place] [address] [place] Lymphocytes (Bld) [#/Vol] 3.37 10*3/uL Normal 1.00-4.0 0 [facility] Comment on above: Order Comment: Speci men Type: BLOOD SPECIMEN Ordering Facility: [facility] Address: [address] [place] [address] Performed By: #### 2 4323-8, 6-3, 16884-9, 29888-7, 49527-8 #### [facility] CLIA [id number] [address] [place], [place] [address] [place] Lymphocytes/100 WBC (Bld) 26.6 % Normal [facility] Comment on above: Order Comment: Speci men Type: BLOOD SPECIMEN Ordering Facility: [facility] Address: [address] [place] [address] Performed By: #### 2 4323-8, 6-3, 15483-0, 01087-5, 58978-4 #### [facility] CLIA [id number] [address] [place], [place] [address] [place] MCH (RBC) [Entitic mass] 32.7 pg Normal 26.0-34.0 [facility] Comment on above: Order Comment: Speci men Type: BLOOD SPECIMEN Ordering Facility: [facility] Address: [address] [place] [address] Performed By: #### 2 4323-8, 3016-3, 79042-6, 00349-3, 14460-4 #### [facility] CLIA [id number] [address] [place] [address] [place] MCHC (RBC) [Mass/Vol] 32.4 g/dL Normal 30.5-36.0 [facility] Comment on above: Order Comment: Speci men Type: BLOOD SPECIMEN Ordering Facility: [facility] Address: [address] [place] [address] Performed By: #### 2 4323-8, 3016-3, 09807-1, 22823-9, 81122-8 #### [facility] CLIA [id number] [address] [place] [address] [place] MCV (RBC) [Entitic vol] 100.7 fL High 80.0-100.0 [facility] Comment on above: Order Comment: Speci men Type: BLOOD SPECIMEN Ordering Facility: [facility] Address: [address] [place] [address] Performed By: #### 2 4323-8, 3016-3, 17155-6, 26487-9, 52635-3 #### [facility] CLIA [id number] [address] [place] [address] [place] Monocytes (Bld) [#/Vol] 0.73 10*3/uL Normal <0.87 [facility] Comment on above: Order Comment: Speci men Type: BLOOD SPECIMEN Ordering Facility: [facility] Address: [address] [place] [address] Performed By: #### 2 4323-8, 3016-3, 44988-8, 05986-0, 52407-8 #### [facility] CLIA [id number] [address] [place] [address] [place] Monocytes/100 WBC (Bld) 5.8 % Normal [facility] Comment on above: Order Comment: Speci men Type: BLOOD SPECIMEN Ordering Facility: [facility] Address: [address] [place] [address] Performed By: #### 2 4323-8, 3016-3, 92695-8, 41136-5, 86337-2 #### [facility] CLIA [id number] [address] [place] [address] [place] Neutrophils (Bld) [#/Vol] 8.07 10*3/uL High 1.45-7.5 0 [facility] Comment on above: Order Comment: Speci men Type: BLOOD SPECIMEN Ordering Facility: [facility] Address: [address] [place] [address] Performed By: #### 2 4323-8, 3016-3, 52059-2, 04987-1, 64208-3 #### [facility] CLIA [id number] [address] [place], [place] [address] [place] Neutrophils/100 WBC (Bld) 63.4 % Normal [facility] Comment on above: Order Comment: Speci men Type: BLOOD SPECIMEN Ordering Facility: [facility] Address: [address] [place] [address] Performed By: #### 2 4323-8, 6-3, 31956-0, 55436-3, 91578-6 #### [facility] CLIA [id number] [address] [place], [place] [address] [place] Nucleated RBC (Bld) [#/Vol] 10*3/uL Normal <0.01 [facility] Comment on above: Order Comment: Speci men Type: BLOOD SPECIMEN Ordering Facility: [facility] Address: [address] [place] [address] Performed By: #### 2 4323-8, 3016-3, 14176-0, 82365-1, 05068-4 #### [facility] CLIA [id number] [address] [place] [address] [place] Nucleated RBC/100 WBC (Bld) [Ratio] 0.0 /100 WBC Normal [facility] Comment on above: Order Comment: Speci men Type: BLOOD SPECIMEN Ordering Facility: [facility] Address: [address] [place] [address] Performed By: #### 2 4323-8, 3016-3, 53850-8, 47048-6, 40405-6 #### [facility] CLIA [id number] [address] [place], [place] [address] [place] Platelet mean volume (Bld) [Entitic vol] 13.0 fL High 9.0-12.7 [facility] Comment on above: Order Comment: Speci men Type: BLOOD SPECIMEN Ordering Facility: [facility] Address: [address] [place] [address] Performed By: #### 2 4323-8, 3016-3, 04037-3, 87671-5, 67474-6 #### [facility] CLIA [id number] [address] [place] [address] [place] Platelets (Bld) [#/Vol] 273 10*3/uL Normal 150-400 [facility] Comment on above: Order Comment: Speci men Type: BLOOD SPECIMEN Ordering Facility: [facility] Address: [address] [place] [address] Performed By: #### 2 4323-8, 3016-3, 42781-3, 61420-5, 45670-6 #### [facility] CLIA [id number] [address] [place] [address] [place] RBC (Bld) [#/Vol] 4.44 10*6/uL Normal 3.90-5.20 [facility] Comment on above: Order Comment: Speci men Type: BLOOD SPECIMEN Ordering Facility: [facility] Address: [address] [place] [address] Performed By: #### 2 4323-8, 3016-3, 77828-7, 08186-7, 79751-8 #### [facility] CLIA [id number] [address] [address] [place] WBC (Bld) [#/Vol] 12.69 10*3/uL High 3.70-11.00 [facility] Comment on above: Order Comment: Speci men Type: BLOOD SPECIMEN Ordering Facility: [facility] Address: [address] [place], [place] [address] Performed By: #### 2 4323-8, 3016-3, 32344-6, 11503-7, 41774-2 #### [facility] CLIA [id number] [address] [place], [place] [address] [place] Comprehensive metabolic 2000 panelon 09-24-2024 Albumin [Mass/Vol] 4.7 g/dL Normal 3.9-4.9 [facility] Comment on above: Order Comment: Speci men Type: BLOOD SPECIMEN Ordering Facility: [facility] Address: [address] [place], [place] [address] Performed By: #### 2 4323-8, 3016-3, 15453-3, 46830-8, 74776-6 #### [facility] CLIA [id number] [address] [place], [place] [address] [place] ALP [Catalytic activity/Vol] 75 U/L Normal 34-123 [facility] Comment on above: Order Comment: Speci men Type: BLOOD SPECIMEN Ordering Facility: [facility] Address: [address] [place] [address] Performed By: #### 2 4323-8, 3016-3, 41239-7, 21831-7, 71193-6 #### [facility] CLIA [id number] [address] [place] [address] [place] ALT [Catalytic activity/Vol] 19 U/L Normal 7-38 [facility] Comment on above: Order Comment: Speci men Type: BLOOD SPECIMEN Ordering Facility: [facility] Address: [address] [place] [address] Performed By: #### 2 4323-8, 3016-3, 70502-7, 16669-2, 71918-3 #### [facility] CLIA [id number] [address] [place], [place] [address] [place] Anion gap [Moles/Vol] 16 mmol/L High 8-15 [facility] Comment on above: Order Comment: Speci men Type: BLOOD SPECIMEN Ordering Facility: [facility] Address: [address] [place] [address] Performed By: #### 2 4323-8, 3016-3, 81047-9, 40628-9, 04468-3 #### [facility] CLIA [id number] [address] [place] [address] [place] AST [Catalytic activity/Vol] 18 U/L Normal 13-35 [facility] Comment on above: Order Comment: Speci men Type: BLOOD SPECIMEN Ordering Facility: [facility] Address: [address] [place] [address] Performed By: #### 2 4323-8, 3016-3, 61503-2, 63897-5, 65766-2 #### [facility] CLIA [id number] [address] [place] [address] [place] Bilirubin [Mass/Vol] 0.9 mg/dL Normal 0.2-1.3 [facility] Comment on above: Order Comment: Speci men Type: BLOOD SPECIMEN Ordering Facility: [facility] Address: [address] [place] [address] Performed By: #### 2 4323-8, 3016-3, 61591-7, 90370-7, 04209-8 #### [facility] CLIA [id number] [address] [place] [address] [place] Calcium [Mass/Vol] 10.3 mg/dL High 8.5-10.2 [facility] Comment on above: Order Comment: Speci men Type: BLOOD SPECIMEN Ordering Facility: [facility] Address: [address] [place], [place] [address] Performed By: #### 2 4323-8, 3016-3, 38898-6, 24003-8, 43645-9 #### [facility] CLIA [id number] [address] [place] [address] [place] Chloride [Moles/Vol] 101 mmol/L Normal 98-107 [facility] Comment on above: Order Comment: Speci men Type: BLOOD SPECIMEN Ordering Facility: [facility] Address: [address] [place], [place] [address] Performed By: #### 2 4323-8, 3016-3, 25139-3, 77613-1, 30060-2 #### [facility] CLIA [id number] [address] [place], [place] [address] [place] CO2 [Moles/Vol] 19 mmol/L Low 22-30 [facility] Comment on above: Order Comment: Speci men Type: BLOOD SPECIMEN Ordering Facility: [facility] Address: [address] [place], [place] [address] Performed By: #### 2 4323-8, 3016-3, 46875-6, 91494-7, 64172-9 #### [facility] CLIA [id number] [address] [place] [address] [place] Creatinine [Mass/Vol] 0.74 mg/dL Normal 0.58-0.96 [facility] Comment on above: Order Comment: Speci men Type: BLOOD SPECIMEN Ordering Facility: [facility] Address: [address] [place] [address] Performed By: #### 2 4323-8, 3016-3, 46926-5, 08367-5, 60763-9 #### [facility] CLIA [id number] [address] [place], [place] [address] [place] Creatinine and Glomerular filtration rate.predicted panel (S/P/Bld) 109 mL/min/1.73m??? Normal >=60 [facility] Comment on above: Order Comment: Aman faust Type: BLOOD SPECIMEN Ordering Facility: [facility] Address: [address] [place], [place] [address] Result Comment: Cassandra mated Glomerular Filtration Rate [...] GFR. Performed By: #### 2 4323-8, 3016-3, 02799-7, 10762-1, 35898-7 #### [facility] CLIA [id number] [address] [place], [place] [address] [place] Glucose [Mass/Vol] 103 mg/dL High 74-99 [facility] Comment on above: Order Comment: Aman faust Type: BLOOD SPECIMEN Ordering Facility: [facility] Address: [address] [place], [place] [address] Result Comment: The [place] [employer] (ADA) [...] 1). Performed By: #### 2 4323-8, 3016-3, 64223-7, 70787-9, 06135-8 #### [facility] CLIA [id number] [address] [address] [place] Potassium [Moles/Vol] 4.1 mmol/L Normal 3.7-5.1 [facility] Comment on above: Order Comment: Speci men Type: BLOOD SPECIMEN Ordering Facility: [facility] Address: [address] [place] [address] Performed By: #### 2 4323-8, 3016-3, 20541-0, 22664-3, 82805-4 #### [facility] CLIA [id number] [address] [place] [address] [place] Protein [Mass/Vol] 7.9 g/dL Normal 6.3-8.0 [facility] Comment on above: Order Comment: Speci men Type: BLOOD SPECIMEN Ordering Facility: [facility] Address: [address] [place] [address] Performed By: #### 2 4323-8, 3016-3, 03791-2, 77847-5, 26368-8 #### [facility] CLIA [id number] [address] [place] [address] [place] Sodium [Moles/Vol] 136 mmol/L Normal 136-144 [facility] Comment on above: Order Comment: Speci men Type: BLOOD SPECIMEN Ordering Facility: [facility] Address: [address] [place], [place] [address] Performed By: #### 2 4323-8, 3016-3, 38342-8, 08975-2, 52339-5 #### [facility] CLIA [id number] [address] [address] [place] Urea nitrogen [Mass/Vol] 16 mg/dL Normal 7-21 [facility] Comment on above: Order Comment: Aman faust Type: BLOOD SPECIMEN Ordering Facility: [facility] Address: [address] [place] [address] Performed By: #### 2 4323-8, 3016-3, 40952-8, 60602-0, 64517-2 #### [facility] CLIA [id number] [address] [place] [address] [place] HbA1c (Bld)on 09-24-2024 Average glucose Estimated from glycated hemoglobin (Bld) [Mass/Vol] 128 mg/dL Normal [facility] Comment on above: Order Comment: Aman faust Type: BLOOD SPECIMEN Ordering Facility: [facility] Address: [address] [place] [address] Result Comment: eAG: (Estimated average glucose) is a calculated value from HgbA1c and is service center representative of the average blood glucose level in the last 2-3 month period. Performed By: #### 2 4323-8, 3016-3, 52807-1, 23121-6, 42859-4 #### [facility] CLIA [id number] [address] [place], [place] [address] [place] HbA1c (Bld) [Mass fraction] 6.1 % High 4.3-5.6 [facility] Comment on above: Order Comment: Aman faust Type: BLOOD SPECIMEN Ordering Facility: [facility] Address: [address] [place] [address] Result Comment: Amer [place] Diabetes Association guidelines indicate that patients with HgbA1c in the range 5.7-6.4% are at increased risk for development of diabetes, and intervention by lifestyle modification may be beneficial. HgbA1c greater or equal to 6.5% is considered diagnostic of diabetes. Performed By: #### 2 4323-8, 3016-3, 91176-7, 57190-2, 48920-9 #### [facility] CLIA [id number] [address] [address] [place] Lipid 1996 panelon 5 Cholesterol [Mass/Vol] 171 mg/dL Normal <200 [facility] Comment on above: Order Comment: Aman govind Type: BLOOD SPECIMEN Ordering Facility: [facility] Address: [address] [place] [address] Result Comment: <200 mg/dL, Desirable 200-239 mg/dL, Borderline high >239 mg/dL, High Performed By: #### 2 4323-8, 3016-3, 94571-6, 93576-9, 15409-1 #### [facility] CLIA [id number] [address] [place], [place] [address] [place] Cholesterol in HDL [Mass/Vol] 57 mg/dL Normal >39 [facility] Comment on above: Order Comment: Aman faust Type: BLOOD SPECIMEN Ordering Facility: [facility] Address: [address] [place] [address] Result Comment: 40-5 9 mg/dL, Acceptable >59 mg/dL, High: Negative risk factor for coronary heart disease <40 mg/dL, Low: Positive risk factor for coronary heart disease Performed By: #### 2 4323-8, 3016-3, 07594-7, 11857-6, 89118-7 #### [facility] CLIA [id number] [address] [place], [place] [address] [place] Cholesterol in LDL [Mass/Vol] 86 mg/dL Normal <100 [facility] Comment on above: Order Comment: Asuncionbladimir faust Type: BLOOD SPECIMEN Ordering Facility: [facility] Address: [address] [place] [address] Result Comment: <100 mg/dL, Optimal 100-129 mg/dL, Near optimal/above optimal 130-159 mg/dL, Borderline high 160-189 mg/dL, High >189 mg/dL, Very high Secondary prevention optimal LDL Cholesterol levels are recommended to be <70 mg/dL LDL cholesterol is calculated using the Chaney-NIH equation. Performed By: #### 2 4323-8, 3016-3, 82967-8, 27168-1, 39793-2 #### [facility] CLIA [id number] [address] [place], [place] [address] [place] Cholesterol in LDL/Cholesterol in HDL [Mass ratio] 1.51 {ratio} Normal <2.54 [facility] Comment on above: Order Comment: Speci men Type: BLOOD SPECIMEN Ordering Facility: [facility] Address: [address] [place] [address] Result Comment: Refe eleanor: 1. National Cholesterol Education Program ATP III Guideline At-A-Glance Quick Desk Reference: National Heart, Lung, and Blood [place]. National Institutes of Health. 2001: NIH Publication No. 01-3305. 2. An International Atherosclerosis Society position paper: global recommendations for the management of dyslipidemia: executive summary, Atherosclerosis. 2014: 232(2):410-413. Performed By: #### 2 4323-8, 3016-3, 82187-5, 13429-3, 64431-8 #### [facility] CLIA [id number] [address] [place], [place] [address] [place] Cholesterol in VLDL [Mass/Vol] 26 mg/dL Normal <30 [facility] Comment on above: Order Comment: Asuncioni men Type: BLOOD SPECIMEN Ordering Facility: [facility] Address: [address] [place] [address] Performed By: #### 2 4323-8, 3016-3, 85842-5, 32797-6, 03668-9 #### [facility] CLIA [id number] [address] [place] [address] [place] Cholesterol non HDL [Mass/Vol] 114 mg/dL Normal <130 [facility] Comment on above: Order Comment: Speci men Type: BLOOD SPECIMEN Ordering Facility: [facility] Address: [address] [place] [address] Result Comment: <130 mg/dL, Optimal 130-159 mg/dL, Near optimal/above optimal 160-189 mg/dL, Borderline high 190-219 mg/dL, High >219 mg/dL, Very high Secondary prevention optimal non HDL Cholesterol levels are recommended to be <100 mg/dL Performed By: #### 2 4323-8, 3016-3, 54482-9, 41865-3, 40737-6 #### [facility] CLIA [id number] [address] [place] [address] [place] Cholesterol.total/Cholest arden in HDL [Mass ratio] 3.00 {ratio} Normal <5.10 [facility] Comment on above: Order Comment: Speci men Type: BLOOD SPECIMEN Ordering Facility: [facility] Address: [address] [place], [place] [address] Performed By: #### 2 4323-8, 3016-3, 48101-8, 25165-4, 59659-3 #### [facility] CLIA [id number] [address] [place] [address] [place] FASTING TIME 12 hrs Normal [facility] Comment on above: Order Comment: Speci men Type: BLOOD SPECIMEN Ordering Facility: [facility] Address: [address] [place], [place] [address] Performed By: #### 2 4323-8, 3016-3, 12268-0, 91918-0, 32723-7 #### [facility] CLIA [id number] [address] [place] [address] [place] Triglyceride [Mass/Vol] 163 mg/dL High <150 [facility] Comment on above: Order Comment: Speci men Type: BLOOD SPECIMEN Ordering Facility: [facility] Address: [address] [place] [address] Result Comment: <150 mg/dL, Normal 150-199 mg/dL, Borderline high 200-499 mg/dL, High >499 mg/dL, Very high Performed By: #### 2 4323-8, 3016-3, 11982-6, 03195-0, 75952-1 #### [facility] CLIA [id number] [address] [place], [place] [address] [place] TSH SerPl-aCncon 09-24-2024 TSH Qn 1.880 m[IU]/L Normal 0.270-4.200 [facility] Comment on above: Order Comment: Speci men Type: BLOOD SPECIMEN Ordering Facility: [facility] Address: [address] [place], [place] [address] Result Comment: If t he patient is , TSH reference range varies by gestational period: First Trimester (weeks 9-12): 0.180-2.990 mIU/L Second Trimester: 0.110-3.980 mIU/L Third Trimester: 0.480-4.710 mIU/L [facility] et al. A Practical Approach for the Verifications and Determination of Site- and Trimester-Specific Reference Intervals for Thyroid Function tests in . Thyroid, 2019:29:3:412-420. Boby E, et al. 2017 Guidelines of the [place] [employer] for the Diagnosis and Management of Thyroid Disease during and the . Thyroid, 2017:27:3:315-389. Performed By: #### 2 4323-8, 3016-3, 35326-3, 63219-2, 77669-8 #### [facility] CLIA [id number] [address] [id number] [place] CNOVon 07-30-2024 CNOV Office Visit (OBGYWM) MARIAM VENTURA ([id number]) 1990 F Date Time Provider Department 07/30/24 10:00 AM RADHA SHORT OBGYWAmy During your visit today, we recorded the following information about you: Blood pressure Weight Height Last Period 118/76 140.2 kg 1.6 m 07/30/24 Radha Short APRN.CNM 07/30/2024 10:21 AM Signed Obstetrics and Gynecology [place] Annual Exam Subjective Recording using ambient AI software for draft documentation of the visit was discussed with the patient/authorized service center representative; all questions welcomed and answered. Patient/authorized service center representative agreed to proceed CHIEF COMPLAINT: HPI: The patient is a 34-year-old female with a history of HTN, asthma, T2DM, and PCOS, presenting for a well-woman exam. The patient is new to the practice, previously receiving care at [facility]. She is currently on Mounjaro for T2DM, [...] expresses interest in working with a diabetic policy cancellation clerk to further assist with weight loss. 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 She denies any major questions or concerns at this time. HISTORY: OB History Gravida0 Para0 Term0 Preterm0 AB0 Living0 SAB0 IAB0 Ectopic0 Multiple0 Live Births0 Cost Clerk History LMP: 07/30/2024 (Exact Date), Having periods Age at Menarche: 11 Age at First : Age at Menopause: Cost Clerk History Comments: Sexual Activity: Yes; Male Contraception: Pill Menstrual Tracking History Flowsheet Row Office Visit from 07/30/2024 in OB/Gynecology Period Cycle (Days) 30 Period Duration (Days) 7 Menstrual Flow Heavy PAST MEDICAL HISTORY Diagnosis Date Asthma (HCC) Depression 09/18/2011 [facility] Psychiatric admission - sucidal thoughts DM (diabetes mellitus) ([facility]) History of PCOS Has not been on glucophage since 2006 Hypertension Infertility, female 2016 Polycystic ovary syndrome Proteinuria PAST SURGICAL HISTORY Procedure Laterality Date ADENOIDECTOMY PRIMARY Adenoidectomy APPENDECTOMY 1999 CHOLECYSTECTOMY 09/15/2017 PAST SURGICAL HISTORY OF bilateral ear ventilating tubes PAST SURGICAL HISTORY OF N/A 11/2017 [facility] by Dr. Dominguez TONSILLECTOMY PRIMARY/SECONDARY Tonsillectomy FAMILY [...] omeprazole ( (more content not included)... Normal [facility] HIGH RISK HUMAN PAPILLOMA GRADY (HPV), PCR FOR DETECTION AND GENOTYPINGon 07-30-2024 HPV 16 Ag Ql (Unsp spec) Not detected Normal Not detec radha [facility] Comment on above: Order Comment: Speci men Type: FLUID SPECIMENOrdering Facility: [facility] Address: [address] [place] [address] Performed By: #### H PVHRT ####[facility] [id number] [place] [address] [place] HPV 18 Ag Ql (Unsp spec) Not detected Normal Not detec radha [facility] Comment on above: Order Comment: Speci men Type: FLUID SPECIMENOrdering Facility: [facility] Address: [address] [place] [address] Performed By: #### H PVHRT ####[facility] [id number] [place] [address] [place] HPV 31+33+35+39+45+51+52+56+5 8+59+66+68 DNA SHEYLA+probe Ql (Cvx) Not detected Normal Not detected [facility] Comment on above: Order Comment: Speci men Type: FLUID SPECIMENOrdering Facility: [facility] Address: [address] [place] [address] Result Comment: High Risk HPV Other Type includes HPV types 31, 33, 35, 39, 45, 51, 52, 56, 58, 59, 66 and 68. Performed By: #### H PVHRT ####[facility] [id number] [place] [address] [place] PAP TESTon 07-30-2024 ADEQUACY Normal [facility] Comment on above: Order Comment: Speci men Type: FLUID SPECIMENOrdering Facility: [facility] Address: [address] [place] [address] Result Comment: Sati sfactory for interpretation. Transformation zone present Performed By: #### L [id number] ####[facility] [id number] [place] [id number] [place] CASE REPORT Normal [facility] Comment on above: Order Comment: Speci men Type: FLUID SPECIMENOrdering Facility: [facility] Address: [address] [place] [address] Result Comment: Gyne cologic Cytology Report Case: [id number] Authorizing Provider: Radha Short APRN.CNM Collected: 07/30/2024 10:13 AM Ordering Location: OB/Gynecology Received: 07/30/2024 12:16 PM First Screen: Aramouni, Christina, [place], ASCP Specimen: Pap Test, ThinPrep, Cervix Performed By: #### L [id number] ####[facility] [id number] [place] [address] [place] CLINICAL HISTORY, CYTOLOGY, MEDICAL TRANSLATOR Routine Exam Normal [facility] Comment on above: Order Comment: Speci men Type: FLUID SPECIMENOrdering Facility: [facility] Address: [address] [place] [address] Performed By: #### L [id number] ####[facility] [id number] [place] [address] [place] CYTOLOGY PAP OTHER INTERPRETATION Predominance of coccobacilli consistent with shift in vaginal victoria. Normal [facility] Comment on above: Order Comment: Speci men Type: FLUID SPECIMENOrdering Facility: [facility] Address: [address] [place] [address] Performed By: #### L [id number] ####[facility] [id number] [address] [address] [place] FINAL PERFORMING LAB Normal [facility] Comment on above: Order Comment: Speci men Type: FLUID SPECIMENOrdering Facility: [facility] Address: [address] [place] [address] Result Comment: Tech nical component, dietitian consultant screening performed at: [facility], [address] [place], [place] [id number] CLIA: [id number] Diagnostic interpretation performed at: [facility], [address] [place] [address] CLIA# [id number] Service Desk Team Lead: Jt Hi MD Performed By: #### L [id number] ####[facility] [id number] [address] [place] [address] [place] INTERPRETATION, CYTOLOGY, MEDICAL TRANSLATOR Normal [facility] Comment on above: Order Comment: Speci men Type: FLUID SPECIMENOrdering Facility: [facility] Address: [address] [place] [address] Result Comment: Nega tive for intraepithelial lesion or malignancy. at 1157 EDT Performed By: #### L [id number] ####[facility] [id number] [place] [id number] [place] LMP 07/30/2024 Normal [facility] Comment on above: Order Comment: Speci men Type: FLUID SPECIMENOrdering Facility: [facility] Address: [address] [place] [address] Performed By: #### L [id number] ####[facility] [id number] [address] [address] [place] PAP DISCLAIMER COMMENT The Pap Smear is a screening test for cervical cancer. False negative results occur with all screening tests, emphasizing the need for rescreening at recommended intervals, and clinical correlation. Normal [facility] Comment on above: Order Comment: Speci men Type: FLUID SPECIMENOrdering Facility: [facility] Address: [address] [place] [address] Performed By: #### L [id number] ####[facility] [id number] [address] [address] [place] PAP PORTABLE TRACK CREW CHIEF COMMENT This specimen has been analyzed by the FDA-approved [employer] System, which uses digital imaging and an enhanced artificial intelligence image analysis algorithm to identify hanson of interest on the microscopic slide, to assist the poly packer and heat sealer and pathologist in evaluating cells on ThinPrep Pap tests. Following analysis, hanson of interest on the microscopic slide selected by the algorithm are reviewed by a poly packer and heat sealer. If a sample requires hierarchical review, the pathologist will review the same hanson of interest selected by the algorithm prior to final interpretation. Normal [facility] Comment on above: Order Comment: Speci men Type: FLUID SPECIMENOrdering Facility: [facility] Address: [address] [place] [address] Performed By: #### L [id number] ####[facility] [id number] [address] CNOVon 06-17-2024 CNOV Office Visit (FAMPWS) MARIAM VENTURA ([id number]) 1990 F Date Time Provider Department 06/17/24 5:40 PM FLORA SINGH During your visit today, we recorded the following information about you: Pulse Respiration Blood pressure Weight 85/minute 16/minute 128/72 139.7 kg Flora Singh APRN.HYDRAULIC ASSEMBLER 06/17/2024 7:55 PM Signed This is a [...] or pain: No. Follows with endocrinology at [place] Had labs checked labs A1C was 6.2 [...] HISTORY Diagnosis Date Asthma Depression September 2011 [facility] Psychiatric admission - sucidal thoughts DM (diabetes mellitus) (HCC) History of PCOS Has not been on glucophage since 2006 Hypertension Proteinuria PAST SURGICAL HISTORY Procedure Laterality Date ADENOIDECTOMY PRIMARY Adenoidectomy APPENDECTOMY 1999 CHOLECYSTECTOMY 09/15/2017 PAST SURGICAL HISTORY OF bilateral ear ventilating tubes PAST SURGICAL HISTORY OF N/A 11/2017 [facility] by Dr. Dominguez TONSILLECTOMY PRIMARY/SECONDARY Tonsillectomy ALLERGIES [...] Topics A (more content not included)... Normal [facility] Endocrinology Visit Reporton 05-23-2024 Endocrinology Visit Report [facility] [address] [place] [address] OFFICE VISIT Date of Service: 05/23/24 MR#: [id number] Acct: [id number] Name: MARIAM VENTURA Corry Rep #: [id number] : 1990 Provider: Amy Drake Age/Sex: 33/F Location: [facility] Status: Signed Intake Vital Signs 11/27/23 08:18 [...] 1 - 2 puff inhalation Q6H PRN AL N 10/20/17 05/23/24 History aerosol inhaler (ProAir [...] tab PO QAM 05/23/24 05/23/24 His tory [facility] Medical History Hyperandrogenism Obesity PCOS (polycystic ovarian [...] obese Orientation: alert, awake and oriented x3 [facility] Head: normal to inspection Ears: hearing grossly [...] Mental St (more content not included)... Normal [facility] Endocrinology Visit Reporton 11-27-2023 Endocrinology Visit Report [facility] [address] [place] [address] OFFICE VISIT Date of Service: 11/27/23 MR#: [id number] Acct: [id number] Name: MARIAM VENTURA Rep #: [id number] : 1990 Provider: Amy Drake Age/Sex: 33/F Location: [facility] Status: Signed Intake Vital Signs 06/01/23 08:07 [...] Reasons: 6 M FU Chief Complaint: Diabetes Recyclable Materials Sorter Required: No Accompanied by: Self Is patient [...] hr 1,000 mg PO BID #60 tabs 09/09/24 09/09/24 Rx tablet,extended release (gastric reten.) norethindrone (contraceptive) [...] Gait: normal (more content not included)... Normal [facility] CBC W Auto Differential pane l (Bld)on 11-06-2023 Basophils (Bld) [#/Vol] 0.05 10*3/uL Normal <0.11 [facility] Comment on above: Order Comment: Speci men Type: BLOOD SPECIMEN Ordering Facility: [facility] Address: [address] [place] [address] Performed By: #### 5 7021-8, 3016-3, 10685-0, 84020-3, 61669-5 #### [facility] CLIA [id number] [address] [place] [address] [place] Basophils/100 WBC (Bld) 0.5 % Normal [facility] Comment on above: Order Comment: Speci men Type: BLOOD SPECIMEN Ordering Facility: [facility] Address: [address] [place] [address] Performed By: #### 5 7021-8, 3016-3, 94463-2, 92282-6, 16040-1 #### [facility] CLIA [id number] [address] [place] [address] [place] Differential cell count method Nom (Bld) Auto Normal [facility] Comment on above: Order Comment: Speci men Type: BLOOD SPECIMEN Ordering Facility: [facility] Address: [address] [place] [address] Performed By: #### 5 7021-8, 3016-3, 74187-1, 24877-4, 62151-8 #### [facility] CLIA [id number] [address] [place] [address] [place] Eosinophils (Bld) [#/Vol] 0.50 10*3/uL High <0.46 [facility] Comment on above: Order Comment: Speci men Type: BLOOD SPECIMEN Ordering Facility: [facility] Address: [address] [place] [address] Performed By: #### 5 7021-8, 3016-3, 02740-5, 22209-9, 77880-4 #### [facility] CLIA [id number] [address] [place] [address] [place] Eosinophils/100 WBC (Bld) 5.1 % Normal [facility] Comment on above: Order Comment: Speci men Type: BLOOD SPECIMEN Ordering Facility: [facility] Address: [address] [place] [address] Performed By: #### 5 7021-8, 3016-3, 60116-0, 60649-6, 86774-1 #### [facility] CLIA [id number] [address] [place] [address] [place] Erythrocyte distribution width (RBC) [Ratio] 12.6 % Normal 11.5-15.0 [facility] Comment on above: Order Comment: Speci men Type: BLOOD SPECIMEN Ordering Facility: [facility] Address: [address] [place] [address] Performed By: #### 5 7021-8, 3016-3, 28383-1, 92349-8, 82977-7 #### [facility] CLIA [id number] [address] [place] [address] [place] Hematocrit (Bld) [Volume fraction] 38.2 % Normal 36.0-46.0 [facility] Comment on above: Order Comment: Speci men Type: BLOOD SPECIMEN Ordering Facility: [facility] Address: [address] [place] [address] Performed By: #### 5 7021-8, 3016-3, 34775-5, 36845-7, 19709-2 #### [facility] CLIA [id number] [address] [place] [address] [place] Hemoglobin (Bld) [Mass/Vol] 12.5 g/dL Normal 11.5-15.5 [facility] Comment on above: Order Comment: Speci men Type: BLOOD SPECIMEN Ordering Facility: [facility] Address: [address] [place] [address] Performed By: #### 5 7021-8, 3016-3, 03395-9, 14376-1, 81513-2 #### [facility] CLIA [id number] [address] [place] [address] [place] Immature granulocytes (Bld) [#/Vol] 0.03 10*3/uL Normal <0.10 [facility] Comment on above: Order Comment: Speci men Type: BLOOD SPECIMEN Ordering Facility: [facility] Address: [address] [place] [address] Performed By: #### 5 7021-8, 3016-3, 55685-2, 13785-0, 79433-6 #### [facility] CLIA [id number] [address] [place] [address] [place] Immature granulocytes/100 WBC (Bld) 0.3 % Normal [facility] Comment on above: Order Comment: Speci men Type: BLOOD SPECIMEN Ordering Facility: [facility] Address: [address] [place] [address] [place] [id number] Performed By: #### 5 7021-8, 3016-3, 45892-6, 02116-3, 71277-5 #### [facility] CLIA [id number] [address] [place] [address] [place] Lymphocytes (Bld) [#/Vol] 2.92 10*3/uL Normal 1.00-4.0 0 [facility] Comment on above: Order Comment: Speci men Type: BLOOD SPECIMEN Ordering Facility: [facility] Address: [address] [place] [address] Performed By: #### 5 7021-8, 3016-3, 81432-2, 01050-4, 73528-1 #### [facility] CLIA [id number] [address] [place] [address] [place] Lymphocytes/100 WBC (Bld) 29.7 % Normal [facility] Comment on above: Order Comment: Speci men Type: BLOOD SPECIMEN Ordering Facility: [facility] Address: [address] [place] [address] Performed By: #### 5 7021-8, 3016-3, 97986-4, 89674-7, 27191-4 #### [facility] CLIA [id number] [address] [place] [address] [place] MCH (RBC) [Entitic mass] 32.1 pg Normal 26.0-34.0 [facility] Comment on above: Order Comment: Speci men Type: BLOOD SPECIMEN Ordering Facility: [facility] Address: [address] [place], [place] [address] [address] Performed By: #### 5 7021-8, 3016-3, 87086-8, 88555-5, 84287-2 #### [facility] CLIA [id number] [address] [place], [place] [address] [place] MCHC (RBC) [Mass/Vol] 32.7 g/dL Normal 30.5-36.0 Andrea [facility] Comment on above: Order Comment: Speci men Type: BLOOD SPECIMEN Ordering Facility: [facility] Address: [address] [place] [address] Performed By: #### 5 7021-8, 3016-3, 74017-9, 66980-2, 46147-6 #### [facility] CLIA [id number] [address] [place] [address] [place] MCV (RBC) [Entitic vol] 97.9 fL Normal 80.0-100.0 [facility] Comment on above: Order Comment: Speci men Type: BLOOD SPECIMEN Ordering Facility: [facility] Address: [address] [place] [address] Performed By: #### 5 7021-8, 3016-3, 55318-5, 36880-7, 13937-2 #### [facility] CLIA [id number] [address] [place] [address] [place] Monocytes (Bld) [#/Vol] 0.60 10*3/uL Normal <0.87 [facility] Comment on above: Order Comment: Speci men Type: BLOOD SPECIMEN Ordering Facility: [facility] Address: [address] [place] [address] Performed By: #### 5 7021-8, 3016-3, 10173-4, 56621-4, 36419-2 #### [facility] CLIA [id number] [address] [place] [address] [place] Monocytes/100 WBC (Bld) 6.1 % Normal [facility] Comment on above: Order Comment: Speci men Type: BLOOD SPECIMEN Ordering Facility: [facility] Address: [address] [place] [address] Performed By: #### 5 7021-8, 3016-3, 39903-8, 88548-2, 26425-8 #### [facility] CLIA [id number] [address] [place] [address] [place] Neutrophils (Bld) [#/Vol] 5.73 10*3/uL Normal 1.45-7.5 0 [facility] Comment on above: Order Comment: Speci men Type: BLOOD SPECIMEN Ordering Facility: [facility] Address: [address] [place] [address] Performed By: #### 5 7021-8, 3016-3, 12869-1, 36614-6, 37782-2 #### [facility] CLIA [id number] [address] [place] [address] [place] Neutrophils/100 WBC (Bld) 58.3 % Normal [facility] Comment on above: Order Comment: Speci men Type: BLOOD SPECIMEN Ordering Facility: [facility] Address: [address] [place] [address] Performed By: #### 5 7021-8, 3016-3, 78574-6, 06516-1, 91906-4 #### [facility] CLIA [id number] [address] [place] [address] [place] Nucleated RBC (Bld) [#/Vol] 10*3/uL Normal <0.01 [facility] Comment on above: Order Comment: Speci men Type: BLOOD SPECIMEN Ordering Facility: [facility] Address: [address] [place] [address] Performed By: #### 5 7021-8, 3016-3, 42620-7, 20026-2, 15481-8 #### [facility] CLIA [id number] [address] [place] [address] [place] Nucleated RBC/100 WBC (Bld) [Ratio] 0.0 /100 WBC Normal [facility] Comment on above: Order Comment: Speci men Type: BLOOD SPECIMEN Ordering Facility: [facility] Address: [address] [place] [address] Performed By: #### 5 7021-8, 3016-3, 68109-9, 14897-1, 09634-6 #### [facility] CLIA [id number] [address] [place], [place] [address] [place] Platelet mean volume (Bld) [Entitic vol] 11.6 fL Normal 9.0-12.7 [facility] Comment on above: Order Comment: Speci men Type: BLOOD SPECIMEN Ordering Facility: [facility] Address: [address] [place] [address] Performed By: #### 5 7021-8, 3016-3, 18197-5, 91305-2, 22809-2 #### [facility] CLIA [id number] [address] [place], [place] [address] [place] Platelets (Bld) [#/Vol] 268 10*3/uL Normal 150-400 [facility] Comment on above: Order Comment: Speci men Type: BLOOD SPECIMEN Ordering Facility: [facility] Address: [address] [place] [address] Performed By: #### 5 7021-8, 3016-3, 52806-5, 96179-4, 68264-6 #### [facility] CLIA [id number] [address] [place] [address] [place] RBC (Bld) [#/Vol] 3.90 10*6/uL Normal 3.90-5.20 [facility] Comment on above: Order Comment: Speci men Type: BLOOD SPECIMEN Ordering Facility: [facility] Address: [address] [place] [address] Performed By: #### 5 7021-8, 3016-3, 99010-1, 77817-8, 19205-4 #### [facility] CLIA [id number] [address] [place] WBC (Bld) [#/Vol] 9.83 10*3/uL Normal 3.70-11.00 [facility] Comment on above: Order Comment: Speci men Type: BLOOD SPECIMEN Ordering Facility: [facility] Address: [address] [place] [address] Performed By: #### 5 7021-8, 3016-3, 57310-4, 53314-5, 40226-8 #### [facility] CLIA [id number] [address] [place], [place] [address] [place] Comprehensive metabolic 2000 panelon 11-06-2023 Albumin [Mass/Vol] 4.4 g/dL Normal 3.9-4.9 [facility] Comment on above: Order Comment: Speci men Type: BLOOD SPECIMEN Ordering Facility: [facility] Address: [address] [place], [place] [address] Performed By: #### 5 7021-8, 3016-3, 17007-1, 35450-5, 36622-1 #### [facility] CLIA [id number] [address] [place], [place] [address] [place] ALP [Catalytic activity/Vol] 54 U/L Normal 34-123 [facility] Comment on above: Order Comment: Speci men Type: BLOOD SPECIMEN Ordering Facility: [facility] Address: [address] [place], [place] [address] Performed By: #### 5 7021-8, 3016-3, 56593-6, 09757-3, 87084-2 #### [facility] CLIA [id number] [address] [place] [address] [place] ALT [Catalytic activity/Vol] 23 U/L Normal 7-38 [facility] Comment on above: Order Comment: Speci men Type: BLOOD SPECIMEN Ordering Facility: [facility] Address: [address] [place] [address] Performed By: #### 5 7021-8, 3016-3, 36765-8, 51286-4, 17214-5 #### [facility] CLIA [id number] [address] [place] [address] [place] Anion gap [Moles/Vol] 12 mmol/L Normal 8-15 [facility] Comment on above: Order Comment: Speci men Type: BLOOD SPECIMEN Ordering Facility: [facility] Address: [address] [place] [address] Performed By: #### 5 7021-8, 3016-3, 15294-7, 57561-1, 45545-2 #### [facility] CLIA [id number] [address] [place] [address] [place] AST [Catalytic activity/Vol] 28 U/L Normal 13-35 [facility] Comment on above: Order Comment: Speci men Type: BLOOD SPECIMEN Ordering Facility: [facility] Address: [address] [place] [address] Performed By: #### 5 7021-8, 3016-3, 83020-9, 24822-7, 17719-5 #### [facility] CLIA [id number] [address] [place] [address] [place] Bilirubin [Mass/Vol] 0.6 mg/dL Normal 0.2-1.3 [facility] Comment on above: Order Comment: Speci men Type: BLOOD SPECIMEN Ordering Facility: [facility] Address: [address] [place] [address] Performed By: #### 5 7021-8, 3016-3, 43865-7, 60549-1, 43586-5 #### [facility] CLIA [id number] [address] [place] [address] [place] Calcium [Mass/Vol] 9.6 mg/dL Normal 8.5-10.2 [facility] Comment on above: Order Comment: Speci men Type: BLOOD SPECIMEN Ordering Facility: [facility] Address: [address] [place], [place] [id number] Performed By: #### 5 7021-8, 3016-3, 41901-6, 55620-8, 21183-4 #### [facility] CLIA [id number] [address] [place] [address] [place] Chloride [Moles/Vol] 102 mmol/L Normal 98-107 [facility] Comment on above: Order Comment: Speci men Type: BLOOD SPECIMEN Ordering Facility: [facility] Address: [address] [place], [place] [address] Performed By: #### 5 7021-8, 3016-3, 77544-5, 90059-3, 06758-5 #### [facility] CLIA [id number] [address] [place], [place] [address] [place] CO2 [Moles/Vol] 23 mmol/L Normal 22-30 [facility] Comment on above: Order Comment: Speci men Type: BLOOD SPECIMEN Ordering Facility: [facility] Address: [address] [place] [address] Performed By: #### 5 7021-8, 3016-3, 34555-9, 83422-2, 60667-0 #### [facility] CLIA [id number] [address] [place] [address] [place] Creatinine [Mass/Vol] 0.67 mg/dL Normal 0.58-0.96 [facility] Comment on above: Order Comment: Speci men Type: BLOOD SPECIMEN Ordering Facility: [facility] Address: [address] [place] [address] Performed By: #### 5 7021-8, 3016-3, 36143-4, 59683-8, 85194-8 #### [facility] CLIA [id number] [address] [place] [address] [place] Creatinine and Glomerular filtration rate.predicted panel (S/P/Bld) 119 mL/min/1.73m??? Normal >=60 [facility] Comment on above: Order Comment: Aman faust Type: BLOOD SPECIMEN Ordering Facility: [facility] Address: [address] [place] [address] Result Comment: Cassandra mated Glomerular Filtration Rate [...] GFR. Performed By: #### 5 7021-8, 3016-3, 00165-9, 68484-4, 86910-6 #### [facility] CLIA [id number] [address] [place] [address] [place] Glucose [Mass/Vol] 104 mg/dL High 74-99 [facility] Comment on above: Order Comment: Aman faust Type: BLOOD SPECIMEN Ordering Facility: [facility] Address: [address] [place] [address] Result Comment: The [place] Diabetes Association (ADA) [...] 1). Performed By: #### 5 7021-8, 3016-3, 66795-6, 36185-2, 71065-5 #### [facility] CLIA [id number] [address] [address] [place] Potassium [Moles/Vol] 4.5 mmol/L Normal 3.7-5.1 [facility] Comment on above: Order Comment: Speci men Type: BLOOD SPECIMEN Ordering Facility: [facility] Address: [address] [place] [address] Performed By: #### 5 7021-8, 3016-3, 56949-5, 74460-2, 54419-8 #### [facility] CLIA [id number] [address] [place] [address] [place] Protein [Mass/Vol] 6.9 g/dL Normal 6.3-8.0 [facility] Comment on above: Order Comment: Speci men Type: BLOOD SPECIMEN Ordering Facility: [facility] Address: [address] [place] [address] Performed By: #### 5 7021-8, 3016-3, 89791-9, 99185-8, 59923-1 #### [facility] CLIA [id number] [address] [place], [place] [address] [place] Sodium [Moles/Vol] 137 mmol/L Normal 136-144 [facility] Comment on above: Order Comment: Speci men Type: BLOOD SPECIMEN Ordering Facility: [facility] Address: [address] [place] [address] Performed By: #### 5 7021-8, 3016-3, 43971-5, 58591-3, 21050-9 #### [facility] CLIA [id number] [address] [place] [address] [place] Urea nitrogen [Mass/Vol] 10 mg/dL Normal 7-21 [facility] Comment on above: Order Comment: Aman faust Type: BLOOD SPECIMEN Ordering Facility: [facility] Address: [address] [place] [address] Performed By: #### 5 7021-8, 3016-3, 45905-4, 95358-4, 85518-6 #### [facility] CLIA [id number] [address] [place] [address] [place] HbA1c (Bld)on 11-06-2023 Average glucose Estimated from glycated hemoglobin (Bld) [Mass/Vol] 148 mg/dL Normal [facility] Comment on above: Order Comment: Aman faust Type: BLOOD SPECIMENOrdering Facility: [facility] Address: [address] [place] [address] Result Comment: eAG: (Estimated average glucose) is a calculated value from HgbA1c and is service center representative of the average blood glucose level in the last 2-3 month period. Performed By: #### 5 7021-8, 3016-3, 59969-3, 74848-0, ####[facility] [id number] [place] [address] [place] HbA1c (Bld) [Mass fraction] 6.8 % High 4.3-5.6 [facility] Comment on above: Order Comment: Aman faust Type: BLOOD SPECIMENOrdering Facility: [facility] Address: [address] [place] [address] Result Comment: [place] Diabetes Association guidelines indicate that patients with HgbA1c in the range 5.7-6.4% are at increased risk for development of diabetes, and intervention by lifestyle modification may be beneficial. HgbA1c greater or equal to 6.5% is considered diagnostic of diabetes. Performed By: #### 5 7021-8, 3016-3, 05497-6, 63158-6, 01115-2 ####[facility] [id number] [place] [address] [place] Lipid 1996 panelon 4 Cholesterol [Mass/Vol] 138 mg/dL Normal <200 [facility] Comment on above: Order Comment: Aman govind Type: BLOOD SPECIMEN Ordering Facility: [facility] Address: [address] [place] [address] Result Comment: <200 mg/dL, Desirable 200-239 mg/dL, Borderline high >239 mg/dL, High Performed By: #### 5 7021-8, 3016-3, 36805-1, 05628-9, 46328-2 #### [facility] CLIA [id number] [address] [place] [address] [place] Cholesterol in HDL [Mass/Vol] 53 mg/dL Normal >39 [facility] Comment on above: Order Comment: Aman faust Type: BLOOD SPECIMEN Ordering Facility: [facility] Address: [address] [place] [address] Result Comment: 40-5 9 mg/dL, Acceptable >59 mg/dL, High: Negative risk factor for coronary heart disease <40 mg/dL, Low: Positive risk factor for coronary heart disease Performed By: #### 5 7021-8, 3016-3, 20791-5, 85765-1, 88768-9 #### [facility] CLIA [id number] [address] [place] [address] [place] Cholesterol in LDL [Mass/Vol] 70 mg/dL Normal <100 [facility] Comment on above: Order Comment: Aman govind Type: BLOOD SPECIMEN Ordering Facility: [facility] Address: [address] [place] [address] Result Comment: <100 mg/dL, Optimal 100-129 mg/dL, Near optimal/above optimal 130-159 mg/dL, Borderline high 160-189 mg/dL, High >189 mg/dL, Very high Secondary prevention optimal LDL Cholesterol levels are recommended to be < 70 mg/dL Performed By: #### 5 7021-8, 3016-3, 09320-8, 67645-9, 43589-9 #### [facility] CLIA [id number] [facility] [place] [address] [place] Cholesterol in LDL/Cholesterol in HDL [Mass ratio] 1.32 {ratio} Normal <2.54 [facility] Comment on above: Order Comment: Speci men Type: BLOOD SPECIMEN Ordering Facility: [facility] Address: [address] [place] [address] Result Comment: Bryante eleanor: 1. National Cholesterol Education Program ATP III Guideline At-A-Glance Quick Desk Reference: National Heart, Lung, and Blood [place]. National Institutes of Health. 2001: NIH Publication No. 01-3305. 2. An International Atherosclerosis Society position paper: global recommendations for the management of dyslipidemia: executive summary, Atherosclerosis. 2014: 232(2):410-413. Performed By: #### 5 7021-8, 3016-3, 77835-2, 57369-7, 51949-0 #### [facility] CLIA [id number] [address] [place], [place] [address] [place] Cholesterol in VLDL [Mass/Vol] 15 mg/dL Normal <30 [facility] Comment on above: Order Comment: Aman men Type: BLOOD SPECIMEN Ordering Facility: [facility] Address: [address] [place] [address] Performed By: #### 5 7021-8, 3016-3, 93213-1, 83232-0, 03368-0 #### [facility] CLIA [id number] [address] [place] [address] [place] Cholesterol non HDL [Mass/Vol] 85 mg/dL Normal <130 [facility] Comment on above: Order Comment: Asuncioni men Type: BLOOD SPECIMEN Ordering Facility: [facility] Address: [address], [place] [address] Result Comment: <130 mg/dL, Optimal 130-159 mg/dL, Near optimal/above optimal 160-189 mg/dL, Borderline high 190-219 mg/dL, High >219 mg/dL, Very high Secondary prevention optimal non HDL Cholesterol levels are recommended to be <100 mg/dL Performed By: #### 5 7021-8, 3016-3, 38929-1, 14891-6, 08235-9 #### [facility] CLIA [id number] [address] [place] [address] [place] Cholesterol.total/Cholest arden in HDL [Mass ratio] 2.60 {ratio} Normal <5.10 [facility] Comment on above: Order Comment: Speci men Type: BLOOD SPECIMEN Ordering Facility: [facility] Address: [address] [place] [address] Performed By: #### 5 7021-8, 3016-3, 93941-9, 74660-4, 95135-0 #### [facility] CLIA [id number] [address] [place], [place] [address] [place] FASTING TIME 10 hrs Normal [facility] Comment on above: Order Comment: Speci men Type: BLOOD SPECIMEN Ordering Facility: [facility] Address: [address] [place], [place] [address] Performed By: #### 5 7021-8, 3016-3, 01589-8, 46834-7, 75935-8 #### [facility] CLIA [id number] [address] [place] [address] [place] Triglyceride [Mass/Vol] 73 mg/dL Normal <150 [facility] Comment on above: Order Comment: Speci men Type: BLOOD SPECIMEN Ordering Facility: [facility] Address: [address] [place] [address] Result Comment: <150 mg/dL, Normal 150-199 mg/dL, Borderline high 200-499 mg/dL, High >499 mg/dL, Very high Performed By: #### 5 7021-8, 3016-3, 53513-1, 96561-0, 74895-8 #### [facility] CLIA [id number] [address] [place] [id number] [place] TSH SerPl-aCncon 11-06-2023 TSH Qn 1.200 m[IU]/L Normal 0.270-4.200 [facility] Comment on above: Order Comment: Speci men Type: BLOOD SPECIMENOrdering Facility: [facility] Address: [address] [place] [address] Result Comment: If t he patient is , TSH reference range varies by gestational period: First Trimester (weeks 9-12): 0.180-2.990 mIU/L Second Trimester: 0.110-3.980 mIU/L Third Trimester: 0.480-4.710 mIU/L [facility] Fallon et al. A Practical Approach for the Verifications and Determination of Site- and Trimester-Specific Reference Intervals for Thyroid Function tests in . Thyroid, 2019:29:3:412-420. Boby E, et al. 2017 Guidelines of the [place] Thyroid Association for the Diagnosis and Management of Thyroid Disease during and the . Thyroid, 2017:27:3:315-389. Performed By: #### 5 7021-8, 3016-3, 91799-1, 70889-2, 68521-3 ####[facility] [id number] [place] [id number] [place] Basophil percentageOrdered B y: Jonatan Interiano on 09-29-2022 Basophil percentage 3.9 mg/dL 2.5-4.9 [facility] Bilirubin [Mass/Vol] 0.60 mg/dL 0.20-1.00 [facility] Comment on above: For patients on eltr ombopag therapy, use of Dimension [place] TBIL is not recommended. Chloride [Moles/Vol] 106 mmol[facility]L 98-107 [facility] Cholesterol [Mass/Vol] 141 mg/dL <200 [facility] Comment on above: <200 mg/dL Desirable 200-240 mg/dL Borderline >240 mg/dL High Risk Glucose [Mass/Vol] 102 mg/dL 74-106 [facility] Comment on above: Fasting Glucose resu lt from 100 to 125 mg/dL suggests IMPAIRED HOMEOSTASIS per A.D.A. criteria. Potassium [Moles/Vol] 4.2 mmol/L 3.5-5.1 [facility] Protein [Mass/Vol] 7.9 g/dL 6.4-8.2 [facility] Sodium [Moles/Vol] 138 mmol/L 136-145 [facility] Triglyceride [Mass/Vol] 92 mg/dL <199 [facility] Comment on above: The drugs N-Acetylcy steine and Metamizole may falsely depress this assay.Serum Triglycerides Reference Interval Normal <150 mg/dL Borderline high 150 - 199 mg/dL High 200 - 499 mg/dL Very High > or = 500 mg/dL Laboratory - Chemistry and C hemistry - challengeOrdered By: Jonatan Interiano on 09-29-2022 ALP [Catalytic activity/Vol] 68 U/L 45-117 [facility] ALT [Catalytic activity/Vol] 29 U/L 13-56 [facility] CO2 [Moles/Vol] 23.0 mmol/L 21.0-32.0 [facility] Free T4 [Mass/Vol] 1.04 ng/dL 0.76-1.46 [facility] Globulin (S) [Mass/Vol] 4.0 g/dL 2.2-4.2 [facility] Urea nitrogen/Creatinine [Mass ratio] 20.9 mg/mg 10-20 [facility] No Panel InformationOrdered By: Jonatan Interiano on 09-29-2022 Estimated GFR (MDRD) Amer 104 mL/min >60 [facility] Comment on above: GFR Calc Estimated GFR (MDRD) Non-Af Amer 86 mL/min >60 [facility] Comment on above: Non- GFR Calc Thyroid Stimulating Hormone (TSH) 1.67 uIU/mL 0.358-3.74 [facility] Urine Microalbumin/Creatinine Ratio 133.0 mg/g CRE <30 [facility] Vitamin D 25-Hydroxy 32.2 ng/mL [facility] Comment on above: Vitamin D 25(OH) Sta tus Range Deficiency <20 ng/mL (50nmol/L) Insufficiency 20 - 30 ng/mL (50 - 75 nmol/L) Sufficiency 30 - 100 ng/mL (75 - 250 nmol/L) Toxicity >100 ng/mL (>250 nmol/L) Serum or plasma albumin shilpa urement (mass/volume)Ordered By: Jonatan Interiano on 09-29-2022 Albumin [Mass/Vol] 3.9 g/dL 3.2-5.0 [facility] Serum or plasma albumin/glob ulin mass ratioOrdered By: Jonatan Interiano on 09-29-2022 Albumin/Globulin [Mass ratio] 1.0 {ratio} 0.9-2.4 [facility] Serum or plasma calcium shilpa urement (mass/volume)Ordered By: Jonatan Interiano on 09-29-2022 Calcium [Mass/Vol] 9.6 mg/dL 8.5-10.1 [facility] Serum or plasma cholesterol in HDL measurement (mass/volume)Ordered By: Jonatan Interiano on 09-29-2022 Cholesterol in HDL [Mass/Vol] 51 mg/dL >40 [facility] Comment on above: The drugs N-Acetylcy steine and Metamizole may falsely depress this assay. Reference Range HDL <40 mg/dL Low HDL Cholesterol HDL >or= 60 mg/dL High HDL Cholesterol Serum or plasma cholesterol in VLDL measurement (mass/volume)Ordered By: Jonatan Interiano on 09-29-2022 Cholesterol in VLDL [Mass/Vol] 18 mg/dL 5-40 [facility] Serum or plasma creatinine m easurement (mass/volume)Ordered By: Jonatan Interiano on 09-29-2022 Creatinine [Mass/Vol] 0.82 mg/dL 0.55-1.02 [facility] Comment on above: The validity of the calculated GFR & GFRAA in patients over 70 years has not been determined. Clinical correlation is essential. Serum or plasma low density lipoprotein (LDL) cholesterol measurement (mass/volume)Ordered By: Jonatan Interiano on 09-29-2022 Cholesterol in LDL [Mass/Vol] 72 mg/dL 0-130 [facility] Serum or plasma urea nitroge n measurement (mass/volume)Ordered By: Jonatan Interiano on 09-29-2022 Urea nitrogen [Mass/Vol] 17 mg/dL 7-18 [facility] Thin prep Papanicolaou smear with manual screeningOrdered By: Jonatan Interiano on 09-29-2022 Thin prep Papanicolaou smear with manual screening 13 U/L 15-37 [facility] Thin prep Papanicolaou smear with manual screening 9 5-15 [facility] Thin prep Papanicolaou smear with manual screening 258.0 mg/L NO RANGE EST. [facility] Urine creatinine measurement (mass/volume)Ordered By: Jonatan Interiano on 09-29-2022 Creatinine (U) [Mass/Vol] 194.00 mg/dL NO RANGE EST. [facility] Urine protein measurement (m ass/volume)Ordered By: Jonatan Interiano on 09-29-2022 Protein (U) [Mass/Vol] 45.8 mg/dL 0.0-11.8 [facility] Urine protein/creatinine mas s ratioOrdered By: Jonatan Interiano on 09-29-2022 Protein/Creatinine (U) [Mass ratio] 236 mg/g CRE 0-200 [facility] Whole blood hemoglobin A1c/t otal hemoglobin ratio (mass fraction)Ordered By: Nina Martinez on 09-29-2022 HbA1c (Bld) [Mass fraction] 6.4 % 3.8-5.6 [facility] Comment on above: Normal < 5.7 % Predi abetic 5.7 - 6.4 % Diabetic >or= 6.5 % Please note range changes. Laboratory - Hematology and Cell countson 07-25-2022 HbA1c (Bld) [Mass fraction] 6.8 % 4.2-6.3 [facility] Basophil percentageon 2021 Basophil percentage 4.4 mg/dL 2.5-4.9 [facility] Work Phone: Chloride [Moles/Vol] 104 mmol/L 98-107 [facility] Work Phone: Glucose [Mass/Vol] 116 mg/dL 74-106 [facility] Work Phone: Comment on above: Fasting Glucose resu lt from 100 to 125 mg/dL suggests IMPAIRED HOMEOSTASIS per A.D.A. criteria. Potassium [Moles/Vol] 4.4 mmol/L 3.5-5.1 [facility] Work Phone: Sodium [Moles/Vol] 137 mmol/L 136-145 [facility] Work Phone: Laboratory - Chemistry and C hemistry - challengeon 10-05-2021 CO2 [Moles/Vol] 24.0 mmol/L 21.0-32.0 [facility] Work Phone: Urea nitrogen/Creatinine [Mass ratio] 23.3 mg/mg 10-20 [facility] Work Phone: No Panel Informationon 10-05 Estimated GFR (MDRD) Amer 99 mL/min >60 [facility] Work Phone: Comment on above: GFR Calc Estimated GFR (MDRD) Non-Af Amer 82 mL/min >60 [facility] Work Phone: Comment on above: Non- GFR Calc Serum or plasma albumin shilpa urement (mass/volume)on 10-05-2021 Albumin [Mass/Vol] 4.0 g/dL 3.2-5.0 [facility] Work Phone: Serum or plasma calcium shilpa urement (mass/volume)on 10-05-2021 Calcium [Mass/Vol] 9.8 mg/dL 8.5-10.1 [facility] Work Phone: Serum or plasma creatinine m easurement (mass/volume)on 10-05-2021 Creatinine [Mass/Vol] 0.86 mg/dL 0.55-1.02 [facility] Work Phone: Comment on above: The validity of the calculated GFR & GFRAA in patients over 70 years has not been determined. Clinical correlation is essential. Serum or plasma urea nitroge n measurement (mass/volume)on 10-05-2021 Urea nitrogen [Mass/Vol] 20 mg/dL 7-18 [facility] Work Phone: Urine creatinine measurement (mass/volume)on 10-05-2021 Creatinine (U) [Mass/Vol] 120.00 mg/dL NO RANGE EST. [facility] Work Phone: Urine protein measurement (m ass/volume)on 10-05-2021 Protein (U) [Mass/Vol] 41.9 mg/dL 0.0-11.8 [facility] Work Phone: Urine protein/creatinine mas s ratioon 10-05-2021 Protein/Creatinine (U) [Mass ratio] 349 mg/g CRE 0-200 [facility] Work Phone: Laboratory - Hematology and Cell countson 09-30-2021 HbA1c (Bld) [Mass fraction] 6.2 % 4.2-6.3 [facility] Work Phone: No Panel Informationon 06-28 Dehydroepiandrosterone Sulfate 719.0 ug/dL 84.8-378.0 [facility] Work Phone: Serum or plasma progesterone measurement (mass/volume)on 06-28-2021 Progesterone [Mass/Vol] 1.36 ng/mL See Comment [facility] Work Phone: Comment on above: Progesterone Referen ce Table: UNITS Female: Follicular 0.15 - 1.40 ng/mL Luteal 3.34 - 25.56 ng/mL Mid-luteal 4.44 - 28.03 ng/mL Postmenopausal 0.0 - 0.73 ng/mL : 1st Trimester 11.22 - 90.00 ng/mL 2nd Trimester 25.55 - 89.40 ng/mL 3rd Trimester 48.40 -422.50 ng/mL Serum or plasma testosterone free measurement (mass/volume)on 06-28-2021 Testosterone Free [Mass/Vol] 8.4 pg/mL 0.0-4.2 [facility] Work Phone: Comment on above: Performed at: [address] [id number] Director: Kevin Estrella PhD, Phone: [phone] at: - [facility] [id number] Director: Ankit Buchanan MD, Phone: [phone] Laboratory - Chemistry and C hemistry - challengeon 06-09-2021 Free T4 [Mass/Vol] 1.30 ng/dL 0.76-1.46 [facility] Work Phone: No Panel Informationon 06-09 Follicle Stimulating Hormone 3.5 mIU/mL [facility] Work Phone: Comment on above: NORMAL REFERENCE RAN GES FEMALE FOLLICULAR 2.3 - 12.6 mIU/mL MID-CYCLE PEAK 5.2 - 17.5 mIU/mL LUTEAL 1.7 - 12.9 mIU/mL POST-MENOPAUSAL ON MHT 5.9 - 72.8 mIU/mL NOT ON MHT 12.7 - 132.2 mlU/mL MALE 0.7 - 10.8 mIU/mL Luteinizing Hormone 2.0 mIU/mL [facility] Work Phone: Comment on above: NORMAL REFERENCE RAN GES FEMALE FOLLICULAR 1.9 - 26.2 mIU/mL MID-CYCLE PEAK 22.8 - 76.1 mIU/mL LUTEAL 0.6 - 16.6 mIU/mL POST-MENOPAUSAL ON MHT 1.1 - 52.4 mIU/mL NOT ON MHT 8.6 - 61.8 mIU/mL MALE 1.2 - 10.6 mIU/mL Rubella IgG Antibody Reactive Nonreactive [facility] Work Phone: Comment on above: Antibody Results Int erpretation of Immune Status Non Reactive Presumed Non-Immune Equivocal Equivocal Reactive Presumed Immune Thyroid Stimulating Hormone (TSH) 2.68 uIU/mL 0.358-3.74 [facility] Work Phone: Vitamin D 25-Hydroxy 16.3 ng/mL [facility] Work Phone: Comment on above: Vitamin D 25(OH) Sta tus Range Deficiency <20 ng/mL (50nmol/L) Insufficiency 20 - 30 ng/mL (50 - 75 nmol/L) Sufficiency 30 - 100 ng/mL (75 - 250 nmol/L) Toxicity >100 ng/mL (>250 nmol/L) Serum Varicella zoster virus IgG antibody assay by immunoassay (units/volume)on 06-09-2021 VZV IgG IA Qn (S) 960 index Immune >165 [facility] Work Phone: Comment on above: Negative <135 Equivo nasir 135 - 165 Positive >165A positive result generally indicates exposure to thepathogen or administration of specific immunoglobulins,but it is not indication of active infection or stageof disease.Performed at: [facility] [address] [id number] Director: Kevin Estrella PhD, Phone: [phone] Serum hepatitis B virus surf toni antibody IgG detectionon 06-09-2021 HBV surface IgG Ql (S) Non-Reactive [facility] Work Phone: Comment on above: Non Reactive: Incons istent with immunity less than <10 mIU/mL Reactive: Consistent with immunity greater than or equal to 10 mIU/mL Serum or plasma 17-hydroxypr ogesterone measurement (mass/volume)on 06-09-2021 17-Hydroxyprogesterone [Mass/Vol] 12 ng/dL [facility] Work Phone: Comment on above: Adult Female Follicu lar 15 - 70 Luteal 35 - 290Performed at: [facility] [address] [id number] Director: Ankit Buchanan MD, Phone: [phone] Serum or plasma estradiol (E 2) measurement (mass/volume)on 06-09-2021 E2 [Mass/Vol] 38.5 pg/mL [facility] Work Phone: Comment on above: NORMAL REFERENCE [...] asurement (mass/volume)on 06-09-2021 Prolactin [Mass/Vol] 11.9 ng/mL [facility] Work Phone: Comment on above: NORMAL REFERENCE RAN GES FEMALE NON- 2.2 - 30.3 ng/mL 8.1 - 347.6 ng/mL POST-MENOPAUSAL 0.7 - 31.5 ng/mL MALE 2.5 - 17.4 ng/mL Cervical or vagninal specime n microscopic examination by cytology stain (reported ason 05-13-2021 Cytology report Cyto stain Doc (Cvx/Vag) Comment [facility] Work Phone: Comment on above: The Pap [...] DNA Probe+sig amp Ql (Cvx) Negative Negative [facility] Work Phone: Comment on above: This nucleic acid am plification test detects fourteen high-risk HPV types (16,18,31,33,35,39,45,51,52,56,58,59,66,68)without differentiation.Performed at: WB - [facility] [address] [id number] Director: Teena Hussein MD, Phone: [phone] at: =G - [facility] [address] [id number] Director: Teena Hussein MD, Phone: [phone] Laboratory - Cytologyon 04-21 Developmental Behavioral Physician Cyto stain Nom (Cvx/Vag) [ID] Comment [facility] Work Phone: Comment on above: Leona Mcgrath, Cyto technologist (ASCP) Laboratory - Miscellaneous t estson 05-13-2021 Service comment (Unsp spec) [Interp] . [facility] Work Phone: No Panel Informationon 05-13 Pathology report final diagnosis Narrative Comment [facility] Work Phone: Comment on above: NEGATIVE FOR INTRAEP ITHELIAL LESION OR MALIGNANCY. XR Chest PA and Lateralon IMPRESSION: No acute radiographic abnormality. Pre Sales Architect: [employer] Transcribe Date/Time: Jan 25 2021 10:18A Dictated by : REBEL MCHUGH MD This examination was interpreted and the report reviewed and electronically signed by: REBEL MCHUGH MD on Jan 25 2021 10:18AM [facility] DIVISION OF RADIOLOGY * * *Final Report* [...] soft tissues: Unremarkable. DIVISION OF RADIOLOGY Provider, [facility] - 01/25/2021 * * *Final Report* [...] Unremarkable. IMPRESSION IMPRESSION: No acute radiographic abnormality. Pre Sales Architect: [facility] Transcribe Date/Time: Jan 25 2021 10:18A Dictated by : REBEL MCHUGH MD This examination was interpreted and the report reviewed and electronically signed by: REBEL MCHUGH MD on Jan 25 2021 10:18AM EST [facility] Radiology Study observation (narrative) [facility] XR Chest PA and LateralOrder ed By: Ccf Provider on 01-25-[address] [facility] XR Knee - right 4 Viewson IMPRESSION: Joint effusion of the right knee. Pre Sales Architect: [facility] Transcribe Date/Time: Aug 18 2020 6:02P Dictated by : MATEUS JOHNSON MD This examination was interpreted and the report reviewed and electronically signed by: MATEUS JOHNSON MD on Aug 18 2020 6:03PM [facility] DIVISION OF RADIOLOGY * * *Final Report* [...] soft tissue swelling. DIVISION OF RADIOLOGY Provider, [facility] [place] - 08/18/2020 * * *Final Report* * [...] IMPRESSION: Joint effusion of the right knee. Pre Sales Architect: [employer] Transcribe Date/Time: Aug 18 2020 6:02P Dictated by : MATEUS JOHNSON MD This examination was interpreted and the report reviewed and electronically signed by: MATEUS JOHNSON MD on Aug 18 2020 6:03PM [facility] Radiology Study observation (narrative) Sonia alaniz [facility] XR Knee - right 4 ViewsOrder ed By: Ccf Provider on 08-18-[address] [facility] .GFRon 07-29-2020 GFR Non- >60 Normal [facility] ([place]) Comment on above: Result Comment: GFR Population [...] CMP, GFR, CBC, ADIFF, ANEU, A1C #### [place] [address] GFR >60 Normal [facility] ([place]) Comment on above: Result Comment: GFR Population [...] CMP, GFR, CBC, ADIFF, ANEU, A1C #### [place] [address] .Manual Diffon 07-29-2020 Bands 2.0 % Normal 0.0-5.0 [facility] ([place]) Comment on above: Performed By: #### B ILAD, TSH, LIPID, CMP, GFR, CBC, ADIFF, ANEU, A1C #### [place] [address] Basophil %, Manual 0.0 % Normal 0.0-2.5 [facility] ([place]) Comment on above: Performed By: #### B ILAD, TSH, LIPID, CMP, GFR, CBC, ADIFF, ANEU, A1C #### [place] [address] Basophil, Abs Manual 0.00 10 3/mcL Normal 0.00-0.27 [facility] ([place]) Comment on above: Performed By: #### B ILAD, TSH, LIPID, CMP, GFR, CBC, ADIFF, ANEU, A1C #### [place] [address] Cells Counted 100 Normal [facility] ([place]) Comment on above: Performed By: #### B ILAD, TSH, LIPID, CMP, GFR, CBC, ADIFF, ANEU, A1C #### [place] [address] Eosinophil %, Manual 3.0 % Normal 0.0-6.0 [facility] ([place]) Comment on above: Performed By: #### B ILAD, TSH, LIPID, CMP, GFR, CBC, ADIFF, ANEU, A1C #### [place] [id number] Eosinophil, Abs Manual 0.44 10 3/mcL Normal 0.00-0.65 [facility] ([place]) Comment on above: Performed By: #### B ILAD, TSH, LIPID, CMP, GFR, CBC, ADIFF, ANEU, A1C #### [address] [address] Lymphocyte %, Manual 34.0 % Normal 20.0-40.0 [facility] ([place]) Comment on above: Performed By: #### B ILAD, TSH, LIPID, CMP, GFR, CBC, ADIFF, ANEU, A1C #### [address] [address] Lymphocyte, Abs Manual 5.00 10 3/mcL High 0.90-4.32 [facility] ([place]) Comment on above: Performed By: #### B ILAD, TSH, LIPID, CMP, GFR, CBC, ADIFF, ANEU, A1C #### [place] [address] Monocyte %, Manual 3.0 % Normal 2.0-13.0 [facility] ([place]) Comment on above: Performed By: #### B ILAD, TSH, LIPID, CMP, GFR, CBC, ADIFF, ANEU, A1C #### [address] [address] Monocyte, Abs Manual 0.44 10 3/mcL Normal 0.09-1.40 [facility] [place]) Comment on above: Performed By: #### B ILAD, TSH, LIPID, CMP, GFR, CBC, ADIFF, ANEU, A1C #### [address] [address] Neutrophil %, Manual 58.0 % Normal 50.0-75.0 [facility] ([place]) Comment on above: Performed By: #### B ILAD, TSH, LIPID, CMP, GFR, CBC, ADIFF, ANEU, A1C #### [address] [address] Neutrophil, Abs Manual 8.82 10 3/mcL High 2.25-8.10 [facility] ([place]) Comment on above: Performed By: #### B ILAD, TSH, LIPID, CMP, GFR, CBC, ADIFF, ANEU, A1C #### [place] [address] .Morphon 07-29-2020 Platelet Estimate Normal Normal [facility] ([place]) Comment on above: Result Comment: Few platelet clumps seen. Performed By: #### B ILAD, TSH, LIPID, CMP, GFR, CBC, ADIFF, ANEU, A1C #### [place] [address] RBC morphology finding Nom (Bld) Normal Normal [facility] ([place]) Comment on above: Performed By: #### B ILAD, TSH, LIPID, CMP, GFR, CBC, ADIFF, ANEU, A1C #### [address] [address] A1Con 07-29-2020 HbA1c (Bld) [Mass fraction] 8.2 % High 4.0-6.0 [facility] ([place]) Comment on above: Order Comment: billie ind Performed By: #### B ILAD, TSH, LIPID, CMP, GFR, CBC, ADIFF, ANEU, A1C #### [place] [id number] CBCon 07-29-2020 Platelet 286 10 3/mcL Normal 150-450 [facility] ([place]) Comment on above: Order Comment: billie ind Performed By: #### B ILAD, TSH, LIPID, CMP, GFR, CBC, ADIFF, ANEU, A1C #### [place] [address] Platelet mean volume (Bld) [Entitic vol] 11.0 fL High 6.6-10.5 [facility] ([place]) Comment on above: Order Comment: billie ind Performed By: #### B ILAD, TSH, LIPID, CMP, GFR, CBC, ADIFF, ANEU, A1C #### [place] [address] Erythrocyte distribution width (RBC) [Ratio] 12.7 % Normal 11.5-15.5 [facility] ([place]) Comment on above: Order Comment: billie ind Performed By: #### B ILAD, TSH, LIPID, CMP, GFR, CBC, ADIFF, ANEU, A1C #### [place] [id number] Hematocrit (Bld) [Volume fraction] 40.9 % Normal 34.0-46.0 [facility] ([place]) Comment on above: Order Comment: billie ind Performed By: #### B ILAD, TSH, LIPID, CMP, GFR, CBC, ADIFF, ANEU, A1C #### [place] [address] Hgb 13.6 G/dL Normal 12.0-16.0 [facility] ([place]) Comment on above: Order Comment: billie ind Performed By: #### B ILAD, TSH, LIPID, CMP, GFR, CBC, ADIFF, ANEU, A1C #### [place] [address] MCH (RBC) [Entitic mass] 31.4 pg Normal 27.0-33.0 [facility] ([place]) Comment on above: Order Comment: billie ind Performed By: #### B ILAD, TSH, LIPID, CMP, GFR, CBC, ADIFF, ANEU, A1C #### [place] [address] MCHC 33.3 G/dL Normal 32.0-36.0 [facility] ([place]) Comment on above: Order Comment: billie ind Performed By: #### B ILAD, TSH, LIPID, CMP, GFR, CBC, ADIFF, ANEU, A1C #### [place] [address] MCV (RBC) [Entitic vol] 94.3 fL Normal 80.0-99.0 [facility] [place] Comment on above: Order Comment: billie ind Performed By: #### B ILAD, TSH, LIPID, CMP, GFR, CBC, ADIFF, ANEU, A1C #### [place] [address] RBC 4.34 10 6/mcL Normal 4.10-5.30 [facility] ([place]) Comment on above: Order Comment: billie ind Performed By: #### B ILAD, TSH, LIPID, CMP, GFR, CBC, ADIFF, ANEU, A1C #### [place] [address] WBC 14.70 10 3/mcL High 4.50-10.80 [facility] ([place]) Comment on above: Order Comment: billie ind Performed By: #### B ILAD, TSH, LIPID, CMP, GFR, CBC, ADIFF, ANEU, A1C #### [address] [address] CMPon 07-29-2020 Albumin Level 3.8 G/dL Normal 3.2-4.8 [facility] ([place]) Comment on above: Order Comment: billie ind Performed By: #### B ILAD, TSH, LIPID, CMP, GFR, CBC, ADIFF, ANEU, A1C #### [address] [address] Albumin/Globulin [Mass ratio] 1.2 {ratio} Normal 0.9-1.6 [facility] ([place]) Comment on above: Order Comment: billie ind Performed By: #### B ILAD, TSH, LIPID, CMP, GFR, CBC, ADIFF, ANEU, A1C #### [address] [address] ALP [Catalytic activity/Vol] 76 U/L Normal 38-126 [facility] ([place]) Comment on above: Order Comment: billie ind Performed By: #### B ILAD, TSH, LIPID, CMP, GFR, CBC, ADIFF, ANEU, A1C #### [address] [address] ALT [Catalytic activity/Vol] 20 U/L Normal 10-49 [facility] ([place]) Comment on above: Order Comment: billie ind Performed By: #### B ILAD, TSH, LIPID, CMP, GFR, CBC, ADIFF, ANEU, A1C #### [address] [address] AST [Catalytic activity/Vol] 14 U/L Normal 8-34 [facility] ([place]) Comment on above: Order Comment: billie ind Performed By: #### B ILAD, TSH, LIPID, CMP, GFR, CBC, ADIFF, ANEU, A1C #### [address] [address] Bili Total 0.80 mg/dL Normal 0.20-1.20 [facility] ([place]) Comment on above: Order Comment: billie ind Result Comment: Use of this assay is not recommended for patients undergoing treatment with eltrombopag due to the potential for falsely elevated results. Performed By: #### B ILAD, TSH, LIPID, CMP, GFR, CBC, ADIFF, ANEU, A1C #### [address] [address] BUN/Creatinine Ratio 39.3 ratio High 10.0-22.0 [facility] ([place]) Comment on above: Order Comment: billie ind Performed By: #### B ILAD, TSH, LIPID, CMP, GFR, CBC, ADIFF, ANEU, A1C #### [address] [address] Calcium [Mass/Vol] 10.2 mg/dL Normal 8.7-10.4 [facility] ([place]) Comment on above: Order Comment: billie ind Result Comment: No te - New Reference Range in effect 19 Performed By: #### B ILAD, TSH, LIPID, CMP, GFR, CBC, ADIFF, ANEU, A1C #### [address] [address] Chloride [Moles/Vol] 103 mmol/L Normal 98-110 [facility] ([place]) Comment on above: Order Comment: billie ind Performed By: #### B ILAD, TSH, LIPID, CMP, GFR, CBC, ADIFF, ANEU, A1C #### [address] [address] CO2 [Moles/Vol] 26 mmol/L Normal 22-32 [facility] ([place]) Comment on above: Order Comment: billie ind Performed By: #### B ILAD, TSH, LIPID, CMP, GFR, CBC, ADIFF, ANEU, A1C #### [address] [address] Creatinine [Mass/Vol] 0.61 mg/dL Normal 0.50-1.20 [facility] ([place]) Comment on above: Order Comment: billie ind Performed By: #### B ILAD, TSH, LIPID, CMP, GFR, CBC, ADIFF, ANEU, A1C #### [address] [address] Electrolyte Balance 7.0 mEq/L Normal 4.0-15.0 [facility] ([place]) Comment on above: Order Comment: billie ind Performed By: #### B ILAD, TSH, LIPID, CMP, GFR, CBC, ADIFF, ANEU, A1C #### [address] [address] Globulin 3.1 G/dL Normal 1.5-3.8 [facility] ([place]) Comment on above: Order Comment: billie ind Performed By: #### B ILAD, TSH, LIPID, CMP, GFR, CBC, ADIFF, ANEU, A1C #### [address] [address] Glucose [Mass/Vol] 214 mg/dL High 70-110 [facility] ([place]) Comment on above: Order Comment: billie ind Performed By: #### B ILAD, TSH, LIPID, CMP, GFR, CBC, ADIFF, ANEU, A1C #### [address] [address] Potassium [Moles/Vol] 4.9 mmol/L Normal 3.5-5.0 [facility] ([place]) Comment on above: Order Comment: billie ind Performed By: #### B ILAD, TSH, LIPID, CMP, GFR, CBC, ADIFF, ANEU, A1C #### [address] [address] Sodium [Moles/Vol] 136 mmol/L Normal 136-145 [facility] ([place]) Comment on above: Order Comment: billie ind Performed By: #### B ILAD, TSH, LIPID, CMP, GFR, CBC, ADIFF, ANEU, A1C #### [address] [address] Total Protein 6.9 G/dL Normal 5.7-8.2 [facility] ([place]) Comment on above: Order Comment: billie ind Result Comment: No te - New Reference Range in effect 19 Performed By: #### B ILAD, TSH, LIPID, CMP, GFR, CBC, ADIFF, ANEU, A1C #### [address] [address] Urea nitrogen [Mass/Vol] 24.0 mg/dL High 8.0-22.0 [facility] ([place]) Comment on above: Order Comment: billie ind Performed By: #### B ILAD, TSH, LIPID, CMP, GFR, CBC, ADIFF, ANEU, A1C #### [address] [address] LIPIDon 07-29-2020 Cholesterol [Mass/Vol] 154 mg/dL Normal 50-199 [facility] ([place]) Comment on above: Order Comment: billie ind Result Comment: Chol esterol Reference Interval: Less than 200 Desirable 200-239 Borderline high risk 240 and above High risk Performed By: #### B ILAD, TSH, LIPID, CMP, GFR, CBC, ADIFF, ANEU, A1C #### [address] [address] Cholesterol in HDL [Mass/Vol] 46 mg/dL Normal 40-59 [facility] ([place]) Comment on above: Order Comment: ibllie ind Performed By: #### B ILAD, TSH, LIPID, CMP, GFR, CBC, ADIFF, ANEU, A1C #### [address] [address] Cholesterol in LDL [Mass/Vol] 70 mg/dL Normal 0-129 [facility] ([place]) Comment on above: Order Comment: billie ind Performed By: #### B ILAD, TSH, LIPID, CMP, GFR, CBC, ADIFF, ANEU, A1C #### [address] [address] Triglyceride [Mass/Vol] 192 mg/dL High 3-149 [facility] [place] Comment on above: Order Comment: billie ind Performed By: #### B ILAD, TSH, LIPID, CMP, GFR, CBC, ADIFF, ANEU, A1C #### [address] [address] TSHon 07-29-2020 TSH 2.630 mIU/mL Normal 0.550-4.780 [facility] ([place]) Comment on above: Order Comment: billie ind Result Comment: No te - New Reference Range in effect 19 Performed By: #### T SH, CMP, GFR, LIPID, CBC, DIFF, MORPH, A1C #### [address] [address] .Auto Diffon 10-16-2019 Basophil, Absolute 0.10 10 3/mcL Normal 0.00-0.27 [facility] ([place]) Comment on above: Performed By: #### B ILAD, TSH, LIPID, CMP, GFR, CBC, ADIFF, ANEU, A1C #### [address] [address] Basophils/100 WBC (Bld) 0.9 % Normal 0.0-2.5 [facility] [place] Comment on above: Performed By: #### B ILAD, TSH, LIPID, CMP, GFR, CBC, ADIFF, ANEU, A1C #### [address] [address] Eosinophil, Absolute 0.40 10 3/mcL Normal 0.00-0.65 [facility] [place] Comment on above: Performed By: #### B ILAD, TSH, LIPID, CMP, GFR, CBC, ADIFF, ANEU, A1C #### [address] [address] Eosinophils/100 WBC (Bld) 3.4 % Normal 0.0-6.0 [facility] ([place]) Comment on above: Performed By: #### B ILAD, TSH, LIPID, CMP, GFR, CBC, ADIFF, ANEU, A1C #### [address] [address] Lymphocyte, Absolute 3.00 10 3/mcL Normal 0.90-4.32 [facility] [place] Comment on above: Performed By: #### B ILAD, TSH, LIPID, CMP, GFR, CBC, ADIFF, ANEU, A1C #### [address] [address] Lymphocytes/100 WBC (Bld) 27.9 % Normal 20.0-40.0 [facility] ([place]) Comment on above: Performed By: #### B ILAD, TSH, LIPID, CMP, GFR, CBC, ADIFF, ANEU, A1C #### [address] [address] Monocyte, Absolute 0.40 10 3/mcL Normal 0.09-1.40 [facility] ([place]) Comment on above: Performed By: #### B ILAD, TSH, LIPID, CMP, GFR, CBC, ADIFF, ANEU, A1C #### [address] [address] Monocytes/100 WBC (Bld) 3.6 % Normal 2.0-13.0 [facility] ([place] Comment on above: Performed By: #### B ILAD, TSH, LIPID, CMP, GFR, CBC, ADIFF, ANEU, A1C #### [address] [address] Neutrophils/100 WBC (Bld) 64.2 % Normal 50.0-75.0 [facility] ([place]) Comment on above: Performed By: #### B ILAD, TSH, LIPID, CMP, GFR, CBC, ADIFF, ANEU, A1C #### [address] [address] .GFRon 10-16-2019 GFR >60 Normal [facility] ([place]) Comment on above: Result Comment: GFR Population [...] CMP, GFR, CBC, ADIFF, ANEU, A1C #### [address] [address] GFR Non- >60 Normal [facility] ([place]) Comment on above: Result Comment: GFR Population [...] CMP, GFR, CBC, ADIFF, ANEU, A1C #### [address] [address] .NEUABSon 10-16-2019 Neutrophil, Absolute 7.00 10 3/mcL Normal 2.25-8.10 [facility] [place] Comment on above: Performed By: #### B ILAD, TSH, LIPID, CMP, GFR, CBC, ADIFF, ANEU, A1C #### [address] [address] A1Con 10-16-2019 HbA1c (Bld) [Mass fraction] 8.9 % High 4.0-6.0 [facility] ([place]) Comment on above: Performed By: #### B ILAD, TSH, LIPID, CMP, GFR, CBC, ADIFF, ANEU, A1C #### [address] [address] BILADon 10-16-2019 Bili Direct 0.3 mg/dL Normal 0.0-0.4 [facility] ([place]) Comment on above: Result Comment: Use of this assay is not recommended for patients undergoing treatment with eltrombopag due to the potential for falsely elevated results. Performed By: #### B ILAD, TSH, LIPID, CMP, GFR, CBC, ADIFF, ANEU, A1C #### [address] [address] CBCon 10-16-2019 Erythrocyte distribution width (RBC) [Ratio] 13.4 % Normal 11.5-15.5 [facility] ([place]) Comment on above: Performed By: #### B ILAD, TSH, LIPID, CMP, GFR, CBC, ADIFF, ANEU, A1C #### [place] [address] Hematocrit (Bld) [Volume fraction] 40.4 % Normal 34.0-46.0 [facility] ([place]) Comment on above: Performed By: #### B ILAD, TSH, LIPID, CMP, GFR, CBC, ADIFF, ANEU, A1C #### [place] [address] Hgb 13.7 G/dL Normal 12.0-16.0 [facility] ([place]) Comment on above: Performed By: #### B ILAD, TSH, LIPID, CMP, GFR, CBC, ADIFF, ANEU, A1C #### [place] [id number] MCH (RBC) [Entitic mass] 31.4 pg Normal 27.0-33.0 [facility] ([place]) Comment on above: Performed By: #### B ILAD, TSH, LIPID, CMP, GFR, CBC, ADIFF, ANEU, A1C #### [place] [id number] MCHC 33.8 G/dL Normal 32.0-36.0 [facility] ([place]) Comment on above: Performed By: #### B ILAD, TSH, LIPID, CMP, GFR, CBC, ADIFF, ANEU, A1C #### [place] [address] MCV (RBC) [Entitic vol] 93.0 fL Normal 80.0-99.0 [facility] [place] Comment on above: Performed By: #### B ILAD, TSH, LIPID, CMP, GFR, CBC, ADIFF, ANEU, A1C #### [place] [address] Platelet 284 10 3/mcL Normal 150-450 [facility] ([place]) Comment on above: Performed By: #### B ILAD, TSH, LIPID, CMP, GFR, CBC, ADIFF, ANEU, A1C #### [address] [address] Platelet mean volume (Bld) [Entitic vol] 10.2 fL Normal 6.6-10.5 [facility] ([place]) Comment on above: Performed By: #### B ILAD, TSH, LIPID, CMP, GFR, CBC, ADIFF, ANEU, A1C #### [place] [id number] RBC 4.35 10 6/mcL Normal 4.10-5.30 [facility] ([place]) Comment on above: Performed By: #### B ILAD, TSH, LIPID, CMP, GFR, CBC, ADIFF, ANEU, A1C #### [place] [id number] WBC 10.90 10 3/mcL High 4.50-10.80 [facility] ([place]) Comment on above: Performed By: #### B ILAD, TSH, LIPID, CMP, GFR, CBC, ADIFF, ANEU, A1C #### [place] [id number] CMPon 10-16-2019 Albumin Level 4.0 G/dL Normal 3.2-4.8 [facility] ([place]) Comment on above: Order Comment: Billie Ind Performed By: #### B ILAD, TSH, LIPID, CMP, GFR, CBC, ADIFF, ANEU, A1C #### [place] [address] Albumin/Globulin [Mass ratio] 1.2 {ratio} Normal 0.9-1.6 [facility] ([place]) Comment on above: Order Comment: Billie Ind Performed By: #### B ILAD, TSH, LIPID, CMP, GFR, CBC, ADIFF, ANEU, A1C #### [place] [id number] ALP [Catalytic activity/Vol] 82 U/L Normal 38-126 [facility] ([place]) Comment on above: Order Comment: Billie Ind Performed By: #### B ILAD, TSH, LIPID, CMP, GFR, CBC, ADIFF, ANEU, A1C #### [address] [address] ALT [Catalytic activity/Vol] 27 U/L Normal 10-49 [facility] ([place]) Comment on above: Order Comment: Billie Ind Performed By: #### B ILAD, TSH, LIPID, CMP, GFR, CBC, ADIFF, ANEU, A1C #### [address] [address] AST [Catalytic activity/Vol] 18 U/L Normal 8-34 [facility] ([place]) Comment on above: Order Comment: Billie Ind Performed By: #### B ILAD, TSH, LIPID, CMP, GFR, CBC, ADIFF, ANEU, A1C #### [address] [address] Bili Total 0.90 mg/dL Normal 0.20-1.20 [facility] ([place]) Comment on above: Order Comment: Billie Ind Result Comment: Use of this assay is not recommended for patients undergoing treatment with eltrombopag due to the potential for falsely elevated results. Performed By: #### B ILAD, TSH, LIPID, CMP, GFR, CBC, ADIFF, ANEU, A1C #### [address] [address] BUN/Creatinine Ratio 24.6 ratio High 10.0-22.0 [facility] ([place]) Comment on above: Order Comment: Billie Ind Performed By: #### B ILAD, TSH, LIPID, CMP, GFR, CBC, ADIFF, ANEU, A1C #### [address] [address] Calcium [Mass/Vol] 9.6 mg/dL Normal 8.7-10.4 [facility] ([place]) Comment on above: Order Comment: Billie Ind Result Comment: No te - New Reference Range in effect 19 Performed By: #### B ILAD, TSH, LIPID, CMP, GFR, CBC, ADIFF, ANEU, A1C #### [address] [address] Chloride [Moles/Vol] 103 mmol/L Normal 98-110 [facility] ([place]) Comment on above: Order Comment: Billie Ind Performed By: #### B ILAD, TSH, LIPID, CMP, GFR, CBC, ADIFF, ANEU, A1C #### [address] [address] CO2 [Moles/Vol] 24 mmol/L Normal 22-32 [facility] ([place]) Comment on above: Order Comment: Billie Ind Performed By: #### B ILAD, TSH, LIPID, CMP, GFR, CBC, ADIFF, ANEU, A1C #### [address] [address] Creatinine [Mass/Vol] 0.57 mg/dL Normal 0.50-1.20 [facility] ([place]) Comment on above: Order Comment: Billie Ind Performed By: #### B ILAD, TSH, LIPID, CMP, GFR, CBC, ADIFF, ANEU, A1C #### [address] [address] Electrolyte Balance 11.0 mEq/L Normal 4.0-15.0 [facility] ([place]) Comment on above: Order Comment: Billie Ind Performed By: #### B ILAD, TSH, LIPID, CMP, GFR, CBC, ADIFF, ANEU, A1C #### [address] [address] Globulin 3.2 G/dL Normal 1.5-3.8 [facility] ([place]) Comment on above: Order Comment: Billie Ind Performed By: #### B ILAD, TSH, LIPID, CMP, GFR, CBC, ADIFF, ANEU, A1C #### [address] [address] Glucose [Mass/Vol] 197 mg/dL High 70-110 [facility] ([place]) Comment on above: Order Comment: Billie Ind Performed By: #### B ILAD, TSH, LIPID, CMP, GFR, CBC, ADIFF, ANEU, A1C #### [address] [address] Potassium [Moles/Vol] 4.2 mmol/L Normal 3.5-5.0 [facility] ([place]) Comment on above: Order Comment: Billie Ind Performed By: #### B ILAD, TSH, LIPID, CMP, GFR, CBC, ADIFF, ANEU, A1C #### [address] [address] Sodium [Moles/Vol] 138 mmol/L Normal 136-145 [facility] ([place]) Comment on above: Order Comment: Billie Ind Performed By: #### B ILAD, TSH, LIPID, CMP, GFR, CBC, ADIFF, ANEU, A1C #### [address] [address] Total Protein 7.2 G/dL Normal 5.7-8.2 [facility] ([place]) Comment on above: Order Comment: Billie Ind Result Comment: No te - New Reference Range in effect 19 Performed By: #### B ILAD, TSH, LIPID, CMP, GFR, CBC, ADIFF, ANEU, A1C #### [address] [address] Urea nitrogen [Mass/Vol] 14.0 mg/dL Normal 8.0-22.0 [facility] ([place]) Comment on above: Order Comment: Billie Ind Performed By: #### B ILAD, TSH, LIPID, CMP, GFR, CBC, ADIFF, ANEU, A1C #### [address] [address] LIPIDon 10-16-2019 Cholesterol [Mass/Vol] 157 mg/dL Normal 50-199 [facility] ([place]) Comment on above: Result Comment: Chol esterol Reference Interval: Less than 200 Desirable 200-239 Borderline high risk 240 and above High risk Performed By: #### B ILAD, TSH, LIPID, CMP, GFR, CBC, ADIFF, ANEU, A1C #### [address] [address] Cholesterol in HDL [Mass/Vol] 48 mg/dL Normal 40-59 [facility] ([place]) Comment on above: Performed By: #### B ILAD, TSH, LIPID, CMP, GFR, CBC, ADIFF, ANEU, A1C #### [address] [address] Cholesterol in LDL [Mass/Vol] 82 mg/dL Normal 0-129 [facility] ([place]) Comment on above: Performed By: #### B ILAD, TSH, LIPID, CMP, GFR, CBC, ADIFF, ANEU, A1C #### [place] [id number] [place] [address] Triglyceride [Mass/Vol] 135 mg/dL Normal 3-149 [facility] ([place]) Comment on above: Performed By: #### B ILAD, TSH, LIPID, CMP, GFR, CBC, ADIFF, ANEU, A1C #### [place] [id number] [place] [address] TSHon 10-16-2019 TSH 2.842 mIU/mL Normal 0.550-4.780 [facility] ([place]) Comment on above: Result Comment: No te - New Reference Range in effect 19 Performed By: #### B ILAD, TSH, LIPID, CMP, GFR, CBC, ADIFF, ANEU, A1C #### [place] [id number] [place] [address] Vital Signs Date Time Vital Sign Value Performing Clinician Faci lity 11-22-2024 08:00-0400 Body height 160.[address] Surendra Benton MD Work Phone: 5(666)[phone] [place] [address] 11-22-2024 08:00-0400 Body mass index (BMI) [Ratio] 52.6 kg/m2 Dr. Surendra Benton MD Work Phone: 3([phone])[phone] [place] [address] 11-22-2024 08:00-0400 Body weight 134.[address] Surendra Benton MD Work Phone: 9(846)[phone] [place] [address] 11-22-2024 08:00-0400 Diastolic blood pressure 75 mm[Hg] Dr. Surendra Benton MD Work Phone: 0(245)969-636307 [place] [address] 11-22-2024 08:00-0400 Heart rate 80 /min Dr. Surendra Benton MD Work Phone: 9(110)[phone] [place] [address] 11-22-2024 08:00-0400 SaO2% (BldA) [Mass fraction] 98 % Dr. Surendra Benton MD Work Phone: 5(222)346-425107 [place] [address] 11-22-2024 08:00-0400 Systolic blood pressure 123 mm[Hg] Dr. Surendra Benton MD Work Phone: [facility] 07-30-2024 09:38-0400 Body height 160 cm Radha Short AP PROCESSOR.CNM Work Phone: [facility] 07-30-2024 09:38-0400 Body mass index (BMI) [Ratio] 54.74 kg/m2 Radha Short AP PROCESSOR.CNM Work Phone: [facility] 07-30-2024 09:38-0400 Body weight 140.16 kg Radha Short AP PROCESSOR.CNM Work Phone: [facility] 07-30-2024 09:38-0400 Diastolic blood pressure 76 mm[Hg] Radha Short AP PROCESSOR.CNM Work Phone: [facility] 07-30-2024 09:38-0400 Systolic blood pressure 118 mm[Hg] Radha Short AP PROCESSOR.CNM Work Phone: [facility] 06-17-2024 17:32-0400 Body mass index (BMI) [Ratio] 53.7 kg/m2 Flora Singh AP PROCESSOR.HYDRAULIC ASSEMBLER Work Phone: [facility] 06-17-2024 17:32-0400 Body weight 139.71 kg Flora Singh AP PROCESSOR.HYDRAULIC ASSEMBLER Work Phone: [facility] 06-17-2024 17:32-0400 Diastolic blood pressure 72 mm[Hg] Flora Singh AP PROCESSOR.HYDRAULIC ASSEMBLER Work Phone: [facility] 06-17-2024 17:32-0400 Heart rate 85 /min Flora Singh AP PROCESSOR.HYDRAULIC ASSEMBLER Work Phone: [facility] 06-17-2024 17:32-0400 Respiratory rate 16 /min Flora Singh APRN.HYDRAULIC ASSEMBLER Work Phone: [facility] 06-17-2024 17:32-0400 SaO2% (BldA) [Mass fraction] 98 % Flora Singh AP PROCESSOR.HYDRAULIC ASSEMBLER Work Phone: [facility] 06-17-2024 17:32-0400 Systolic blood pressure 128 mm[Hg] Flora Francisco CANNON Work Phone: [facility] 07-25-2022 08:41-0400 Body height 160.[address] Surendra Benton Work Phone: [facility] 07-25-2022 08:41-0400 Body mass index (BMI) [Ratio] 58.1 kg/m2 Dr. Surendra Benton Work Phone: [facility] 07-25-2022 08:41-0400 Body temperature 98.6 [degF] Dr. Surendra Benton Work Phone: [facility] 07-25-2022 08:41-0400 Body weight 148.[address] Surendra Benton Work Phone: [facility] 07-25-2022 08:41-0400 Diastolic blood pressure 75 mm[Hg] Dr. Surendra Benton Work Phone: [facility] 07-25-2022 08:41-0400 Heart rate 83 /min Dr. Surendra Benton Work Phone: 3(908)489-767207 [place] [address] 07-25-2022 08:41-0400 Respiratory rate 16 /min Dr. Surendra Benton Work Phone: [facility] 07-25-2022 08:41-0400 SaO2% (BldA) [Mass fraction] 94 % Dr. Surendra Benton Work Phone: [facility] 07-25-2022 08:41-0400 Systolic blood pressure 126 mm[Hg] Dr. Surendra Benton Work Phone: [facility] 09-30-2021 09:02-0400 Body height 160.[address] Surendra Benton Work Phone: [facility] Work Phone: 09-30-2021 09:02-0400 Body mass index (BMI) [Ratio] 57.6 kg/m2 Dr. Surendra Benton Work Phone: [facility] Work Phone: 09-30-2021 09:02-0400 Body temperature 96.5 [degF] Dr. Surendra Benton Work Phone: [facility] Work Phone: 09-30-2021 09:02-0400 Body weight 147.[address] Surendra Benton Work Phone: [facility] Work Phone: 09-30-2021 09:02-0400 Diastolic blood pressure 80 mm[Hg] Dr. Surendra Benton Work Phone: [facility] Work Phone: 09-30-2021 09:02-0400 Heart rate 85 /min Dr. Surendra Benton Work Phone: [facility] Work Phone: 09-30-2021 09:02-0400 Respiratory rate 18 /min Dr. Surendra Benton Work Phone: [facility] Work Phone: 09-30-2021 09:02-0400 SaO2% (BldA) [Mass fraction] 99 % Dr. Surendra Benton Work Phone: [facility] Work Phone: 09-30-2021 09:02-0400 Systolic blood pressure 122 mm[Hg] Dr. Surendra Benton Work Phone: [facility] Work Phone: 07-19-2021 17:01-0400 Diastolic blood pressure 82 mm[Hg] Flora Singh AP PROCESSOR.HYDRAULIC ASSEMBLER Work Phone: [facility] 07-19-2021 17:01-0400 Heart rate 99 /min Flora Haagen AP PROCESSOR.HYDRAULIC ASSEMBLER Work Phone: [facility] 07-19-2021 17:01-0400 Respiratory rate 18 /min Flora Krameragen AP PROCESSOR.HYDRAULIC ASSEMBLER Work Phone: [facility] 07-19-2021 17:01-0400 SaO2% (BldA) [Mass fraction] 99 % Flora Singh APRN.HYDRAULIC ASSEMBLER Work Phone: [facility] 07-19-2021 17:01-0400 Systolic blood pressure 138 mm[Hg] Flora Singh APRN.HYDRAULIC ASSEMBLER Work Phone: [facility] 11-08-2017 11:59-0400 Body mass index (BMI) [Ratio] 60.5 kg/m2 Dr. Surendra Benton Work Phone: [facility] Work Phone: Encounters Encounter Date Encounter Type Care Provider Facility Start: 11-22-2024 End: 11-22-[address] Jonatan Interiano MD -[facility] Work Phone: Start: 11-22-2024 End: 11-22-[address] Surendra Benton MD Work Phone: -[facility] Start: 10-03-2024 End: 10-03-2024 Chart abstracting Raegan Aguero MA [facility] Start: 10-01-2024 End: 10-01-[address] Surendra Benton MD Work Phone: -Laboratory Start: 10-01-2024 End: 10-01-[address] Katelin Crump DO -Laboratory Work Phone: Start: 10-01-2024 End: 10-01-2024 ambulatory Surendra Benton Facility:[facility] Start: 08-13-2024 End: 10-13-2024 Follow-up encounter Radha Short APRN.CNM Work Phone: OB/Gynecology Start: 07-30-2024 End: 07-30-2024 Patient encounter procedure [...] End: 07-30-2024 Patient encounter status Radha Short LATASHA Work Phone: [facility] Start: 07-30-2024 End: 07-30-2024 ambulatory RADHA SHORT Facility:[facility] Start: 07-30-2024 Encounter for gynecological examination (general) (routine) with abnormal findings RADHA SHORT [facility] Start: 06-17-2024 End: 06-17-2024 Patient encounter procedure Flora Singh APRN.CNP Work Phone: [facility] [place] Comment on above: Routine physical exa mination (Primary Dx); Leukocytosis, unspecified type; Primary hypertension; Encounter for surveillance of contraceptive pills; Screening for cervical cancer; Type 2 diabetes mellitus without complication, without long-term current use of insulin (HCC) Start: 06-17-2024 End: 06-17-2024 ambulatory SURENDRA BENTON Facility:[facility] Start: 06-17-2024 End: 06-17-2024 Physical examination Flora Singh APRN.CNP Work Phone: [facility] Start: 05-30-2024 End: 05-30-2024 Refill Teressa Zuniga APRN.CNP Work Phone: [facility] [place] Comment on above: Refill Request Start: 05-23-2024 End: 05-23-2024 [facility] Facility:[facility] Start: 12-26-2023 End: 12-26-2023 Refill Surendra Benton MD Work Phone: [facility] [place] Comment on above: Refill Request Start: 11-27-2023 End: 11-27-2023 ambulatory [facility] Facility:[facility] Start: 10-16-2023 Refill Flora Singh APRN.CNP Work Phone: [facility] [place] Comment on above: Refill Request Start: 08-19-2023 Refill Surendra Benton MD Work Phone: [facility] [place] Comment on above: Refill Request Start: 04-21-2023 Telephone encounter Flora grover APRNHeatherHYDRAULIC ASSEMBLER Work Phone: [facility] Comment on above: Results Start: 12-27-2022 Refill Surendra Benton MD Work Phone: [facility] Comment on above: Refill Request Start: 09-29-2022 End: 09-29-[address] Surendra Benton Work Phone: [facility] Work Phone: Start: 09-29-2022 End: 09-29-[address] Surendra Benton Work Phone: [facility] Work Phone: Start: 07-25-2022 Chart abstracting Surendra Michel MD Work Phone: [facility] Start: 07-25-2022 End: 07-25-[address] Surendra Benton Work Phone: [facility] Work Phone: Start: 02-09-2022 Refill Surendra Benton MD Work Phone: [facility] Comment on above: Refill Request Start: 10-05-2021 End: 10-05-[address] Surendra Benton Work Phone: [facility] Start: 09-30-2021 End: 09-30-[address] Surendra Benton Work Phone: [facility] Start: 09-27-2021 Refill Surendra Benton MD Work Phone: [facility] Comment on above: Refill Request Start: 08-14-2021 Refill Surendra Benton MD Work Phone: [facility] Comment on above: Refill Request Start: 07-20-2021 Refill Surendra Benton MD Work Phone: [facility] Comment on above: Refill Request Start: 07-19-2021 End: 07-19-2021 Patient encounter procedure Flora Singh APRN.HYDRAULIC ASSEMBLER Work Phone: [facility] [place] Comment on above: Encounter for precon ception consultation (Primary Dx) Start: 06-28-2021 End: 06-28-2021 Patient encounter procedure [facility], [place] technical customer support specialist Off Start: 06-09-2021 End: 06-09-2021 Patient encounter procedure [facility] Start: 05-13-2021 End: 05-13-2021 [facility] Start: 01-25-2021 End: 01-25-2021 Subsequent hospital visit by physician Xr [facility] Work Phone: Radiology Comment on above: SOB (shortness of br eath) [R06.02] Start: 08-18-2020 End: 08-18-2020 Subsequent hospital visit by physician Xr [facility] Work Phone: Radiology Comment on above: Acute pain of right knee [M25.561] Procedures Date Procedure Procedure Detail Performing Clinician Start: 10-03-2024 MICROALBUMIN/CREATIN INE UR W RATIO (EXTERNAL) [facility] Provider Start: 10-01-2024 Serum inorganic phos phate measurement Dr. Surendra Benton MD Work Phone: Start: 07-25-2022 Hemoglobin A1c/Hemoglobin.total in Blood [facility] Provider Start: 01-25-2021 Radiologic exam ches t 2 views Surendra Benton MD Work Phone: Start: 08-18-2020 Radiologic exam knee complete 4/more views Glenn Alvarez APRN.HYDRAULIC ASSEMBLER Work Phone: Start: 12-10-2018 Adult depression scr eening assessment Flora Singh APRN.HYDRAULIC ASSEMBLER Work Phone: Plan of Treatment Date Care Activity Detail Author Start: 07-30-2029 Screening for malignant neoplasm of cervix Cervical Cancer Screening [facility] Start: 05-13-2026 HPV TESTING HPV TESTING [facility] Start: 05-13-2026 PAP TESTING PAP TESTING [facility] Start: 05-13-2026 Screening for malignant neoplasm of cervix [facility] Start: 10-03-2025 Hepatitis B screening Urine Albumin:Creatinine Ratio [facility] Start: 09-24-2025 Hepatitis B surface antibody level LDL Cholesterol [facility] Start: 08-04-2025 End: 08-04-2025 Patient encounter procedure 08/04/2025 10:45 AM EDT Office Visit OB/Gynecology [address] [place] [address] Radha Short APRN.CNM [address] [place] [address] annual OB/Gynecology Comment on above: annual Start: 07-30-2025 BP Controlled (<130/80) BP Controlled (<130/80) [facility] Start: 06-17-2025 Annual PCP Team Chronic Disease Visit Annual PCP Team Chronic Disease Visit [facility] Start: 06-17-2025 BP Controlled (<130/80) BP Controlled (<130/80) [facility] Start: 03-27-2025 [facility]oglobin [facility]c [facility] Start: 11-18-2024 Influenza vaccination [facility] Start: 11-05-2024 Hepatitis B surface antibody level LDL Cholesterol [facility] Start: 07-30-2024 End: 07-30-2024 Patient encounter procedure 07/30/2024 10:00 AM EDT Office Visit OB/Gynecology [address] [place] [address] Radha Short APRN.CN [address] [place] [address] Screening for cervical cancer [Z12.4] OB/Gynecology Comment on above: Screening for cervical cancer [Z12.4] Start: 06-17-2024 End: 09-16-2024 CBC W Auto Differential panel - Blood COMPLETE BLOOD COUNT AND DIFFERENTIAL Lab Routine Routine physical examination Primary hypertension Expected: 06/17/2024, Expires: 09/16/2024 [facility] Work Phone: Comment on above: Expected: 06/17/2024, Expires: Start: 06-17-2024 End: 09-16-2024 Comprehensive metabolic 2000 panel - Serum or Plasma COMPREHENSIVE METABOLIC PANEL Lab Routine Routine physical examination Primary hypertension Expected: 06/17/2024, Expires: 09/16/[address] [facility] Comment on above: Expected: 06/17/2024, Expires: Start: 06-17-2024 End: 09-16-2024 Lipid 1996 panel - Serum or Plasma LIPID PANEL, FASTING Lab Routine Primary hypertension Expected: 06/17/2024, Expires: 09/16/[address] [facility] Comment on above: Expected: 06/17/2024, Expires: Start: 06-17-2024 End: 09-16-2024 Thyrotropin [Units/volume] in Serum or Plasma THYROID STIMULATING HORMONE Lab Routine Primary hypertension Expected: 06/17/2024, Expires: 09/16/[address] [facility] Comment on above: Expected: 06/17/2024, Expires: Start: 06-17-2024 End: 09-16-2024 Thyroxine (T4) free [Mass/volume] in Serum or Plasma T4 FREE/FREE THYROXINE Lab Routine Primary hypertension Expected: 06/17/2024, Expires: 09/16/[address] [facility] Comment on above: Expected: 06/17/2024, Expires: Start: 05-13-2024 Screening for malignant neoplasm of cervix Cervical Cancer Screening [facility] Start: 05-08-2024 Hemoglobin A1c measurement HbA1C [facility] Start: 04-17-2024 Annual PCP Team Chronic Disease Visit Annual PCP Team Chronic Disease Visit [facility] Start: 11-19-2023 Covid-19 Vaccine ( season) Covid-19 Vaccine ( season) [facility] Start: 11-19-2023 Influenza vaccination [facility] Start: 07-27-2023 Hepatitis B surface antibody level LDL Cholesterol [facility] Start: 04-21-2023 End: 07-21-2023 CBC W Auto Differential panel - Blood CBC + DIFF Lab Routine Leukocytosis, unspecified type Expected: 04/21/2023, Expires: 07/21/2023 [facility] Work Phone: Comment on above: Expected: 04/21/2023, Expires: Start: 03-20-2023 Behavioral Health Screening Behavioral Health Screening [facility] Start: 03-20-2023 Depression Assessment Depression Assessment [facility] Start: 02-08-2023 Hepatitis B surface antibody level LDL CHOLESTEROL [facility] Start: 01-26-2023 Hemoglobin A1c measurement HbA1C [facility] angela Start: 01-26-2023 Hemoglobin A1c/Hemoglobin.total in Blood HbA1C [facility] Start: 01-25-2023 Hemoglobin A1c/Hemoglobin.total in Blood HBA1C [facility] Start: 11-18-2022 Covid-19 Vaccine () Covid-19 Vaccine () [facility] Start: 11-18-2022 Influenza vaccination [facility] Start: 09-29-2022 Dehydroepiandrosterone sulfate (DHEA-S) [Mass/volume] in Serum or Plasma [facility] Start: 09-29-2022 Testosterone measurement [facility] Start: 08-08-2022 Hemoglobin A1c/Hemoglobin.total in Blood HBA1C [facility] Start: 07-19-2022 ANNUAL PCP TEAM CHRONIC DISEASE VISIT ANNUAL PCP TEAM CHRONIC DISEASE VISIT [facility] Start: 07-15-2022 Hepatitis B surface antibody level LDL CHOLESTEROL [facility] Start: 03-20-2022 DEPRESSION ASSESSMENT DEPRESSION ASSESSMENT [facility] Start: 01-25-2022 Hepatitis B screening URINE ALBUMIN:CREATININE RATIO [facility] Start: 01-14-2022 Hemoglobin A1c/Hemoglobin.total in Blood HBA1C [facility] Start: 11-18-2021 Influenza vaccination [facility] Start: 07-24-2021 3 comp foot exam completed DIABETIC FOOT EXAM [facility] angela Start: 07-24-2021 Diabetic foot examination Diabetic Foot Exam [facility] Start: 03-20-2021 DEPRESSION ASSESSMENT DEPRESSION ASSESSMENT [facility] Start: 12-11-2019 Adult depression screening assessment DEPRESSION SCREENING [facility] Start: 2009 HEPATITIS B (1 of 3 - Risk 3-dose series) HEPATITIS B (1 of 3 - Risk 3-dose series) [facility] Start: 2009 Hepatitis B Vaccine (1 of 3 - 19+ 3-dose series) Hepatitis B Vaccine (1 of 3 - 19+ 3-dose series) [facility] Start: 2009 Pneumococcal vaccination Pneumococcal Vaccine (1 of 2 - PCV) [facility] Start: 2009 Urine microalbumin profile [facility] Start: 2008 Anxiety Screening Anxiety Screening [facility] Start: 2008 BP CONTROLLED (<130/80) BP CONTROLLED (<130/80) [facility] Start: 2008 Depression Screening Depression Screening [facility] Start: 2008 HIV SCREENING HIV SCREENING [facility] Start: 2008 HIV screening HIV Screening [facility] Start: 2006 ONE PNEUMOVAX PRIOR TO AGE 65 ONE PNEUMOVAX PRIOR TO AGE [address] [facility] Start: 2000 Glaucoma screening Dilated Retinal Exam [facility] Start: 2000 Hepatitis C antibody, confirmatory test DILATED RETINAL EXAM [facility] Start: 1996 PNEUMOCOCCAL (1 - PCV) PNEUMOCOCCAL (1 - PCV) [facility] Start: 1996 Pneumococcal vaccination [facility] Start: 06-02-1995 COVID-19 VACCINE (#1) COVID-19 VACCINE (#1) [facility] Start: 06-02-1995 COVID-19 VACCINE (1) COVID-19 VACCINE (1) [facility] Start: 1990 COVID-19 VACCINE (#1) COVID-19 VACCINE (#1) [facility] Start: 1990 HEPATITIS B (1 of 3 - 3-dose series) HEPATITIS B (1 of 3 - 3-dose series) [facility] Start: 1990 Hepatitis B Vaccine (1 of 3 - 3-dose series) Hepatitis B Vaccine (1 of 3 - 3-dose series) [facility] HIGH RISK HUMAN KEYONNA LLOMA VIRUS (HPV), PCR FOR DETECTION AND GENOTYPING HIGH RISK HUMAN PAPILLOMA VIRUS (HPV), PCR FOR DETECTION AND GENOTYPING Lab Routine Screening for cervical cancer Encounter for gynecological examination (general) (routine) with abnormal findings Encounter for screening for human papillomavirus (HPV) 07/30/2024 10:13 AM EDT [facility] PAP TEST PAP TEST Lab [place] Screening for cervical cancer Encounter for gynecological examination (general) (routine) with abnormal findings Encounter for screening for human papillomavirus (HPV) 07/30/2024 10:13 AM EDT [facility] Work Phone: Testosterone Free [Mass/volume] in Serum or Plasma [facility] Immunizations Immunization Date Immunization Notes Care Provider Misty gamblediana 12-18-2016 influenza virus vacc ine, unspecified formulation Flora Singh APRN.HYDRAULIC ASSEMBLER Work Phone: [facility] Payers Date Payer Category Payer Self-pay [id number] 2018 Private Health Insurance MMO [employer] PPO [id number] 2018 Unknown MMO MMO [employer] [id number] 2018-Present [phone] [address] [place] [id number] PPO [id number] 2018 Unknown [id number] 2018 Unknown [id number] 2011 Unknown [id number] Unknown [id number] Unknown [id number] Unknown [id number] Unknown [id number] Social History Date Type Detail Facility Start: 11-08-2017 End: 07-25-2022 Tobacco smoking status IAIS Unknown if ever smoked [facility] Start: 1990 Sex Assigned At Female [facility] Start: 03-05-2012 End: 12-11-2013 Tobacco smoking status NHIS Never smoked tobacco [facility] Work Phone: Start: 03-05-2012 End: 12-11-2013 Tobacco use and exposure Smokeless tobacco non-user [facility] Work Phone: Start: 07-19-2021 End: 07-30-2024 Alcohol intake Current drinker of alcohol (finding) [facility] Start: 07-22-2019 End: 01-01-2020 History SDOH Alcohol Frequency [address] [facility] Start: 07-22-2019 End: 01-01-2020 History SDOH Alcohol Std Drinks [address] [facility] Start: 07-22-2019 End: 01-01-2020 History SDOH Alcohol Binge [address] [facility] Start: 03-05-2012 History SDOH Alcohol Comment occasionally [facility] Start: 07-22-2019 End: 01-01-2020 History SDOH Social Connections Phone [address] [facility] Start: 07-22-2019 History SDOH Physical Activity DPW [address] [facility] Start: 01-01-2020 History SDOH Financial [address] [facility] Start: 07-22-2019 Education [address] [facility] Start: 07-22-2019 End: 04-17-2023 History of Social function [facility] Start: 07-22-2019 End: 04-17-2023 Social connection and isolation panel [facility] Do you belong to any clubs or organizations such as christianity groups, unions, fraternal or athletic groups, or school groups? No [facility] How often do you att end meetings of the clubs or organizations you belong to? Patient refused [facility] Are you now , , , , never or living with a partner? [facility] How often to you hav e a drink containing alcohol? 2-4 times a month [facility] How many standard dr inks containing alcohol do you have on a typical day? 1 or [address] [facility] Do you feel stress - tense, restless, nervous, or anxious, or unable to sleep at night because your mind is troubled all the time - these days [OSQ] To some extent [facility] (I/We) worried wheth er (my/our) food would run out before (I/we) got money to buy more. Never true [facility] Start: 03-06-2020 Gender identity Identifies as female gender (finding) [facility] Start: 07-19-2020 End: 01-25-2021 Exposure to SARS-CoV-2 (event) Not sure [facility] Start: 2023 Tobacco smoking status NHIS Ex-smoker (finding) [facility] Medical Equipment Procedure Code Equipment Code Equipment Origin al Text Equipment Identifier Dates MEHDI AMAYA [employer]ideos[employer] Start: 09-15-2017 MEHDI AMAYA FDA Start: 09-15-2017 MEHDI AMAYA FDA Start: 09-15-2017 MEHDI AMAYA FDA Start: 09-15-2017 Test blood sugar(s) 1 times daily. Dx: Type 2 DM - Controlled E11.9 Insulin: No [id number], [id number], [id number], [id number], [id number] Start: 07-22-2019 End: 05-30-2024 Comment on above: [...] serious difficulty hearing No 10/13/2014 7:01 PM EDT Paula Buckley LPN No [facility] 10-13-2014 Are you blind, or do you have serious difficulty seeing, even when wearing glasses No 10/13/2014 7:01 PM EDT Paula Buckley LPN No [facility] 10-13-2014 Do you have serious difficulty walking or climbing stairs No 10/13/2014 7:01 PM EDT Paula Buckley LPN No [facility] 10-13-2014 Do you have difficul ty dressing or bathing No 10/13/2014 7:01 PM EDT Paula Buckley LPN No [facility] 10-13-2014 Because of a physica l, mental, or emotional condition, do you have difficulty doing errands alone such as visiting a physician's office or shopping No 10/13/2014 7:01 PM EDT Paula Buckley LPN No [facility] Mental Status Date Assessment Result Facility 10-13-2014 Because of a physica l, mental, or emotional condition, do you have serious difficulty concentrating, remembering, or making decisions No 10/13/2014 7:01 PM EDT Paula Buckley LPN No [facility] Clinical Notes 10-13-2014 to 07-30-2024 Radha Short APRN.CNM - 07/30/2024 9:33 AM EDTPatient Flora Bauer APRN.HYDRAULIC ASSEMBLER - 06/17/2024 5:49 PM EDTTelephone Encounter - Lidya Hess LPN - 05/30/2024 7:35 AM EDT Note Date & Type Note Facility 07-30-2024 Note HNO ID: [id number] Author: RADHA SHORT APRN.CNM Service: ? Author Type: Spraying Machine Operator Type: Progress Notes Filed: 07/30/2024 10:21 Note Text: Obstetrics and Gynecology [place] Annual Exam Subjective Recording using ambient Pogoplug software for draft documentation of the visit was discussed with the patient/authorized service center representative; all questions welcomed and answered. Patient/authorized service center representative agreed to proceed CHIEF COMPLAINT: HPI: The patient is a 34-year-old female with a history of HTN, asthma, T2DM, and PCOS, presenting for a well-woman exam. The patient is new to the practice, previously receiving care at [place]. She is currently on Mounjaro for T2DM, [...] expresses interest in working with a diabetic policy cancellation clerk to further assist with weight loss. 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 She denies any major questions or concerns at this time. HISTORY: OB History Gravida0 Para0 Term0 Preterm0 AB0 Living0 SAB0 IAB0 Ectopic0 Multiple0 Live Births0 Cost Clerk History LMP: 07/30/2024 (Exact Date), Having periods Age at Menarche: 11 Age at First : Age at Menopause: Cost Clerk History Comments: Sexual Activity: Yes; Male Contraception: Pill Menstrual Tracking History Flowsheet Row Office Visit from 07/30/2024 in OB/Gynecology Period Cycle (Days) 30 Period Duration (Days) 7 Menstrual Flow Heavy PAST MEDICAL HISTORY Diagnosis Date Asthma ([facility]) Depression 09/18/2011 [facility] Psychiatric admission - sucidal thoughts DM (diabetes mellitus) (HCC) History of PCOS Has not been on glucophage since 2006 Hypertension Infertility, female 2016 Polycystic ovary syndrome Proteinuria PAST SURGICAL HISTORY Procedure Laterality Date ADENOIDECTOMY PRIMARY Adenoidectomy APPENDECTOMY 2000 CHOLECYSTECTOMY 09/15/2017 PAST SURGICAL HISTORY OF bilateral ear ventilating tubes PAST SURGICAL HISTORY OF N/A 11/2017 [facility] Endoscopy at [facility] by Dr. Dominguez TONSILLECTOMY PRIMARY/SECONDARY Tonsillectomy FAMILY [...] Controlled E11.9 Ins (more content not included)... [facility] 07-30-2024 History of Presen t illness Narrative Images from the original note were not included. Obstetrics and Gynecology [place] Annual Exam Subjective Recording using [employer] software for draft documentation of the visit was discussed with the patient/authorized service center representative; all questions welcomed and answered. Patient/authorized service center representative agreed to proceed CHIEF COMPLAINT: HPI: The patient is a 34-year-old female with a history of HTN, asthma, T2DM, and PCOS, presenting for a well-woman exam. The patient is new to the practice, previously receiving care at [place]. She is currently on Mounjaro for T2DM, [...] expresses interest in working with a diabetic policy cancellation clerk to further assist with weight loss. 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 She denies any major questions or concerns at this time. HISTORY: OB History Gravida0 Para0 Term0 Preterm0 AB0 Living0 SAB0 IAB0 Ectopic0 Multiple0 Live Births0 Cost Clerk History LMP: 07/30/2024 (Exact Date), Having periods Age at Menarche: 11 Age at First : Age at Menopause: Cost Clerk History Comments: Sexual Activity: Yes; Male Contraception: Pill Menstrual Tracking History Flowsheet Row Office Visit from 07/30/2024 in OB/Gynecology Period Cycle (Days) 30 Period Duration (Days) 7 Menstrual Flow Heavy PAST MEDICAL HISTORY Diagnosis Date Asthma (HCC) Depression 09/18/2011 [facility] Psychiatric admission - sucidal thoughts DM (diabetes mellitus) (HCC) History of PCOS Has not been on glucophage since 2007 Hypertension Infertility, female 2016 Polycystic ovary syndrome Proteinuria PAST SURGICAL HISTORY Procedure Laterality Date ADENOIDECTOMY PRIMARY <AGE 12 Adenoidectomy APPENDECTOMY 2000 CHOLECYSTECTOMY 09/15/2017 PAST SURGICAL HISTORY OF bilateral ear ventilating tubes PAST SURGICAL HISTORY OF N/A 11/2017 [facility] Endoscopy at [facility] by Dr. Dominguez TONSILLECTOMY PRIMARY/SECONDARY <AGE 12 [...] reviewed and discussed with patient- 07/30/2024 New MEDICAL TRANSLATOR Intake First period 11 Still get period [...] discussed with the Patient or Patient's Authorized Cigarette Making Machine Catcher. As applicable, any other physician, advance practice provider, medical student, or other health professional student that will be observing or involved in the sensitive examination for educational or training purposes was discussed with the Patient or Authorized Cigarette Making Machine Catcher. The Patient or Authorized Cigarette Making Machine Catcher has agreed to proceed with the sensitive [...] external genitalia normal, normal Bartholin's glands, urethra, [place]'s glands, no vulvar lesions, no cervical lesions, [...] smear performed; results will be available on Tinypass. Next Pap smear due in 5 years [...] increased physical activity. - Referred to diabetic policy cancellation clerk for personalized dietary plan. 5. Essential (primary) hypertension (I10) History of essential hypertension. 6. Encounter for gynecological examination (general) (routine) with abnormal findings - ICD9: V72.31, ICD10: Z01.411 (primary diagnosis) - Completed pelvic and breast exam - Encouraged monthly BSE - Follow up for annual exam in one year. - PAP TEST Radha Short APRN.CNM documented in this encounter [facility] 06-17-2024 Instructions Flora Singh APRN.CNP - 06/17/2024 6:17 PM EDT Get labs Continue current medication regimen Schedule eye exam Continue to follow with endocrinology Follow up in one year or sooner if needed documented in this encounter [facility] 06-17-2024 Note HNO ID: [id number] Author: FLORA SINGH APRN.CNP Service: ? Author [...] or pain: No. Follows with endocrinology at [place] Had labs checked labs A1C was 6.2 [...] HISTORY Diagnosis Date Asthma Depression September 2011 [facility] Psychiatric admission - sucidal thoughts DM (diabetes mellitus) (HCC) History of PCOS Has not been on glucophage since 2006 Hypertension Proteinuria PAST SURGICAL HISTORY Procedure Laterality Date ADENOIDECTOMY PRIMARY Adenoidectomy APPENDECTOMY 2000 CHOLECYSTECTOMY 09/15/2017 PAST SURGICAL HISTORY OF bilateral ear ventilating tubes PAST SURGICAL HISTORY OF N/A 11/2017 [facility] Endoscopy at [facility] by Dr. Dominguez TONSILLECTOMY PRIMARY/SECONDARY Tonsillectomy ALLERGIES [...] acute distress, well-hydrated, (more content not included)... [facility] 06-17-2024 History of Presen t illness Narrative [...] or pain: No. Follows with endocrinology at [place] Had labs checked labs A1C was 6.2 [...] HISTORY Diagnosis Date Asthma Depression September 2011 [facility] Psychiatric admission - sucidal thoughts DM (diabetes mellitus) (HCC) History of PCOS Has not been on glucophage since 2006 Hypertension Proteinuria PAST SURGICAL HISTORY Procedure Laterality Date ADENOIDECTOMY PRIMARY <AGE 12 Adenoidectomy APPENDECTOMY 2000 CHOLECYSTECTOMY 09/15/2017 PAST SURGICAL HISTORY OF bilateral ear ventilating tubes PAST SURGICAL HISTORY OF N/A 11/2017 [facility] Endoscopy at [facility] by Dr. Dominguez TONSILLECTOMY PRIMARY/SECONDARY <AGE 12 [...] Flora Singh APRN.SABINA documented in this encounter [facility] 05-30-2024 Telephone encounter Note Prescription Refill [...] Hess LPN May 30, 2024 7:[address] [facility] 05-30-2024 Miscellaneous Notes Prescription Refill Information [...] 2024 7:36 AM documented in this encounter [facility] 12-26-2023 Telephone encounter Note The following approved medication requests have been transmitted electronically. Requested Prescriptions Pending Prescriptions Disp Refills albuterol HFA (PROVENTIL HFA, VENTOLIN HFA) 90 mcg/actuation inhaler 1 Each 0 Sig: Inhale 2 Puffs as instructed every 4 hours as needed for wheezing/shortness of breath. Teressa Zuniga APRN.CNP [facility] 12-26-2023 Miscellaneous Notes The following approved [...] 2023 11:07 AM documented in this encounter [facility] 12-26-2023 Telephone encounter Note Prescription Refill [...] Leyva MA December 26, 2023 11:[address] [facility] 10-16-2023 Telephone encounter Note Prescription Refill [...] Lisa LPN October 16, 2023 10:[address] [facility] 10-16-2023 Miscellaneous Notes Prescription Refill Information [...] 2023 10:47 AM documented in this encounter [facility] 08-21-2023 Telephone encounter Note Patient MasterImage 3Dt message requesting the following refill Refill(s) Requested: [...] of breath. ALLERGIES No Known Allergies (home) [phone] (cell) Last Office Visit Date: 04/17/2023 Last [facility] Visit: Visit date not found Future Appointment: Visit date not found The patients preferred pharmacy has been captured for this encounter? yes Request is for script(s) to be escript to pharmacy. Edith Mosqueda LPN [facility] 08-21-2023 Miscellaneous Notes Patient MasterImage 3Dt message requesting the following refill Refill(s) Requested: [...] of breath. ALLERGIES No Known Allergies (home) [phone] (cell) Last Office Visit Date: 04/17/2023 Last [facility] Visit: Visit date not found Future Appointment: Visit date not found The patients preferred pharmacy has been captured for this encounter? yes Request is for script(s) to be escript to pharmacy. Edith Mosqueda LPN documented in this encounter [facility] 04-21-2023 Miscellaneous Notes Pt notified. She [...] Flora Singh APRN.SABINA documented in this encounter [facility] 12-27-2022 Miscellaneous Notes Patient has been [...] Teressa Davila LPN. documented in this encounter [facility] 02-09-2022 Miscellaneous Notes Patient has been identified by name and date of : Yes Patient phones for refill(s): Requested Prescriptions Pending Prescriptions Disp Refills glimepiride (AMARYL) 1 mg tablet 30 tablet 5 Sig: Take 1 tablet by mouth daily with breakfast. Date of last office visit in primary care: 04/12/21 Please advise. Thank you. Teressa Davila LPN documented in this encounter [facility] 09-27-2021 Miscellaneous Notes Last office visit: 07/19/21 F/u scheduled: none Ava Leyva Ma documented in this encounter [facility] 08-17-2021 Miscellaneous Notes Patient phones requesting refills as follows: Pending Prescriptions Disp Refills TRULICITY 0.75 MG/0.5 ML SUBCUTANEOUS PEN INJECTOR 2 mL 5 Sig: Inject 0.75 mg subcutaneously one time a week. Inject dose once per week. Discard Pen After SOLITARIO: No JOHN 07/19/21 NOV no upcoming appt Please review and advise. Garrison Lisa LPN documented in this encounter [facility] 07-21-2021 Miscellaneous Notes Patient has been [...] Debbie Castaneda LPN documented in this encounter [facility] 07-19-2021 Instructions Flora Singh APRN.SABINA - 07/19/2021 5:24 PM EDT 1. Set up w/ endocrinology. 2. When the time comes, we will need to change the lisinopril to labetalol. 3. When you decide to start trying for -- stop the trulicity. documented in this encounter [facility] 07-19-2021 History of Presen t illness Narrative This is a 31 year old female who presents today with: Patient presents with: Recheck: medication review/discuss trulicity and lisinopril HISTORY OF PRESENT ILLNESS: Mariam Ventura is a 31 year old female. Patient presents with: Recheck: medication review/discuss trulicity and lisinopril Patient presents today to discussed preconceptual counseling. She recently had an appoint with MEDICAL TRANSLATOR. Dr. Castro -- [facility]. She is interested in . She was found to have an elevated testosterone level. Per patient MEDICAL TRANSLATOR would like her to follow-up with endocrinology. Patient has not set up this appointment yet. She is not planning until she has had an appointment with endocrinology. She is concerned because of being on Trulicity and lisinopril. Aware that these medications will need change for . PAST MEDICAL HISTORY: PAST MEDICAL HISTORY Diagnosis Date Asthma Depression September 2011 [facility] Psychiatric admission - sucidal thoughts DM (diabetes mellitus) (HCC) History of PCOS Has not been on glucophage since 2006 Hypertension Proteinuria PAST SURGICAL HISTORY Procedure Laterality Date ADENOIDECTOMY PRIMARY <AGE 12 Adenoidectomy APPENDECTOMY 2000 CHOLECYSTECTOMY 09/15/2017 PAST SURGICAL HISTORY OF bilateral ear ventilating tubes PAST SURGICAL HISTORY OF N/A 11/2017 [facility] Endoscopy at [facility] by Dr. Dominguez TONSILLECTOMY PRIMARY/SECONDARY <AGE 12 [...] as needed for worsening/no improvement. Flora Singh APRN.HYDRAULIC ASSEMBLER This note was partially generated using ZQGame voice recognition system. Note was reviewed for accuracy. There may be minor misspellings or grammar miscues with ZQGame voice recognition. documented in this encounter [facility] 05-13-2021 Note [facility] Work Phone: Pap Smear Specimen Adequacy May 13, 2021 12:00pm Comment Satisfactory for evaluation. Endocervical and/or squamous metaplasticcells (endocervical component) are present. Comment on above: Satisfactory for yoel luation. Endocervical and/or squamous metaplasticcells (endocervical component) are present. 05-13-2021 Note [facility] Work Phone: Pap Smear Specimen Adequacy May [...] 2021 9:59 AM documented in this encounter [facility] 08-18-2020 History of Presen t illness [...] 2020 5:45 PM documented in this encounter [facility] 10-13-2014 History of Past i llness Narrative Problem Noted Date Resolved Date DM (diabetes mellitus) 5 documented as of this encounter (statuses as of 07/19/2021) [address]27-[address] History of Past illness Narrative* Problem Noted Date Resolved Date DM (diabetes mellitus) 5 documented as of this encounter (statuses as of 07/21/2021) [address] History of Past illness Narrative* Problem Noted Date Resolved Date DM (diabetes mellitus) 5 documented as of this encounter (statuses as of 08/17/2021) [address] History of Past illness Narrative* Problem Noted Date Resolved Date DM (diabetes mellitus) 5 documented as of this encounter (statuses as of 09/27/2021) [address] History of Past illness Narrative* Problem Noted Date Resolved Date DM (diabetes mellitus) 5 documented as of this encounter (statuses as of 02/09/2022) [address] History of Past illness Narrative* Problem Noted Date Resolved Date DM (diabetes mellitus) 5 documented as of this encounter (statuses as of 07/26/2022) [address] History of Past illness Narrative* Problem Noted Date Diagnosed Date Resolved Date DM (diabetes mellitus) 10/13 documented as of this encounter (statuses as of 12/27/2022) [address] History of Past illness Narrative* Problem Noted Date Diagnosed Date Resolved Date DM (diabetes mellitus) 10/13 documented as of this encounter (statuses as of 04/21/2023) [facility] noteNo assessment information [facility]: Evaluation note* Diagnosis Encounter for preconception consultation- Primary Other procreative management counseling and advice documented in this encounter [facility] note* Diagnosis Type 2 diabetes mellitus without complication, without long-term current use of insulin (HCC) documented in this encounter [facility] note* Diagnosis Type 2 diabetes mellitus without complication, without long-term current use of insulin (HCC) Uncomplicated asthma, unspecified asthma severity, unspecified whether persistent SOB (shortness of breath) Shortness of breath [facility] Onset Date Resolution Status Diabetes acute Obesity acute PCOS (polycystic ovarian syndrome) acute [facility] Work Phone: Evaluation note* Diagnosis Type 2 diabetes mellitus without complication, without long-term current use of insulin (HCC) [facility] Diagnosis Onset Date Resolution Status Diabetes chronic Obesity chronic PCOS (polycystic ovarian syndrome) chronic [facility] Work Phone: Evaluation note* Diagnosis Type 2 diabetes mellitus without complication, without long-term current use of insulin (HCC) [facility] Leukocytosis, unspecified type- Primary [facility] Diagnosis Type 2 diabetes mellitus without complication, without long-term current use of insulin (HCC) Uncomplicated asthma, unspecified asthma severity, unspecified whether persistent SOB (shortness of breath) Shortness of breath [facility] Diagnosis SOB (shortness of breath) Shortness of breath [facility] Diagnosis Acute pain of right knee [facility] Diagnosis Uncomplicated asthma, unspecified asthma severity, unspecified whether persistent SOB (shortness of breath) Shortness of breath [facility] Diagnosis Uncomplicated asthma, unspecified asthma severity, unspecified whether persistent SOB (shortness of breath) Shortness of breath [facility] Diagnosis Routine physical examination- Primary Routine general medical examination at a health care facility Leukocytosis, unspecified type Primary hypertension Unspecified essential hypertension Encounter for surveillance of contraceptive pills Surveillance of previously prescribed contraceptive pill Screening for cervical cancer Screening for malignant neoplasm of the cervix Type 2 diabetes mellitus without complication, without long-term current use of insulin (HCC) [facility] Encounter for gynecological examination (general) [...] Unspecified essential hypertension documented in this encounter [facility] for referral (narrative)No reason for referral information availableWOhioHealth [facility] Work Phone: Summary Purpose Family History No Family History Records Found Relationship Condition Age at Onset Recorded Date/T omkar Not Specified Hypertension Unknown father Diabetes mellitus Unknown Coronary artery disease Unknown mother Diabetes mellitus Unknown Advance Directives No Advanced Directives Records Found Advance Directive Response Recorded Date/ Time Advance Directives No September 13 4:11pm Living Will No November 08 201 8 11:51am Power of Trade Show Manager No November 08, 2 018 11:51am Advance Directive Response Recorded Date/ Time Advance Directives No September 13 4:11pm Chief Complaint and Reason for Visit Chief Complaint irregular menses Chief Complaint ELEVATED DHEA AND TE STOSTERONE Reason for Visit Diabetes Obesity PCOS (polycystic ovarian syndrome) Chief Complaint 6 M FU Type 2 diabetes mellitus with diabetic nephropathy Reason for Visit Diabetes Obesity PCOS (polycystic ovarian syndrome) Chief Complaint Admit Date 6 M FU November 22, 2024 7:56am Additional Source Comments INFORMATION SOURCE (unrecogn ized section and content) DATE CREATED AUTHOR 07/30/2020 [facility] ([place]) DATE CREATED AUTHOR AUTHOR'S ORGANIZ ATION 09/30/2024 [facility] DATE CREATED AUTHOR AUTHOR'S ORGANIZ ATION 11/23/2024 [facility] Goals (unrecognized section and content) Goals may [...] or prosecute any alcohol or drug abuse patient.[facility] the event this information is protected by the Federal Confidentiality of Alcohol and Drug Abuse Patient Records regulations: The Federal rules restrict any use of the information to criminally investigate or prosecute any alcohol or drug abuse patient.[facility] HospitalIn the event this information is protected by the Federal Confidentiality of Alcohol and Drug Abuse Patient Records regulations: The Federal rules restrict any use of the information to criminally investigate or prosecute any alcohol or drug abuse patient.[facility] HospitalIn the event this information is protected by the Federal Confidentiality of Alcohol and Drug Abuse Patient Records regulations: The Federal rules restrict any use of the information to criminally investigate or prosecute any alcohol or drug abuse patient.[facility] HospitalIn the event this information is protected by the Federal Confidentiality of Alcohol and Drug Abuse Patient Records regulations: The Federal rules restrict any use of the information to criminally investigate or prosecute any alcohol or drug abuse patient.[facility] HospitalIn the event this information is protected by the Federal Confidentiality of Alcohol and Drug Abuse Patient Records regulations: The Federal rules restrict any use of the information to criminally investigate or prosecute any alcohol or drug abuse patient.[facility] HospitalIn the event this information is protected by the Federal Confidentiality of Alcohol and Drug Abuse Patient Records regulations: The Federal rules restrict any use of the information to criminally investigate or prosecute any alcohol or drug abuse patient.[facility] HospitalIn the event this information is protected by the Federal Confidentiality of Alcohol and Drug Abuse Patient Records regulations: The Federal rules restrict any use of the information to criminally investigate or prosecute any alcohol or drug abuse patient.[facility] HospitalIn the event this information is protected by the Federal Confidentiality of Alcohol and Drug Abuse Patient Records regulations: The Federal rules restrict any use of the information to criminally investigate or prosecute any alcohol or drug abuse patient.[facility] HospitalIn the event this information is protected by the Federal Confidentiality of Alcohol and Drug Abuse Patient Records regulations: The Federal rules restrict any use of the information to criminally investigate or prosecute any alcohol or drug abuse patient.[facility] HospitalIn the event this information is protected by the Federal Confidentiality of Alcohol and Drug Abuse Patient Records regulations: The Federal rules restrict any use of the information to criminally investigate or prosecute any alcohol or drug abuse patient.[facility] HospitalIn the event this information is protected by the Federal Confidentiality of Alcohol and Drug Abuse Patient Records regulations: The Federal rules restrict any use of the information to criminally investigate or prosecute any alcohol or drug abuse patient.[facility] HospitalIn the event this information is protected by the Federal Confidentiality of Alcohol and Drug Abuse Patient Records regulations: The Federal rules restrict any use of the information to criminally investigate or prosecute any alcohol or drug abuse patient.[facility] HospitalIn the event this information is protected by the Federal Confidentiality of Alcohol and Drug Abuse Patient Records regulations: The Federal rules restrict any use of the information to criminally investigate or prosecute any alcohol or drug abuse patient.[facility] HospitalIn the event this information is protected by the Federal Confidentiality of Alcohol and Drug Abuse Patient Records regulations: The Federal rules restrict any use of the information to criminally investigate or prosecute any alcohol or drug abuse patient.[facility] HospitalIn the event this information is protected by the Federal Confidentiality of Alcohol and Drug Abuse Patient Records regulations: The Federal rules restrict any use of the information to criminally investigate or prosecute any alcohol or drug abuse patient.[facility] HospitalIn the event this information is protected by the Federal Confidentiality of Alcohol and Drug Abuse Patient Records regulations: The Federal rules restrict any use of the information to criminally investigate or prosecute any alcohol or drug abuse patient.[facility] HospitalIn the event this information is protected by the Federal Confidentiality of Alcohol and Drug Abuse Patient Records regulations: The Federal rules restrict any use of the information to criminally investigate or prosecute any alcohol or drug abuse patient.[facility] Reason for Visit (unrecogniz ed section [...] Woman Specialty Diagnoses / Procedures Referred By Contac t Referred To Contact Gynecology Diagnoses Screening for cervical cancer Procedures CONSULT TO GYNECOLOGY OFFICE/OUTPATIENT [facility] 60 MINUTES Flora Singh, AP PROCESSOR.HYDRAULIC ASSEMBLER [address] [place] [address] Phone: tel: fax: Referral ID Status Reason Start Date Expiration Date V isits Requested Visits Authorized [id number] Closed PCP Requested Referral Auto-Generated Referral 06/17/2024 06/17/2025 1 1 Care Teams (unrecognized sec tion and content) Notcher Relationship Specialty Start Date End Date Surendra Benton MD [address] [facility] [place] [address] PCP - General Family Practice 11/26/13 Notcher Relationship Specialty Start Date End Date Surendra Benton MD [address] [facility] [place] [address] PCP - General Family Practice 11/26/13 Notcher Relationship Specialty Start Date End Date Surendra Benton MD [address] [facility] [place] [address] PCP - General Family Practice 11/26/13 Notcher Relationship Specialty Start Date End Date Surendra Benton MD [address] [facility] [place] [address] PCP - General Family Practice 11/26/13 Notcher Relationship Specialty Start Date End Date Surendra Benton MD [address] [facility] [place] [address] PCP - General Family Medicine 11/26/13 Notcher Relationship Specialty Start Date End Date Surendra Benton MD [address] [facility] [place] [address] PCP - General Family Medicine 11/26/13 Team [...] Dr. Jonatan Interiano MD Other Provider Active Notcher Relationship Specialty Start Date End Date Surendra Benton MD [address] [facility] [place] [address] PCP - General Family Medicine 11/26/13 Notcher Relationship Specialty Start Date End Date Surendra Benton MD [address] [place], [place] [address] PCP - General Family Medicine 11/26/13 Notcher Relationship Specialty Start Date End Date Surendra Benton MD [address] [place] [address] PCP - General Family Medicine 11/26/13 Notcher Relationship Specialty Start Date End Date Surendra Benton MD [address] [place] [address] PCP - General Family Medicine 11/26/13 Notcher Relationship Specialty Start Date End Date Surendra Benton MD [address] [place] [address] PCP - General Family Medicine 11/26/13 Notcher Relationship Specialty Start Date End Date Surendra Benton MD [address] [place] [address] PCP - General Family Medicine 11/26/13 Notcher Relationship Specialty Start Date End Date Surendra Benton MD [address] [place] [address] PCP - General Family Medicine 11/26/13 Flora Singh APRN.HYDRAULIC ASSEMBLER [address] [place] [address] Recreational Vehicle Resort Manager Family Medicine 02/26/24 Teressa Zuniga APRN.HYDRAULIC ASSEMBLER [address] [place] [address] [employer]creational Vehicle [facility] [place] [place] 02/26/24 Notcher Relationship Specialty Start Date End Date Surendra Benton MD [address] [facility] [place] [address] PCP - General Family Medicine 11/26/13 Flora Singh AP PROCESSOR.HYDRAULIC ASSEMBLER [address] [facility] [place] [address] Recreational Vehicle Resort Manager Family Medicine 02/26/24 Teressa Zuniga AP PROCESSOR.HYDRAULIC ASSEMBLER [address] [facility] [place] [address] [facility] 02/26/24 Notcher Relationship Specialty Start Date End Date Surendra Benton MD [address] [place] [address] PCP - General Family Medicine 11/26/13 Flora Singh AP PROCESSOR.HYDRAULIC ASSEMBLER [address] [facility] [place] [address] Recreational Vehicle Resort ManagerAd[facility] 02/26/24 Teressa Zuniga AP PROCESSOR.HYDRAULIC ASSEMBLER [address] [place] [address] Recreational Vehicle Resort [facility] [place] [place] 02/26/24 Notcher Relationship Specialty Start Date End Date Surendra Benton MD [address] [place] [address] PCP - General Family Medicine 11/26/13 Flora Singh AP PROCESSOR.HYDRAULIC ASSEMBLER [address] [place] [address] [facility] 02/26/24 Teressa Zuniga APRN.[facility] [address] [facility] [place] [address] [facility] 02/26/24 Team Status: Active Member Role/Relationship Status Dates Dr. Surendra Benton MD Primary Care Provider Active Team Status: Inactive Member Role/Relationship Status Dates Dr. Surendra Benton MD Primary Care Provider Active Start: October 01, 2024 End: October 01, 2024 Dr. Katelin Crump DO Attending Provider Active Start: October 01, 2024 End: October 01, 2024 Dr. Katelin Crump DO Referring Provider Active Start: October 01, 2024 End: October 01, 2024 Team Status: Inactive Member Role/Relationship Status Dates Dr. Surendra Benton MD Primary Care Provider Active Start: November 22, 2024 End: November 22, 2024 Dr. Surendra Benton MD Referring Provider Active Start: November 22, 2024 End: November 22, 2024 Dr. Jonatan Interiano MD Attending Provider Active Sta rt: November 22, 2024 End: November 22, 2024 FOR RECORDS PERTAINING TO PATIENTS WHO ARE [...] BE BASED ON THE PRIMARY CLINICAL RECORDS. [facility] [employer] provides no warranty or guarantee of the accuracy or completeness of information in this document.
[2025-02-13 18:04] VITALS: BP 136/79; PULSE 91; RESP 14; TEMP 36.6; O2SAT 97
== END 2025-02-13 18:25 | disposition home or self-care (01) ==
PROVIDERS: Emergency Provider Surgery; PCP Family Medicine; Visit Provider Surgery
DX: M79.672 Pain in left foot (principal); M25.572 Pain in left ankle and joints of left foot; W10.9XXA Fall (on) (from) unspecified stairs and steps, initial encounter; Z87.891 Personal history of nicotine dependence
CPT/HCPCS: 73610; 73630; 99282